=== PATIENT | male | born 1960 | race Caucasian/White ===

== ENCOUNTER 2018-10-22 06:27 | Inpatient (IN) | payer BC, OTHER ==
[~2018-10-22 06:27] MED LIST: Buffered Lidocaine 1% SYRIN* 1 ML/SYRINGE INTRADERM ONE
--- OUTSIDE RECORDS SUMMARY | 2018-10-22 06:30 | XMS REPORT | Continuity of Care Document ---
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 Actinic keratosis Lobo Hdez MD Active Onset: 09/19/2016 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 Onset: 09/19/2016 Chronic laryngitis Lobo Hdez MD Active Family History Date Family Member(s) Observation Comments General Lung Cancer Mother Lung Cancer Social History Type Date Description Comments Sex Unknown Occupation [employer] Tobacco Use Start: Unknown Current Cigarette Smoker 1/2 Pack Daily x 25 yrs Tobacco Use Start: Unknown Never Smoked Cigars Tobacco Use Start: Unknown Never Smoked A Pipe Smokeless Tobacco Never Used Smokeless Tobacco ETOH Use Denies alcohol use Allergies, Adverse Reactions, Alerts Description No Known Drug Allergies Medications Medication Date Status Form Strength Qnty SIG Indications Ordering Provider Ciprofloxacin 10/14/ Active Tablets 500mg 20tab take one J37.0 Ruparelia, HCL 2019 s tablet by Lobo PRIETO mouth twice a day for 10 days Voriconazole 10/14/ Active Tablets 200mg 10tab 1 tablet J37.0 Ruparelia , 2019 s by mouth Lobo PRIETO daily 10 days Nystatin 10/14/ Active Suspension [id number] 180ml 10 mill By Vianey37.0 Ketty2018 t/ML mouth Lobo PRIETO every 4 hours Fluticasone 05/13/ Active Suspension 50mcg/Act 16uni Use 2 Ruparelia, Propionate 2017 ts Sprays In Lobo PRIETO Each Nostril Every Day Lyrica / Active Capsules 300mg 2x day Childres 0000 Mraio PRIETO Verapamil HCL / Active Tablets 120mg as Childres 0000 directed Mario PRIETO Omeprazole / Active Capsules DR 40mg 120ca Take 1 Ruparelia, ps Capsule By Lobo PRIETO Mouth Before Breakfast And Before Dinner Trazodone / Active Brandt 0000 Mario PRIETO Citalopram / Active Tablets 20mg 1 by mouth Brandt Hydrobromide 0000 every day Mario PRIETO Melatonin / Active Capsules [facility] , every at Mario Winters bedtime Breo Ellipta / Active Aerosol 200-25mcg Inl 1 puff Unknown 0000 /Inh PO qd Budesonide / Active Suspension 0.5mg/2ML Inhale 1 Unknown 0000 [address] Neb bid Ipratropium / Active Solution 0.02% Nikki, [place] 0000 Magalie Doxycycline / Hx 100 mg x2 Childres 0000 - day , 10/13/ Mario Winters 2019 Immunizations Description No Information Available Vital Signs Date Vital Result Comment 10/14/2018 11:22am Weight 166.00 lb Weight 75.298 kg Height 72 inches 6'0" Height in cm's 182.9 cm BMI (Body Mass Index) 22.5 kg/m2 09/19/2016 11:08am Weight 185.00 lb Weight 83.916 kg Height 72 inches 6'0" Height in cm's 182.9 cm BMI (Body Mass Index) 25.1 kg/m2 Results Description No Information Available Procedures Date Code Description Status 10/14/2018 21364 Fiberoptic Laryngoscopy Completed 09/19/2016 12583 Fiberoptic Laryngoscopy Completed 09/19/2016 12919 Destruction First Lesion Completed Encounters Type Date Location Provider Dx Diagnosis Office Visit 10/14/2018 Sudarshan Bolton Ashu J37.0 Chronic laryngitis 11:15a 08/10/07 J38.3 Other diseases of vocal cords D38.0 Neoplasm of uncertain behavior of larynx Plan of Treatment Future Appointment(s):10/22/2018 8:30 am - Lobo Hdez MD at [place],After - Lobo Hdez MDJ37.0 Chronic laryngitisNew Medication: Ciprofloxacin HCL 500 mg - take one tablet by mouth twice a day for 10 daysVoriconazole 200 mg - 1 tablet by mouth daily 10 daysNystatin 171807 Unit/ ML - 10 mill By mouth every 4 apemtC34.3 Other diseases of vocal fyxdsT32.0 Neoplasm of uncertain behavior of larynxComments:I am going to treat the patient with oral antibiotics, oral antifungal, nystatin swishes and swallow. Patient is scheduled for examination under anesthesia microlaryngoscopy biopsy and possible CO2 laser and cultures of the larynx. If I am not able to improve his airway he may require a tracheostomy.
--- OUTSIDE RECORDS SUMMARY | 2018-10-22 06:30 | XMS REPORT | Continuity of Care Document ---
:1960 Author Organization [facility] Care Team Providers Name Role Phone TERRANCE SCHROEDER Primary Care Physician Allergies and Intolerances No Known Allergies Medications RxNorm Medication Dose Route Instructions Start End Status Date Date Albuterol HFA Inhaler 2 puff Inhalation inhaled every 6 Active 90 mcg/actuation hours as needed. (as needed for shortness of breath or wheezing) 824280 Azithromycin 250 MG 250 mg oral orally every 24 Active Oral Tablet hours (500 mg x 1 day, then 250 mg x 4 days) Chantix Oral 0.5 mg oral orally every day Active (3 days) (has not started) 252062 Citalopram 20 MG Oral 20 mg oral orally every day Active Tablet methylPREDNISolone 1 pkg oral orally per Active package directions 444338 Omeprazole 20 MG 40 mg oral orally 2 times Active Delayed Release Oral per day Tablet 699165 pregabalin 300 MG Oral 300 oral orally 2 times Active Capsule per day ( administer at approximately the same time(s) each day;) 869201 Trazodone 100 mg oral orally every day Active Hydrochloride 100 MG at bedtime Oral Tablet Verapamil Oral 24 hr 360 mg oral orally every day Active Tab at bedtime ( swallow whole; do not crush, chew, break, dissolve, or cut) Problems Code Code System Problem Name Start Date End Date Status 06432495 SNOMED-CT Headache U Active 508774720 SNOMED-CT Gastroesophageal reflux disease U Active 931305196 SNOMED-CT Inflammatory disease of liver U Active 35399610 SNOMED-CT Hypertensive disorder U Active 38033995 SNOMED-CT Nicotine dependence U Active 74968874 SNOMED-CT Chronic laryngitis U Active 09462312 SNOMED-CT Varicella U Active Procedures Code Code System Procedure Date 08648228 SNOMED CT Hernia repair U Results Reference Laboratory Results Order: QUANTIFERON-TB GOLD [SO] Specimen Source: Body Site: LOINC Code Test Result Flag Range Units Date 1QuantiFERON Incubation 10/12/2018 Incubation performed. 11:48:00 AM 8251-1 1Service comment Comment 10/12/2018 11:48:00 AM Note: The QuantiFERON-TB Gold Plus result is determined by subtracting the Nil value from either TB antigen (Ag) tube. The mitogen tube serves as a control for the test. 78737-8 1Mycobacterium tuberculosis 0.07 IU/mL 10/12/2018 11:48:00 AM sti 76528-6 1Mycobacterium tuberculosis 0.06 IU/mL 10/12/2018 11:48:00 AM sti 79624-2 1Gamma interferon background 0.07 IU/mL 10/12/2018 11:48:00 AM 40472-1 1Mitogen stimulated gamma >10.00 IU/mL 10/12/2018 11:48:00 AM inter 27791-3 1Mycobacterium tuberculosis Negative Negative 10/12/2018 11:48: 00 AM sti Performing Lab Footnotes:[facility] - [address] [place], [place] [id number] GUSTAVO Leonard REYES1 Social History Code Code System Social History Description Dates Observed Observation 405099494423492 SNOMED CT Current Smoking Current some day Status smoker UNK AdministrativeGender Sex Assigned At Unknown Vital Signs No data in the system Goals Section No data in the system Health Concerns No data in the systemEncounter Diagnosis Date Code Code System Diagnosis Status R76.11 ICD10 NONSPEC RXN TUBERCULN TEST W/O TB Active Advance Directives *RHIO - CONSENT IS YES Directive Type Effective Date Relief Mate Notes Supporting Document Name Address Phone No Directive Type 05/14/2015 Not Specified Not Specified Not Specified None No specified 11:32:05 AM PT STATES NO ADVANCE DIRECTIVES Directive Type Effective Date Relief Mate Notes Supporting Document Name Address Phone No Directive Type 09/22/2017 9:30:00 Not Specified Not Specified Not Specified None No specified AM Family History Relationship: Mother () Health Problem Age At Onset Notes [place] - Lung cancer (Malignant tumor of lung) 58 Years Functional Status No data in the system Immunizations Vaccine Code Code System Vaccine Name Date Status UTD Completed Medical Equipment No data in the system Mental Status No data in the system Assessment and Plan Assessments No data in the systemPlan Of Treatment No data in the systemPending Tests No data in the system Hospital Discharge Instructions No data in the system Reason for Visit No data in the system
--- OUTSIDE RECORDS SUMMARY | 2018-10-22 06:31 | XMS REPORT | Continuity of Care Document ---
:1960 External Reference #:[id number] Author Name Mario Carlton M.D. Address [address] [place] [address], [address] [place] [address] Care Team Providers Name Role Phone Mario Carlton M.D. 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 Mario Delvalle Group Name: Groin, Low Back [address] [address] PayID: [place] [id number] Effective: 2013 Pay[facility]: [facility] Mario Delvalle Onset: 2013 [address] [address] [place] [address] Onset: 2014 Policy Number: [id number] [facility] Mario Delvalle Group Number: [id number] [address] [address] Group Name: [place] [address] PayID: [facility] Advance Directives Description No Information Available Problems Date Description Provider Status Onset: 08/04/2013 Abdominal pain Mario Carlton M.D. Active Onset: 08/04/2013 Headache Mario Carlton M.D. Active Onset: 08/04/2013 Hepatitis C carrier Mario Carlton M.D. Active Onset: 08/04/2013 Peptic reflux disease Mario Carlton M.D. Active Onset: 03/06/2014 Benign essential hypertension Mario Carlton M.D. Active Onset: 03/06/2014 Mixed hyperlipidemia Mario Carlton M.D. Active Onset: 07/28/2014 Tobacco user Mario Carlton M.D. Active Onset: 01/12/2015 Generalized abdominal pain Mario Carlton M.D. Active Onset: 11/13/2016 Chronic hepatitis C Mario Carlton M.D. Active Onset: 11/13/2016 Other chronic pancreatitis Mario Carlton M.D. Active Onset: 02/13/2017 Narcotic drug user Sara Peraza NP Active Onset: 02/13/2017 Essential hypertension Sara Peraza NP Active Onset: 06/17/2018 Migraine without aura, not Mario Carlton M.D. Active refractory Onset: 06/17/2018 Chronic laryngitis Mario Carlton M.D. Active Onset: 06/17/2018 Benign prostatic hypertrophy Mario Carlton M.D. Active without outflow obstruction Onset: 06/17/2018 Impotence of organic origin Mario Carlton M.D. Active Onset: 06/17/2018 Major depressive disorder, single Mario Carlton M.D. Active episode, unspecified Onset: 09/06/2018 Panacinar emphysema Mario Carlton M.D. Active Onset: 09/06/2018 Chronic obstructive pulmonary Mario Carlton M.D. 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 Denies recent exposure to TB. Due for PPD Occupation Medically Retired Tobacco Use Start: Unknown Current Cigarette Smoker 1 Pack Daily Tobacco Use Start: Unknown Patient is a current smoker, smokes every day Smoking Status Reviewed: 09/22/18 Patient is a current smoker, smokes every day Allergies, Adverse Reactions, Alerts Description No Known Drug Allergies Medications Medication Date Status Form Strength Qnty SIG Indications Ordering Provider Prednisone 09/22 Active Tablets 20mg qs 3 tabs po J44.1 daily x3 J. days then 2 Childres, tabs po M.D. daily x3 days then 1 tab po daily x3 days then 1/2 tab po qd for 3 days then d/c Doxycycline 09/22 Active Capsules 100mg 14cap 1 by mouth J44.1 Mario Monohydr s twice a day Jeremy Carlton M.D. Azithromycin 09/16 Active Tablets 250mg 6tabs take two tablets by JKevin mouth at [facility], once on the M.D. first day then take one daily thereafter Breo Ellipta 09/06 Active Aerosol 200-25mcg 60uni inhale one J44.1 /Inh ts puff by J. mouth once Childres, daily M.D. Prednisone 09/06 Active Tablets 20mg qs 3 tabs for J44.1 one dose J. then 2 tabs Childres, po daily x3 M.D. days then 1 tab po daily x3 days then 1/2 tab po qd for 3 days then d/c Citalopram 06/17 Active Tablets 40mg 90tab 1 by mouth F32.9 Mario Hydrobromide s every day Jeremy Carlton M.D. Lyrica 06/11 Active Capsules 300mg 60cap take 1 s capsule by J. mouth twice Childres, daily. ref M.D. # [id number] Verapamil HCL ER 12/04 Active Caps ER 360mg 90cap Take 1 R51 24HR s Capsule By J. Mouth Every Childres, Day M.D. Trazodone HCL 04/05 Active Tablets 100mg 180ta Take 2 bs Tablets By J. Mouth Every Childres, Night as M.D. Needed For Insomnia. Maximum Daily Dose Is 2 Tablets. Omeprazole Active Capsules 40mg 1 by mouth Unknown /0000 DR twice a day Botox Active Injection injection Unknown /0000 every 90 days around head for migraines Chantix Starting 09/21 Hx Tablets 0.5mg X 1tabs as Directed Mario 11 & 1 mg For The J. - X 42 Starting [facility], 06/17 Pack M.D. Pantoprazole 02/[address] 40mg 60tab 1 by mouth Sara Bates s bid Stu Garcia , ROYA 06/17 Azithromycin 09/10 Hx Tablets 250mg 6tabs take two J20.8 tablets by J. - mouth at [facility], 11/13 once on the . first day then take one daily thereafter Tramadol HCL 12/04 Hx Tablets 50mg 60tab take one K86.1 s tablet by Cara, - mouth every R.N., 09/09 6 hours as A.N.P. needed max daily dose is 4 tablets Pantoprazole 08/[address] 40mg 90tab 1 by mouth Mario Sodium /2015 s every day Jeremy Carlton, 12/04.D. Citalopram 08/14 Hx Tablets 20mg 90tab 1 By Mouth F32.9 Mario Hydrobromide s Every Day Jeremy Carlton, 06/17.D Omeprazole 07/20 Hx Capsules 40mg 180ca [address] tanner twice a day Jeremy Carlton, 08/14.D Carafate 07/20 Hx Tablets 1gm 180ta 1g by mouth R10.10 bs 4 times J. - daily [facility], 12/04.D Chlordiazepoxide 04/05 Hx Capsules 5-2.5mg 1 by mouth Mario HCL/Clidinium three times J. [place] - a day as [facility], 12/04 needed .D Pantoprazole 04/[address] 40mg 90tab 1 by mouth 789.09 Mario Sodium s every day Jeremy Carlton, 07/20.D Cholestyramine 01/12 Hx Powder 4GM/Dose 378un 1 packet by its mouth 4 J. - times a day [facility], 04/05 dissolved . in fluid..stop when stools thicken Dicyclomine HCL 12/26 Hx Tablets 20mg 180ta one tab PO bs tid Jeremy Carlton, 03/06.D. Senna Lax 08/04 Hx Tablets 8.6mg 180ta 2 tabs 789.09 bs nightly Jeremy Carlton, 12/26.D. Colace 08/04 Hx Capsules 100mg 90cap 1 by mouth 789.09 s twice a day JKevin - Childmax, 12/26 M.D. Lactulose 08/04 Hx Solution 20GM/30ML 30uni 30cc po 789.09 ts qday prn J. - abdominal Childres, 12/26 pain M.D. Fentanyl 08/04 Hx Patches 25mcg/HR 20uni two 72HR ts patches td J. - q3days Childres, 09/06 M.D. Zantac 150 02/04 Hx Tablets 150mg 30tab 1 po hs 530.11 Giuseppe Maximum Strength bridget Garcia M.D. 06/02 Trazodone HCL 10/29 Hx Tablets 50mg 30tab 1 PO QHS Joel Radha Castañeda R.NKevin, 08/04 A.N.P. Citalopram 10/29 Hx Tablets 10mg 180ta Take 2 311 bromide bs Tablets By JKevin - Mouth Every Childres, 08/14 Day M.D. Lyrica 08/26 Hx Capsules 50mg 30cap 1 po qd prn 783.21 bridget Garcia M.D. 10/29 Pantoprazole 08/[address] 40mg 30tab 1 po qd 041.86 Giuseppe Sodium bridget Garcia M.D. 02/04 Dexilant 07/09 Hx Capsules 60mg 21cap 1 po qd 530.[address] bridget Garcia M.D. 08/12 Tetracycline HCL 06/15 Hx Capsules 500mg 56cap 1 PO qid by 041.86 Giuseppe bridget Garcia M.D. 06/15 Metronidazole 06/15 Hx Tablets 250mg 56tab 1 PO qid by Toney.Mojgan Chin bridget Garcia M.D. 07/09 Cimetidine 06/15 Hx Tablets 400mg 28tab 1 PO bid 041.86 Giuseppe bridget Garcia M.D. 08/12 Doxycycline 06/15 Hx Tablets 100mg 28tab 1 po bid Giuseppe Hyclate s for 14 days Janet Garcia M.D. 07/09 Lyrica 01/14 Hx Capsules 100mg 1 po qd Janet Garcia M.D. 08/12 Fentanyl 01/14 Hx Patches 100mcg/HR 10uni 3 patches 72HR ts top q3 days Janet Garcia M.D. 07/09 Omeprazole 01/14 Hx Capsules 20mg 60cap 1 po bid 789.06 Radha Solis R.N.,A.N. 04/07 P. Z-Ishan 08/26 Hx Tablets 250mg 6tabs as directed Radha Marroquin R.N.,A.N. 11/02 P. Lortab 08/22 Hx Tablets 5mg;500 60tab 1-2 po q6h 784.0 mg s prn Radha Marroquin R.N.,A.N. 11/02 P. Cipro 07/23 Hx Tablets 250mg 10tab 1 po bid 382.00 bridget Garcia M.D. 08/22 Darvocet N-100 07/23 Hx Tablets 100mg 30tab 1 po q 4hrs 382.00 bridget as needed Janet Garcia for pain Katheryn 11/02 Zithromax Z-Ishan Hx Tablets 250mg 6tabs uad Unknown / - 08/22 Paxil Hx Tablets 30mg 30tab 1 PO qd Unknown / s - 09/09 Trazodone Hx Tablets 150mg 30tab 1/2 PO qd / s - 10/29 Lyrica Hx Capsules 200mg 1 PO bid Janet Garcia M.D. 01/14 Verapamil Hx Tablets 240mg 30tab 1 PO qd bridget Garcia M.D. 09/09 Avinza Hx Capsules 30mg 1 po tid Janet Garcia M.D. 01/14 Glycolax Hx Tablets 30tab 1 po qd Giuseppe / s Janet Garcia M.D. 01/14 Multivitamins 00/ Hx Caplets 1 PO qd Giuseppe / Janet Garcia M.D. 01/14 Famotidine 00/00 Hx Tablets 20mg 30tab 1 po bid Unknown / s - 08/12 Dicyclomine HCL 00/00 Hx Capsules 10mg 90cap 1 po tid Unknown / s prn - 08/12 Fentanyl 00/00 Hx Patches 100mcg/HR 10uni 1 patch top Unknown / 72HR ts q3 days - 09/06 Fentanyl 00/00 Hx Patches 50mcg/HR 10uni 1 patch Unknown / 72HR ts topically - q72h 06/02 Fentanyl 00/00 Hx Patches 75mcg/HR 1 patch Unknown /0000 72HR topically - q72h 08/04 Omeprazole 00/ Hx Capsules 40mg 30cap 1 po qd 530.11 Unknown / s - 08/04 Namenda 00/ Hx Tablets 10mg 60tab 1 po bid Unknown / s - 12/26 Trazodone HCL 00/ Hx Tablets 100mg 90tab 1 tab by Mario /0000 s mouth every J. - night at [facility], 04/05 bedtime M.DKevin Tramadol HCL 00/00 Hx Tablets 50mg 60tab 1 po q6hr Unknown / s prn - 12/26 Carisoprodol 00/ Hx Tablets 350mg 50tab 1 po q6h Unknown /0000 s prn - 12/26 Fluconazole 00/ Hx Tablets 100mg 1tabs 1 po qd Unknown /0000 - 03/06 Dicyclomine HCL 00/00 Hx Capsules 10mg 120ca 1 po tid Unknown /0000 ps - 12/26 Verapamil HCL ER 00/ Hx Caps ER 240mg 90cap 1 by mouth Unknown /0000 24HR s every day - 12/04 Verapamil HCL 00/00 Hx Tablets 40mg 30tab 1 by mouth Unknown /0000 s twice a day - With The 12/04 240MG /2015 Creon 00/ Hx Caps [id number] 1 cap by Strong /0000 Part mouth [facility] 11/13 after meals Omeprazole Hx Capsules 40mg 1 by mouth Chelle, /0000 twice a day Radha Blanchard M.D. 02/13 Viagra Hx Tablets 100mg take Unknown /0000 one-half - (2) to 1 04/28 tablet one hour before intercourse as directed Cialis Hx Tablets 20mg 1/2 - 1 tab Unknown /0000 by mouth - prn 06/17 Medications Administered in Office Medication Date Status Form Strength Qnty SIG Indications Ordering Provider Admin Of Administered Injection Injection/B Vaccine,One 018 P Schedule Vaccine Admin Of Administered Injection Injection/B Vaccine,One 015 P Schedule Vaccine Immunizations CPT Code Status Date Vaccine Lot # [id number] Given 06/17/2018 Tdap, adacel vaccine [facility] [place] 22761-702-66 .[id number] Given 03/29/2018 Afluria, 0.5mL Flu Vaccine [id number] Given 07/20/2015 Fluvirin 0.5 ML,[facility] [place] [id number] Vital Signs Date Vital Result Comment 09/22/2018 3:32pm Weight 164.12 lb Height 72 inches 6'0" BP Systolic 124 mmHg BP Diastolic 80 mmHg Heart Rate 76 /min Respiratory Rate 18 /min BMI (Body Mass Index) 22.3 kg/m2 09/06/2018 10:46am Weight 171.00 lb Height 72 inches 6'0" BP Systolic 140 mmHg BP Diastolic 90 mmHg Body Temperature 97.5 F Heart Rate 76 /min Respiratory Rate 20 /min BMI (Body Mass Index) 23.2 kg/m2 06/17/2018 9:42am Weight 175.00 lb Height 72 inches 6'0" BP Systolic 120 mmHg BP Diastolic 90 mmHg Heart Rate 72 /min Respiratory Rate 18 /min BMI (Body Mass Index) 23.7 kg/m2 04/23/2018 9:26am Weight 180.00 lb Height 72 inches 6'0" BP Systolic 126 mmHg BP Diastolic 88 mmHg Body Temperature 96.9 F Heart Rate 76 /min Respiratory Rate 18 /min BMI (Body Mass Index) 24.4 kg/m2 09/21/2017 9:45am Weight 180.00 lb Height 72 inches 6'0" BP Systolic 120 mmHg BP Diastolic 70 mmHg Heart Rate 72 /min Respiratory Rate 18 /min BMI (Body Mass Index) 24.4 kg/m2 02/13/2017 2:59pm Weight 179.00 lb Height 72 inches 6'0" BP Systolic 140 mmHg BP Diastolic 80 mmHg Heart Rate 74 /min Respiratory Rate 18 /min BMI (Body Mass Index) 24.3 kg/m2 11/13/2016 4:21pm Weight 179.00 lb Height 72 inches 6'0" BP Systolic 124 mmHg BP Diastolic 80 mmHg Heart Rate 78 /min BMI (Body Mass Index) 24.3 kg/m2 09/10/2016 9:16am Weight 180.00 lb Height 72 inches 6'0" BP Systolic 130 mmHg BP Diastolic 76 mmHg Heart Rate 74 /min Respiratory Rate 18 /min BMI (Body Mass Index) 24.4 kg/m2 12/05/2015 1:53pm Weight 155.00 lb Height 72 inches 6'0" BP Systolic 150 mmHg BP Diastolic 100 mmHg Body Temperature 98.2 F Heart Rate 84 /min Respiratory Rate 20 /min BMI (Body Mass Index) 21.0 kg/m2 Pain Level 10 08/14/2015 4:21pm Weight 150.00 lb Height 72 inches 6'0" BP Systolic 140 mmHg BP Diastolic 90 mmHg Heart Rate 86 /min Respiratory Rate 18 /min BMI (Body Mass Index) 20.3 kg/m2 07/20/2015 3:06pm Weight 150.00 lb Height 72 inches 6'0" BP Systolic 150 mmHg BP Diastolic 90 mmHg Body Temperature 97.9 F Heart Rate 90 /min Respiratory Rate 18 /min BMI (Body Mass Index) 20.3 kg/m2 04/05/2015 1:06pm Weight 149.00 lb Height 72 inches 6'0" BP Systolic 138 mmHg BP Diastolic 90 mmHg Heart Rate 78 /min Respiratory Rate 18 /min BMI (Body Mass Index) 20.2 kg/m2 01/12/2015 11:11am Weight 147.00 lb Height 72 inches 6'0" BP Systolic 120 mmHg BP Diastolic 86 mmHg Body Temperature 98.0 F Heart Rate 87 /min O2 % BldC Oximetry 97 % Respiratory Rate 16 /min BMI (Body Mass Index) 19.9 kg/m2 07/28/2014 9:04am Weight 153.00 lb Height 72 inches 6'0" BP Systolic 118 mmHg BP Diastolic 80 mmHg Heart Rate 70 /min BMI (Body Mass Index) 20.7 kg/m2 03/06/2014 3:15pm Weight 153.00 lb Height 72 inches 6'0" BP Systolic 142 mmHg BP Diastolic 80 mmHg Heart Rate 78 /min BMI (Body Mass Index) 20.7 kg/m2 12/26/2013 1:54pm Weight 144.00 lb Height 72 inches 6'0" BP Systolic 128 mmHg BP Diastolic 82 mmHg Body Temperature 98.9 F Heart Rate 84 /min BMI (Body Mass Index) 19.5 kg/m2 09/06/2013 3:21pm Weight 142.00 lb Height 72 inches 6'0" BP Systolic 126 mmHg BP Diastolic 74 mmHg Heart Rate 80 /min BMI (Body Mass Index) 19.3 kg/m2 08/04/2013 8:47am Weight 149.00 lb Height 72 inches 6'0" BP Systolic 124 mmHg BP Diastolic 90 mmHg Heart Rate 84 /min BMI (Body Mass Index) 20.2 kg/m2 06/02/2013 3:26pm Weight 144.00 lb Height 72 inches 6'0" BP Systolic 146 mmHg BP Diastolic 86 mmHg Heart Rate 80 /min BMI (Body Mass Index) 19.5 kg/m2 02/23/2013 1:39pm Weight 138.00 lb BP Systolic 140 mmHg BP Diastolic 96 mmHg Body Temperature 98.9 F Heart Rate 66 /min 02/04/2013 1:49pm Weight 133.00 lb BP Systolic 120 mmHg BP Diastolic 88 mmHg Body Temperature 98.8 F Heart Rate 74 /min O2 % BldC Oximetry 98 % 10/29/2012 1:38pm Weight 136.00 lb Height 72 inches 6'0" BP Systolic 120 mmHg BP Diastolic 90 mmHg Heart Rate 88 /min BMI (Body Mass Index) 18.4 kg/m2 10/05/2012 3:26pm Weight 138.00 lb Height 72 inches 6'0" BP Systolic 142 mmHg BP Diastolic 90 mmHg Heart Rate 80 /min BMI (Body Mass Index) 18.7 kg/m2 08/26/2012 3:32pm Weight 138.00 lb Height 72 inches 6'0" BP Systolic 112 mmHg BP Diastolic 90 mmHg Heart Rate 80 /min BMI (Body Mass Index) 18.7 kg/m2 08/12/2012 3:23pm Weight 135.00 lb Height 72 inches 6'0" BP Systolic 122 mmHg BP Diastolic 96 mmHg Heart Rate 92 /min BMI (Body Mass Index) 18.3 kg/m2 07/09/2012 2:51pm Weight 147.00 lb Height 72 inches 6'0" BP Systolic 112 mmHg BP Diastolic 76 mmHg Heart Rate 88 /min BMI (Body Mass Index) 19.9 kg/m2 06/15/2012 3:02pm Weight 145.00 lb Height 72 inches 6'0" BP Systolic 150 mmHg BP Diastolic 94 mmHg Body Temperature 98.1 F Heart Rate 80 /min O2 % BldC Oximetry 97 % BMI (Body Mass Index) 19.7 kg/m2 04/07/2012 3:45pm Weight 157.00 lb Height 72 inches 6'0" BP Systolic 130 mmHg BP Diastolic 90 mmHg Heart Rate 76 /min BMI (Body Mass Index) 21.3 kg/m2 02/17/2012 3:26pm Weight 157.00 lb Height 72 inches 6'0" BP Systolic 130 mmHg BP Diastolic 84 mmHg Heart Rate 80 /min BMI (Body Mass Index) 21.3 kg/m2 01/27/2012 4:07pm Weight 161.00 lb Height 72 inches 6'0" BP Systolic 120 mmHg BP Diastolic 82 mmHg Heart Rate 88 /min BMI (Body Mass Index) 21.8 kg/m2 01/20/2012 10:16am Weight 164.00 lb Height 72 inches 6'0" BP Systolic 110 mmHg BP Diastolic 78 mmHg Heart Rate 80 /min BMI (Body Mass Index) 22.2 kg/m2 01/15/2012 3:31pm Weight 167.00 lb BP Systolic 140 mmHg BP Diastolic 100 mmHg Body Temperature 98.0 F Heart Rate 78 /min 08/27/2009 10:30am Weight 189.00 lb BP Systolic 130 mmHg BP Diastolic 80 mmHg Heart Rate 76 /min 09/09/2007 3:12pm Weight 155.00 lb Height 72 inches 6'0" BP Systolic 130 mmHg BP Diastolic 90 mmHg Heart Rate 84 /min BMI (Body Mass Index) 21.0 kg/m2 01/13/2007 1:49pm Weight 167.00 lb BP Systolic 150 mmHg BP Diastolic 84 mmHg Heart Rate 72 /min 11/23/2006 10:50am Weight 175.00 lb BP Systolic 140 mmHg BP Diastolic 100 mmHg BP Systolic Recheck 120 mmHg BP Diastolic Recheck 90 mmHg Heart Rate 84 /min 11/02/2006 11:01am Weight 174.00 lb BP Systolic 130 mmHg BP Diastolic 100 mmHg Heart Rate 84 /min 08/22/2004 11:07am BP Systolic 140 mmHg BP Diastolic 90 mmHg 07/23/2004 3:36pm BP Systolic 136 mmHg BP Diastolic 94 mmHg Body Temperature 98.3 F Heart Rate 74 /min Results Test Date Facility Test Result H/L Range Note Comp. Metabolic 06/17/2018 [facility] Glucose 95.1 mg/dL 65 -[address] [place] [phone] BUN 16.4 mg/dL 7-21 Co2 27.2 mmol/L 22-30 Sodium 140 mmol/L 137-145 Potassium 4.0 mmol/L 3.6-5.2 Chloride 103 mmol/L 98-110 Calcium 9.6 mg/dL 9-10.5 Creatinine 0.87 mg/dL 0.52-1.25 eGFR (Male) >60 1 Total Protein 7.04 g/dL 6.3-8.2 Albumin 4.04 g/dL 3.3-4.50 Sgot (Ast) 89.0 U/L High 5-40 Alk Phosphatase 57.0 U/L 38-126 Total Bilirubin 0.57 mg/dL 0.2-1.3 SGPT (Alt) 109.0 U/L High 7-56 Anion Gap (Calc) 9.8 7-16 BUN/Crea Ratio 18.9 Ratio 7-25 Globulin (Calc) 3.00 g/dL 2.3-3.5 A/G Ratio (Calc) 1.3 Ratio 1.1-2.2 Lipid Studies 06/17/2018 [facility] Triglycerides 70 mg/dL 0-[address] [place] [phone] Cholesterol 170 mg/dL 120-200 HDL Cholesterol 58.0 mg/dL 40-60 VLDL (Calc.) 14 mg/dL <31 Cholesterol/HDL 2.93 Ratio <5.00 LDL (Calc.) 98 mg/dL 0-99 2 CBC 06/17/2018 [facility] WBC 8.9 10^3/uL 4.8-10.[address] [phone] RBC 4.86 10^6/uL 4.2-6.1 HGB 15.2 g/dL 12.0-18.0 HCT 46.1 % 37-52 MCV 94.8 fL 80.0-99.9 MCH 31.3 pg 26.0-32.0 MCHC 33.0 g/dL 31.0-36.0 RDW 12.70 % 11.0-15.0 MPV 7.9 fL 7.4-10.4 Platelets 169 10^3/uL 130-400 Auto Diff 06/17/2018 [facility] Lymphocytes % 27.10 % 20.5- 51.[address] [phone] Monocytes % 8.70 % 1.7-9.3 Granulocyte % 64.2 % 42.2-75.2 Lymphocytes # 2.4 10^3/uL 0.6-4.1 Monocytes # 0.8 10^3/uL 0.0-1.8 Granulocyte # 5.7 10^3/uL 2.0-7.8 Lipid Studies 02/13/2017 [facility] Triglycerides 122 mg/dL 0-[address] [place] [address] [phone] Cholesterol 158 mg/dL 120-200 HDL Cholesterol 44.0 mg/dL 40-60 VLDL (Calc.) 24 mg/dL <31 Cholesterol/HDL 3.59 Ratio <5.00 LDL (Calc.) 90 mg/dL 0-99 3 Laboratory test 02/13/2017 [facility] TSH 1.82 uIU/mL 0.5- 6.[address] [place] [address] [phone] %A1c 5.0 % 4.8-6.0 CBC 02/13/2017 [facility] WBC 9.9 10^3/uL 4.8-10.[address] [place] [phone] RBC 4.55 10^6/uL 4.2-6.1 HGB 14.7 g/dL 12.0-18.0 HCT 43.5 % 37-52 MCV 95.7 fL 80.0-99.9 MCH 32.3 pg High 26.0-32.0 MCHC 33.8 g/dL 31.0-36.0 RDW 12.30 % 11.0-15.0 MPV 7.6 fL 7.4-10.4 Platelets 253 10^3/uL 130-400 Comp. Metabolic 02/13/2017 [facility] Glucose 91.4 mg/dL 65 -[address] [phone] BUN 19.6 mg/dL 7-21 Co2 24.6 mmol/L 22-30 Sodium 142 mmol/L 137-145 Potassium 4.0 mmol/L 3.6-5.2 Chloride 107 mmol/L 98-110 Calcium 9.0 mg/dL 9-10.5 Creatinine 0.93 mg/dL 0.52-1.25 eGFR (Male) >60 4 Total Protein 6.83 g/dL 6.3-8.2 Albumin 3.82 g/dL 3.3-4.50 Sgot (Ast) 16.0 U/L 5-40 Alk Phosphatase 67.0 U/L 38-126 Total Bilirubin 0.23 mg/dL 0.2-1.3 SGPT (Alt) 18.0 U/L 7-56 Anion Gap (Calc) 10.4 7-16 BUN/Crea Ratio 21.1 Ratio 7-25 Globulin (Calc) 3.01 g/dL 2.3-3.5 A/G Ratio (Calc) 1.3 Ratio 1.1-2.2 Auto Diff 02/13/2017 [facility] Lymphocytes % 36.10 % 20.5- 51.[address] [phone] Monocytes % 8.80 % 1.7-9.3 Granulocyte % 55.1 % 42.2-75.2 Lymphocytes # 3.6 10^3/uL 0.6-4.1 Monocytes # 0.9 10^3/uL 0.0-1.8 Granulocyte # 5.5 10^3/uL 2.0-7.8 Lyme AB With 09/10/2016 [facility] Lyme IgG/IgM <0.91 ISR 0.00-0.90 [address] [place] [address] [place] [address] [phone] Laboratory test 12/05/2015 [facility] Amylase 43 U/L 25- [address] [place] [phone] Lipase 122 U/L 73-390 Laboratory test 12/05/2015 [facility] eGFR (Male) 106 >59 6 finding [address] [phone] CBC 12/05/2015 [facility] WBC 11.3 High 4.8-10.[address] [place] [address] 310 10^3/uL [place], [place] [phone] RBC 4.57 10^6/uL 4.2-6.1 HGB 15.8 g/dL 12.0-18.0 HCT 44.4 % 37-52 MCV 97.1 fL 80.0-99.9 MCH 34.6 pg High 26.0-32.0 MCHC 35.6 g/dL 31.0-36.0 RDW 11.20 % 11.0-15.0 MPV 7.3 fL Low 7.4-10.4 Platelets 231 10^3/uL 130-400 Comp. Metabolic 12/05/2015 [facility] Glucose 96.9 mg/dL 65 -[address] [place] [phone] BUN 10.8 mg/dL 7-21 Co2 28.1 mmol/L 22-30 Sodium 142 mmol/L 137-145 Potassium 4.4 mmol/L 3.6-5.2 Chloride 102 mmol/L 98-110 Calcium 9.6 mg/dL 9-10.5 Creatinine 0.81 mg/dL 0.52-1.25 Total Protein 7.03 g/dL 6.3-8.2 Albumin 4.33 g/dL 3.3-4.50 Sgot (Ast) 23.0 U/L 5-40 Alk Phosphatase 50.0 U/L 38-126 Total Bilirubin 0.50 mg/dL 0.2-1.3 SGPT (Alt) 41.0 U/L 7-56 Anion Gap (Calc) 11.9 7-16 BUN/Crea Ratio 13.3 Ratio 7-25 Globulin (Calc) 2.70 g/dL 2.3-3.5 A/G Ratio (Calc) 1.6 Ratio 1.1-2.2 Auto Diff 12/05/2015 [facility] Lymphocytes % 26.30 % 20.5- 51.[address] [place] [phone] Monocytes % 5.50 % 1.7-9.3 Granulocyte % 68.2 % 42.2-75.2 Lymphocytes # 3.0 10^3/uL 0.6-4.1 Monocytes # 0.6 10^3/uL 0.0-1.8 Granulocyte # 7.7 10^3/uL 2.0-7.8 Comp. Metabolic 07/28/2014 [facility] Glucose 90.5 mg/dL 65 -[address] [address] [phone] BUN 13.1 mg/dL 7-21 Co2 26.2 mmol/L 22-30 Sodium 141 mmol/L 137-145 Potassium 4.3 mmol/L 3.6-5.2 Chloride 103 mmol/L 98-110 Calcium 9.5 mg/dL 9-10.5 Creatinine 0.86 mg/dL 0.52-1.25 Total Protein 6.95 g/dL 6.3-8.2 Albumin 4.10 g/dL 3.3-4.50 Sgot (Ast) 13.0 U/L 5-40 Alk Phosphatase 64.0 U/L 38-126 Total Bilirubin 0.33 mg/dL 0.2-1.3 SGPT (Alt) 10.0 U/L 7-56 Anion Gap (Calc) 11.8 7-16 BUN/Crea Ratio 15.2 Ratio 7-25 Globulin (Calc) 2.85 g/dL 2.3-3.5 A/G Ratio (Calc) 1.4 Ratio 1.1-2.2 Lipid Studies 07/28/2014 [facility] Triglycerides 49 mg/dL 0-[address] [address] [phone] Cholesterol 163 mg/dL 120-200 HDL Cholesterol 45.0 mg/dL 40-60 VLDL (Calc.) 10 mg/dL <31 Cholesterol/HDL 3.62 Ratio <5.00 LDL (Calc.) 108 mg/dL High 0-99 7 Laboratory test 07/28/2014 [facility] TSH 1.36 uIU/mL 0.5- 6.0 finding [address] [address] [phone] eGFR (Male) 99 >59 8 Creatinine 02/22/2013 [facility] Creatinine 0.7 mg/dL 0.6- 1.3 Clearance Urine 17 [place] [address] [phone] Urine Volume 2325 mL High 500-1,600 Ur Creatinine 65.2 mg/dL 24HR Urine Creatinin 1516 mg/24hr 600-2,500 Creatinine Clearance 150.4 mL/min High 97.0-137.0 Laboratory test 02/22/2013 [facility] 24HR Creatinine < pending> finding 17 [facility] [place] [address] [phone] Comp. Metabolic 02/04/2013 [facility] Glucose 91.1 mg/dL 65 -[address] [address] [phone] BUN 10.3 mg/dL 7-21 Co2 30.5 mEq/L High 22-30 Sodium 142 mEq/L 137-145 Potassium 4.5 mEq/L 3.6-5.0 Chloride 102 mEq/L 98-107 Calcium 9.4 mg/dL 9-10.5 Creatinine 0.80 mg/dL 0.52-1.25 Total Protein 6.70 g/dL 6.3-8.2 Albumin 4.04 g/dL 3.3-4.50 Sgot (Ast) 16.0 IU/L 5-40 Alk Phosphatase 53.0 IU/L 38-126 Total Bilirubin 0.37 mg/dL 0.2-1.3 SGPT (Alt) 9.0 IU/L 7-56 Anion Gap (Calc) 9.5 7-16 BUN/Crea Ratio 12.9 Ratio 7-25 Globulin (Calc) 2.66 g/dL 2.3-3.5 A/G Ratio (Calc) 1.5 Ratio 1.1-2.2 HCV Rna Quant 02/04/2013 [facility] HCV Rna Quant <1.6 logIU 9 PCR 17 [facility] [place] [address] [phone] HCVPCP <43 IU/mL HCV Rna Quant Inter Not Detected 10 Err HCV Quant RT PCR See Note 11 Laboratory test 02/04/2013 [facility] eGFR (Male) 108 >59 12 finding [address] [address] [phone] Comp. Metabolic 08/12/2012 [facility] Glucose 98.1 mg/dL 65 -[address] [address] [phone] BUN 9.8 mg/dL 7-21 Co2 28.0 mEq/L 22-30 Sodium 140 mEq/L 137-145 Potassium 4.2 mEq/L 3.6-5.0 Chloride 103 mEq/L 98-107 Calcium 9.7 mg/dL 9-10.5 Creatinine 0.87 mg/dL 0.52-1.25 Total Protein 6.61 g/dL 6.3-8.2 Albumin 4.34 g/dL 3.3-4.50 Sgot (Ast) 16.0 IU/L 5-40 Alk Phosphatase 46.0 IU/L 38-126 Total Bilirubin 0.60 mg/dL 0.2-1.3 SGPT (Alt) 7.0 IU/L 7-56 Anion Gap (Calc) 9.0 7-16 BUN/Crea Ratio 11.3 Ratio 7-25 Globulin (Calc) 2.27 g/dL Low 2.3-3.5 A/G Ratio (Calc) 1.9 Ratio 1.1-2.2 CBC 08/12/2012 [facility] WBC 7.8 10^3/uL 4.8-10.[address] [address] [phone] RBC 4.68 10^6/uL 4.2-6.1 HGB 14.5 g/dL 12.0-18.0 HCT 43.2 % 37-52 MCV 92.4 fL 80.0-99.0 MCH 31.0 pg 27.0-31.0 MCHC 33.6 g/dL 33.0-37.0 RDW 12.60 % 11.0-15.0 MPV 8.1 fL 7.4-10.4 Platelets 175 10^3/uL 130-400 Laboratory test 08/12/2012 [facility] TSH 1.34 uIU/mL 0.5- 6.0 finding [address] [address] [phone] eGFR (Male) 99 >59 13 Lipid Studies 02/03/2012 [facility] Triglycerides 94 mg/dL 0-[address] [address] [phone] Cholesterol 199 mg/dL 120-200 HDL Cholesterol 33.0 mg/dL Low 40-60 VLDL (Calc.) 19 mg/dL <31 Cholesterol/HDL 6.03 Ratio High <5.00 LDL (Calc.) 147 mg/dL High 0-99 14 HCV Rna Quant 02/03/2012 [facility] HCV Rna Quant <1.6 logIU 15 PCR 17 [facility] [place] [address] [phone] HCVPCP <43 IU/mL HCV Rna Quant Inter Not Detected 16 Err HCV Quant RT PCR See Note 17 CBC 01/20/2012 [facility] WBC 8.2 10^3/uL 4.8-10.[address] [place] [phone] RBC 4.88 10^6/uL 4.2-6.1 HGB 14.7 g/dL 12.0-18.0 HCT 44.2 % 37-52 MCV 90.4 fL 80.0-99.0 MCH 30.2 pg 27.0-31.0 MCHC 33.4 g/dL 33.0-37.0 RDW 12.70 % 11.0-15.0 MPV 8.1 fL 7.4-10.4 Platelets 205 10^3/uL 130-400 CBC 01/15/2012 [facility] WBC 13.2 10^3/uL High 4.8-10.[address] [place] [phone] RBC 5.08 10^6/uL 4.2-6.1 HGB 15.1 g/dL 12.0-18.0 HCT 45.9 % 37-52 MCV 90.4 fL 80.0-99.0 MCH 29.7 pg 27.0-31.0 MCHC 32.9 g/dL Low 33.0-37.0 RDW 13.10 % 11.0-15.0 MPV 8.4 fL 7.4-10.4 Platelets 216 10^3/uL 130-400 Comp. Metabolic 01/15/2012 [facility] Glucose 119.1 mg/dL High 65-[address] [place] [address] [phone] BUN 11.8 mg/dL 7-21 Co2 28.2 mEq/L 22-30 Sodium 140 mEq/L 137-145 Potassium 4.1 mEq/L 3.6-5.0 Chloride 102 mEq/L 98-107 Calcium 9.2 mg/dL 9-10.5 Creatinine 0.82 mg/dL 0.52-1.25 Total Protein 7.01 g/dL 6.3-8.2 Albumin 4.07 g/dL 3.3-4.50 Sgot (Ast) 14.0 IU/L 5-40 Alk Phosphatase 53.0 IU/L 38-126 Total Bilirubin 0.56 mg/dL 0.2-1.3 SGPT (Alt) 11.0 IU/L 7-56 Anion Gap (Calc) 9.8 7-16 BUN/Crea Ratio 14.4 Ratio 7-25 Globulin (Calc) 2.94 g/dL 2.3-3.5 A/G Ratio (Calc) 1.4 Ratio 1.1-2.2 Laboratory test 01/15/2012 [facility] TSH 1.25 uIU/mL 0.5- 6.0 finding [address] [phone] eGFR (Male) 106 >59 18 Laboratory test 01/15/2012 [facility] Lymphocytes % 29.00 % 20.5-51.1 finding [address] [address] [phone] Monocytes % 3.00 % 1.7-9.3 Granulocyte % 68.0 % 42.2-75.2 Lymphocytes # 3.8 10^9/L High 1.2-3.4 Monocytes # 0.4 10^9/L 0.1-0.5 Granulocyte # 9.0 /mm^3 High 1.4-5.5 Laboratory test finding 01/15/2012 [facility] Amylase 32 U/L 25-[address] [place] [phone] Lipase 95 U/L 73-390 Comprehensive 08/22/2004 [facility] Glucose 99 mg/dL 61.0 - 110.0 Metabolic [phone] BUN 25 mg/dL High 5.0 - 21.0 Creatinine, Serum 1.1 mg/dL 0.6 - 1.5 Sodium 139 mmol/L 136.0 - 146.0 Potassium 4.3 mmol/L 3.5 - 5.3 Chloride 105 mmol/L 98.0 - 107.0 Carbon Dioxide 29 mmol/L 20.0 - 32.0 Albumin 4.4 g/dL 3.5 - 4.7 Protein, Total 7.0 g/dL 6.4 - 8.2 Calcium 9.2 mg/dL 8.4 - 10.6 Alkaline Phosphatase 57 U/L 10.0 - 118.0 Sgot (Ast) 22 U/L 3.0 - 30.0 SGPT (Alt) 20 U/L 7.0 - 40.0 Bilirubin, Total 0.20 mg/dL Low 0.3 - 1.2 CBC 08/22/2004 [facility] WBC 5.2 x10*3 4.3 - 10.9 [phone] RBC 4.09 x10*6 Low 4.2 - 5.6 Hemoglobin 13.4 g/dL 13.0 - 17.0 Hematocrit 39.5 % 39.0 - 50.0 MCV 96.6 fl 82.0 - 98.0 MCH 32.7 pg 27.5 - 33.5 MCHC 33.8 g/dL 32.0 - 36.0 RDW 15.2 % High 11.5 - 14.5 Platelet Count 176 x10*3 130.0 - 400.0 MPV 8.3 fl 6.5 - 10.5 Segmented Neutrophils 52.0 % 44.0 - 74.0 Lymphocytes 37.1 % 15.0 - 45.0 Monocytes 8.4 % 2.0 - 13.0 Eosinophils 1.9 % 0.0 - 6.0 Basophils 0.6 % 0.0 - 2.0 Neutrophil Absolute 2.7 x10*3 1.4 - 7.0 Lymphocytes Absolute 1.9 x10*3 1.0 - 3.4 Monocyte Absolute 0.4 x10*3 0.2 - 1.0 Eosinophil Absolute 0.1 x10*3 0.0 - 0.5 Basophil Absolute 0.0 x10*3 0.0 - 0.2 Anisocytosis 1+ AB Laboratory test finding 08/22/2004 [facility] GFR (Calculated) > 60 19 [phone] 1 For Patients, multiply result by 1.159 Units expressed as mL/min/1.73m^2 Normal Range is > or=to 60. 2 LDL(Calc.) invalid if triglycerides >400. 3 LDL(Calc.) invalid if triglycerides >400. 4 For Patients, multiply result by 1.159 Units expressed as mL/min/1.73m^2 Normal Range is > or=to 60. 5 Negative <0.91 Equivocal 0.91 - 1.09 Positive >1.09 6 Units expressed as mL/min/1.73m^2 7 LDL(Calc.) invalid if triglycerides >400. 8 Units expressed as mL/min/1.73m^2 9 INTERPRETIVE INFORMATION: Hepatitis C Virus RNA Quantitative Real-Time PCR(log IU/mL) The quantitative range of this assay is 1.6 - 7.8 log IU/mL (43- 69,000,000 IU/mL). The limit of detection (LOD) of this assay for all genotypes is 18 IU/mL (1.2 log IU/mL). The limit of detection (LOD) of this assay for genotype I is 7.1 IU/mL (0.85 log IU/mL). These LOD values do not apply to diluted specimens. An interpretation of "Not Detected" does not rule out the presence of PCR inhibitors in the patient specimen or hepatitis C virus RNA concentrations below the level of detection of the test. Care should be taken when interpreting any single viral load determination. This test should not be used for blood donor screening, associated re-entry protocols, or for screening Human Cell, Tissues and Cellular Tissue-Based Products (HCT/P). 10 Reference range: Not Detected 11 To download an enhanced report for this test go to: [email or web address] [email or web address] Performed by [facility], [address] [place] [id number] www.[email or web address] Edis Aleoj MD, Lab. Director Unless otherwise specified, testing performed by [facility] [address] [address] Tobacco Classer: Dr. Isidro Miranda. 12 Units expressed as mL/min/1.73m^2 13 Units expressed as mL/min/1.73m^2 14 LDL(Calc.) invalid if triglycerides >400. 15 INTERPRETIVE INFORMATION: Hepatitis C Virus RNA Quantitative Real-Time PCR(log IU/mL) The quantitative range of this assay is 1.6 - 7.8 log IU/mL (43- 69,000,000 IU/mL). The limit of detection (LOD) of this assay for all genotypes is 18 IU/mL (1.2 log IU/mL). The limit of detection (LOD) of this assay for genotype I is 7.1 IU/mL (0.85 log IU/mL). These LOD values do not apply to diluted specimens. An interpretation of "Not Detected" does not rule out the presence of PCR inhibitors in the patient specimen or hepatitis C virus RNA concentrations below the level of detection of the test. Care should be taken when interpreting any single viral load determination. This test should not be used for blood donor screening, associated re-entry protocols, or for screening Human Cell, Tissues and Cellular Tissue-Based Products (HCT/P). 16 Reference range: Not Detected 17 To download an enhanced report for this test go to: [email or web address] [email or web address] [email or web address] Performed by [facility], [address] [place] [address] www.[email or web address] Iraida Renee MD, Lab. Director 18 Units expressed as mL/min/1.73m^2 19 . Normal Function or Mild Renal Disease, if clinically at risk: >or=60 Moderately decreased: 30 - 59 Severely decreased: 15 - 29 Renal Failure: <15 . Please note that the MDRD equation requires an additional adjustment for -Americans (multiply the GFR result by 1.210). . Glomerular Filtration Rate (GFR) is estimated based on the MDRD equation, which assumes a steady state for creatinine (Diane Int Med 139/2 137-149, 2003), as recommended by the National Kidney Disease Education Program in conjunction with the National Institutes of Health and the National Kidney Foundation. . Clinical conditions in which it may be necessary to measure GFR by using clearance methods include extremes of age and body size, severe malnutrition or obesity, diseases of skeletal muscle, paraplegia or quadriplegia, vegetarian diet, rapidly changing kidney function, and calculation of the dose of potentially toxic drugs that are excreted by the kidneys. . Procedures Date Code Description Status 11/13/2016 94146 EKG - In Office Completed 12/25/2015 04087 EKG - In Office Completed 07/28/2014 23039 EKG - In Office Completed 09/13/2013 12498 EKG - In Office Completed 03/09/2012 [id number] Colonoscopy Completed 08/27/2009 33132 EKG - In Office Completed Encounters Type Date Location Provider Dx Diagnosis Office Visit 09/22/2018 Main Office Mario Luna J44.1 Chronic obstructive 3:30p Katheryn Carlton pulmonary disease w (acute) exacerbation Office Visit 09/06/2018 Main Office Mario Luna J44.1 Chronic obstructive 10:30a Katheryn Carlton pulmonary disease w (acute) exacerbation F17.218 Nicotine dependence, cigarettes, w oth disorders J43.1 Panlobular emphysema Office Visit 06/17/2018 9:45a Main Office Mario Luna Z00.00 Encntr ciarra Carlton M.D. general adult medical exam w/o abnormal findings I10 Essential (primary) hypertension F32.9 Major depressive disorder, single episode, unspecified G43.009 Migraine w/o aura, not intractable, w/o status migrainosus B18.2 Chronic viral hepatitis C K86.1 Other chronic pancreatitis J37.0 Chronic laryngitis N40.0 Benign prostatic hyperplasia without lower urinry tract symp N52.9 Male erectile dysfunction, unspecified Office Visit 04/23/2018 9:20a Main Office BUNNY Kasper R05 Cough J30.9 Allergic rhinitis, unspecified Office Visit 09/21/2017 9:45a Main Office Mario Carlton, R07.89 Other chest M.D. pain F17.210 Nicotine dependence, cigarettes, uncomplicated Office Visit 02/13/2017 3:00p Main Office Sara Williamson Z00.00 Encntr for ROYA Peraza general adult medical exam w/o abnormal findings R10.10 Upper abdominal pain, unspecified K86.1 Other chronic pancreatitis J38.7 Other diseases of larynx B18.2 Chronic viral hepatitis C I10 Essential (primary) hypertension E78.2 Mixed hyperlipidemia F17.210 Nicotine dependence, cigarettes, uncomplicated N52.9 Male erectile dysfunction, unspecified E29.1 Testicular hypofunction Office Visit 11/13/2016 4:15p Main Office Mario Luna Z01.810 Encounter for Katheryn Carlton preprocedural cardiovascular examination J38.7 Other diseases of larynx I10 Essential (primary) hypertension K86.1 Other chronic pancreatitis R51 Headache B18.2 Chronic viral hepatitis C Office Visit 09/10/2016 9:15a Main Office Mario Luna S40.861A Insect bite Katheryn Carlton (nonvenomous) of right upper arm, init encntr J20.8 Acute bronchitis due to other specified organisms Office Visit 12/05/2015 2:00p Main Office Joel Marroquin, K86.1 Other chronic R.N., A.N.P. pancreatitis Office Visit 08/14/2015 4:15p Main Office Mario Luna R10.10 Upper abdominal Katheryn Carlton pain, unspecified R51 Headache J30.9 Allergic rhinitis, unspecified Office Visit 07/20/2015 3:15p Main Office Mario Luna R10.10 Upper abdominal Katheryn Carlton pain, unspecified Office Visit 04/05/2015 1:15p Main Office Mario Luna 789.09 Pain Abdominal Katheryn Carlton Other Spec Site Office Visit 01/12/2015 11:15a Main Office Mario Luna V72.84 Examination Katheryn Carlton Preoperative Unspec V72.83 Examination Preoperative Other Spec 789.07 Pain Abdominal Generalized 784.0 Headache 719.46 Pain Joint Lower Leg Office Visit 07/28/2014 9:00a Main Office Mario Luna 401.1 Hypertension Benign Katheryn Carlton 272.2 Hyperlipidemia Mixed 305.1 Tobacco Use Disorder Office Visit 03/06/2014 3:15p Main Office Mario Luna 401.1 Hypertension Benign Katheryn Carlton 272.2 Hyperlipidemia Mixed 784.0 Headache 305.1 Tobacco Use Disorder Office Visit 12/26/2013 1:45p Main Office Mario Luna 789.09 Pain Abdominal Katheryn Carlton Other Spec Site Office Visit 09/06/2013 3:15p Main Office Mario Luna 789.09 Pain Abdominal Katheryn Carlton Other Spec Site 784.0 Headache Office Visit 08/04/2013 8:30a Main Office Mario Luna 789.09 Pain Abdominal Katheryn Carlton Other Spec Site 784.0 Headache V02.62 Hepatitis C Carrier 530.11 Esophagitis Reflux Office Visit 06/02/2013 3:15p Main Office Puja Dean 682.2 Cellulitis & Katheryn Pabon Abscess Trunk Office Visit 02/23/2013 1:30p Main Office Giuseppe 783.21 Loss Of Weight Katheryn Gonzales 784.0 Headache V02.62 Hepatitis C Carrier Office Visit 02/04/2013 1:30p Main Office Giuseppe Gonzales M.D. 784.0 Headache 530.11 Esophagitis Reflux 783.21 Loss Of Weight 311 Depressive Disorder Not Elsewhere Spec V02.62 Hepatitis C Carrier Office Visit 10/29/2012 1:30p Main Office Giuseppe Gonzales M.D. 783.21 Loss Of Weight 784.0 Headache 530.11 Esophagitis Reflux 311 Depressive Disorder Not Elsewhere Spec Office Visit 10/05/2012 3:15p Main Office Giuseppe Gonzales M.D. 783.21 Loss Of Weight 530.11 Esophagitis Reflux 784.0 Headache Office Visit 08/26/2012 3:15p Main Office Giuseppe Gonzales M.D. 783.21 Loss Of Weight 530.11 Esophagitis Reflux 784.0 Headache Office Visit 08/12/2012 3:15p Main Office Giuseppe Gonzales M.D. 783.21 Loss Of Weight 784.0 Headache 530.11 Esophagitis Reflux 041.86 Helicobacter Pylori [H.Pylori] Office Visit 07/09/2012 Main Office Giuseppe Gonzales M.D. 530.11 Esophagitis 2:45p Reflux Office Visit 06/15/2012 Main Office Giuseppe Gonzales M.D. 530.11 Esophagitis 3:00p Reflux 041.86 Helicobacter Pylori [H.Pylori] Office Visit 04/07/2012 3:30p Main Office Giuseppe Gonzales M.D. 783.21 Loss Of Weight 784.0 Headache 786.50 Pain Chest Unspec Office Visit 02/17/2012 3:15p Main Office Giuseppe Gonzales M.D. 783.21 Loss Of Weight 535.00 Gastritis Acute W/O Hemorrhage Office Visit 01/27/2012 4:00p Main Office Giuseppe Gonzales M.D. 783.21 Loss Of Weight 784.0 Headache V02.62 Hepatitis C Carrier 795.51 Nonspec Reaction To Tuberculin Skin Test W/O Active TB V70.0 Examination General Medical Routine AT Health Care Facility Office Visit 01/20/2012 10:00a Main Office Giuseppe Gonzales M.D. 789.06 Pain Abdominal Epigastric Office Visit 01/15/2012 3:30p Main Office Giuseppe Gonzales M.D. 783.21 Loss Of Weight 789.06 Pain Abdominal Epigastric Office Visit 08/27/2009 10:30a Main Office Giuseppe Gonzales M.D. 784.0 Headache V02.62 Hepatitis C Carrier 723.1 Cervicalgia 550.90 Hernia Inguinal W/O Obstruct Or Gangrene Unilateral Unspec V72.84 Examination Preoperative Unspec Office Visit 01/13/2007 1:40p Main Office Joel Marroquin R.N.,A.N.P. 724.2 Lumbago 719.45 Pain Joint Pelvic Region & Thigh Office Visit 11/23/2006 10:40a Main Office Joel Marroquin, 308.9 Stress Reaction R.N.,A.N.P. Unspec Acute Office Visit 11/02/2006 10:45a Main Office Giuseppe Gonzales M.D. 308.9 Stress Reaction Unspec Acute 308.9 Stress Reaction Unspec Acute Office Visit 08/22/2004 11:00a Main Office Joel Marroquin R.N.,A.N.P. 784.0 Headache 789.09 Pain Abdominal Other Spec Site 780.8 Generalized Hyperhidrosis Office Visit 07/23/2004 Main Office Giuseppe Gonzales M.D. 382.00 Otitis Media 3:45p Suppurative Acute Plan of Treatment Future Appointment(s):12/24/2018 9:30 am - Mario Carlton M.D. at [facility]/22/2018 - Mario Carlotn M.D.J44.1 Chronic obstructive pulmonary disease with (acute) exacerbatNew Medication:Prednisone 20 mg - 3 tabs po daily x3 days then 2 tabs po daily x3 days then 1 tab po daily x3 days then 1/2 tab po qd for 3 days then d/cDoxycycline Monohydrate 100 mg - 1 by mouth twice a dayReferral:Magalie Jordan MD, Pulmonary MedicineFollow up:as scheduled
--- OUTSIDE RECORDS SUMMARY | 2018-10-22 06:31 | XMS REPORT | Continuity of Care Document ---
:1960 External Reference #:[id number] Author Name Juan R Hdez MD Address [address] [place] [address] [address] [place] [address] Care Team Providers Name Role Phone Mario Wilhelm M.D. Care Team Information Associate Attorney Unavailable Mario Carlton MD Primary Care Physician Unavailable Payers Date Identification Numbers Payment Provider Subscriber Policy Number: [id number] [facility] Mario Tijerina Adelia PayID: [id number] [address] [place] [address] Onset: 2009 Policy Number: [id number] [facility] Mario Delvalle PayID: [id number] [address] [address] [place] [address] Advance Directives Description No Information Available Problems Date Description Provider Status Onset: 10/01/2018 Viral hepatitis C Magalie Jordan MD [facility] Active Onset: 10/01/2018 Chronic obstructive lung disease Magalie Jordan MD [facility] Active Onset: 04/13/2018 Deviated nasal septum Juan R Hdez MD Active Onset: 01/05/2018 Chronic sinusitis Juan R Hdez MD Active Onset: 06/12/2015 Otorrhea Juan R Hdez MD Active Onset: 06/12/2015 Lymphadenopathy Juan R Hdez MD Active Onset: 10/24/2014 Difficulty speaking Juan R Hdez MD Active Onset: 10/24/2014 Chronic laryngitis Juan R Hdez MD Active Onset: 10/24/2014 Disorder of the larynx Juan R Hdez MD Active Onset: 01/23/2014 Refractory migraine without aura Cathy Pierce M.D. Active Onset: 09/12/2013 Headache Cathy Pierce M.D. 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 Tobacco Use Start: Unknown Current Cigarette Smoker 1 Pack Daily Smokeless Tobacco Never Used Smokeless Tobacco ETOH Use Occasionally consumes alcohol Recreational Drug Use Denies Drug Use Tobacco Use Start: Unknown Patient is a current smoker, smokes every day Allergies, Adverse Reactions, Alerts Description No Known Drug Allergies Medications Medication Date Status Form Strength Qnty SIG Indications Ordering Provider Budesonide 10/01 Active Suspension 0.5mg/2ML 120ml 1 unit J44.9 Magalie dose via MD Nikki nebulizer FCCP two times daily Ipratropium 10/01 Active Solution 0.02% 150ml 1 unit J44.9 Magalie Ashley dose with MD Nikki budesonid FCCP e am and bedtime may use ipratropi um alone at lunch and dinner as needed Budesonide 10/01 Active Suspension 0.5mg/2ML 2ml 1 unit Magalie dose MD [facility] Ipr[facility] 10/01 Active Solution 0.02% 2.5ml 1 unit Magalie Ashley MD iNkki FCCP Prednisone 04/13 Active Tablets 20mg 10tab 20 mg J37.0 Juan R s once a H. day x10 [place], days Flonase Allergy 04/21 Active Suspension 50mcg/Act 1unit 2 puffs J38.7 [facility] s both H. sides [place], once a MD day Verapamil HCL ER 09/13 Active Caps ER 360mg 90cap 1 tab by Cathy /2014 24HR s mouth Desiree every day Katheryn fonteont Omeprazole 07/[address] 40mg 120ca 1 by Juan R ps mouth H. before [place], meals breakfast before dinner Citalopram 00 Active Tablets 20mg 30tab 1 po qd Unknown Hydrobromide / s Trazodone HCL 00/00 Active Tablets 100mg 30tab q hs prn Unknown / s Lyrica Active Capsules 300mg 1 tab bid Unknown Breo Ellipta Active Aerosol 200-25mcg 1 puff by Unknown / /Inh mouth daily Amoxicillin 07/20 Hx Tablets 875mg 30tab One J38.7 s tablet H. - twice a [facility], 10/01 day by mouth Levofloxacin 06/22 Hx Tablets 750mg 14tab One 750 J37.0 s mg tablet H. - daily [facility], 10/01 times 14 days Fluconazole 05/11 Hx Tablets 200mg 14tab 1 by s mouth H. - every day [facility], 10/01 Itraconazole 05/04 Hx Capsules 100mg 35cap 100 mg J37.0 s p.o. H. - b.i.d. x1 [facility], 10/01 week 100 mg p.o. once a day x3 week Ciprofloxacin HCL 04/13 Hx Tablets 500mg 30tab 500 mg J37.0 s twice a H. - day by [facility], 10/01 mouth. Fluconazole 03/09 Hx Tablets 200mg 14tab One J37.0 s tablet H. - daily [facility], 10/01 Hydrocodone-Aceta 09/22 Hx Tablets 5-325mg 20tab 1 or 2 Juan R s tabs by H. - mouth [facility], 10/01 every 4 hours as needed Fluconazole 07/14 Hx Tablets 200mg 14tab 1 by J38.7 s [facility] - [facility] days Fluconazole 02/17 Hx Tablets 150mg 14tab 1 tab by J37.0 s mouth H. - every day [facility], 10/01 [place] 12/02 Hx Tablets 5-325mg 42tab 1-2 by s mouth q.6 H. - h. as [facility], 12/08 needed Diflucan 10/08 Hx Tablets 200mg 15tab 1 tab by Juan R s mouth H. - [facility], 02/18 Zithromax 06/12 Hx Tablets 500mg 5tabs 500 mg by R59.0 Juan R mouth H. - once a [place], 02/18 day x5 days [place] 01/23 Hx Tablets 5-325mg 20tab 1-2 by Juan R s mouth q.6 H. - h. as [facility], 10/28 needed Diflucan 10/26 Hx Tablets 100mg 14tab 1 tab by Juan R s mouth H. - every day [facility], 01/09 [id number] Chlordiazepoxide 07/24 Hx Capsules 5-2.5mg 90cap take one HCL/Clgeorge s capsule Sarah, Ashley - by mouth M.D. 10/01 times a day as needed Diflucan 06/13 Hx Tablets 100mg 14tab 1 tab by Juan R s mouth H. - every day [facility], 08/23 [id number] Phazyme 05/08 Hx Capsules 180mg 90cap 1 capsule s tid francisco Smith, - M.D. 12/08 Cholestyramine 04/19 Hx Packet 4gm 60uni Dissolve 787.91 ts 2 Packets Sarah, - In Glass M.D. 12/08 Of And Take By Mouth Every Day Verapamil HCL ER 03/07 Hx Caps ER 300mg 30cap 1 Tab By Cathy 24HR s Mouth [place] - Every i, M.D. 09/13 Diflucan 12/21 Hx Tablets 100mg 14tab 1 tab po Juan R s qd H. - [id number] Ket[place], 01/31 Dicyclomine HCL 12/14 Hx Capsules 10mg 60cap by mouth 789.07 s twice a Sarah, - day M.D. 12/08 Divalproex Sodium 11/28 Hx Tablets ER 500mg 60tab 1 tablet 784.0 Cathy 24HR s po qHS x [place] - 1 week. i, M.D. 12/26 headaches persist, increase to 2 tablets po qHS. Verapamil HCL SR 11/28 Hx Caps ER 240mg 30cap 1 tab by 784.0 24HR s mouth at [place] - bedtime i, M.D. 03/07 Pantoprazole 11/[address] 40mg 60tab 1 po qd s lilliana Smith, - breakfast M.D. 11/28 ac dinner Verapamil HCL 11/07 Hx Tablets 40mg 60tab 1 tab by 784.0 s mouth [place] - twice a i, M.D. Verapamil HCL 10/17 Hx Tablets 80mg 90tab 1 tab by 784.0 s mouth [place] - three i, M.D. 11/28 times day as per instructi ons Verapamil HCL 10/03 Hx Tablets 40mg 60tab 1 tab by 784.0 s mouth [place] - twice a i, M.D. Dexilant 04/[address] 60mg 60cap 1 po qd 789.07 s lilliana Smith, - breakfast M.D. 09/19 Dexilant /[address] 60mg 60cap 1 po qd 789.07 s lilliana Smith, - breakfast M.D. 04/04 Citalopram 04/28 Hx Tablets 40mg 30tab 1 tablet 311 Kee Hydrobromide s po daily MD Art - 03/11 Nortriptyline HCL 12/26 Hx Capsules 25mg 30cap 1 cap po 346.13 Kee s qhs MD Art - 03/18 Lyrica 12/05 Hx Capsules 200mg 30cap 1 tablet 346.13 s po qhs MD Art - 03/11 Citalopram 12/05 Hx Tablets 40mg 30tab 1 Tablet 311 Kee Hydrobromide s PO qd MD Art - 03/18 Mitali 12/05 Hx Caps ER 30mg 30cap 1 tablet 346.13 24HR s po qhs MD Art - 03/11 Trazodone HCL 12/05 Hx Tablets 150mg 30tab 1 Tablet 311 s PO QHS MD Art - 03/11 Fentanyl 12/05 Hx Patches 100mcg/HR 30uni 3 patches 346.13 72HR ts every 72 MD Art - hrs 09/19 Topiramate 11/19 Hx Tablets 25mg 60tab 1 po bid 346.13 s MD Art - 12/05 Mag-Ox 400 09/18 Hx Tablets 400mg 30tab 1 po qd 346.13 s MD Art - 10/17 Riboflavin 09/18 Hx Capsules 100mg 60cap 2 tab po 346.13 s qd MD Art - 11/19 Ibuprofen 07/19 Hx Tablets 800mg 28tab 1 tab po Elton Hyde s bid x 2 Josiahich - sam [place] 08/12 take with food Trazodone HCL Hx Tablets 150mg at hs Unknown /0000 - 12/05 Fentanyl Hx Patches 100mcg/HR 20uni 3 patches Unknown /0000 72HR ts to chest - wall 12/05 every hours. Mitali Hx Caps ER 80mg daily Unknown /0000 24HR - 12/05 Fentanyl 00/00 Hx Patches 50mcg/HR every 3 Unknown /0000 72HR days - 09/19 Zantac / Hx Tablets 150mg 60tab 1 po bid Unknown /0000 s - 09/19 Fentanyl 00/00 Hx Patches 100mcg/HR Unknown /0000 72HR - 09/19 Omeprazole 00/ Hx Capsules DR 20mg 30cap prn Unknown /0000 s - 10/03 Vitamin D 00/ Hx Capsules 1 po qd Unknown /0000 - 10/01 Omeprazole 00/[address] 40mg 30cap 40 mg Unknown /0000 s p.o. once - a day 12/14 Carafate Hx Tablets 1gm 120ta qid Unknown /0000 bs - 12/[address] 40mg 30tab 1 po qd Yosvany Sodium s lilliana Smith, - breakfast [id number] 12/26 Nortriptyline HCL Hx Capsules 25mg 1 capsule Unknown by mouth - every 12/08 night at bedtime Medications Administered in Office Medication Date Status Form Strength Qnty SIG Indications Ordering Provider Botox 12/13 Administered Injection Cathy Onabotulinumtoxin [place], 200 Unit Vial Katheryn capellan Botox 09/13 Administered Injection Cahty Onabotulinumtoxin [place], 200 Unit Vial Katheryn capellan Botox 06/08 Administered Injection Cathy Onabotulinumtoxin [place] A, 200 Unit Vial Katheryn capellan Botox 01/23 Administered Injection Cathy Onabotulinumtoxin [place] A, 200 Unit Vial Katheryn capellan Immunizations Description No Information Available Vital Signs Date Vital Result Comment 10/01/2018 1:19pm Weight 170.00 lb Weight 77.112 kg BMI (Body Mass Index) 23.1 kg/m2 BP Systolic 146 mmHg BP Diastolic 80 mmHg Heart Rate 74 /min Respiratory Rate 12 /min Height 72 inches 6'0" Height in cm's 182.9 cm O2 % BldC Oximetry 96 % Neck Circumference in inches 13.5 07/20/2018 1:55pm Weight 180.00 lb Weight 81.648 kg BMI (Body Mass Index) 24.4 kg/m2 BP Systolic 140 mmHg BP Diastolic 82 mmHg Height 72 inches 6'0" Height in cm's 182.9 cm 06/22/2018 1:38pm Weight 180.00 lb Weight 81.648 kg BMI (Body Mass Index) 24.4 kg/m2 BP Systolic 140 mmHg BP Diastolic 86 mmHg Height 72 inches 6'0" Height in cm's 182.9 cm 05/04/2018 3:12pm Weight 180.00 lb Weight 81.648 kg BMI (Body Mass Index) 24.4 kg/m2 BP Systolic 142 mmHg BP Diastolic 90 mmHg Height 72 inches 6'0" Height in cm's 182.9 cm 04/13/2018 9:18am Weight 180.00 lb Weight 81.648 kg BMI (Body Mass Index) 24.4 kg/m2 BP Systolic 142 mmHg BP Diastolic 88 mmHg Height 72 inches 6'0" Height in cm's 182.9 cm 03/09/2018 10:48am Weight 180.00 lb Weight 81.648 kg BMI (Body Mass Index) 24.4 kg/m2 BP Systolic 138 mmHg BP Diastolic 72 mmHg Height 72 inches 6'0" Height in cm's 182.9 cm 01/05/2018 10:15am Weight 180.00 lb Weight 81.648 kg BMI (Body Mass Index) 24.4 kg/m2 BP Systolic 140 mmHg BP Diastolic 82 mmHg Height 72 inches 6'0" Height in cm's 182.9 cm 10/20/2017 3:23pm Weight 180.00 lb Weight 81.648 kg BMI (Body Mass Index) 24.4 kg/m2 BP Systolic 138 mmHg BP Diastolic 90 mmHg Height 72 inches 6'0" Height in cm's 182.9 cm 08/18/2017 3:12pm Weight 180.00 lb Weight 81.648 kg BMI (Body Mass Index) 24.4 kg/m2 BP Systolic 128 mmHg BP Diastolic 80 mmHg Height 72 inches 6'0" Height in cm's 182.9 cm 04/21/2017 3:19pm Weight 180.00 lb Weight 81.648 kg BMI (Body Mass Index) 24.4 kg/m2 BP Systolic 132 mmHg BP Diastolic 76 mmHg Height 72 inches 6'0" Height in cm's 182.9 cm 02/17/2017 2:18pm BP Systolic 128 mmHg BP Diastolic 76 mmHg Heart Rate 88 /min O2 % BldC Oximetry 97 % 12/09/2016 1:08pm Weight 180.00 lb Weight 81.648 kg BP Systolic 130 mmHg BP Diastolic 80 mmHg Heart Rate 77 /min Respiratory Rate 20 /min O2 % BldC Oximetry 96 % 08/12/2016 3:23pm Weight 154.00 lb Weight 69.854 kg Heart Rate 74 /min Respiratory Rate 20 /min 03/18/2016 2:30pm BP Systolic 128 mmHg BP Diastolic 70 mmHg 01/22/2016 11:20am BP Systolic 146 mmHg BP Diastolic 76 mmHg 10/09/2015 10:35am BP Systolic 142 mmHg BP Diastolic 80 mmHg 09/04/2015 2:17pm BP Systolic 146 mmHg BP Diastolic 88 mmHg 07/31/2015 2:27pm BP Systolic 128 mmHg BP Diastolic 72 mmHg 06/19/2015 9:03am BP Systolic 134 mmHg BP Diastolic 70 mmHg 06/12/2015 1:12pm BP Systolic 132 mmHg BP Diastolic 70 mmHg 05/08/2015 11:34am BP Systolic 136 mmHg BP Diastolic 76 mmHg 03/27/2015 3:00pm BP Systolic 140 mmHg BP Diastolic 80 mmHg 01/30/2015 9:26am BP Systolic 130 mmHg BP Diastolic 80 mmHg 01/09/2015 3:04pm BP Systolic 138 mmHg BP Diastolic 92 mmHg 10/24/2014 3:04pm BP Systolic 122 mmHg BP Diastolic 70 mmHg 08/23/2014 2:54pm BP Systolic 122 mmHg BP Diastolic 74 mmHg 07/24/2014 3:05pm Weight 154.25 lb Weight 69.968 kg BP Systolic 110 mmHg BP Diastolic 80 mmHg Heart Rate 78 /min Respiratory Rate 16 /min 07/18/2014 11:10am BP Systolic 114 mmHg BP Diastolic 68 mmHg 04/19/2014 11:08am Weight 152.00 lb Weight 68.947 kg BP Systolic 132 mmHg BP Diastolic 90 mmHg Heart Rate 80 /min Respiratory Rate 16 /min 03/30/2014 11:02am BP Systolic 120 mmHg BP Diastolic 78 mmHg Heart Rate 85 /min 02/14/2014 10:00am BP Systolic 124 mmHg BP Diastolic 68 mmHg 01/31/2014 2:19pm BP Systolic 134 mmHg BP Diastolic 72 mmHg 12/26/2013 3:55pm BP Systolic 138 mmHg BP Diastolic 88 mmHg Heart Rate 75 /min 12/21/2013 11:12am Weight 150.00 lb Weight 68.040 kg BP Systolic 132 mmHg BP Diastolic 80 mmHg Heart Rate 78 /min Respiratory Rate 18 /min 12/14/2013 11:32am Weight 150.38 lb Weight 68.210 kg BP Systolic 104 mmHg BP Diastolic 80 mmHg Heart Rate 78 /min Respiratory Rate 16 /min 11/28/2013 11:30am BP Systolic 140 mmHg BP Diastolic 96 mmHg Heart Rate 78 /min 11/07/2013 8:27am BP Systolic 128 mmHg BP Diastolic 86 mmHg Heart Rate 80 /min 10/17/2013 9:42am BP Systolic 120 mmHg BP Diastolic 90 mmHg Heart Rate 73 /min 10/03/2013 10:32am BP Systolic Recheck 112 mmHg BP Diastolic Recheck 80 mmHg Heart Rate 84 /min 09/19/2013 10:07am Weight 147.12 lb Weight 66.736 kg BP Systolic 132 mmHg BP Diastolic 92 mmHg Heart Rate 100 /min Respiratory Rate 16 /min 09/12/2013 9:35am BP Systolic 142 mmHg BP Diastolic 82 mmHg Heart Rate 80 /min 05/18/2013 3:18pm Weight 144.50 lb Weight 65.545 kg BP Systolic 136 mmHg BP Diastolic 86 mmHg Heart Rate 84 /min Respiratory Rate 16 /min 04/04/2013 4:41pm Weight 140.12 lb Weight 63.561 kg BP Systolic 132 mmHg BP Diastolic 84 mmHg Heart Rate 80 /min Respiratory Rate 16 /min 03/14/2013 1:56pm Weight 139.12 lb Weight 63.107 kg BP Systolic 102 mmHg BP Diastolic 70 mmHg Heart Rate 68 /min Respiratory Rate 16 /min 03/11/2013 9:37am Weight 137.00 lb Weight 62.143 kg BMI (Body Mass Index) 18.6 kg/m2 BP Systolic 108 mmHg BP Diastolic 70 mmHg Heart Rate 68 /min Respiratory Rate 16 /min Height 72 inches 6'0" Height in cm's 182.9 cm 04/28/2011 4:22pm BP Systolic 132 mmHg BP Diastolic 82 mmHg Heart Rate 68 /min 03/18/2011 11:04am BP Systolic 130 mmHg BP Diastolic 90 mmHg Heart Rate 68 /min 12/26/2010 11:42am BP Systolic 130 mmHg BP Diastolic 72 mmHg 12/05/2010 10:06am BP Systolic 110 mmHg BP Diastolic 62 mmHg Heart Rate 64 /min 11/19/2010 10:05am Weight 185.00 lb Weight 83.916 kg BMI (Body Mass Index) 25.1 kg/m2 BP Systolic 138 mmHg BP Diastolic 78 mmHg Heart Rate 72 /min Respiratory Rate 20 /min Height 72 inches 6'0" Height in cm's 182.9 cm 09/18/2010 11:28am Weight 185.00 lb Weight 83.916 kg BMI (Body Mass Index) 25.1 kg/m2 BP Systolic 148 mmHg BP Diastolic 88 mmHg Heart Rate 68 /min Height 72 inches 6'0" Height in cm's 182.9 cm 08/13/2009 9:57am BP Systolic 132 mmHg BP Diastolic 90 mmHg Heart Rate 88 /min Respiratory Rate 16 /min 07/19/2009 10:41am Weight 190.00 lb Weight 86.184 kg BMI (Body Mass Index) 25.8 kg/m2 BP Systolic 132 mmHg BP Diastolic 86 mmHg Heart Rate 80 /min Respiratory Rate 16 /min Height 72 inches 6'0" Height in cm's 182.9 cm Results Test Date Facility Test Result H/L Range Note CBC W/No Diff 11/18/2016 Located Within [facility] ([facility]) WBC 8.8 K/uL 4.8-10.[address] [place] [address] [id number] [phone] RBC 5.04 M/uL 4.60-6.20 Hemoglobin 15.5 gm/dL 13.5-18.0 Hematocrit 47.0 % 41.0-53.0 MCV 93.3 fL 80.0-100.0 MCH 30.7 pg 27.0-34.0 MCHC 33.0 % 30.0-36.5 RDW 12.0 % 11.0-15.0 Platelet 183 K/uL 130-450 MPV 8.4 fL 6.0-12.0 Differential Manual 11/18/2016 Located Within [facility] ([facility]) Diff Type MANUAL DIFFERENT < SEE [address] [place] [address] NOTE> [place] [address] [phone] Neutrophil 54 % 37-80 Lymphocyte 38 % 10-50 Monocyte 7 % <=12 Eosinophil 1 % <=8 Basic Metabolic Panel 11/18/2016 Located Within [facility] ([facility]) Sodium 139 mmol/L 136- [address] [place] [phone] Potassium 4.2 mmol/L 3.5-5.2 Chloride 102 mmol/L 100-108 Co2 27 mmol/L 21-32 Glucose 76 mg/dL 70-100 BUN 17 mg/dL 7-21 Creatinine 0.9 mg/dL 0.6-1.3 2 Calcium 9.0 mg/dL 8.5-10.8 GFR >60 CBC W/Auto Differential 01/22/2015 [facility] WBC 9.9 K/uL 4.8- 10.8 [phone] RBC 4.48 M/uL Low 4.60-6.20 Hemoglobin 15.0 gm/dL 13.5-18.0 Hematocrit 43.3 % 41.0-53.0 MCV 96.5 fL 80.0-100.0 MCHC 34.7 % 30.0-36.5 MCH 33.5 pg 27.0-34.0 RDW 12.2 % 11.0-15.0 Platelet 261 K/uL 130-450 MPV 6.8 fL 6.0-12.0 NE% 62 % 37-80 Ly% 28 % 10-50 Mo% 8 % 0-12 Eo% 1 % <=8 Ba% 1 % <=3 NE# 6.1 K/uL 1.8-8.6 Lymph# 2.8 K/uL 0.5-5.0 Harnett# 0.8 K/uL 0.0-1.3 Eos# 0.1 K/uL 0.0-0.9 Baso# 0.1 K/ul 0.0-0.3 Basic Metabolic Panel 01/22/2015 [facility] Sodium 141 mmol/L 136-145 [phone] Potassium 3.8 mmol/L 3.6-5.2 Chloride 103 mmol/L 100-108 Co2 31 mmol/L 21-32 Glucose 96 mg/dL 70-110 3 BUN 12 mg/dL 7-21 Creatinine 0.7 mg/dL 0.6-1.3 4 Calcium 8.6 mg/dL 8.5-10.8 GFR >60 Fibrosure HCV 07/25/2014 [facility] Fibrosis Score 0.16 L 0.00- 0.21 [phone] Fibrosis Stage Comment L 5 Necroinflammat Activity Score 0.02 L 0.00-0.17 Necroinflammat Activity Grade A0-No activity L Alpha 2-Macroglobulins, QN 235 mg/dL 110-276 Haptoglobin 216 mg/dL High 34-200 Apolipoprotein A-1 129 mg/dL 110-180 Bilirubin, Total <0.2 mg/dL 0.0-1.2 GGT 32 IU/L 0-65 Alt (SGPT) P5P 11 IU/L 0-55 Interpretations: Comment L 6 Fibrosis Scoring: Comment L 7 Necroinflamm Activity Scoring: Comment L 8 Limintations: Comment L 9 Comment: Comment L 10 Laboratory test finding 06/28/2014 [facility] Amylase 56 U/L 25 -115 [phone] Lipase 214 U/L 73-390 CBC W/Auto Differential 06/28/2014 [facility] WBC 10.5 K/uL 4.8 -10.8 [phone] RBC 4.94 M/uL 4.60-6.20 Hemoglobin 15.1 gm/dL 13.5-18.0 Hematocrit 46.1 % 41.0-53.0 MCV 93.2 fL 80.0-100.0 MCHC 32.8 % 30.0-36.5 MCH 30.6 pg 27.0-34.0 RDW 11.1 % 11.0-15.0 Platelet 226 K/uL 130-450 MPV 7.4 fL 6.0-12.0 NE% 65 % 37-80 Ly% 27 % 10-50 Mo% 7 % 0-12 Eo% 1 % <=8 Ba% 1 % <=3 NE# 6.8 K/uL 1.8-8.6 Lymph# 2.8 K/uL 0.5-5.0 Harnett# 0.7 K/uL 0.0-1.3 Eos# 0.1 K/uL 0.0-0.9 Baso# 0.1 K/ul 0.0-0.3 Hepatic Funct Panel 06/28/2014 [facility] T Protein 7.3 gm/dL 6.4-8.2 [phone] Albumin 4.5 gm/dL 3.4-4.8 T Bili 0.4 mg/dL 0.0-1.0 Direct Bili 0.1 mg/dL 0.0-0.2 Alk Phos 62 U/L 50-136 Alt (SGPT) 22 U/L 12-78 Ast (Sgot) 11 U/L Low 15-37 Celiac 06/28/2014 [facility] Immunoglobulin A, 225 mg/dL 91- 414 Disease [phone] Qn, Serum Deamidated Gliadin Abs, IgA 9 units 0-19 11 Deamidated Gliadin Abs, IgG 1 units 0-19 12 t-Transglutaminase (tTG) IgA <2 U/mL 0-3 13 t-Transglutaminase (tTG) IgG 4 U/mL 0-5 14 CBC W/Auto Differential 03/10/2014 Located [facility] ([facility]) WBC 9.3 K/uL 4.8-10.8 [address] [place] [address] [phone] RBC 4.65 M/uL 4.60-6.20 Hemoglobin 14.9 gm/dL 13.5-18.0 Hematocrit 43.4 % 41.0-53.0 MCV 93.3 fL 80.0-100.0 MCHC 34.5 % 30.0-36.5 MCH 32.2 pg 27.0-34.0 RDW 11.7 % 11.0-15.0 Platelet 212 K/uL 130-450 MPV 7.1 fL 6.0-12.0 NE% 59 % 37-80 Ly% 29 % 10-50 Mo% 10 % 0-12 Eo% 1 % <=8 Ba% 1 % <=3 NE# 5.5 K/uL 1.8-8.6 Lymph# 2.7 K/uL 0.5-5.0 Harnett# 0.9 K/uL 0.0-1.3 Eos# 0.1 K/uL 0.0-0.9 Baso# 0.1 K/ul 0.0-0.3 Basic Metabolic Panel 03/10/2014 Located [facility] ([facility]) Sodium 143 mmol/L 136- 145 [address] [place] [address] [phone] Potassium 4.1 mmol/L 3.6-5.2 Chloride 105 mmol/L 100-108 Co2 29 mmol/L 21-32 Glucose 91 mg/dL 70-110 Glu Range Header [facility] [place] Mariah <SEE NOTE> 15 BUN 13 mg/dL 7-21 Creatinine 0.5 mg/dL Low 0.6-1.3 Calcium 8.7 mg/dL 8.5-10.8 GFR >60 GFR Ranges Normal Kidney Fu <SEE NOTE> 16 CBC W/Auto Differential 02/06/2014 Located [facility] ([facility]) WBC 8.8 K/uL 4.8-10.8 [address] [place] [address] [phone] RBC 4.65 M/uL 4.60-6.20 Hemoglobin 14.7 gm/dL 13.5-18.0 Hematocrit 43.3 % 41.0-53.0 MCV 93.1 fL 80.0-100.0 MCHC 33.9 % 30.0-36.5 MCH 31.6 pg 27.0-34.0 RDW 11.2 % 11.0-15.0 Platelet 265 K/uL 130-450 MPV 6.9 fL 6.0-12.0 NE% 58 % 37-80 Ly% 35 % 10-50 Mo% 6 % 0-12 Eo% 1 % <=8 Ba% 1 % <=3 NE# 5.1 K/uL 1.8-8.6 Lymph# 3.0 K/uL 0.5-5.0 Harnett# 0.5 K/uL 0.0-1.3 Eos# 0.1 K/uL 0.0-0.9 Baso# 0.0 K/ul 0.0-0.3 Basic Metabolic Panel 02/06/2014 [facility] ([facility]) Sodium 141 mmol/L 136- 145 [address] [place] [address] [phone] Potassium 4.0 mmol/L 3.6-5.2 Chloride 105 mmol/L 100-108 Co2 30 mmol/L 21-32 Glucose 96 mg/dL 70-110 Glu Range Header [employer] [place] [facility] <SEE NOTE> 17 BUN 12 mg/dL 7-21 Creatinine 0.8 mg/dL 0.6-1.3 Calcium 8.8 mg/dL 8.5-10.8 GFR >60 GFR Ranges Normal Kidney Fu <SEE NOTE> 18 Outpatient Lab Test 12/19/2013 Located [facility] ([facility]) Test Cancelled C DIFFICILE ASSA 19 Cancellation 17 [facility] <SEE NOTE> [place] [address] [phone] Cancellation Reason SPECIMEN UNACCEP <SEE NOTE> 20 Notified Of Venkat APPIAH AT DR MACHADO <SEE NOTE> 21 Comprehensive Panel 12/19/2013 [facility] Sodium 140 mmol/L 136 -145 [phone] Potassium 4.4 mmol/L 3.6-5.2 Chloride 105 mmol/L 100-108 Co2 30 mmol/L 21-32 Glucose 94 mg/dL 70-110 Glu Range Header [employer] [place] [facility] <SEE NOTE> 22 BUN 17 mg/dL 7-21 Creatinine 0.7 mg/dL 0.6-1.3 Calcium 8.7 mg/dL 8.5-10.8 GFR >60 GFR Ranges Normal Kidney Fu <SEE NOTE> 23 T Bili 0.3 mg/dL 0.0-1.0 T Protein 7.0 gm/dL 6.4-8.2 Albumin 4.2 gm/dL 3.4-4.8 Alk Phos 46 U/L Low 50-136 Alt (SGPT) 17 U/L 12-78 Ast (Sgot) 10 U/L Low 15-37 CBC W/Auto Differential 12/19/2013 [facility] WBC 10.4 K/uL 4.8 -10.8 [phone] RBC 4.65 M/uL 4.60-6.20 Hemoglobin 14.9 gm/dL 13.5-18.0 Hematocrit 44.1 % 41.0-53.0 MCV 94.9 fL 80.0-100.0 MCHC 33.9 % 30.0-36.5 MCH 32.2 pg 27.0-34.0 RDW 11.1 % 11.0-15.0 Platelet 227 K/uL 130-450 MPV 7.4 fL 6.0-12.0 NE% 63 % 37-80 Ly% 26 % 10-50 Mo% 8 % 0-12 Eo% 1 % <=8 Ba% 1 % <=3 NE# 6.6 K/uL 1.8-8.6 Lymph# 2.8 K/uL 0.5-5.0 Harnett# 0.8 K/uL 0.0-1.3 Eos# 0.1 K/uL 0.0-0.9 Baso# 0.1 K/ul 0.0-0.3 Celiac 12/19/2013 [facility] Out Patient Lab Immunoglobulin A, 219 mg/dL 91- 414 Disease [phone] Qn, Serum Deamidated Gliadin Abs, IgA 10 units 0-19 24 Deamidated Gliadin Abs, IgG 1 units 0-19 25 t-Transglutaminase (tTG) IgA <2 U/mL 0-3 26 t-Transglutaminase (tTG) IgG 4 U/mL 0-5 27 Laboratory test 12/19/2013 [facility] Out Patient Lab Culture Salmonella, 28 finding [phone] Stool Shig <SEE NOTE> Cryptosp/Giardi 12/19/2013 [facility] Out Patient Lab Giardia NEGATIVE Negative a Antigen [phone] Antigen Cryptosporidium Ag NEGATIVE Negative O\\T\\P Ag Methodology Methodology: Rap <SEE NOTE> 29 Comprehensive Panel 09/21/2013 [facility] Out Patient Lab Sodium 139 mmol/L 136 -145 [phone] Potassium 4.1 mmol/L 3.6-5.2 Chloride 103 mmol/L 100-108 Co2 32 mmol/L 21-32 Glucose 111 mg/dL High 70-110 Glu Range Header [facility] [place] [facility] <SEE NOTE> 30 BUN 11 mg/dL 7-21 Creatinine 0.6 mg/dL 0.6-1.3 Calcium 8.6 mg/dL 8.5-10.8 GFR >60 GFR Ranges Normal Kidney Fu <SEE NOTE> 31 T Bili 0.4 mg/dL 0.0-1.0 T Protein 7.5 gm/dL 6.4-8.2 Albumin 4.6 gm/dL 3.4-4.8 Alk Phos 56 U/L 50-136 Alt (SGPT) 27 U/L 12-78 Ast (Sgot) 13 U/L Low 15-37 CBC W/Auto Differential 09/21/2013 [facility] Out Patient Lab WBC 10.5 K/uL 4.8 -10.8 [phone] RBC 4.80 M/uL 4.60-6.20 Hemoglobin 15.1 gm/dL 13.5-18.0 Hematocrit 44.6 % 41.0-53.0 MCV 92.8 fL 80.0-100.0 MCHC 33.8 % 30.0-36.5 MCH 31.3 pg 27.0-34.0 RDW 12.4 % 11.0-15.0 Platelet 282 K/uL 130-450 MPV 6.9 fL 6.0-12.0 NE% 60 % 37-80 Ly% 34 % 10-50 Mo% 5 % 0-12 Eo% 1 % <=8 Ba% 1 % <=3 NE# 6.2 K/uL 1.8-8.6 Lymph# 3.5 K/uL 0.5-5.0 Harnett# 0.5 K/uL 0.0-1.3 Eos# 0.1 K/uL 0.0-0.9 Baso# 0.1 K/ul 0.0-0.3 Laboratory test 09/21/2013 [facility] Out Patient Lab 1 25 102.7 High 10.0-75.0 32 finding [phone] Dihydroxy Vit pg/mL D Folate & B-12 09/21/2013 [facility] Folate 3.9 ng/mL 3.1-12.4 [phone] Vitamin B12 381.0 pg/mL 254.0-1,320.0 25 Hydroxy Vit D @ 09/21/2013 [facility] 25 Hydroxy Vit D 57 NG/ ML 30-95 [phone] [id number] VITAMIN D STATUS <SEE NOTE> 33 HCV Rna Quant 09/21/2013 [facility] Hepatitis C HCV Not 34 PCR [phone] Quantitation Detected IU/mL HCV log10 DNR L Test Information: Comment L 35 A1 Antitrysin 09/21/2013 [facility] Mauyi-2-Jsqtdzuyxcv, 141 90 -200 36 Pheno [phone] Serum mg/dL Phenotype (PI) MM L 37 Laboratory test finding 09/21/2013 [facility] TSH 1.54 uIU/mL 0.34-4.82 [phone] T4 - Free 0.93 ng/dL 0.77-1.60 HIV Ag/AB 09/21/2013 [facility] HIV Ag/Ab NON REACTIVE Non Reactive Combo [phone] Combo HIV Ag/AB Method Methodology: ABB <SEE NOTE> 38 Basic Metabolic Panel 09/13/2013 [facility] Sodium 142 mmol/L 136-145 [phone] Potassium 4.3 mmol/L 3.6-5.2 Chloride 104 mmol/L 100-108 Co2 32 mmol/L 21-32 Glucose 96 mg/dL 70-110 Glu Range Header [employer] <SEE NOTE> 39 BUN 13 mg/dL 7-21 Creatinine 0.6 mg/dL 0.6-1.3 Calcium 8.7 mg/dL 8.5-10.8 GFR >60 GFR Ranges Normal Kidney Fu <SEE NOTE> 40 Laboratory test 04/06/2013 [facility] HCV Genotype Indeterminate 41 finding [phone] By Seq Laboratory test 03/18/2013 [facility] Amylase 42 U/L 25-11 finding [phone] 5 Anti-Dna(DS)AB @ 3 IUs (0-4) 42 Shaina Titer 03/18/2013 [facility] Shaina NEGATIVE Negative [phone] Shaina Methodology Test Substrate: <SEE NOTE> 43 CBC W/Auto Differential 03/18/2013 [facility] Out Patient Lab WBC 8.9 K/uL 4.8- 10.8 [phone] RBC 4.56 M/uL Low 4.60-6.20 Hemoglobin 13.9 gm/dL 13.5-18.0 Hematocrit 42.3 % 41.0-53.0 MCV 92.8 fL 80.0-100.0 MCHC 32.9 % 30.0-36.5 MCH 30.5 pg 27.0-34.0 RDW 11.2 % 11.0-15.0 Platelet 199 K/uL 130-450 MPV 6.9 fL 6.0-12.0 NE% 46 % 37-80 Ly% 45 % 10-50 Mo% 6 % 0-12 Eo% 2 % <=8 Ba% 1 % <=3 NE# 4.1 K/uL 1.8-8.6 Lymph# 4.0 K/uL 0.5-5.0 Harnett# 0.6 K/uL 0.0-1.3 Eos# 0.2 K/uL 0.0-0.9 Baso# 0.1 K.uL 0.0-0.3 Comprehensive Panel 03/18/2013 [facility] Out Patient Lab Sodium 140 mmol/L 136 -145 [phone] Potassium 4.0 mmol/L 3.6-5.2 Chloride 101 mmol/L 100-108 Co2 33 mmol/L High 21-32 Glucose 103 mg/dL 70-110 Glu Range Header [employer] <SEE NOTE> 44 BUN 6 mg/dL Low 7-21 Creatinine 0.7 mg/dL 0.6-1.3 Calcium 8.4 mg/dL Low 8.5-10.8 GFR >60 GFR Ranges Normal Kidney Fu <SEE NOTE> 45 T Bili 0.2 mg/dL 0.0-1.0 T Protein 6.5 gm/dL 6.4-8.2 Albumin 4.0 gm/dL 3.4-4.8 Alk Phos 67 U/L 50-136 Alt (SGPT) 14 U/L 12-78 Ast (Sgot) 11 U/L Low 15-37 Chromogranin A 03/18/2013 [facility] Out Patient Lab Chromogranin A 205 ng/mL High (0-95) 46 [phone] Hepatitis Prof 03/18/2013 [facility] Out Patient Lab Hepatitis B S NEGATIVE ( Neg) Acute [phone] Ag @ Hep. B Core Igm @ NEGATIVE (Neg) Hepatitis A AB Igm @ NEGATIVE (Neg) Hepatitis C AB @ POSITIVE (S/CO R <SEE NOTE> (Neg) 47 Laboratory test finding 03/18/2013 [facility] Lipase 117 U/L 73 -390 [phone] Mitochondrial Igg AB 18.5 units (<20.1) 48 Factin Igg AB 8 units (<20) 49 Porphyrin Urine 03/18/2013 [facility] Out Patient Lab Creatinine, Urine 50 50 [phone] Creatinine,Urine 24H Not Applicable (800-2100) 51 Uroporphyrin 1 umol/m 52 Heptacarboxylate 0 umol/m 53 Porphyrin Interp See Note 54 Urine Volume RANDOM mL Hours Of Collection RANDOM Coproporphyrin I 3 umol/molCRT 55 Coproporphyrin III 20 umol/molCRT High 56 Laboratory test 03/18/2013 [facility] H Pylori Stool DNR 57 finding [phone] Ag Gliadin Igg/Iga 03/18/2013 [facility] Out Patient Lab Glpaa 5 units (<20) 58 [phone] Glpag 2 units (<20) 59 Laboratory test 03/18/2013 [facility] Transglutaminase Iga 9 units (<20) 60 finding [phone] Transglutaminase Igg 4 units (<20) 61 1 MANUAL DIFFERENTIAL 2 Normal Kidney Function or Mild Disease - GFR >OR=60 Chronic Kidney Disease - GFR 15-59 Renal Failure - GFR < 15 GFR not calculated on patients under 18 years of age. 3 The [place] [employer] recommends that the upper limit of the normal reference range for Glucose be 100 mg/dl. 4 Normal Kidney Function or Mild Disease - GFR >OR=60 Chronic Kidney Disease - GFR 15-59 Renal Failure - GFR < 15 GFR not calculated on patients under 18 years of age. 5 F0 - No fibrosis 6 Quantitative results of 6 biochemical tests are analyzed using a computational algorithm to provide a quantitative surrogate marker (0.0-1.0) for liver fibrosis (METAVIR F0-F4) and for necroinflammatory activity (METAVIR A0-A3). 7 <0.21=Stage F0 - No fibrosis 0.21 - 0.27=Stage F0 - F1 0.27 - 0.31=Stage F1 - Portal fibrosis 0.31 - 0.48=Stage F1 - F2 0.48 - 0.58=Stage F2 - Bridging fibrosis with few septa 0.58 - 0.72=Stage F3 - Bridging fibrosis with many septa 0.72 - 0.74=Stage F3 - F4 >0.74=Stage F4 - Cirrhosis 8 <0.17=Grade A0 - No Activity 0.17 - 0.29=Grade A0 - A1 0.29 - 0.36=Grade A1 - Minimal activity 0.36 - 0.52=Grade A1 - A2 0.52 - 0.60=Grade A2 - Moderate activity 0.60 - 0.62=Grade A2 - A3 >0.62=Grade A3 - Severe activity 9 The negative predictive value of a Fibrotest score <0.31 (absence of clinically significant fibrosis) was 85% when compared to liver biopsy in 1,270 HCV infected patients with a 38% prevalence of significant liver fibrosis (F2, 3 or 4). The positive predictive value of a Fibro- test score >0.48 (F2, 3, 4) was 61% in that same patient cohort. HCV FibroSURE is not recommended in patients with Gilbert Disease, acute hemolysis (e.g. HCV ribavirin therapy mediated hemolysis) acute hepa- titis of the liver, extra-hepatic cholestasis, transplant patients, and/or renal insufficiency patients. Any of these clinical situations may lead to inaccurate quantitative predictions of fibrosis and necroinflammatory activity in the liver. 10 This test was developed and its performance characteristics determined by [facility]. It has not been cleared or approved by the Food and Drug Administration. The FDA has determined that such clearance or approval is not necessary. . For questions regarding this report please contact [facility] Customer Service Department at [phone]. 11 Negative 0 - 19 Weak Positive 20 - 30 Moderate to Strong Positive >30 12 Negative 0 - 19 Weak Positive 20 - 30 Moderate to Strong Positive >30 13 Negative 0 - 3 Weak Positive 4 - 10 Positive >10 . Tissue Transglutaminase (tTG) has been identified as the endomysial antigen. Studies have demonstr- ated that endomysial IgA antibodies have over 99% specificity for gluten sensitive enteropathy. 14 Negative 0 - 5 Weak Positive 6 - 9 Positive >9 15 The [place] [employer] recommends that the upper limit of the normal reference range for Glucose be 100 mg/dl. 16 Normal Kidney Function or Mild Disease - GFR >OR=60 Chronic Kidney Disease - GFR 15-59 Renal Failure - GFR < 15 GFR not calculated on patients under 18 years of age. Calculated (estimated) G FR is based on the MDRD Study equation, which assumes a steady state for creatinine. Estimated GFR may not be appropriate for medication dosing. 17 The [place] [employer] recommends that the upper limit of the normal reference range for Glucose be 100 mg/dl. 18 Normal Kidney Function or Mild Disease - GFR >OR=60 Chronic Kidney Disease - GFR 15-59 Renal Failure - GFR < 15 GFR not calculated on patients under 18 years of age. Calculated (estimated) G FR is based on the MDRD Study equation, which assumes a steady state for creatinine. Estimated GFR may not be appropriate for medication dosing. 19 C DIFFICILE ASSAY 20 SPECIMEN UNACCEPTABLE - STOOL FORMED [address] SMITH OFFICE 22 The [place] [employer] recommends that the upper limit of the normal reference range for Glucose be 100 mg/dl. 23 Normal Kidney Function or Mild Disease - GFR >OR=60 Chronic Kidney Disease - GFR 15-59 Renal Failure - GFR < 15 GFR not calculated on patients under 18 years of age. Calculated (estimated) G FR is based on the MDRD Study equation, which assumes a steady state for creatinine. Estimated GFR may not be appropriate for medication dosing. 24 Negative 0 - 19 Weak Positive 20 - 30 Moderate to Strong Positive >30 25 Negative 0 - 19 Weak Positive 20 - 30 Moderate to Strong Positive >30 26 Negative 0 - 3 Weak Positive 4 - 10 Positive >10 . Tissue Transglutaminase (tTG) has been identified as the endomysial antigen. Studies have demonstr- ated that endomysial IgA antibodies have over 99% specificity for gluten sensitive enteropathy. 27 Negative 0 - 5 Weak Positive 6 - 9 Positive >9 28 Salmonella, Shigella or Campylobacter were not isolated. Negative for enterohemorrhagic E.coli Shiga toxin 1 and Shiga toxin 2 by Immunochromatography. Contact Microbiology Department if clinical evidence indicates presence of rare pathogen not routinely screened for. 29 Methodology: Rapid Membrane Enzyme Immunoassay 30 The [place] [employer] recommends that the upper limit of the normal reference range for Glucose be 100 mg/dl. 31 Normal Kidney Function or Mild Disease - GFR >OR=60 Chronic Kidney Disease - GFR 15-59 Renal Failure - GFR < 15 GFR not calculated on patients under 18 years of age. Calculated (estimated) G FR is based on the MDRD Study equation, which assumes a steady state for creatinine. Estimated GFR may not be appropriate for medication dosing. 32 Results verified by repeat testing 33 VITAMIN D STATUS VITAMIN D Level 34 HCV Not Detected 35 The quantitative range of the assay is 15 IU/mL to 100 million IU/mL using [employer](R) TaqMan(R) HCV test, v 2.0. The limit of detection (LOD) and lower limit of quantification (LLOQ) for this assay is 15 IU/mL. Results less than the quantitative range of the assay will be reported as "HCV RNA detected, less than 15 IU/mL". 36 Performed at: RN 37 Phenotype Population A-1-AT Concentration* Incidence % % of MM Ref. Range Mean MM 86.5% 100% (90-200) 145 MS 8.0% 81% (73-162) 118 MZ 3.9% 60% (54-120) 87 FM 0.4% 97% (87-194) 141 SZ 0.3% 39% (35- 78) 57 SS 0.1% 71% (64-142) 103 ZZ 0.05% 7% ( 6- 14) 10 FS 0.05% 66% (59-132) 96 FZ Unknown Unknown FF Unknown Unknown *A-1-AT concentration in the homozygous MM phenotype is taken as the reference normal. Deficiency in phenotypes is reported relative to this reference. Performed at: BN 38 Methodology: DOWD PHOTOGRAPHIC SUPERVISOR [id number] Chemiluminescent Microparticle Assay Specificityof >99% Sensitivity of >94% 39 The [place] [employer] recommends that the upper limit of the normal reference range for Glucose be 100 mg/dl. 40 Normal Kidney Function or Mild Disease - GFR >OR=60 Chronic Kidney Disease - GFR 15-59 Renal Failure - GFR < 15 GFR not calculated on patients under 18 years of age. Calculated (estimated) G FR is based on the MDRD Study equation, which assumes a steady state for creatinine. Estimated GFR may not be appropriate for medication dosing. 41 Hepatitis C GENOTYPING IS INDETERMINATE. This test may be unsuccessful if the plasma HCV RNA viral load is less than log 2.8 or 600 IU per mL of plasma. Repeat testing may be appropriate if and when the viral load becomes greater than log 2.8 or 600 IU/mL. In addition to low viral load, other conditions, such as PCR inhibitors, viral genetic variation, etc., may cause RT-PCR failure resulting in an indeterminate result. INTERPRETIVE INFORMATION: Hepatitis C Genotyping Hepatitis C viral RNA is tested using reverse field support technician polymerase chain reaction (RT-PCR) to amplify a specific portion of the 5' untranslated region (5' UTR) of the viral genome. The amplified nucleic acid is sequenced bi-directionally using dye-terminator chemistry (Javelin). Sequencing data is compared to a database of characterized sequences. Isolates of hepatitis C virus are grouped into six major genotypes (1-6). These genotypes are subtyped according to sequence characteristics. Due to high conservation of the 5' un-translated region of the HCV genome, this test has limitations in differentiating subtype 1a from 1b. Therefore, these subtypes will be reported as 1a or 1b. In rare instances, Type 6 virus may be misclassified as Type 1. Test developed and characteristics determined by [facility]. See Compliance Statement B: [employer] (Proprietary)/ Performed by [facility], [address] [place] [id number] [email or web address], Edis Alejo MD, Lab. Director Unless otherwise specified, testing performed by [facility] [address] [place] [address] Tool Coordinator: Dr. Isidro Miranda. 42 IUs INTERPRETATION LESS THAN 5 NEGATIVE 5 TO 9 EQUIVOCAL GREATER THAN 9 POSITIVE Unless otherwise specified, testing performed by [facility] [address] [place] [address] Tool Coordinator: Dr. Isidro Miranda. 43 Test Substrate: Human Epithelial (HEp-2) Cells Methodology: Indirect Fluorescent Antibody Test 44 The [place] [employer] recommends that the upper limit of the normal reference range for Glucose be 100 mg/dl. 45 Normal Kidney Function or Mild Disease - GFR >OR=60 Chronic Kidney Disease - GFR 15-59 Renal Failure - GFR < 15 GFR not calculated on patients under 18 years of age. Calculated (estimated) G FR is based on the MDRD Study equation, which assumes a steady state for creatinine. Estimated GFR may not be appropriate for medication dosing. 46 INTERPRETIVE INFORMATION: Chromogranin A This assay is performed using the [employer]oa EIA. Results obtained with different assay methods or kits cannot be used interchangeably. Test developed and characteristics determined by [facility]. See Compliance Statement D: [employer]/CS Performed by [facility], [address] [place] [id number] [email or web address], Edis Alejo MD, Lab. Director Unless otherwise specified, testing performed by [facility] [address] [place] [address] Tool Coordinator: Dr. Isidro Miranda. 47 POSITIVE (S/CO RATIO > OR=8.0) SEE NOTE PROBABLY INDICATES PAST OR PRESENT HCV INFECTION. SUPPLEMENTAL SEROLOGIC TESTING NOT PERFORMED. SAMPLES WITH HIGH S/CO RATIOS USUALLY (>94%) CONFIRM POSITIVE, BUT <5 OF EVERY 100 MIGHT REPRESENT FALSE-POSITIVES. IF INDICATED, MORE SPECIFIC TESTING CAN BE REQUESTED. RESULT(S) CALLED TO AND READ BACK BY J LUIS AT [phone] AND FAXED TO [phone] ON 03/21/13 AT 1352 [place] [id number] FAXED TO [facility] 03/[place] [id number] Unless otherwise specified, testing performed by [facility] [address] [place] [address] Tool Coordinator: Dr. Isidro Miranda. 48 INTERPRETATION OF RESULTS: < 20.1 UNITS NEGATIVE 20.1-24.9 UNITS EQUIVOCAL > 24.9 UNITS POSITIVE The following result was obtained with the [employer] QUANTA Lite M2 EP(MIT3) JOCELYNE. Results obtained with other manufacturers' assay methods may not be used interchangeably. The magnitude of the reported IgG levels cannot be correlated to an endpoint titer. Unless otherwise specified, testing performed by [facility] [address] [place] [address] Tool Coordinator: Dr. Isidro Miranda. 49 INTERPRETATION OF RESULTS: < 20 UNITS NEGATIVE 20-30 UNITS EQUIVOCAL > 30 UNITS POSITIVE The following result was obtained with the Ak?LexA paOndee Actin IgG JOCELYNE. Results obtained with other manufacturers' assay methods may not be used interchangeably. The magnitude of the reported IgG levels cannot be correlated to an endpoint titer. Unless otherwise specified, testing performed by [facility] [address] [place] [address] Tool Coordinator: Dr. Isidro Miranda. 50 Unit: mg/dL 51 Unit: mg/d Performed by [facility], [address] [place] [id number] [email or web address], Edis Alejo MD, Lab. Director 52 Reference range: 0 to 4 Unit: umol/mol IMPREGNATOR HELPER 53 Reference range: 0 to 2 Unit: umol/mol IMPREGNATOR HELPER 54 Elevated coproporphyrin concentration is a relatively common finding and may be the result of diet, liver disease, disorders of bilirubin metabolism, or other diverse conditions. An isolated increase in urine coproporphyrin concentration is not diagnostic of a porphyrin disorder. INTERPRETIVE INFORMATION: Porphyrins, Fractionation and Quantitation, Urine Results are normalized to creatinine concentration and reported as a ratio of amounts (micromoles of porphyrin/moles of creatinine). Test developed and characteristics determined by [facility]. See Compliance Statement B: [employer] ([employer]roprietary)/CS 55 Reference range: 0 to 6 56 Reference range: 0 to 14 Unless otherwise specified, testing performed by [facility] [address] [place] [address] Tool Coordinator: Dr. Isidro Miranda. 57 SPECIMEN DESCRIPTION STOOL RESULT NEGATIVE FOR H. PYLORI ANTIGEN BY EIA REPORT STATUS FINAL 03/22/2013 Unless otherwise specified, testing performed by [facility] [address] [place] [address] Tool Coordinator: Dr. Isidro Miranda. 58 INTERPRETATION OF RESULTS: < 20 UNITS NEGATIVE 20-30 UNITS WEAK POSITIVE > 30 UNITS MODERATE TO STRONG POSITIVE The following result was obtained with the [employer] Gliadin IgA II. Results obtained with other manufacturers' assay methods may not be used interchangeably. The magnitude of the reported IgA level cannot be correlated to an endpoint titer. 59 INTERPRETATION OF RESULTS: < 20 UNITS NEGATIVE 20-30 UNITS WEAK POSITIVE > 30 UNITS MODERATE TO STRONG POSITIVE The following result was obtained with the Ak?LexA paOndee Gliadin IgG II. Results obtained with other manufacturers' assay methods may not be used interchangeably. The magnitude of the reported IgG levels cannot be correlated to an endpoint titer. Unless otherwise specified, testing performed by [facility] [address] [place] [id number] Tool Coordinator: Dr. Isidro Miranda. 60 INTERPRETATION OF RESULTS: < 20 UNITS NEGATIVE 20-30 UNITS WEAK POSITIVE > 30 UNITS MODERATE TO STRONG POSITIVE The following result was obtained with the Tech Cocktail QUANTA Lite h-tTG IgA JOCELYNE. Results obtained with other manufacturers' assay methods may not be used interchangeably. The magnitude of the reported IgA level cannot be correlated to an endpoint titer. Performed at [address] [place] [address] Unless otherwise specified, testing performed by [facility] [address] [place] [id number] Tool Coordinator: Dr. Isidro Miranda. 61 INTERPRETATION OF RESULTS: < 20 UNITS NEGATIVE 20-30 UNITS WEAK POSITIVE > 30 UNITS MODERATE TO STRONG POSITIVE The following result was obtained with the Tech Cocktail QUANTA Lite h-tTG IgG JOCELYNE. Results obtained with other manufacturers' assay methods may not be used interchangeably. The magnitude of the reported IgG levels cannot be correlated to an endpoint titer. Performed at [address] [place] [address] Unless otherwise specified, testing performed by [facility] [address] [place] [id number] Tool Coordinator: Dr. Isidro Miranda. Procedures Date Code Description Status 10/12/2018 88378 Laryngoscopy, Flexible Fiberoptic; Diagnostic Completed 10/01/2018 05582 Pulmonary Stress Testing, Inc Measurement Heart Rate, Completed Oximetry 07/20/2018 21375 Laryngoscopy, Flexible Fiberoptic; Diagnostic Completed 06/22/2018 49955 Laryngoscopy, Flexible Fiberoptic; Diagnostic Completed 05/04/2018 28711 Laryngoscopy, Flexible Fiberoptic; Diagnostic Completed 04/13/2018 29005 Laryngoscopy, Flexible Fiberoptic; Diagnostic Completed 03/09/2018 68203 Laryngoscopy, Flexible Fiberoptic; Diagnostic Completed 01/05/2018 17269 Laryngoscopy, Flexible Fiberoptic; Diagnostic Completed 09/22/2017 56998 Laryngoscopy Direct, Operative Completed W/Biopsy,W/Microscope/Telescope 09/22/2017 57657 Nasal Endoscopy, Diagnostic, Unilateral Or Bilateral Completed 08/18/2017 66721 Laryngoscopy, Flexible Fiberoptic; Diagnostic Completed 07/14/2017 88819 Laryngoscopy, Flexible Fiberoptic; Diagnostic Completed 04/21/2017 99681 Laryngoscopy, Flexible Fiberoptic; Diagnostic Completed 02/17/2017 64890 Laryngoscopy, Flexible Fiberoptic; Diagnostic Completed 12/02/2016 06956 Laryngoscopy Direct W/Excis Tumor &/Or Stripping Completed Vocal,Micro/Tele 10/28/2016 67080 Laryngoscopy, Flexible Fiberoptic; Diagnostic Completed 08/12/2016 22940 Laryngoscopy, Flexible Fiberoptic; Diagnostic Completed 04/15/2016 02409 Laryngoscopy Direct W/Excis Tumor &/Or Stripping Completed Vocal,Micro/Tele 03/18/2016 51777 Laryngoscopy, Flexible Fiberoptic; Diagnostic Completed 02/19/2016 87085 Laryngoscopy, Flexible Fiberoptic; Diagnostic Completed 01/22/2016 91372 Laryngoscopy, Flexible Fiberoptic; Diagnostic Completed 10/09/2015 67816 Laryngoscopy, Flexible Fiberoptic; Diagnostic Completed 09/04/2015 14680 Laryngoscopy, Flexible Fiberoptic; Diagnostic Completed 07/31/2015 40324 Laryngoscopy, Flexible Fiberoptic; Diagnostic Completed 05/08/2015 01422 Laryngoscopy, Flexible Fiberoptic; Diagnostic Completed 03/27/2015 95842 Laryngoscopy, Flexible Fiberoptic; Diagnostic Completed 01/30/2015 03996 Laryngoscopy, Flexible Fiberoptic; Diagnostic Completed 01/23/2015 94094 Laryngoscopy Direct W/Excis Tumor &/Or Stripping Completed Vocal,Micro/Tele 12/13/2014 34156 Chemodenervation Of Muscle(S) Innervated By Facial Nerve Completed 11/28/2014 49709 Laryngoscopy, Flexible Fiberoptic; Diagnostic Completed 10/24/2014 97909 Laryngoscopy, Flexible Fiberoptic; Diagnostic Completed 09/13/2014 01250 Chemodenervation Of Muscle(S) Innervated By Facial Nerve Completed 08/23/2014 80325 Laryngoscopy, Flexible Fiberoptic; Diagnostic Completed 07/18/2014 12393 Laryngoscopy, Flexible Fiberoptic; Diagnostic Completed 06/13/2014 01557 Laryngoscopy, Flexible Fiberoptic; Diagnostic Completed 06/08/2014 13853 Chemodenervation Of Muscle(S) Innervated By Facial Nerve Completed 03/14/2014 80279 Laryngoscopy Direct W/Excis Tumor &/Or Stripping Completed Vocal,Micro/Tele 02/07/2014 82583 Laryngoscopy Direct, Operative Completed W/Biopsy,W/Microscope/Telescope 01/31/2014 64247 Laryngoscopy, Flexible Fiberoptic; Diagnostic Completed 01/23/2014 55665 Chemodenervation Of Extremity Muscles Innervated By Facial Completed Nerves 12/21/2013 23366 Laryngoscopy, Flexible Fiberoptic; Diagnostic Completed 11/10/2013 03021 Colonoscopy W/Removal Hot Biopsy Forceps Removal Completed Polyps,Tumor,Oth 11/10/2013 30921 Colonoscopy W/Biopsy Completed 11/10/2013 22669 Upper GI With Biopsy,Single Or Multiple Completed Encounters Type Date Location Provider Dx Diagnosis Office Visit 10/12/2018 Cassidy Castaneda J44.9 Chronic obstructive 11:15a Services MD [place] pulmonary disease, unspecified J38.7 Other diseases of larynx J37.0 Chronic laryngitis R49.0 Dysphonia Office Visit 07/20/2018 1:45p Cassidy Castaneda J37.0 Chronic Services MD [place] laryngitis R49.0 Dysphonia J38.7 Other diseases of larynx Office Visit 06/22/2018 1:30p Cassidy Castaneda J37.0 Chronic Services MD [place] laryngitis R49.0 Dysphonia Office Visit 05/04/2018 3:00p Cassidy Castaneda J37.0 Chronic Services MD [place] laryngitis R49.0 Dysphonia J31.0 Chronic rhinitis Office Visit 04/13/2018 9:15a Cassidy Castaneda J37.0 Chronic Services MD [place] laryngitis J31.0 Chronic rhinitis J32.9 Chronic sinusitis, unspecified R49.0 Dysphonia J34.2 Deviated nasal septum Office Visit 03/09/2018 10:45a Cassidy Castaneda J37.0 Chronic Services MD [place] laryngitis J38.7 Other diseases of larynx R49.0 Dysphonia Office Visit 01/05/2018 10:15a Cassidy Castaneda J37.0 Chronic Services MD [place] laryngitis J38.7 Other diseases of larynx J31.0 Chronic rhinitis J32.9 Chronic sinusitis, unspecified Office Visit 08/18/2017 3:15p Cass[facility] Castaneda 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 J37.0 Chronic Services MD Ketty laryngitis J38.7 Other diseases of larynx R49.0 Dysphonia J31.0 Chronic rhinitis Office Visit 02/17/2017 3:00p [facility] Juan R H. J37.0 Chronic Services MD Ketty laryngitis J38.7 Other diseases of larynx R49.0 Dysphonia Office Visit 12/09/2016 1:00p [facility] Juan R H. J37.0 Chronic Services MD Ketty laryngitis J38.7 Other diseases of larynx R49.0 Dysphonia Office Visit 10/28/2016 3:15p [facility] Juan R H. J37.0 Chronic Services MD Ketty laryngitis R49.0 Dysphonia J38.7 Other diseases of larynx Office Visit 08/12/2016 3:15p [facility] Juan R H. J37.0 Chronic Services MD Ketty laryngitis R49.0 Dysphonia J38.7 Other diseases of larynx Office Visit 06/10/2016 3:15p [facility] Juan R H. J37.0 Chronic Services MD Ketty laryngitis R49.0 Dysphonia Office Visit 04/22/2016 1:30p [facility] Juan R H. J37.0 Chronic Services MD Ketty laryngitis R49.0 Dysphonia J38.7 Other diseases of larynx Office Visit 03/18/2016 2:30p [facility] Juan R H. J37.0 Chronic Services MD Ketty laryngitis R49.0 Dysphonia J38.7 Other diseases of larynx Office Visit 02/19/2016 2:00p [facility] Juan R H. J37.0 Chronic Services MD Ketty laryngitis R49.0 Dysphonia J38.7 Other diseases of larynx Office Visit 01/22/2016 11:15a [facility] Juan R H. J37.0 Chronic Services MD Ketty laryngitis R49.0 Dysphonia Office Visit 10/09/2015 10:30a [facility] Juan R H. J37.0 Chronic Services MD Ketty laryngitis J38.7 Other diseases of larynx R49.8 Other voice and resonance disorders Office Visit 09/04/2015 2:15p [facility] Juan R H. J37.0 Chronic Services MD Ketty laryngitis J38.7 Other diseases of larynx R49.8 Other voice and resonance disorders Office Visit 07/31/2015 2:15p Cass[facility] Villalobosutosh H. R59.0 Localized Services MD Ketty enlarged lymph nodes J38.7 Other diseases of larynx J37.0 Chronic laryngitis Office Visit 06/19/2015 9:00a [facility] Pete H. J37.0 Chronic Services MD Ketty laryngitis J38.7 Other diseases of larynx R59.0 Localized enlarged lymph nodes Office Visit 06/12/2015 1:00p Cassidy Villalobosutosh H. J37.0 Chronic Services MD Ketty laryngitis J38.7 Other diseases of larynx R59.0 Localized enlarged lymph nodes H92.12 Otorrhea, left ear Office Visit 05/08/2015 11:30a [facility] Pete H. 476.0 Laryngitis Services MD Ketty Chronic 478.79 Larynx Disease Other 784.49 Other Voice And Resonance Disorders Office Visit 03/27/2015 3:00p [facility] Pete H. 476.0 Laryngitis Services MD Ketty Chronic 476.0 Laryngitis Chronic Office Visit 01/30/2015 9:30a Cass[facility] Pete HKevin 478.79 Larynx Disease Services MD Ketty Other 476.0 Laryngitis Chronic 784.49 Other Voice And Resonance Disorders Office Visit 01/09/2015 3:00p Cassidy Coronado. 478.79 Larynx Disease Services MD Ketty Other 476.0 Laryngitis Chronic 784.49 Other Voice And Resonance Disorders Office Visit 11/28/2014 2:45p Cassidy Pete HKevin 478.79 Larynx Disease Services MD Ketty Other 476.0 Laryngitis Chronic 784.49 Other Voice And Resonance Disorders Office Visit 10/24/2014 3:00p [facility] Castaneda 478.79 Larynx Disease Services MD Ketty Other 476.0 Laryngitis Chronic 784.49 Other Voice And Resonance Disorders Office Visit 08/23/2014 2:45p [facility] Juan R H. 478.79 Larynx Disease Services MD Ketty Other 476.0 Laryngitis Chronic 784.49 Other Voice And Resonance Disorders Office Visit 07/24/2014 Cassidy Smith 794.8 Liver Study 3:00p Gastroenterology Katheryn Abnormal Office Visit 07/18/2014 [facility] Juan R H. 478.79 Larynx Disease 10:45a MD Ketyt Other 784.49 Other Voice And Resonance Disorders 476.0 Laryngitis Chronic Office Visit 06/19/2014 Cassidy Smith 789.01 Pain Abdominal 9:00a Gastroenterology MLos Right Upper Quadrant Office Visit 06/13/2014 [facility] Juan R H. 478.79 Larynx Disease 1:30p MD Ketty Other 784.49 Other Voice And Resonance Disorders 476.0 Laryngitis Chronic Office Visit 04/19/2014 Cassidy Smith 787.91 Diarrhea 10:30a Gastroenterology Katheryn Office Visit 04/05/2014 Neurology Services Cathy 346.13 Migraine W/Out 11:00a Nathalia Loco M.D. W/Intractable Migraine,So Stated Office Visit 03/21/2014 [facility] Juan R H. 478.79 Larynx Disease 11:30a MD Ketty Other 784.49 Other Voice And Resonance Disorders Office Visit 02/14/2014 10:00a [facility] Pete H. 478.79 Larynx Disease Services MD Ketty Other 784.49 Other Voice And Resonance Disorders Office Visit 01/31/2014 2:15p [facility] Juan R HKevin 476.0 Laryngitis Services MD Ketty Chronic 478.79 Larynx Disease Other 784.49 Other Voice And Resonance Disorders Office Visit 12/26/2013 3:30p Neurology Cathy Pierce 784.0 Headache Services Of Katheryn Cassidy Office Visit 12/21/2013 11:15a Cassidy Pete HKevin 476.0 Laryngitis Services MD Ketty Chronic 478.79 Larynx Disease Other Office Visit 12/14/2013 Cassidy Smith 789.07 Pain Abdominal 11:30a Gastroenterology Katheryn Generalized 787.91 Diarrhea Office 11/28/2013 Neurology Services Of Cathy 784.0 Headache Visit 11:30a Cassidy Pierce M.D. Office 11/07/2013 Neurology Services Of Cathy 784.0 Headache Visit 8:30a Cassidy Pierce M.D. Office 10/17/2013 Neurology Services Of [facility] 784.0 Headache Visit 9:45a Cassidy Pierce M.D. Office 10/03/2013 [facility] Services Of [facility] 784.0 Headache Visit 10:30a Cassidy Pierce M.D. Office 09/19/2013 Casisdy Smith M.D. 569.3 Hemorrhage Visit 9:30a Gastroenterology Rectum & Anus 789.07 Pain Abdominal Generalized 787.91 Diarrhea Office 09/12/2013 Neurology Services Of Cathy 784.0 Headache Visit 9:00a Cassidy Pierce M.D. Office 05/18/2013 Cassidy Smith 789.07 Pain Abdominal Visit 3:15p Gastroenterology Katheryn Generalized Office 04/04/2013 Cassidy Smith 789.07 Pain Abdominal Visit 4:00p Gastroenterology Katheryn Generalized 070.54 Hepatitis C Viral Chronic W/O Hepatic Coma Office Visit 03/14/2013 Cassidy Smith 789.07 Pain Abdominal 2:00p Gastroenterology Katheryn Generalized 070.54 Hepatitis C Viral Chronic W/O Hepatic Coma Office Visit 04/28/2011 3:45p Neurology Kee Cordova 346.13 Migraine W/ Out Aura Services Of MD Garrett/Ingrid Benjamin Migraine,So Stated 311 Depressive Disorder Not Elsewhere Spec Office Visit 03/18/2011 10:45a Neurology Kee Cordova 346.13 Migraine W/ Out Aura Services Of MD Garrett/Ingrid Benjamin Migraine,So Stated 311 Depressive Disorder Not Elsewhere Spec Office Visit 12/26/2010 11:45a Neurology Kee Cordova 346.13 Migraine W/ Out Aura Services Of MD Garrett/Ingrid Benjamin Migraine,So Stated 311 Depressive Disorder Not Elsewhere Spec Office Visit 12/05/2010 9:45a Neurology Kee Rodneyid, 346.13 Migraine W/ Out Aura Services Of W/Intractable [facility] Migraine,So Stated 311 Depressive Disorder Not Elsewhere Spec Office Visit 11/19/2010 10:00a Neurology Kee Cordova, 346.13 Migraine W/ Out Aura Services Of W/Intractable [place] Migraine,So Stated Office Visit 10/17/2010 10:15a Neurology Kee Cordova, 346.13 Migraine W/ Out Aura Services Of W/Intractable [place] Migraine,So Stated Office Visit 09/18/2010 11:00a Neurology Kee Cordova, 346.13 Migraine W/ Out Aura Services Of W/Intractable [place] Migraine,So Stated Office Visit 08/13/2009 9:15a Surgical Elton Hyde 550.91 Hernia Inguinal W/O Services Of Jj Campa Obstruct Or Cassidy Gangrene Unilateral Recurre 550.91 Hernia Inguinal W/O Obstruct Or Gangrene Unilateral Recurre 550.91 Hernia Inguinal W/O Obstruct Or Gangrene Unilateral Recurre 550.91 Hernia Inguinal W/O Obstruct Or Gangrene Unilateral Recurre 550.91 Hernia Inguinal W/O Obstruct Or Gangrene Unilateral Recurre Office Visit 11/14/2004 9:30a [facility] Damian Richardson, 723.1 Cervicalgia Specialists Katheryn Plan of Treatment Future Appointment(s):10/20/2018 11:45 am - Yosvany Smith M.D. at [place] [facility]ub[facility]yl[facility]nnn72/05/2019 - Juan R Hdez MDJ44.9 Chronic obstructive pulmonary disease, mappimazxcmZ31.7 Other diseases of larynxComments:Extensive evidence with previous history of dysplasia no prior evidence of malignancy but I think because of the reduced mobility of his left cord am more suspicious of process that may have become more aggressive. Going to reexamine him in 1 week' s time. In the meantime I think I will schedule him for a biopsy possible CO2 laser resection for airway maintenance.J37.0 Chronic iuczvoiaafJ32.0 Dysphonia
--- OUTSIDE RECORDS SUMMARY | 2018-10-22 06:32 | XMS REPORT | Continuity of Care Document ---
:1960 External Reference #:[id number] Author Name Mario Carlton M.D. Address [address] [place] [address], [address] [place] [address] Care Team Providers Name Role Phone Mario Carlton M.D. Care Team Information Bed And Breakfast Cook Unavailable Payers Date Identification Numbers Payment Provider Subscriber Policy Number: [id number] [place] [facility] Mario Delvalle PayID: [id number] [address] [place] [address] Onset: 2007 Policy Number: [id number] [facility] Mario Delvalle Group Name: Groin, Low Back [address] [address] PayID: [place] [address] Effective: 2013 PayID: 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 Denies recent [...] Form Strength Qnty SIG Indications Ordering Provider Azithromycin 09/16 Active Tablets 250mg 6tabs take two tablets by J. mouth at [facility], once on the M.D. first day [...] Tablets 40mg 90tab 1 by mouth F32.9 bromid s every day Jeremy Carlton M.D. Lyrica 06/11 Active Capsules 300mg 60cap take 1 s capsule by J. mouth twice Childres, daily. ref M.D. # [id number] Verapamil HCL ER 12/04 Active Caps ER [...] Hx Tablets 0.5mg X 1tabs as Directed [facility] 11 & 1 mg For The J. - X 42 Starting [facility], 06/17 Pack .D. Pantoprazole 02/[address] 40mg 60tab 1 by mouth Sara Bates s bid Stu - ROYA 06/17 Azithromycin 09/10 Hx Tablets 250mg 6tabs take two J20.8 tablets by J. - mouth at [facility], 11/13 once on the .D. first day then take one daily thereafter Tramadol HCL 12/04 Hx Tablets 50mg 60tab take one K86.1 s tablet by Cara - mouth every R.N., 09/09 6 hours as A.N.P. needed max daily dose is 4 tablets Pantoprazole 08/[address] 40mg 90tab 1 by mouth Mario Sodium /2015 s every day JKevin Carlton, 12/04 M.D. Citalopram 08/14 Hx Tablets 20mg 90tab 1 By Mouth F32.9 Mario Hydrobromide s Every Day Jeremy Carlton, 06/17 M.D. Omeprazole 07/20 Hx Capsules 40mg 180ca [address] tanner twice a day JKevin - Brandt, 08/14 M.D. Carafate 07/20 Hx Tablets 1gm 180ta 1g by mouth R10.10 bs 4 times J. - daily Brandt, 12/04 M.D. Chlordiazepoxide 04/05 Hx Capsules 5-2.5mg 1 by mouth Mario HCL/Clidinium three times J. [place] - a day as Brandt, 12/04 needed M.D. Pantoprazole 04/[address] 40mg 90tab 1 by mouth 789.09 Mario Sodium s every day JKevin Carlton, 07/20.D. Cholestyramine 01/12 Hx Powder 4GM/Dose 378un 1 packet by its mouth 4 J. - times a day Brandt, 04/05 dissolved . in fluid..stop when stools thicken Dicyclomine HCL 12/26 Hx Tablets 20mg 180ta one tab PO bs tid Jeremy - Brandt, 03/06 M.D. Senna Lax 08/04 Hx Tablets 8.6mg 180ta 2 tabs 789.09 bs nightly Jeremy - Brandt, 12/26 M.D. Colace 08/04 Hx Capsules 100mg 90cap 1 by mouth 789.09 s twice a day Jeremy Carlton, 12/26 M.D. Lactulose 08/04 Hx Solution 20GM/30ML 30uni 30cc po 789.09 ts qday prn J. - abdominal Brandt, 12/26 pain M.D. Fentanyl 08/04 Hx Patches 25mcg/HR 20uni two 72HR ts patches td J. - q3days Childres, 09/06 Katheryn Zantac 150 02/04 Hx Tablets 150mg 30tab 1 po hs 530.11 Giuseppe Maximum Strength bridget Garcia M.D. 06/02 Trazodone HCL 10/29 Hx Tablets 50mg 30tab 1 PO QHS Joel bridget Marroquin - R.N., 08/04 A.N.P. /2012 Citalopram 10/29 Hx Tablets 10mg 180ta Take 2 311 Mario Hydrobromide bs Tablets By JKevin - Mouth Every Childres, 08/14 Day Katheryn Lyrica 08/26 Hx Capsules 50mg 30cap 1 po qd prn 783.21 bridget Garcia M.D. 10/29 Pantoprazole 08/[address] 40mg 30tab 1 po qd 041.Mojgan Chin bridget Garcia M.D. 02/04 Dexilant 07/09 Hx Capsules 60mg 21cap 1 po qd 530.[address] bridget Garcia M.D. 08/12 Tetracycline HCL 06/15 Hx Capsules 500mg 56cap 1 PO qid by 041.Mojgan Chin bridget Garcia M.D. 06/15 Metronidazole 06/15 Hx Tablets 250mg 56tab 1 PO qid by 041.Mojgan Chin bridget Garcia M.D. 07/09 Cimetidine 06/15 Hx Tablets 400mg 28tab 1 PO bid 041.Mojgan Chin bridget Garcia M.D. 08/12 Doxycycline 06/15 Hx Tablets 100mg 28tab 1 po bid Giuseppe Hycl s for 14 days Janet Garcia M.D. 07/09 Lyrica 01/14 Hx Capsules 100mg 1 po qd Giuseppe Janet Garcia M.D. 08/12 Fentanyl 01/14 Hx [...] Tablets 250mg 10tab 1 po bid 382.00 s Janet Garcia M.D. 08/22 Darvocet N-100 07/23 Hx Tablets 100mg 30tab 1 po q 4hrs 382.00 s as needed Janet Garcia for pain ,Katheryn 11/02 Zithromax Z-Ishan Hx Tablets 250mg 6tabs uad - 08/22 Paxil Hx Tablets 30mg 30tab 1 PO qd s - 09/09 Trazodone Hx Tablets 150mg 30tab 1/2 PO qd s - 10/29 Lyrica Hx Capsules 200mg 1 PO bid Janet Garcia M.D. 01/14 Verapamil Hx Tablets 240mg 30tab 1 PO qd s Janet Garcia M.D. 09/09 Avinza Hx Capsules 30mg 1 po tid Janet Garcia M.D. 01/14 Glycolax Hx Tablets 30tab 1 po qd s Janet Garcia M.D. 01/14 Multivitamins Hx Caplets 1 PO qd Janet Garcia M.D. 01/14 Famotidine Hx Tablets 20mg 30tab 1 po bid s - 08/12 Dicyclomine HCL Hx Capsules 10mg 90cap 1 po tid Unknown /0000 s prn - 08/12 Fentanyl 00/00 Hx Patches 100mcg/HR 10uni 1 patch top Unknown /0000 72HR ts q3 days - 09/06 Fentanyl 00/00 Hx Patches 50mcg/HR 10uni 1 patch Unknown /0000 72HR ts topically - q72h 06/02 Fentanyl 00/00 Hx Patches 75mcg/HR 1 patch Unknown /0000 72HR topically - q72h 08/04 Omeprazole 00/00 Hx Capsules 40mg 30cap 1 po qd 530.11 Unknown /0000 s - 08/04 Namenda Hx Tablets 10mg 60tab 1 po bid Unknown / s - 12/26 Trazodone HCL 00 Hx Tablets 100mg 90tab 1 tab by Mario / s mouth every J. - night at [facility], 04/05 bedtime M.DKevin /2014 Tramadol HCL Hx Tablets 50mg 60tab 1 po q6hr Unknown / s prn - 12/26 Carisoprodol Hx Tablets 350mg 50tab 1 po q6h Unknown / s prn - 12/26 Fluconazole / Hx Tablets 100mg 1tabs 1 po qd Unknown /0000 - 03/06 Dicyclomine HCL Hx Capsules 10mg 120ca 1 po tid Unknown /0000 ps - 12/26 Verapamil HCL ER 00 Hx Caps ER 240mg 90cap 1 by mouth Unknown /0000 24HR s every day - 12/04 Verapamil HCL Hx Tablets 40mg 30tab 1 by mouth Unknown / s twice a day - With The 12/04 240MG /2015 Creon Hx Caps [id number] 1 cap by Strong /0000 Part mouth three [facility] - [facility] a day [facility] 11/13 after meals Omeprazole 00/00 Hx Capsules 40mg 1 by mouth Chelle, /0000 twice a day Radha Blancahrd M.D. 02/13 Viagra 00 Hx Tablets 100mg take Unknown /0000 one-half - (2) to 04/28 tablet one hour before intercourse as directed Cialis Hx Tablets 20mg 1/2 - 1 tab Unknown /0000 by mouth - prn 11/08 /2018 Medications Administered in Office Medication Date Status Form Strength Qnty SIG Indications Ordering Provider Admin Of Administered Injection Injection/B Vaccine,One 018 P Schedule Vaccine Admin Of Administered Injection Injection/B Vaccine,One 015 P Schedule Vaccine Immunizations CPT Code Status Date Vaccine Lot # [id number] Given 06/17/2018 Tdap, adacel vaccine [facility] 15323-235-12 .50ML [id number] Given 03/29/2018 Afluria, 0.5mL Flu Vaccine [id number] Given 07/20/2015 Fluvirin 0.5 ML,[facility] [id number] Vital Signs Date Vital Result Comment 09/22/2018 [facility] Glucose 95.1 mg/dL 65 -[address] [address] [phone] BUN 16.4 mg/dL 7-21 Co2 27.2 mmol/L [...] [facility] Triglycerides 70 mg/dL 0-[address] [place] [address] [phone] Cholesterol 170 mg/dL 120-200 HDL Cholesterol 58.0 mg/dL 40-60 VLDL (Calc.) 14 mg/dL <31 Cholesterol/HDL 2.93 Ratio <5.00 LDL (Calc.) 98 mg/dL 0-99 2 CBC 06/17/2018 [facility] WBC 8.9 10^3/uL 4.8-10.[address] [place] [address] [phone] RBC 4.86 10^6/uL 4.2-6.1 HGB 15.2 g/dL 12.0-18.0 HCT 46.1 % 37-52 MCV 94.8 fL 80.0-99.9 MCH 31.3 pg 26.0-32.0 MCHC 33.0 g/dL 31.0-36.0 RDW 12.70 % 11.0-15.0 MPV 7.9 fL 7.4-10.4 Platelets 169 10^3/uL 130-400 Auto Diff 06/17/2018 [facility] Lymphocytes % 27.10 % 20.5- 51.[address] [phone] Monocytes % 8.70 % 1.7-9.3 Granulocyte % 64.2 % 42.2-75.2 Lymphocytes # 2.4 10^3/uL 0.6-4.1 Monocytes # 0.8 10^3/uL 0.0-1.8 Granulocyte # 5.7 10^3/uL 2.0-7.8 Lipid Studies 02/13/2017 [facility] Triglycerides 122 mg/dL 0-[address] [phone] Cholesterol 158 mg/dL 120-200 HDL Cholesterol 44.0 mg/dL 40-60 VLDL (Calc.) 24 mg/dL <31 Cholesterol/HDL 3.59 Ratio <5.00 LDL (Calc.) 90 mg/dL 0-99 3 Laboratory test 02/13/2017 [facility] TSH 1.82 uIU/mL 0.5- 6.0 finding [address] [phone] %A1c 5.0 % 4.8-6.0 CBC 02/13/2017 [facility] WBC 9.9 10^3/uL 4.8-10.[address] [address] [phone] RBC 4.55 10^6/uL 4.2-6.1 HGB 14.7 g/dL 12.0-18.0 HCT 43.5 % 37-52 MCV 95.7 fL 80.0-99.9 MCH 32.3 pg High 26.0-32.0 MCHC 33.8 g/dL 31.0-36.0 RDW 12.30 % 11.0-15.0 MPV 7.6 fL 7.4-10.4 Platelets 253 10^3/uL 130-400 Comp. Metabolic 02/13/2017 [facility] Glucose 91.4 mg/dL 65 -[address] [address] [phone] BUN 19.6 mg/dL 7-21 Co2 24.6 mmol/L [...] Assoc Lymphocytes % 36.10 % 20.5- 51.[address] [place] [address] [phone] Monocytes % 8.80 % 1.7-9.3 Granulocyte % 55.1 % 42.2-75.2 Lymphocytes # 3.6 10^3/uL 0.6-4.1 Monocytes # 0.9 10^3/uL 0.0-1.8 Granulocyte # 5.5 10^3/uL 2.0-7.8 Lyme AB With 09/10/2016 [facility] Lyme IgG/IgM <0.91 ISR 0.00-0.90 [address] [place] [address] [place] [address] [phone] Laboratory test 12/05/2015 [facility] Amylase 43 U/L 25- [address] [place] [address] [phone] Lipase 122 U/L 73-390 Laboratory test 12/05/2015 [facility] eGFR (Male) 106 >59 [address] [place] [address] [phone] CBC 12/05/2015 [facility] WBC 11.3 High 4.8-10.[address] [place] [address] 10^3/[place] [address] [phone] RBC 4.57 10^6/uL 4.2-6.1 HGB 15.8 g/dL 12.0-18.0 HCT 44.4 % 37-52 MCV 97.1 fL 80.0-99.9 MCH 34.6 pg High 26.0-32.0 MCHC 35.6 g/dL 31.0-36.0 RDW 11.20 % 11.0-15.0 MPV 7.3 fL Low 7.4-10.4 Platelets 231 10^3/uL 130-400 Comp. Metabolic 12/05/2015 [facility] Glucose 96.9 mg/dL 65 -[address] [phone] BUN 10.8 mg/dL 7-21 Co2 28.1 mmol/L [...] Assoc Lymphocytes % 26.30 % 20.5- 51.[address] [address] [phone] Monocytes % 5.50 % 1.7-9.3 Granulocyte % 68.2 % 42.2-75.2 Lymphocytes # 3.0 10^3/uL 0.6-4.1 Monocytes # 0.6 10^3/uL 0.0-1.8 Granulocyte # 7.7 10^3/uL 2.0-7.8 Comp. Metabolic 07/28/2014 [facility] Glucose 90.5 mg/dL 65 -[address] [address] [phone] BUN 13.1 mg/dL 7-21 Co2 26.2 mmol/L [...] [facility] Triglycerides 49 mg/dL 0-[address] [address] [phone] Cholesterol 163 mg/dL 120-200 HDL Cholesterol 45.0 mg/dL 40-60 VLDL (Calc.) 10 mg/dL <31 Cholesterol/HDL 3.62 Ratio <5.00 LDL (Calc.) 108 mg/dL High 0-99 7 Laboratory test 07/28/2014 [facility] TSH 1.36 uIU/mL 0.5- 6.0 finding [address] [address] [phone] eGFR (Male) 99 >59 8 Creatinine 02/22/2013 [facility] Creatinine 0.7 mg/dL 0.6- 1.3 Clearance Urine [address] [place] [phone] Urine Volume 2325 mL High 500-1,600 Ur Creatinine 65.2 mg/dL 24HR Urine Creatinin 1516 mg/24hr 600-2,500 Creatinine Clearance 150.4 mL/min High 97.0-137.0 Laboratory test 02/22/2013 [facility] 24HR Creatinine < pending> finding [address] [facility] [place] [address] [phone] Comp. Metabolic 02/04/2013 [facility] Glucose 91.1 mg/dL 65 -[address] [address] [phone] BUN 10.3 mg/dL 7-21 Co2 30.5 mEq/L [...] 1.5 Ratio 1.1-2.2 HCV Rna Quant 02/04/2013 [facility] HCV Rna Quant <1.6 logIU 9 PCR [facility] [place] [address] [phone] HCVPCP <43 IU/mL HCV Rna Quant Inter Not Detected 10 Err HCV Quant RT PCR See Note 11 Laboratory test 02/04/2013 [facility] eGFR (Male) 108 >59 12 finding [address] [address] [phone] Comp. Metabolic 08/12/2012 [facility] Glucose 98.1 mg/dL 65 -[address] [address] [phone] BUN 9.8 mg/dL 7-21 Co2 28.0 mEq/L [...] [facility] WBC 7.8 10^3/uL 4.8-10.[address] [address] [phone] RBC 4.68 10^6/uL 4.2-6.1 HGB 14.5 g/dL 12.0-18.0 HCT 43.2 % 37-52 MCV 92.4 fL 80.0-99.0 MCH 31.0 pg 27.0-31.0 MCHC 33.6 g/dL 33.0-37.0 RDW 12.60 % 11.0-15.0 MPV 8.1 fL 7.4-10.4 Platelets 175 10^3/uL 130-400 Laboratory test 08/12/2012 [facility] TSH 1.34 uIU/mL 0.5- 6.0 finding [address] [address] [phone] eGFR (Male) 99 >59 13 Lipid Studies 02/03/2012 [facility] Triglycerides 94 mg/dL 0-[address] [address] [phone] Cholesterol 199 mg/dL 120-200 HDL Cholesterol 33.0 mg/dL Low 40-60 VLDL (Calc.) 19 mg/dL <31 Cholesterol/HDL 6.03 Ratio High <5.00 LDL (Calc.) 147 mg/dL High 0-99 14 HCV Rna Quant 02/03/2012 [facility] HCV Rna Quant <1.6 logIU [address] [facility] [place] [address] [phone] HCVPCP <43 IU/mL HCV Rna Quant Inter Not Detected 16 Err HCV Quant RT PCR See Note 17 CBC 01/20/2012 [facility] WBC 8.2 10^3/uL 4.8-10.[address] [address] [phone] RBC 4.88 10^6/uL 4.2-6.1 HGB 14.7 g/dL 12.0-18.0 HCT 44.2 % 37-52 MCV 90.4 fL 80.0-99.0 MCH 30.2 pg 27.0-31.0 MCHC 33.4 g/dL 33.0-37.0 RDW 12.70 % 11.0-15.0 MPV 8.1 fL 7.4-10.4 Platelets 205 10^3/uL 130-400 CBC 01/15/2012 [facility] WBC 13.2 10^3/uL High 4.8-10.[address] [address] [phone] RBC 5.08 10^6/uL 4.2-6.1 HGB 15.1 g/dL 12.0-18.0 HCT 45.9 % 37-52 MCV 90.4 fL 80.0-99.0 MCH 29.7 pg 27.0-31.0 MCHC 32.9 g/dL Low 33.0-37.0 RDW 13.10 % 11.0-15.0 MPV 8.4 fL 7.4-10.4 Platelets 216 10^3/uL 130-400 Comp. Metabolic 01/15/2012 [facility] Glucose 119.1 mg/dL High 65-[address] [place] [address] [phone] BUN 11.8 mg/dL 7-21 Co2 28.2 mEq/L [...] TSH 1.25 uIU/mL 0.5- 6.0 finding [address] [phone] eGFR (Male) 106 >59 18 Laboratory test 01/15/2012 [facility] Lymphocytes % 29.00 % 20.5-51.1 finding [address] [address] [phone] Monocytes % 3.00 % 1.7-9.3 Granulocyte % 68.0 % 42.2-75.2 Lymphocytes # 3.8 10^9/L High 1.2-3.4 Monocytes # 0.4 10^9/L 0.1-0.5 Granulocyte # 9.0 /mm^3 High 1.4-5.5 Laboratory test finding 01/15/2012 [facility] Amylase 32 U/L 25-[address] [place] [address] [phone] Lipase 95 U/L 73-390 Comprehensive 08/22/2004 [facility] Glucose 99 mg/dL 61.0 - 110.0 Metabolic [phone] BUN 25 mg/dL High 5.0 - 21.0 [...] Labs WBC 5.2 x10*3 4.3 - 10.9 [phone] RBC 4.09 x10*6 Low 4.2 - 5.6 [...] Anisocytosis 1+ AB Laboratory test finding 08/22/2004 [facility] GFR (Calculated) > 60 19 [phone] 1 For Patients, multiply result by 1.159 [...] enhanced report for this test go to: [email or web address] Performed by [facility], [address] [place] [address] www.[email or web address] [employer], Edis Alejo MD, Lab. Director Unless otherwise specified, testing performed by [facility] [place] [employer] [place] [address] Client Account Specialist: Dr. Isidro Miranda. 12 Units expressed as [...] enhanced report for this test go to: [email or web address] [email or web address] Performed by [facility], [address] [place] [address] www.[employer], Iraida Renee MD, Lab. Director 18 Units [...] . Procedures Date Code Description Status 11/13/2016 85752 EKG - In Office Completed 12/25/2015 94606 EKG - In Office Completed 07/28/2014 89944 EKG - In Office Completed 09/13/2013 27194 EKG - In Office Completed 03/09/2012 80948044 Colonoscopy Completed 08/27/2009 50496 EKG - In Office Completed Encounters Type Date Location Provider Dx Diagnosis Office Visit 09/06/2018 Main Office Mario Winters44.1 Chronic obstructive 10:30a Ayaan Carlton. pulmonary disease w (acute) exacerbation F17.218 Nicotine dependence, cigarettes, w oth disorders J43.1 Panlobular emphysema Office Visit 06/17/2018 9:45a Main Office Mario Luna Z00.00 Encntr for Katheryn Carlton general adult medical exam w/o abnormal findings [...] 3:00p Main Office Sara Williamson Z00.00 Encntr ciarra Peraza NP general adult medical exam w/o abnormal findings [...] Main Office Mario Luna R10.10 Upper abdominal Childres, M.D. pain, unspecified R51 Headache J30.9 Allergic rhinitis, unspecified Office Visit 07/20/2015 3:15p Main Office Mario Luna R10.10 Upper abdominal Childres, M.D. pain, unspecified Office Visit 04/05/2015 1:15p Main Office Mario Luna 789.09 Pain Abdominal Childres, M.D. Other Spec Site Office Visit 01/12/2015 11:15a Main Office Mario Luna V72.84 Examination Childres, M.D. Preoperative Unspec V72.83 Examination Preoperative Other Spec 789.07 Pain Abdominal Generalized 784.0 Headache 719.46 Pain Joint Lower Leg Office Visit 07/28/2014 9:00a Main Office Mario Luna 401.1 Hypertension Benign Childres, M.D. 272.2 Hyperlipidemia Mixed 305.1 Tobacco Use Disorder Office Visit 03/06/2014 3:15p Main Office Mario Luna 401.1 Hypertension Benign Childres, M.D. 272.2 Hyperlipidemia Mixed 784.0 Headache 305.1 Tobacco Use Disorder Office Visit 12/26/2013 1:45p Main Office Mario Luna 789.09 Pain Abdominal Childres, M.D. Other Spec Site Office Visit 09/06/2013 3:15p Main Office Mario Luna 789.09 Pain Abdominal Childres, M.D. Other Spec Site 784.0 Headache Office Visit 08/04/2013 8:30a Main Office Mario Luna 789.09 Pain Abdominal Childres, M.D. Other Spec Site 784.0 Headache V02.62 Hepatitis [...] Main Office Joel Marroquin, 308.9 Stress Reaction R.Nacho.,A.N.P. Unspec Acute Office Visit 11/02/2006 10:45a Main [...] am - Mario Carlton M.D. at Main Abuvdg3209/22/2018 - Mario Carlton M.D.J44.1 Chronic obstructive pulmonary disease with (acute) exacerbat
[2018-10-22] MEDS ORDERED: Buffered Lidocaine 1% SYRIN* 1 ML/SYRINGE INTRADERM ONE (06:46)
[2018-10-22] MEDS: Lactated Ringers 1000 ML Bag* 1,000 ML IV SCH ×3 (06:59→22:04)
[2018-10-22] MEDS ORDERED: EPINEPHRINE 1 MG/ML 1 ML VIAL ONE (08:12)
[2018-10-22] MEDS ORDERED: Lidocaine 2% EPI 1:200000 MPF*10-20 ML VIAL ONE ×2 (08:12→08:56)
[2018-10-22] MEDS ORDERED: fentaNYL* 50 MCG/ML 2 ML VIAL (100 MCG VIAL) ONE ×2 (08:29→09:22)
[2018-10-22] MEDS ORDERED: Midazolam* 1 MG/ML 2 ML VIAL (2 MG) ONE (08:30)
[2018-10-22] MEDS ORDERED: Lidocaine 2% PF * 5 ML VIAL ONE (09:13)
[2018-10-22] MEDS ORDERED: Propofol* 10 MG/ML 20 ML BTL ONE ×2 (09:13→09:24)
[2018-10-22] MEDS ORDERED: EPHEDrine (Pressors)* 50 MG/ML VIAL ONE (09:14)
--- NOTE | 2018-10-22 10:45 | OP ---
DATE OF OPERATION: 10/22/18 - ROOM #ICU-08 DATE OF : 64 SURGEON: Lobo Hdez MD. PRE-OP DIAGNOSES: Laryngeal edema, chronic laryngitis, possible laryngeal cancer with stridor. POST-OP DIAGNOSES: Laryngeal edema, chronic laryngitis, possible laryngeal cancer with stridor. OPERATIVE PROCEDURE: Awake tracheostomy, laryngoscopy, biopsy, and cultures of larynx. BRIEF HISTORY: This 58-year-old gentleman with history of smoking, history of reflux and intermittent alcohol abuse had been having symptoms of chronic dysphonia and a progressive stridor, prior history of multiple biopsy showing significant dysplasia without evidence of cancer. Continued to smoke. DESCRIPTION OF PROCEDURE: The patient was taken to the operating room. Neck was prepped and draped in the usual fashion with MAC anesthesia. Curvilinear incision made 2 cm above the manubrium. Taken down through the platysma. Identified in the midline the strap muscles. Carefully divided out laterally. Thyroid was then identified, divided in the midline. The tracheal cartilage was then identified between the first and second ring. I infiltrated 2% lidocaine into the trachea. A small incision was made, small window was created. A #8 tracheostomy was then placed. The patient was then transferred onto the circuit for the anesthesiologist to give the patient general anesthetic. The larynx was then suspended, examined under microscope. Copious cultures were done for fungal, aerobic, anaerobic, and TB. Subsequently, left vocal cord biopsies were performed with couple of forceps. Hemostasis was then obtained with adrenaline soaked pledgets. The patient was then awakened, transferred to the ICU for trach care. Pending results of the biopsy. COUNT: Instrument and sponge count was correct. BLOOD LOSS: Minimal. [id number]/[facility] #: [id number] [facility]
[2018-10-22] MEDS: Morphine 4 MG/ML VIAL (1 ml) 4 MG/ML VIAL IV PRN ×3 (13:09→21:09)
[2018-10-22] MEDS: Ondansetron INJ* 2 MG/ML VIAL IV SCH ×2 (13:56→17:21)
--- NOTE | 2018-10-22 14:23 | HP ---
AMENDED REPORT NOW INCLUDES DESIGNATED COSIGNER ADMISSION HISTORY AND PHYSICAL: DATE OF ADMISSION: 10/22/18 SURGICAL ATTENDING: Dr. Lobo Hdez. MEDICAL ATTENDING: Dr. Mindy Camacho.* (DICTATED BY MARTHA BENITES NP) CHIEF COMPLAINT: Laryngeal mass. 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 The patient presented to Dr. Hdez for evaluation. It was determined he had a mass or neoplasm that required resection. The patient presented today with Dr. Hdez for resection of that neoplasm, biopsies, and elective tracheostomy. The patient is observed in the ICU. He can communicate with writing on paper. He is unable to verbally communicate secondary to his surgery. However, his is at the bedside and provided most of his medical history. At this time, we are being requested to admit the patient on behalf of the surgical service and help manage medical comorbidities. PAST MEDICAL HISTORY: Significant for chronic stomach pain, migraine headaches , insomnia, COPD, and tobacco abuse. PAST SURGICAL HISTORY: Significant for cholecystectomy, hernia repair. MEDICATIONS: Medications at home include: 1. Fluticasone nasal spray daily. 2. Verapamil 360 mg at bedtime. 3. Lyrica 300 mg p.o. b.i.d. 4. Omeprazole 40 mg p.o. b.i.d. 5. Trazodone 200 mg at bedtime. 6. Breo Ellipta 1 puff daily. 7. Melatonin 9 mg at bedtime. 8. Budesonide 1 b.i.d. 9. Cipro 500 mg p.o. b.i.d. 10. Atrovent inhaled b.i.d. 11. Fluconazole 200 mg in the morning. 12. Botox injections 100 units every 3 months. ALLERGIES: The patient has no known drug allergies. FAMILY HISTORY: Per the record, he has some family history of mother with lung cancer. SOCIAL HISTORY: The patient is . 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 He is a everyday smoker for half a pack a day for 25 years. Denies any alcohol use. Denies any illicit drug use. REVIEW OF SYSTEMS: The patient is stating he is having some discomfort in his neck and his throat. He is denying any acute shortness of breath. He does have a cough productive of bloody sputum. He denies any chest pain. No fevers or chills. He is fatigued and sleepy and otherwise no further constitutional complaints. PHYSICAL EXAMINATION GENERAL: The patient is alert, but can be sleepy. He is post anesthesia but in no acute distress. VITAL SIGNS: Blood pressure 137/83, heart rate 85, respiratory rate 21, O2 saturation 94% on humidified trach mask, and temperature of 98.2. HEENT: The patient is atraumatic, normocephalic. PERRLA but nonicteric sclerae. Oral mucosa is moderately dry. Tongue is midline. NECK: Tender. There is a fresh tracheostomy noted with some serosanguineous drainage around the dressing and also with cough. He is expectorating also some bloody sputum. CHEST: Benign. Lungs with bilateral wheezing and some scattered rhonchi throughout the lung perez. No appreciable rales noted. He does have good air entry. CARDIOVASCULAR: S1, S2 present. No murmurs, gallops, or rubs noted. He has regular sinus rhythm on telemetry. ABDOMEN: Soft, nontender, nondistended. Positive bowel sounds in all 4 quadrants. : Deferred. MUSCULOSKELETAL: There is no clubbing, no cyanosis, and no edema. He has +2 distal pulses palpable. He has brisk cap refill. Moving all extremities well. NEUROLOGIC: Although he is not able to verbally communicate, he is appropriate and he answers questions with his mentation intact through written instruction. Otherwise, no focal deficits noted. PSYCHIATRIC: He is cooperative and appropriate. DIAGNOSTIC STUDIES/LAB DATA: Laboratories: There were no current labs available. Imaging: No current imaging available. IMPRESSION: This is a 58-year-old male who presented to [facility] today for elective tracheostomy, excision of tumor and biopsies. PLAN: 1. The patient is admitted to ICU per the request of Surgery. His initial surgical plan of care for his tracheostomy is as per the surgical service. Plan is for the patient to be observed in ICU through the weekend and then have a trach change on Thursday. He was taken off the ventilator and is now tolerating humidified trach collar with O2. I have ordered morphine for pain q.4 hours, Zofran for any nausea. He does have IV fluids going, lactated Ringer 's at 125 mL/hour. This will be continued. I have requested a swallow evaluation. I suspect that the patient will need modified diet to start. In the meantime, we will keep him n.p.o. He does have medications ordered for this evening; however, we will wait until the swallow evaluation before we give him any p.o. meds. Follow labs in the morning, CBC and CMP tomorrow. Follow his tissue and wound cultures also. We have also placed consultation for Occupational Therapy and Nutrition, who should see the patient at some point before discharge. 2. For his history of hypertension, he is on verapamil. His blood pressure was a little soft coming out of the OR. It is currently stable. For now, we will continue his verapamil, which also gives him headache prophylaxis as long as he is able to swallow tonight. 3. For his history of chronic abdominal pain, the patient will be maintained on his Lyrica and citalopram. 4. History of GERD. He is on Protonix 40 mg 2 times a day. This will also be continued. 5. History of COPD. The patient is very wheezy right now. He does have quite a bit of productive cough. We will place him on DuoNeb q.4 hours with incentive spirometry. Continue his budesonide inhaler and we will hold on his regular ipratropium inhaler in lieu of DuoNeb being given. We will also add guaifenesin 2 times a day and Breo Ellipta once daily. We greatly encourage pulmonary toilet as tolerated. 6. History of insomnia. We will continue the patient on his trazodone and melatonin. 7. DVT prophylaxis. The patient is currently high risk for bleeding. We will refrain from using heparin until he is cleared by Surgery. For now, he can have SCDs while he is in bed. 8. Code status. He is a full code. Healthcare proxy is his , who is currently at the bedside. The rest of the patient's course will be determined by further diagnostics, laboratories, and any other input from other providers as warranted during this admission. We will continue to monitor the patient closely and look to any recommendations from ENT service regarding this patient's care. This plan of care has been discussed with Dr. Mindy Camacho, who is in agreement. TIME SPENT: Seventy five minutes critical care evaluating the patient, plan of care and communicating with ICU staff. MARTHA BENITES, ROYA [id number]/[facility] #: [id number] [facility] CENTERKem
[2018-10-22] MEDS ORDERED: Ipratropium 0.5MG/2.5ML NEB* 0.5 MG/2.5 ML NEB.SOLN INH SCH (19:00)
[2018-10-22] MEDS: Budesonide NEB* 0.5 MG/2 ML NEB.SOLN INH SCH (19:30)
[2018-10-23] MEDS: Morphine 4 MG/ML VIAL (1 ml) 4 MG/ML VIAL IV PRN ×8 (00:59→19:59)
[2018-10-23] MEDS: Ondansetron INJ* 2 MG/ML VIAL IV SCH ×8 (01:09→22:39)
[2018-10-23] MEDS: Melatonin 3 MG TAB PO SCH ×2 (01:09→22:39)
[2018-10-23] MEDS: Citalopram TAB* 40 MG PO SCH ×2 (01:09→22:39)
[2018-10-23] MEDS: guaiFENesin ER TAB 600 MG PO SCH ×3 (01:09→22:39)
[2018-10-23] MEDS: traZODone TAB* 100 MG PO SCH ×2 (01:10→22:38)
[2018-10-23] MEDS: Verapamil TAB* 120 MG PO SCH ×2 (01:10→22:38)
[2018-10-23] MEDS: Pyridoxine TAB* 50 MG PO SCH ×2 (01:10→22:39)
[2018-10-23] MEDS: Pregabalin CAP(*) 300 MG PO SCH ×3 (01:10→21:35)
[2018-10-23] MEDS: Pantoprazole TAB * 40 MG TAB PO SCH ×2 (01:11→09:22)
[2018-10-23 05:34] LABS: ABS Basophils 0.1 10^3/ul (0-0.2); ABS Eosinophils 0 10^3/ul (0-0.6); ABS Lymphocytes 1.7 10^3/ul (1.0-4.8); ABS Monocytes 0.9 10^3/ul (0-0.8); ABS Neutrophils 11.8 10^3/ul (1.5-7.7); ABS Nucleated RBC 0 10^3/ul; Eosinophil % 0.1 %; Hematocrit 40 % (36-46); Hemoglobin 13.4 g/dL (14.0-18.0); Lymphocyte % 11.8 %; Mean Corpuscular HGB Conc 33 g/dL (31-36); Mean Corpuscular Hemoglobin 31 pg (27-31); Mean Corpuscular Volume 92 fL (80-94); Nucleated Red Blood Cells % 0; Platelet Count 197 10^3/uL (150-450); Red Blood Count 4.39 10^6 /uL (4.18-5.48); Red Cell Distribution Width 14 % (10.5-15); White Blood Count 14.5 10^3/uL (3.5-10.8)
[2018-10-23 05:51] LABS: Albumin 3.6 g/dL (3.2-5.2); Albumin/Globulin Ratio 1.4 (1-3); BUN/Creatinine Ratio 14.5 (8-20); Calcium 8.5 mg/dL (8.6-10.3); EGFR African American 162.4 (>60); EGFR Non-African American 134.2 (>60); Globulin 2.6 g/dL (2-4); Potassium 3.7 mmol/L (3.5-5.0); Total Bilirubin 0.7 mg/dL (0.2-1.0); Total Protein 6.2 g/dL (6.4-8.9)
[2018-10-23] MEDS: Lactated Ringers 1000 ML Bag* 1,000 ML IV SCH ×2 (06:05→22:30)
[2018-10-23] MEDS: Budesonide NEB* 0.5 MG/2 ML NEB.SOLN INH SCH ×2 (08:25→19:46)
[2018-10-23] MEDS: Fluticasone/Vilanterol MDI(NF) 200/25 MDI INH SCH (08:39)
[2018-10-23] MEDS ORDERED: Morphine 4 MG/ML VIAL (1 ml) 4 MG/ML VIAL IV PRN (09:24)
--- NOTE | 2018-10-23 09:30 | PN ---
Subjective Date of Service: 10/23/18 Interval History: Discussed patient with Charla Brownlee RN. Patient failed swallow evaluation, therefore , nurse requesting Pantoprozole be changed to IV. In addition patient's pain is not currently controlled with Morphine 2 mg IV q 2hrs as he continues to have pain with coughing. On assessment patient is resting in bed with trach collar in place. Reports pain at trach site and bilateral sides of neck with movement, coughing, deep breathing. Denies sob, cp, palpitations, nausea, vomiting, fever, chills. Objective Active Medications: Albuterol/Ipratropium (Duoneb (Albuterol 2.5 Mg/Ipratropium 0.5 Mg)) 1 neb INH [id number] AWAKE PRN PRN Reason: sob/wheexing Budesonide (Pulmicort Neb*) 0.5 mg INH RT.BID [facility] Last Admin: 10/23/18 08:25 Dose: 0.5 mg Citalopram Hydrobromide (Celexa Tab*) 40 mg PO BEDTIME [facility] Last Admin: 10/23/18 01:09 Dose: Not Given Fluticasone/Vilanterol (Breo Ellipta Mdi 200/25(Nf)) 1 puff INH DAILY [facility] Last Admin: 10/23/18 08:39 Dose: Not Given Guaifenesin (Mucinex*) 600 mg PO BID [facility] Last Admin: 10/23/18 09:22 Dose: Not Given Lactated Ringer's (Lactated Ringers 1000 Ml Bag*) 1,000 mls @ 125 mls/hr IV PER RATE [facility] Last Admin: 10/23/18 06:05 Dose: 125 mls/hr Melatonin (Melatonin) 9 mg PO BEDTIME [facility] Last Admin: 10/23/18 01:09 Dose: Not Given Morphine Sulfate (Morphine Vial*) 4 mg IV Q2H PRN PRN Reason: PAIN Ondansetron HCl (Zofran Inj*) 4 mg IV Q4H [facility] Last Admin: 10/23/18 09:22 Dose: Not Given Pantoprazole Sodium (Protonix Iv*) 40 mg IV DAILY [facility] Pregabalin (Lyrica Cap(*)) 300 mg PO BID [facility] Last Admin: 10/23/18 09:22 Dose: Not Given Pyridoxine HCl (Vitamin B6 Tab*) 50 mg PO BEDTIME [facility] Last Admin: 10/23/18 01:10 Dose: Not Given Trazodone HCl (Desyrel Tab*) 200 mg PO BEDTIME [facility] Last Admin: 10/23/18 01:10 Dose: Not Given Verapamil HCl (Calan Tab*) 360 mg PO BEDTIME [facility] Last Admin: 10/23/18 01:10 Dose: Not Given Vital Signs - 8 hr 10/23/18 10/23/18 10/23/18 01:30 01:45 02:00 Temperature Pulse Rate 80 80 96 Respiratory 25 23 20 Rate Blood Pressure 131/88 126/80 139/94 (mmHg) O2 Sat by Pulse 89 90 90 Oximetry 10/23/18 10/23/18 10/23/18 02:01 02:15 02:30 Temperature Pulse Rate 105 102 95 Respiratory 20 21 19 Rate Blood Pressure 142/95 136/92 (mmHg) O2 Sat by Pulse 92 90 89 Oximetry 10/23/18 10/23/18 10/23/18 02:45 03:00 03:15 Temperature Pulse Rate 81 81 75 Respiratory 20 22 21 Rate Blood Pressure 128/84 126/76 120/76 (mmHg) O2 Sat by Pulse 92 93 93 Oximetry 10/23/18 10/23/18 10/23/18 03:30 03:45 04:00 Temperature 100.1 F Pulse Rate 78 82 98 Respiratory 24 20 21 Rate Blood Pressure 122/75 140/93 138/86 (mmHg) O2 Sat by Pulse 92 93 93 Oximetry 10/23/18 10/23/18 10/23/18 04:05 04:15 04:30 Temperature Pulse Rate 82 81 Respiratory 2 15 22 Rate Blood Pressure 111/64 135/84 (mmHg) O2 Sat by Pulse 92 92 Oximetry 10/23/18 10/23/18 10/23/18 04:45 05:00 05:15 Temperature Pulse Rate 81 79 77 Respiratory 20 16 19 Rate Blood Pressure 128/87 129/88 130/86 (mmHg) O2 Sat by Pulse 95 95 95 Oximetry 10/23/18 10/23/18 10/23/18 05:30 05:45 06:00 Temperature Pulse Rate 77 77 88 Respiratory 18 18 19 Rate Blood Pressure 123/83 120/78 135/89 (mmHg) O2 Sat by Pulse 95 95 95 Oximetry 10/23/18 10/23/18 10/23/18 06:01 06:14 06:15 Temperature Pulse Rate 88 83 Respiratory 17 18 18 Rate Blood Pressure 119/88 (mmHg) O2 Sat by Pulse 94 92 Oximetry 10/23/18 10/23/18 10/23/18 06:30 08:00 08:14 Temperature 100 F Pulse Rate 74 Respiratory 17 15 Rate Blood Pressure 119/77 (mmHg) O2 Sat by Pulse 91 Oximetry 10/23/18 08:34 Temperature Pulse Rate 74 Respiratory 15 Rate Blood Pressure (mmHg) O2 Sat by Pulse 94 Oximetry Oxygen Devices in Use Now: Tracheostomy Collar Appearance: Visible pain in coughing and deep breathing as evidence by grimicing and bracing neck Eyes: No Scleral Icterus Ears/Nose/Mouth/Throat: Clear Oropharnyx, Mucous Membranes Moist Neck: - - Trach with scant pink sputum Respiratory: Symmetrical Chest Expansion and Respiratory Effort, - - Sporadic rhonchi throughout. Cardiovascular: NL Sounds; No Murmurs; No JVD, RRR, No Edema Abdominal: NL Sounds; No Tenderness; No Distention Lymphatic: No Cervical Adenopathy Extremities: No Edema, No Clubbing, Cyanosis Skin: No Rash or Ulcers Neurological: Alert and Oriented x 3 Nutrition: - - Currently NPO as he failed swallow eval Result Diagrams: 10/23/18 05:26 10/23/18 05:26 Additional Lab and Data: Laboratory Results - last 24 hr 10/23/18 10/23/18 05:26 05:26 WBC 14.5 H RBC 4.39 Hgb 13.4 L Hct 40 MCV 92 MCH 31 MCHC 33 RDW 14 Plt Count 197 MPV 8.0 Neut % (Auto) 81.1 Lymph % (Auto) 11.8 [place] % (Auto) 6.5 Eos % (Auto) 0.1 Baso % (Auto) 0.5 Absolute Neuts (auto) 11.8 H Absolute Lymphs (auto) 1.7 Absolute Monos (auto) 0.9 H Absolute Eos (auto) 0 Absolute Basos (auto) 0.1 Absolute Nucleated RBC 0 Nucleated RBC % 0 Sodium 134 L Potassium 3.7 Chloride 100 L Carbon Dioxide 27 Anion Gap 7 BUN 9 Creatinine 0.62 L Est GFR ( Amer) 162.4 Est GFR (Non-Af Amer) 134.2 BUN/Creatinine Ratio 14.5 Glucose 102 H Calcium 8.5 L Total Bilirubin 0.70 AST 81 H ALT 52 Alkaline Phosphatase 143 H Total Protein 6.2 L Albumin 3.6 Globulin 2.6 Albumin/Globulin Ratio 1.4 Microbiology and Other Data: Microbiology 10/22/18 09:21 Wound Gram Stain - Final Tissue - Oral/Throat Skin and Soft Tissue MRSA/MSSA (PCR - Final Mrsa Negative S.aureus Negative Acid Fast Bacilli Smear - Final 10/22/18 10:36 Nasal Screen MRSA (PCR) - Final Nasal Mrsa Not Detected Assess/Plan/Problems-Billing Assessment: 58 yr old male with pmh of vocal cord do, chronic laryingitis, chronic stomach pain, migraines, insomnia, copd, tobacco use, hep c (status post tx) and AAA; who is s/p tracheostomy - Patient Problems (1) Status post tracheostomy Comment: - Currently on trach collar and oxygeniating well. - [place] sputum occasionally. - Failed swallow evaluation - Pain not controlled with 2 mg IV morphine Q2hrs as he was having increase in pain with coughing and deep breathing, therefore, morphine increased to 4 mg IV Q 3 hrs. Discussed with nurse and if this is not beneficial consider changing to Dilaudid 1 mg Q 3 hrs. - Encourage deep breathing and incentive spirometer - Cont Nebs. (2) Hypertension Comment: - SBP low 100s. - Cont to hold Verapamil - Monitor (3) Migraine Comment: - Currently NPO, therefore, not receiving Lyrica and Verapamil (which helps hime with migraine prophylaxis) - restart these medications when able, but supperotive care until that time (4) Insomnia Comment: - Cont trazadone and Melatonin (5) Tobacco abuse Comment: - Smoking cessation (6) DVT prophylaxis (7) Full code status Status and Disposition: Inpatient. Attending: Liliane Matson
[2018-10-23] MEDS: Pantoprazole IV* 40 MG IV SCH (09:37)
[2018-10-23] MEDS: LORazepam INJ* 2 MG/ML 1 ML VIAL IV PUSH PRN (19:59)
[2018-10-23] MEDS: Nicotine PATCH 21 MG/24 HR* PATCH TRANSDERM SCH (22:36)
[2018-10-24] MEDS: Morphine 4 MG/ML VIAL (1 ml) 4 MG/ML VIAL IV PRN ×6 (00:09→16:52)
[2018-10-24] MEDS: Ondansetron INJ* 2 MG/ML VIAL IV SCH ×6 (02:30→21:29)
[2018-10-24 04:15] LABS: ABS Basophils 0 10^3/ul (0-0.2); ABS Eosinophils 0.1 10^3/ul (0-0.6); ABS Lymphocytes 1.5 10^3/ul (1.0-4.8); ABS Monocytes 1.1 10^3/ul (0-0.8); ABS Nucleated RBC 0 10^3/ul; Eosinophil % 0.5 %; Hematocrit 38 % (36-46); Hemoglobin 12.7 g/dL (14.0-18.0); Lymphocyte % 13.9 %; Mean Corpuscular HGB Conc 34 g/dL (31-36); Mean Corpuscular Hemoglobin 31 pg (27-31); Mean Corpuscular Volume 92 fL (80-94); Mean Platelet Volume 8.4 fL (7.4-10.4); Nucleated Red Blood Cells % 0; Platelet Count 172 10^3/uL (150-450); Red Cell Distribution Width 14 % (10.5-15); White Blood Count 10.8 10^3/uL (3.5-10.8)
[2018-10-24 04:29] LABS: Albumin 3.3 g/dL (3.2-5.2); Albumin/Globulin Ratio 1.3 (1-3); BUN/Creatinine Ratio 17.3 (8-20); Calcium 8.3 mg/dL (8.6-10.3); EGFR African American 198.9 (>60); EGFR Non-African American 164.4 (>60); Globulin 2.6 g/dL (2-4); Potassium 3.6 mmol/L (3.5-5.0); Total Bilirubin 1.8 mg/dL (0.2-1.0); Total Protein 5.9 g/dL (6.4-8.9)
[2018-10-24] MEDS: LORazepam INJ* 2 MG/ML 1 ML VIAL IV PUSH PRN ×4 (04:56→21:30)
[2018-10-24] MEDS: Lactated Ringers 1000 ML Bag* 1,000 ML IV SCH ×3 (06:26→22:00)
[2018-10-24] MEDS: Budesonide NEB* 0.5 MG/2 ML NEB.SOLN INH SCH ×2 (07:46→19:52)
[2018-10-24] MEDS: Fluticasone/Vilanterol MDI(NF) 200/25 MDI INH SCH (08:00)
[2018-10-24] MEDS: Nicotine PATCH 21 MG/24 HR* PATCH TRANSDERM SCH (09:37)
[2018-10-24] MEDS: Pantoprazole IV* 40 MG IV SCH (09:37)
[2018-10-24] MEDS: Pregabalin CAP(*) 300 MG PO SCH ×2 (09:42→21:26)
[2018-10-24] MEDS: guaiFENesin ER TAB 600 MG PO SCH ×2 (09:42→21:25)
--- NOTE | 2018-10-24 10:23 | PN ---
Subjective Date of Service: 10/24/18 Interval History: Mr. Delvalle is feeling better today. He reports his pain is improved. He is still having some pain at the trach site with coughing, but this is better managed than yesterday. He is having occasional headaches which the morphine is not helping. Discussed patient with nurse, Helen. She reports that yesterday evening when he was taking meds in applesauce he was noted by nursing to have some applesauce coming out of his trach. He has been NPO since that time. Nursing is requesting a speech therapy eval. Family History: Unchanged from Admission Social History: Unchanged from Admission Past Medical History: Unchanged from Admission Objective Active Medications: Albuterol/Ipratropium (Duoneb (Albuterol 2.5 Mg/Ipratropium 0.5 Mg)) 1 neb INH [id number] AWAKE PRN sob/wheexing Budesonide (Pulmicort Neb*) 0.5 mg INH RT.BID [facility] Citalopram Hydrobromide (Celexa Tab*) 40 mg PO BEDTIME [facility] Fluticasone/Vilanterol (Breo Ellipta Mdi 200/25(Nf)) 1 puff INH DAILY [facility] Guaifenesin (Mucinex*) 600 mg PO BID [facility] Lactated Ringer's (Lactated Ringers 1000 Ml Bag*) 1,000 mls @ 125 mls/hr IV PER RATE [facility] Lorazepam (Ativan Inj*) 0.5 mg IV PUSH Q4H PRN ANXIETY Melatonin (Melatonin) 9 mg PO BEDTIME [facility] Morphine Sulfate (Morphine Vial*) 4 mg IV Q2H PRN PAIN Nicotine (Nicotine Patch 21 Mg/24 Hr*) 1 patch TRANSDERM DAILY [facility] Ondansetron HCl (Zofran Inj*) 4 mg IV Q4H [facility] Pantoprazole Sodium (Protonix Iv*) 40 mg IV DAILY [facility] Pregabalin (Lyrica Cap(*)) 300 mg PO BID [facility] Pyridoxine HCl (Vitamin B6 Tab*) 50 mg PO BEDTIME [facility] Trazodone HCl (Desyrel Tab*) 200 mg PO BEDTIME [facility] Verapamil HCl (Calan Tab*) 360 mg PO BEDTIME [facility] Vital Signs - 8 hr 10/24/18 10/24/18 10/24/18 02:30 02:38 02:45 Temperature Pulse Rate 74 74 Respiratory 27 Rate Blood Pressure 121/81 124/77 (mmHg) O2 Sat by Pulse 92 94 Oximetry 10/24/18 10/24/18 10/24/18 03:00 03:15 03:29 Temperature 98.6 F Pulse Rate 78 76 Respiratory Rate Blood Pressure 128/76 127/72 (mmHg) O2 Sat by Pulse 94 92 Oximetry 10/24/18 10/24/18 10/24/18 03:30 03:45 04:00 Temperature Pulse Rate 72 79 79 Respiratory Rate Blood Pressure 125/70 134/86 140/85 (mmHg) O2 Sat by Pulse 93 91 92 Oximetry 10/24/18 10/24/18 10/24/18 04:15 04:30 04:45 Temperature Pulse Rate 85 82 90 Respiratory Rate Blood Pressure 144/90 127/70 147/89 (mmHg) O2 Sat by Pulse 97 98 99 Oximetry 10/24/18 10/24/18 10/24/18 04:56 05:00 05:01 Temperature Pulse Rate 85 80 Respiratory 26 Rate Blood Pressure 132/84 (mmHg) O2 Sat by Pulse 95 95 Oximetry 10/24/18 10/24/18 10/24/18 05:15 05:30 05:45 Temperature Pulse Rate 75 74 75 Respiratory Rate Blood Pressure 119/69 111/66 109/66 (mmHg) O2 Sat by Pulse 97 96 96 Oximetry 10/24/18 10/24/18 10/24/18 06:00 06:01 06:15 Temperature Pulse Rate 77 75 75 Respiratory Rate Blood Pressure 121/88 98/62 (mmHg) O2 Sat by Pulse 96 97 95 Oximetry 10/24/18 10/24/18 10/24/18 06:30 06:45 07:00 Temperature Pulse Rate 70 72 75 Respiratory Rate Blood Pressure 148/80 128/70 122/71 (mmHg) O2 Sat by Pulse 98 98 98 Oximetry 10/24/18 10/24/18 10/24/18 07:01 07:15 07:30 Temperature Pulse Rate 72 78 75 Respiratory Rate Blood Pressure 118/74 129/73 (mmHg) O2 Sat by Pulse 97 97 98 Oximetry 10/24/18 10/24/18 10/24/18 07:45 07:54 08:00 Temperature Pulse Rate 76 90 77 Respiratory 26 Rate Blood Pressure 132/74 131/73 (mmHg) O2 Sat by Pulse 98 99 Oximetry 10/24/18 10/24/18 10/24/18 08:01 08:15 09:33 Temperature Pulse Rate 76 76 Respiratory 20 Rate Blood Pressure 120/77 (mmHg) O2 Sat by Pulse 99 99 Oximetry Oxygen Devices in Use Now: Tracheostomy Collar Appearance: Middle-aged male laying in bed in NAD Eyes: No Scleral Icterus Ears/Nose/Mouth/Throat: Mucous Membranes Moist Neck: NL Appearance and Movements; NL JVP, Trachea Midline, - - Copious amount of sputum around trach site Respiratory: Symmetrical Chest Expansion and Respiratory Effort, - - Rhonchi throughout Cardiovascular: NL Sounds; No Murmurs; No JVD, RRR Abdominal: NL Sounds; No Tenderness; No Distention Extremities: No Edema Skin: No Rash or Ulcers Neurological: Alert and Oriented x 3 Lines/Tubes/Other Access: Clean, Dry and Intact Peripheral IV Result Diagrams: 10/24/18 04:05 10/24/18 04:05 Assess/Plan/Problems-Billing Assessment: Mr. Delvalle is a 58 yr old male with PMH of vocal cord disorder and mass, chronic stomach pain, migraines, insomnia, COPD, tobacco use, hep C (s/p tx) and AAA; who is s/p tracheostomy. - Patient Problems (1) Status post tracheostomy Code(s): Z93.0 - TRACHEOSTOMY STATUS Comment: - Currently on trach collar and oxygenating well - Failed swallow evaluation; pending re-evaluation tomorrow - Encourage deep breathing and incentive spirometer - Continue morphine, nebs (2) COPD (chronic obstructive pulmonary disease) Code(s): J44.9 - CHRONIC OBSTRUCTIVE PULMONARY DISEASE, UNSPECIFIED Comment: - Continue Breo Ellipta, nebs (3) Hypertension Code(s): I10 - ESSENTIAL (PRIMARY) HYPERTENSION Comment: - Normotensive, SBP 110-130s - Hold verapamil (4) Migraine Code(s): G43.909 - MIGRAINE, UNSP, NOT INTRACTABLE, WITHOUT STATUS MIGRAINOSUS Comment: - Currently NPO, therefore not receiving Lyrica and verapamil for migraine prophylaxis; restart these medications when able - Start Toradol PRN (5) Insomnia Code(s): G47.00 - INSOMNIA, UNSPECIFIED Comment: - Continue trazadone and melatonin (6) Tobacco abuse Code(s): Z72.0 - TOBACCO USE Comment: - Continue nicotine patch (7) DVT prophylaxis Comment: - SCDs (8) Full code status Code(s): Z78.9 - OTHER SPECIFIED HEALTH STATUS Comment: Status and Disposition: Inpatient. Anticipate d/c home when medically stable and cleared by ENT. Attending: Liliane Matson
[2018-10-24] MEDS: Ketorolac INJ* 15 MG/ML 1 ML VIAL IV PUSH PRN ×2 (16:52→21:42)
[2018-10-24] MEDS: Citalopram TAB* 40 MG PO SCH (21:25)
[2018-10-24] MEDS: Melatonin 3 MG TAB PO SCH (21:25)
[2018-10-24] MEDS: traZODone TAB* 100 MG PO SCH (21:26)
[2018-10-24] MEDS: Pyridoxine TAB* 50 MG PO SCH (21:26)
[2018-10-24] MEDS: Verapamil TAB* 120 MG PO SCH (21:26)
[2018-10-24] MEDS: Nicotine Patch Removal NOTE PATCH OFF SCH (21:31)
[2018-10-25] MEDS: Ketorolac INJ* 15 MG/ML 1 ML VIAL IV PUSH PRN (01:46)
[2018-10-25] MEDS: LORazepam INJ* 2 MG/ML 1 ML VIAL IV PUSH PRN ×8 (01:46→23:57)
[2018-10-25] MEDS: Ondansetron INJ* 2 MG/ML VIAL IV SCH ×6 (01:51→20:38)
[2018-10-25] MEDS: Morphine 4 MG/ML VIAL (1 ml) 4 MG/ML VIAL IV PRN ×6 (02:46→22:42)
[2018-10-25 05:18] LABS: ABS Basophils 0 10^3/ul (0-0.2); ABS Eosinophils 0 10^3/ul (0-0.6); ABS Lymphocytes 1.1 10^3/ul (1.0-4.8); ABS Monocytes 1.2 10^3/ul (0-0.8); ABS Neutrophils 6.1 10^3/ul (1.5-7.7); ABS Nucleated RBC 0 10^3/ul; Eosinophil % 0.3 %; Hematocrit 36 % (36-46); Hemoglobin 11.8 g/dL (14.0-18.0); Mean Corpuscular HGB Conc 33 g/dL (31-36); Mean Corpuscular Hemoglobin 30 pg (27-31); Mean Corpuscular Volume 92 fL (80-94); Mean Platelet Volume 8.5 fL (7.4-10.4); Nucleated Red Blood Cells % 0; Platelet Count 188 10^3/uL (150-450); Red Cell Distribution Width 14 % (10.5-15); White Blood Count 8.4 10^3/uL (3.5-10.8)
[2018-10-25 05:31] LABS: Albumin 3.3 g/dL (3.2-5.2); Albumin/Globulin Ratio 1.3 (1-3); BUN/Creatinine Ratio 20.4 (8-20); Calcium 8.3 mg/dL (8.6-10.3); EGFR African American 190.4 (>60); EGFR Non-African American 157.4 (>60); Globulin 2.5 g/dL (2-4); Magnesium 1.7 mg/dL (1.9-2.7); Potassium 3.5 mmol/L (3.5-5.0); Total Bilirubin 0.8 mg/dL (0.2-1.0); Total Protein 5.8 g/dL (6.4-8.9)
[2018-10-25] MEDS: Lactated Ringers 1000 ML Bag* 1,000 ML IV SCH (06:36)
[2018-10-25] MEDS: Fluticasone/Vilanterol MDI(NF) 200/25 MDI INH SCH (07:45)
[2018-10-25] MEDS: Budesonide NEB* 0.5 MG/2 ML NEB.SOLN INH SCH ×2 (07:55→19:58)
[2018-10-25] MEDS ORDERED: LORazepam INJ* 2 MG/ML 1 ML VIAL IV PUSH ONE ×2 (08:17→08:50)
[2018-10-25] MEDS ORDERED: LORazepam INJ* 2 MG/ML 1 ML VIAL ONE (08:19)
--- NOTE | 2018-10-25 08:55 | PN ---
Subjective Date of Service: 10/25/18 Interval History: Called to the floor by nursing this morning d/t concern for agitation. Nursing reports he has been quite agitated this morning, standing in his room, thrashing around, unsteady on his feet. I was asked to come to the floor urgently to assess him d/t concern for delirium. Mr. Delvalle admits to feeling anxious. He is not able to provide much subjective data as he is not able to speak and is not willing to write to communicate with me. He does admit that he occasionally experiences anxiety and has had episodes similar to this, but not quite as severe. Cannot tell me if he typically takes any medication for anxiety. He is rocking back in forth in his chair, but sitting and relatively calm. He denies any SOB or CP. Occasional cough, but generally able to clear his secretions. Family History: Unchanged from Admission Social History: Unchanged from Admission Past Medical History: Unchanged from Admission Objective Active Medications: Albuterol/Ipratropium (Duoneb (Albuterol 2.5 Mg/Ipratropium 0.5 Mg)) 1 neb INH [id number] AWAKE PRN sob/wheexing Budesonide (Pulmicort Neb*) 0.5 mg INH RT.BID NICOLE Citalopram Hydrobromide (Celexa Tab*) 40 mg PO BEDTIME NICOLE Fluticasone/Vilanterol (Breo Ellipta Mdi 200/25(Nf)) 1 puff INH DAILY NICOLE Guaifenesin (Mucinex*) 600 mg PO BID NICOLE Lactated Ringer's (Lactated Ringers 1000 Ml Bag*) 1,000 mls @ 125 mls/hr IV PER RATE NICOLE Ketorolac Tromethamine (Toradol Inj*) 15 mg IV PUSH Q6H PRN PAIN Lorazepam (Ativan Inj*) 0.5 mg IV PUSH Q4H PRN ANXIETY Melatonin (Melatonin) 9 mg PO BEDTIME NICOLE Morphine Sulfate (Morphine Vial*) 4 mg IV Q2H PRN PAIN Nicotine (Nicotine Patch 21 Mg/24 Hr*) 1 patch TRANSDERM DAILY NICOLE Ondansetron HCl (Zofran Inj*) 4 mg IV Q4H NICOLE Pantoprazole Sodium (Protonix Iv*) 40 mg IV DAILY NICOLE Pregabalin (Lyrica Cap(*)) 300 mg PO BID NICOLE Pyridoxine HCl (Vitamin B6 Tab*) 50 mg PO BEDTIME NICOLE Trazodone HCl (Desyrel Tab*) 200 mg PO BEDTIME NICOLE Verapamil HCl (Calan Tab*) 360 mg PO BEDTIME NICOLE Vital Signs - 8 hr 10/25/18 10/25/18 10/25/18 01:00 01:46 02:00 Temperature Pulse Rate 100 75 Respiratory 30 Rate Blood Pressure (mmHg) O2 Sat by Pulse 100 92 Oximetry 10/25/18 10/25/18 10/25/18 02:46 03:00 03:32 Temperature 99.1 F Pulse Rate 81 Respiratory 28 Rate Blood Pressure (mmHg) O2 Sat by Pulse 96 Oximetry 10/25/18 10/25/18 10/25/18 04:00 04:05 04:15 Temperature Pulse Rate 84 77 96 Respiratory 12 Rate Blood Pressure 111/65 126/86 (mmHg) O2 Sat by Pulse 100 100 97 Oximetry 10/25/18 10/25/18 10/25/18 04:31 04:45 05:00 Temperature Pulse Rate 79 76 73 Respiratory Rate Blood Pressure 129/81 125/74 (mmHg) O2 Sat by Pulse 98 97 94 Oximetry 10/25/18 10/25/18 10/25/18 06:06 06:07 07:01 Temperature Pulse Rate 71 63 Respiratory 18 Rate Blood Pressure (mmHg) O2 Sat by Pulse 100 94 Oximetry 10/25/18 10/25/18 10/25/18 08:00 08:03 08:05 Temperature 99 F Pulse Rate 84 71 Respiratory 27 25 Rate Blood Pressure (mmHg) O2 Sat by Pulse 94 100 Oximetry Oxygen Devices in Use Now: Tracheostomy Collar Appearance: Middle-aged male sitting in chair rocking back and forth, notably anxious, but in no respiratory distress Eyes: No Scleral Icterus Ears/Nose/Mouth/Throat: Mucous Membranes Moist Neck: NL Appearance and Movements; NL JVP, Trachea Midline Respiratory: Symmetrical Chest Expansion and Respiratory Effort, - - Rhonchi throughout Cardiovascular: NL Sounds; No Murmurs; No JVD, RRR Abdominal: NL Sounds; No Tenderness; No Distention Extremities: No Edema Neurological: Alert and Oriented x 3 Lines/Tubes/Other Access: Clean, Dry and Intact Peripheral IV Result Diagrams: 10/26/18 05:25 10/26/18 05:25 Assess/Plan/Problems-Billing Assessment: Mr. Delvalle is a 58 yr old male with PMH of vocal cord disorder and mass, chronic stomach pain, migraines, insomnia, COPD, tobacco use, hep C (s/p tx) and AAA; who is s/p tracheostomy. - Patient Problems (1) Status post tracheostomy Code(s): Z93.0 - TRACHEOSTOMY STATUS Comment: - Currently on trach collar and oxygenating well - Failed swallow evaluation; pending re-evaluation today - Encourage deep breathing and incentive spirometer - Continue morphine, nebs (2) Anxiety Code(s): F41.9 - ANXIETY DISORDER, UNSPECIFIED Comment: - Severe anxiety this morning, but he is not able to communicate why; does report some degree of anxiety/panic attacks in the past - Possible that there is some component of delirium, but he is oriented; may also be some respiratory component, but he denies SOB and is not in distress - Check ABG when he is calmer and it is safe to do so - Continue lorazepam PRN; will additional doses of lorazepam as needed (3) Transaminitis Code(s): R74.0 - NONSPEC ELEV OF LEVELS OF TRANSAMNS & LACTIC ACID DEHYDRGNSE Comment: - Resolving - Denies any alcohol use - Check hepatitis panel as he has no previous labs on file - Suspect this may be reactive postoperatively (4) COPD (chronic obstructive pulmonary disease) Code(s): J44.9 - CHRONIC OBSTRUCTIVE PULMONARY DISEASE, UNSPECIFIED Comment: - Continue Breo Ellipta, nebs (5) Hypertension Code(s): I10 - ESSENTIAL (PRIMARY) HYPERTENSION Comment: - Normotensive, SBP 110-120s - Hold verapamil (6) Migraine Code(s): G43.909 - MIGRAINE, UNSP, NOT INTRACTABLE, WITHOUT STATUS MIGRAINOSUS Comment: - Currently NPO, therefore not receiving Lyrica and verapamil for migraine prophylaxis; restart these medications when able - Start Toradol PRN (7) Insomnia Code(s): G47.00 - INSOMNIA, UNSPECIFIED Comment: - Continue trazadone and melatonin (8) Tobacco abuse Code(s): Z72.0 - TOBACCO USE Comment: - Continue nicotine patch (9) DVT prophylaxis Comment: - SCDs (10) Full code status Code(s): Z78.9 - OTHER SPECIFIED HEALTH STATUS Comment: Status and Disposition: Inpatient. Pending swallow eval. Anticipate d/c home when medically stable and cleared by ENT. Attending: Marcy Borrero
[2018-10-25] MEDS: guaiFENesin ER TAB 600 MG PO SCH ×2 (09:31→20:37)
[2018-10-25] MEDS: Pregabalin CAP(*) 300 MG PO SCH ×2 (09:31→20:38)
[2018-10-25] MEDS ORDERED: Magnesium Sulfate IV* 3 GM in NS 0.9% 100 ML* 100 ML IVPB ONE (11:00)
[2018-10-25] MEDS: Nicotine PATCH 21 MG/24 HR* PATCH TRANSDERM SCH (11:29)
[2018-10-25] MEDS: Pantoprazole IV* 40 MG IV SCH (11:30)
[2018-10-25 11:44] LABS: Hepatitis B Surface Antigen Nonreactive (Nonreactive)
[2018-10-25 12:10] LABS: Hepatitis C Antibody Low Reactive (Nonreactive)
[2018-10-25] MEDS ORDERED: Thiamine IV* 100 MG/ML 2 ML VIAL IM ONE (15:00)
[2018-10-25] MEDS: LORazepam INJ* 2 MG/ML 1 ML VIAL IV PUSH SCH ×4 (16:17→22:20)
[2018-10-25] MEDS: Melatonin 3 MG TAB PO SCH (20:37)
[2018-10-25] MEDS: Citalopram TAB* 40 MG PO SCH (20:37)
[2018-10-25] MEDS: Nicotine Patch Removal NOTE PATCH OFF SCH (20:38)
[2018-10-25] MEDS: Pyridoxine TAB* 50 MG PO SCH (20:38)
[2018-10-25] MEDS: Verapamil SR CAP* 180 MG PO SCH (20:38)
[2018-10-25] MEDS: traZODone TAB* 100 MG PO SCH (20:38)
[2018-10-26] MEDS: LORazepam INJ* 2 MG/ML 1 ML VIAL IV PUSH PRN ×7 (01:04→20:27)
[2018-10-26] MEDS: Ondansetron INJ* 2 MG/ML VIAL IV SCH ×6 (02:27→20:59)
[2018-10-26] MEDS: Morphine 4 MG/ML VIAL (1 ml) 4 MG/ML VIAL IV PRN ×2 (03:06→20:00)
[2018-10-26] MEDS: LORazepam INJ* 2 MG/ML 1 ML VIAL IV PUSH SCH ×5 (05:15→14:20)
[2018-10-26 05:40] LABS: ABS Basophils 0.1 10^3/ul (0-0.2); ABS Eosinophils 0.1 10^3/ul (0-0.6); ABS Lymphocytes 1.3 10^3/ul (1.0-4.8); ABS Monocytes 1.5 10^3/ul (0-0.8); ABS Neutrophils 4.5 10^3/ul (1.5-7.7); ABS Nucleated RBC 0 10^3/ul; Eosinophil % 1.2 %; Hematocrit 38 % (36-46); Hemoglobin 12.6 g/dL (14.0-18.0); Lymphocyte % 17.5 %; Mean Corpuscular HGB Conc 33 g/dL (31-36); Mean Corpuscular Hemoglobin 30 pg (27-31); Mean Corpuscular Volume 91 fL (80-94); Mean Platelet Volume 8.3 fL (7.4-10.4); Nucleated Red Blood Cells % 0; Platelet Count 249 10^3/uL (150-450); Red Blood Count 4.17 10^6 /uL (4.18-5.48); Red Cell Distribution Width 14 % (10.5-15); White Blood Count 7.5 10^3/uL (3.5-10.8)
[2018-10-26 05:50] LABS: Albumin 3.5 g/dL (3.2-5.2); Albumin/Globulin Ratio 1.2 (1-3); Calcium 8.4 mg/dL (8.6-10.3); EGFR African American 190.4 (>60); EGFR Non-African American 157.4 (>60); Globulin 2.9 g/dL (2-4); Magnesium 1.9 mg/dL (1.9-2.7); Potassium 3.4 mmol/L (3.5-5.0); Total Bilirubin 0.8 mg/dL (0.2-1.0); Total Protein 6.4 g/dL (6.4-8.9)
[2018-10-26] MEDS: Fluticasone/Vilanterol MDI(NF) 200/25 MDI INH SCH (07:39)
[2018-10-26] MEDS: Budesonide NEB* 0.5 MG/2 ML NEB.SOLN INH SCH ×2 (07:39→19:24)
[2018-10-26] MEDS: Pregabalin CAP(*) 300 MG PO SCH ×2 (08:26→20:56)
[2018-10-26] MEDS: guaiFENesin ER TAB 600 MG PO SCH ×2 (08:26→20:52)
[2018-10-26] MEDS: Nicotine PATCH 21 MG/24 HR* PATCH TRANSDERM SCH (08:34)
[2018-10-26] MEDS: Pantoprazole IV* 40 MG IV SCH (08:34)
[2018-10-26] MEDS ORDERED: KCL 20 MEQ/100 ML IVPREMIX* 20 MEQ/100 ML BAG IV ONE (10:30)
[2018-10-26] MEDS ORDERED: LORazepam INJ* 2 MG/ML 1 ML VIAL ONE ×2 (11:46→13:14)
[2018-10-26] MEDS ORDERED: LORazepam INJ* 2 MG/ML 1 ML VIAL IV PUSH ONE (11:48)
[2018-10-26] MEDS ORDERED: LORazepam VIAL (for drip)* 100 MG in D5W 100 ML BAG* 50 ML IVPB SCH (14:00)
[2018-10-26] MEDS ORDERED: Haloperidol INJ IV/IM* 5 MG/ML AMP ONE (15:07)
[2018-10-26] MEDS ORDERED: Haloperidol INJ IV/IM* 5 MG/ML AMP IV SLOW PU ONE (15:12)
--- NOTE | 2018-10-26 15:17 | PN ---
Progress Note - Progress Note Date of Service: 10/26/18 Note: Requested to evaluate the patient due to increasing agitation in the setting of ETOH withdrawal. Patient is on ativan gtt 1mg/h. Discussed with CUT PRESSMAN Clari De La Fuente on the phone and asked if I could add haldol 5 mg IV x1 and start pt on precedex gtt. She has agreed, orders placed. Also, recommend scheduled valium. At this point, she will discuss with her attending if accounts payable lead input is needed
[2018-10-26] MEDS: Dexmedetomidine* 400 MCG in NS 0.9% 100 ML* 96 ML IVPB SCH ×2 (15:40→19:53)
--- NOTE | 2018-10-26 15:59 | PN ---
Subjective Date of Service: 10/26/18 Interval History: Mr. Delvalle is sedated this morning and unable to provide any subjective information. Per nursing, he had a difficult night and required a large amount of lorazepam per [facility] protocol. He has been sleeping, but when he wakes he is quite agitated and begins thrashing around in bed. His family does report that he drinks a significant amount of alcohol on a daily basis. Family History: Unchanged from Admission Social History: Unchanged from Admission Past Medical History: Unchanged from Admission Objective Active Medications: Albuterol/Ipratropium (Duoneb (Albuterol 2.5 Mg/Ipratropium 0.5 Mg)) 1 neb INH [id number] AWAKE PRN sob/wheexing Budesonide (Pulmicort Neb*) 0.5 mg INH RT.BID NICOLE Citalopram Hydrobromide (Celexa Tab*) 40 mg PO BEDTIME NICOLE Fluticasone/Vilanterol (Breo Ellipta Mdi 200/25(Nf)) 1 puff INH DAILY NICOLE Guaifenesin (Mucinex*) 600 mg PO BID NICOLE Lactated Ringer's (Lactated Ringers 1000 Ml Bag*) 1,000 mls @ 125 mls/hr IV PER RATE NICOLE Lorazepam 100 mg/ Dextrose 100 mls @ 1 mls/hr IVPB Q24H NICOLE Dexmedetomidine HCl 400 mcg/ (Sodium Chloride) 100 mls @ 18.07 mls/hr IVPB Q5H NICOLE; Protocol Ketorolac Tromethamine (Toradol Inj*) 15 mg IV PUSH Q6H PRN PAIN Lorazepam (Ativan Inj*) 0 - 3 mg IV PUSH .PER [facility] PROTOCOL NICOLE; Protocol Lorazepam (Ativan Inj*) 1 mg IV PUSH Q1H PRN ANXIETY Melatonin (Melatonin) 9 mg PO BEDTIME NICOLE Morphine Sulfate (Morphine Vial*) 4 mg IV Q2H PRN PAIN Nicotine (Nicotine Patch 21 Mg/24 Hr*) 1 patch TRANSDERM DAILY NICOLE Ondansetron HCl (Zofran Inj*) 4 mg IV Q4H NICOLE Pantoprazole Sodium (Protonix Iv*) 40 mg IV DAILY NICOLE Pregabalin (Lyrica Cap(*)) 300 mg PO BID NICOLE Pyridoxine HCl (Vitamin B6 Tab*) 50 mg PO BEDTIME NICOLE Trazodone HCl (Desyrel Tab*) 200 mg PO BEDTIME NICOLE Verapamil HCl (Calan Sr Cap*) 360 mg PO BEDTIME NICOLE Vital Signs - 8 hr 10/26/18 10/26/18 10/26/18 08:00 08:01 08:31 Temperature Pulse Rate 90 80 83 Respiratory 30 36 24 Rate Blood Pressure 133/99 (mmHg) O2 Sat by Pulse 93 92 94 Oximetry 10/26/18 10/26/18 10/26/18 08:42 09:00 10:00 Temperature Pulse Rate 85 88 Respiratory 20 36 22 Rate Blood Pressure 126/87 137/87 (mmHg) O2 Sat by Pulse 89 92 Oximetry 10/26/18 10/26/18 10/26/18 11:00 11:02 11:22 Temperature Pulse Rate 108 107 Respiratory 24 26 22 Rate Blood Pressure 182/162 (mmHg) O2 Sat by Pulse 95 97 Oximetry 10/26/18 10/26/18 10/26/18 11:50 12:00 12:01 Temperature Pulse Rate 90 87 Respiratory 22 26 36 Rate Blood Pressure 139/90 (mmHg) O2 Sat by Pulse 93 91 Oximetry 10/26/18 10/26/18 10/26/18 12:20 12:58 13:01 Temperature 98.9 F Pulse Rate 104 Respiratory 20 20 Rate Blood Pressure 155/121 (mmHg) O2 Sat by Pulse 95 Oximetry 10/26/18 10/26/18 10/26/18 13:19 13:59 14:01 Temperature Pulse Rate Respiratory 32 22 25 Rate Blood Pressure 152/82 (mmHg) O2 Sat by Pulse Oximetry Oxygen Devices in Use Now: Tracheostomy Collar Appearance: Middle-aged male laying in bed, sedated, in NAD Eyes: No Scleral Icterus Neck: NL Appearance and Movements; NL JVP Respiratory: Symmetrical Chest Expansion and Respiratory Effort, - - Rhonchi throughout Cardiovascular: NL Sounds; No Murmurs; No JVD, RRR Abdominal: NL Sounds; No Tenderness; No Distention Extremities: No Edema Skin: No Rash or Ulcers Lines/Tubes/Other Access: Clean, Dry and Intact Peripheral IV Result Diagrams: 10/26/18 05:25 10/26/18 05:25 Assess/Plan/Problems-Billing Assessment: Mr. Delvalle is a 58 yr old male with PMH of vocal cord disorder and mass, chronic stomach pain, migraines, insomnia, COPD, tobacco use, hep C (s/p tx) and AAA; who is s/p tracheostomy. - Patient Problems (1) Alcohol withdrawal Code(s): F10.239 - ALCOHOL DEPENDENCE WITH WITHDRAWAL, UNSPECIFIED Comment: - indicated on admission that he did not consume alcohol, but other family reports a significant alcohol intake - Requiring high doses of lorazepam - Continue [facility] protocol and lorazepam; initially changed to lorazepam drip, but arm rest builder felt as though he necessitated a Precedex drip (2) Status post tracheostomy Code(s): Z93.0 - TRACHEOSTOMY STATUS Comment: - Currently on trach collar and oxygenating well - Aspiration previously noted by nursing; pending re-evaluation; started on tube feedings d/t known aspiration and etoh withdrawal requiring sedation - Spoke with ENT who advises that he is stable for d/c from their standpoint, but 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, so he will require a total laryngectomy in the near future - Encourage deep breathing and incentive spirometer - Continue morphine, nebs (3) Transaminitis Code(s): R74.0 - NONSPEC ELEV OF LEVELS OF TRANSAMNS & LACTIC ACID DEHYDRGNSE Comment: - Resolving - Hep C low reactive; will require outpatient f/u (4) COPD (chronic obstructive pulmonary disease) Code(s): J44.9 - CHRONIC OBSTRUCTIVE PULMONARY DISEASE, UNSPECIFIED Comment: - Continue Breo Ellipta, nebs (5) Hypertension Code(s): I10 - ESSENTIAL (PRIMARY) HYPERTENSION Comment: - Hypertensive, SBP 130-180s secondary to etoh withdrawal - Hold verapamil (6) Migraine Code(s): G43.909 - MIGRAINE, UNSP, NOT INTRACTABLE, WITHOUT STATUS MIGRAINOSUS Comment: - Currently NPO, therefore not receiving Lyrica and verapamil for migraine prophylaxis; restart these medications when able - Start Toradol PRN (7) Insomnia Code(s): G47.00 - INSOMNIA, UNSPECIFIED Comment: - Continue trazadone and melatonin (8) Tobacco abuse Code(s): Z72.0 - TOBACCO USE Comment: - Continue nicotine patch (9) DVT prophylaxis Comment: - SCDs (10) Full code status Code(s): Z78.9 - OTHER SPECIFIED HEALTH STATUS Comment: Status and Disposition: Inpatient. Pending swallow eval. Anticipate d/c home when medically stable. Has been cleared by ENT for d/c, but will need f/u as he will require a total laryngectomy. Intensivists will take on their service d/t Precedex dralbino. Attending: Marcy Borrero
--- NOTE | 2018-10-26 16:20 | HP ---
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 Hdez being transferred to ICU level of care under progress man due to progressive agitation in the setting of acute alcohol intoxication Patient was running on ativan gtt 1mg/h. Due to increasing agitation he was given 5 mg haldol and started on precedex gtt. No history could be obtained from the patient due to currently sedated status - Past Medical History Pulmonary: Bronchitis, COPD Gastrointestinal: GERD Musculoskeletal: Other - chronic pain ENT: Allergic rhinitis - Past Surgical History Past Surgical History: Cholecystectomy, Hernia Repair - Past Family History Family History: Cancer - mother- lung cancer - Past Social History Smoke: <1 pack per day - >25 years Drugs: None Lives: With Family Review of Systems - Review of Systems Other: unable to access optimally due to patient status - Medications/Allergies Allergies/Adverse Reactions: Allergies Allergy/AdvReac Type Severity Reaction Status Date / Time No Known Allergies Allergy Verified 10/18/18 11:29 Medications: Current Medications Albuterol/Ipratropium (Duoneb (Albuterol 2.5 Mg/Ipratropium 0.5 Mg)) 1 neb INH RT.[id number] AWAKE PRN PRN Reason: sob/wheexing Budesonide (Pulmicort Neb*) 0.5 mg INH RT.BID [facility] Last Admin: 10/26/18 07:39 Dose: 0.5 mg Citalopram Hydrobromide (Celexa Tab*) 40 mg PO BEDTIME [facility] Last Admin: 10/25/18 20:37 Dose: Not Given Fluticasone/Vilanterol (Breo Ellipta Mdi 200/25(Nf)) 1 puff INH DAILY [facility] Last Admin: 10/26/18 07:39 Dose: Not Given Guaifenesin (Mucinex*) 600 mg PO BID [facility] Last Admin: 10/26/18 08:26 Dose: Not Given Lactated Ringer's (Lactated Ringers 1000 Ml Bag*) 1,000 mls @ 125 mls/hr IV PER RATE [facility] Last Admin: 10/25/18 06:36 Dose: 125 mls/hr Lorazepam 100 mg/ Dextrose 100 mls @ 1 mls/hr IVPB Q24H [facility] Last Admin: 10/26/18 13:59 Dose: 1 mls/hr Dexmedetomidine HCl 400 mcg/ (Sodium Chloride) 100 mls @ 18.07 mls/hr IVPB Q5H [facility]; Protocol Last Admin: 10/26/18 15:40 Dose: 18.07 mls/hr Ketorolac Tromethamine (Toradol Inj*) 15 mg IV PUSH Q6H PRN PRN Reason: PAIN Last Admin: 10/25/18 01:46 Dose: 15 mg Lorazepam (Ativan Inj*) 0 - [address] [facility] PROTOCOL [facility]; Protocol Last Admin: 10/26/18 14:20 Dose: 2 mg Lorazepam (Ativan Inj*) 1 mg IV PUSH Q1H PRN PRN Reason: ANXIETY Last Admin: 10/26/18 12:58 Dose: 1 mg Melatonin (Melatonin) 9 mg PO BEDTIME [facility] Last Admin: 10/25/18 20:37 Dose: Not Given Morphine Sulfate (Morphine Vial*) 4 mg IV Q2H PRN PRN Reason: PAIN Last Admin: 10/26/18 03:06 Dose: 4 mg Nicotine (Nicotine Patch 21 Mg/24 Hr*) 1 patch TRANSDERM DAILY [facility] Last Admin: 10/26/18 08:34 Dose: 1 patch Ondansetron HCl (Zofran Inj*) 4 mg IV Q4H [facility] Last Admin: 10/26/18 13:59 Dose: 4 mg Pantoprazole Sodium (Protonix Iv*) 40 mg IV DAILY [facility] Last Admin: 10/26/18 08:34 Dose: 40 mg Pharmacy Profile Note (Nicotine Patch Removal Note*) 1 note PATCH OFF 2100 [facility] Last Admin: 10/25/18 20:38 Dose: 1 note Pregabalin (Lyrica Cap(*)) 300 mg PO BID [facility] Last Admin: 10/26/18 08:26 Dose: Not Given Pyridoxine HCl (Vitamin B6 Tab*) 50 mg PO BEDTIME [facility] Last Admin: 10/25/18 20:38 Dose: Not Given Trazodone HCl (Desyrel Tab*) 200 mg PO BEDTIME [facility] Last Admin: 10/25/18 20:38 Dose: Not Given Verapamil HCl (Calan Sr Cap*) 360 mg PO BEDTIME [facility] Last Admin: 10/25/18 20:38 Dose: Not Given Exam - Exam Vital Signs: Vital Signs (72 hours) 10/23/18 10/23/18 10/23/18 16:15 16:30 16:45 Temperature Pulse Rate 75 79 73 Respiratory Rate Blood Pressure 111/66 119/81 128/70 (mmHg) O2 Sat by Pulse 91 92 90 Oximetry 10/23/18 10/23/18 10/23/18 17:00 17:01 17:16 Temperature Pulse Rate 82 86 80 Respiratory 20 Rate Blood Pressure 121/75 123/76 (mmHg) O2 Sat by Pulse 96 94 92 Oximetry 10/23/18 10/23/18 10/23/18 17:45 18:00 18:01 Temperature Pulse Rate 73 84 83 Respiratory 16 Rate Blood Pressure 126/77 123/86 (mmHg) O2 Sat by Pulse 96 92 93 Oximetry 10/23/18 10/23/18 10/23/18 18:15 18:30 18:45 Temperature Pulse Rate 81 80 80 Respiratory Rate Blood Pressure 119/84 127/74 121/75 (mmHg) O2 Sat by Pulse 88 94 94 Oximetry 10/23/18 10/23/18 10/23/18 19:00 19:15 19:30 Temperature Pulse Rate 95 74 86 Respiratory Rate Blood Pressure 145/104 120/89 134/88 (mmHg) O2 Sat by Pulse 95 95 97 Oximetry 10/23/18 10/23/18 10/23/18 19:38 19:45 19:48 Temperature 100.7 F Pulse Rate 78 74 Respiratory 24 18 Rate Blood Pressure 132/79 (mmHg) O2 Sat by Pulse 92 96 Oximetry 10/23/18 10/23/18 10/23/18 19:59 20:00 20:15 Temperature Pulse Rate 87 76 Respiratory 24 Rate Blood Pressure 146/91 145/91 (mmHg) O2 Sat by Pulse 97 98 Oximetry 10/23/18 10/23/18 10/23/18 20:30 20:45 21:00 Temperature Pulse Rate 85 89 88 Respiratory Rate Blood Pressure 128/85 122/87 138/92 (mmHg) O2 Sat by Pulse 96 98 97 Oximetry 10/23/18 10/23/18 10/23/18 21:02 21:15 21:30 Temperature Pulse Rate 87 87 87 Respiratory Rate Blood Pressure 121/85 141/92 (mmHg) O2 Sat by Pulse 96 96 97 Oximetry 10/23/18 10/23/18 10/23/18 21:45 22:00 22:01 Temperature Pulse Rate 87 86 83 Respiratory Rate Blood Pressure 136/89 137/99 (mmHg) O2 Sat by Pulse 94 94 92 Oximetry 10/23/18 10/23/18 10/23/18 22:15 22:30 22:45 Temperature Pulse Rate 87 80 78 Respiratory Rate Blood Pressure 136/83 119/79 129/80 (mmHg) O2 Sat by Pulse 93 94 94 Oximetry 10/23/18 10/23/18 10/23/18 23:00 23:01 23:03 Temperature Pulse Rate 76 70 78 Respiratory Rate Blood Pressure 124/85 (mmHg) O2 Sat by Pulse 90 92 90 Oximetry 10/23/18 10/23/18 10/23/18 23:15 23:21 23:30 Temperature 100.7 F Pulse Rate 74 72 Respiratory Rate Blood Pressure 135/76 125/71 (mmHg) O2 Sat by Pulse 93 93 Oximetry 10/23/18 10/24/18 10/24/18 23:45 00:00 00:01 Temperature Pulse Rate 74 69 76 Respiratory Rate Blood Pressure 144/76 118/73 (mmHg) O2 Sat by Pulse 96 93 93 Oximetry 10/24/18 10/24/18 10/24/18 00:09 00:15 00:30 Temperature Pulse Rate 78 76 Respiratory 26 Rate Blood Pressure 118/70 122/66 (mmHg) O2 Sat by Pulse 94 95 Oximetry 10/24/18 10/24/18 10/24/18 00:45 01:00 01:01 Temperature Pulse Rate 68 73 71 Respiratory Rate Blood Pressure 136/84 119/78 (mmHg) O2 Sat by Pulse 93 95 93 Oximetry 10/24/18 10/24/18 10/24/18 01:15 01:30 01:45 Temperature Pulse Rate 68 73 79 Respiratory Rate Blood Pressure 123/69 128/67 127/82 (mmHg) O2 Sat by Pulse 93 94 93 Oximetry 10/24/18 10/24/18 10/24/18 02:00 02:01 02:15 Temperature Pulse Rate 86 82 73 Respiratory Rate Blood Pressure 140/77 142/79 (mmHg) O2 Sat by Pulse 94 92 91 Oximetry 10/24/18 10/24/18 10/24/18 02:30 02:38 02:45 Temperature Pulse Rate 74 74 Respiratory 27 Rate Blood Pressure 121/81 124/77 (mmHg) O2 Sat by Pulse 92 94 Oximetry 10/24/18 10/24/18 10/24/18 03:00 03:15 03:29 Temperature 98.6 F Pulse Rate 78 76 Respiratory Rate Blood Pressure 128/76 127/72 (mmHg) O2 Sat by Pulse 94 92 Oximetry 10/24/18 10/24/18 10/24/18 03:30 03:45 04:00 Temperature Pulse Rate 72 79 79 Respiratory Rate Blood Pressure 125/70 134/86 140/85 (mmHg) O2 Sat by Pulse 93 91 92 Oximetry 10/24/18 10/24/18 10/24/18 04:15 04:30 04:45 Temperature Pulse Rate 85 82 90 Respiratory Rate Blood Pressure 144/90 127/70 147/89 (mmHg) O2 Sat by Pulse 97 98 99 Oximetry 10/24/18 10/24/18 10/24/18 04:56 05:00 05:01 Temperature Pulse Rate 85 80 Respiratory 26 Rate Blood Pressure 132/84 (mmHg) O2 Sat by Pulse 95 95 Oximetry 10/24/18 10/24/18 10/24/18 05:15 05:30 05:45 Temperature Pulse Rate 75 74 75 Respiratory Rate Blood Pressure 119/69 111/66 109/66 (mmHg) O2 Sat by Pulse 97 96 96 Oximetry 10/24/18 10/24/18 10/24/18 06:00 06:01 06:15 Temperature Pulse Rate 77 75 75 Respiratory Rate Blood Pressure 121/88 98/62 (mmHg) O2 Sat by Pulse 96 97 95 Oximetry 10/24/18 10/24/18 10/24/18 06:30 06:45 07:00 Temperature Pulse Rate 70 72 75 Respiratory Rate Blood Pressure 148/80 128/70 122/71 (mmHg) O2 Sat by Pulse 98 98 98 Oximetry 10/24/18 10/24/18 10/24/18 07:01 07:15 07:30 Temperature Pulse Rate 72 78 75 Respiratory Rate Blood Pressure 118/74 129/73 (mmHg) O2 Sat by Pulse 97 97 98 Oximetry 10/24/18 10/24/18 10/24/18 07:45 07:54 08:00 Temperature 99.1 F Pulse Rate 76 90 77 Respiratory 26 Rate Blood Pressure 132/74 131/73 (mmHg) O2 Sat by Pulse 98 99 Oximetry 10/24/18 10/24/18 10/24/18 08:01 08:15 08:30 Temperature Pulse Rate 76 76 78 Respiratory Rate Blood Pressure 120/77 121/72 (mmHg) O2 Sat by Pulse 99 99 100 Oximetry 10/24/18 10/24/18 10/24/18 08:45 09:00 09:01 Temperature Pulse Rate 76 76 89 Respiratory Rate Blood Pressure 115/69 102/62 (mmHg) O2 Sat by Pulse 100 100 99 Oximetry 10/24/18 10/24/18 10/24/18 09:15 09:30 09:33 Temperature Pulse Rate 103 Respiratory 20 Rate Blood Pressure 146/98 131/98 (mmHg) O2 Sat by Pulse 96 Oximetry 10/24/18 10/24/18 10/24/18 09:34 09:45 10:00 Temperature Pulse Rate 85 88 Respiratory 24 Rate Blood Pressure 131/87 123/79 (mmHg) O2 Sat by Pulse 92 95 Oximetry 10/24/18 10/24/18 10/24/18 10:15 10:30 10:45 Temperature Pulse Rate 90 89 89 Respiratory Rate Blood Pressure 122/79 128/82 121/80 (mmHg) O2 Sat by Pulse 97 100 100 Oximetry 10/24/18 10/24/18 10/24/18 11:00 11:15 11:20 Temperature Pulse Rate 92 90 Respiratory 22 Rate Blood Pressure 132/83 123/72 (mmHg) O2 Sat by Pulse 92 87 Oximetry 10/24/18 10/24/18 10/24/18 11:45 12:00 12:15 Temperature 98 F Pulse Rate 84 84 84 Respiratory Rate Blood Pressure 119/76 107/74 125/79 (mmHg) O2 Sat by Pulse 98 98 96 Oximetry 10/24/18 10/24/18 10/24/18 12:30 12:45 13:00 Temperature Pulse Rate 83 88 79 Respiratory Rate Blood Pressure 108/74 110/74 106/67 (mmHg) O2 Sat by Pulse 95 98 97 Oximetry 10/24/18 10/24/18 10/24/18 13:01 13:15 13:30 Temperature Pulse Rate 74 73 87 Respiratory Rate Blood Pressure 96/64 121/73 (mmHg) O2 Sat by Pulse 97 97 98 Oximetry 10/24/18 10/24/1810/24/19 13:45 13:49 14:00 Temperature Pulse Rate 93 81 Respiratory 22 Rate Blood Pressure 115/83 116/66 (mmHg) O2 Sat by Pulse 98 97 Oximetry 10/24/18 10/24/18 10/24/18 14:01 14:15 14:30 Temperature Pulse Rate 82 85 84 Respiratory Rate Blood Pressure 114/72 114/74 (mmHg) O2 Sat by Pulse 99 96 100 Oximetry 10/24/18 10/24/18 10/24/18 14:45 15:00 15:01 Temperature Pulse Rate 86 83 83 Respiratory Rate Blood Pressure 120/83 110/75 (mmHg) O2 Sat by Pulse 100 96 96 Oximetry 10/24/18 10/24/18 10/24/18 15:15 15:30 15:45 Temperature Pulse Rate 82 81 84 Respiratory Rate Blood Pressure 111/75 107/80 121/75 (mmHg) O2 Sat by Pulse 98 100 100 Oximetry 10/24/18 10/24/18 10/24/18 16:00 16:01 16:15 Temperature 99.1 F Pulse Rate 84 81 84 Respiratory Rate Blood Pressure 105/63 121/84 (mmHg) O2 Sat by Pulse 100 100 100 Oximetry 10/24/18 10/24/18 10/24/18 16:30 16:45 16:52 Temperature Pulse Rate 91 98 Respiratory 20 Rate Blood Pressure 135/85 131/92 (mmHg) O2 Sat by Pulse 99 93 Oximetry 10/24/18 10/24/18 10/24/18 17:00 17:01 17:15 Temperature Pulse Rate 89 88 87 Respiratory Rate Blood Pressure 132/82 114/78 (mmHg) O2 Sat by Pulse 98 97 100 Oximetry 10/24/18 10/24/18 10/24/18 17:30 17:45 18:02 Temperature Pulse Rate 91 76 78 Respiratory Rate Blood Pressure 113/79 114/67 (mmHg) O2 Sat by Pulse 97 100 69 Oximetry 10/24/18 10/24/18 10/24/18 19:00 19:16 20:04 Temperature 99.5 F Pulse Rate 82 187 Respiratory Rate Blood Pressure (mmHg) O2 Sat by Pulse Oximetry 10/24/18 10/24/18 10/24/18 20:06 21:00 21:30 Temperature Pulse Rate 78 71 Respiratory 16 20 Rate Blood Pressure (mmHg) O2 Sat by Pulse 92 97 Oximetry 10/24/18 10/24/18 10/24/18 22:01 23:01 23:18 Temperature Pulse Rate 97 75 82 Respiratory Rate Blood Pressure (mmHg) O2 Sat by Pulse 98 80 96 Oximetry 10/25/18 10/25/18 10/25/18 00:00 01:00 01:46 Temperature 99.4 F Pulse Rate 69 100 Respiratory 30 Rate Blood Pressure (mmHg) O2 Sat by Pulse 91 100 Oximetry 10/25/18 10/25/18 10/25/18 02:00 02:46 03:00 Temperature Pulse Rate 75 81 Respiratory 28 Rate Blood Pressure (mmHg) O2 Sat by Pulse 92 96 Oximetry 10/25/18 10/25/18 10/25/18 03:32 04:00 04:05 Temperature 99.1 F Pulse Rate 84 77 Respiratory 12 Rate Blood Pressure 111/65 (mmHg) O2 Sat by Pulse 100 100 Oximetry 10/25/18 10/25/18 10/25/18 04:15 04:31 04:45 Temperature Pulse Rate 96 79 76 Respiratory Rate Blood Pressure 126/86 129/81 125/74 (mmHg) O2 Sat by Pulse 97 98 97 Oximetry 10/25/18 10/25/18 10/25/18 05:00 06:06 06:07 Temperature Pulse Rate 73 71 Respiratory 18 Rate Blood Pressure (mmHg) O2 Sat by Pulse 94 100 Oximetry 10/25/18 10/25/18 10/25/18 07:01 08:00 08:03 Temperature 99 F Pulse Rate 63 84 Respiratory 22 27 Rate Blood Pressure (mmHg) O2 Sat by Pulse 94 94 Oximetry 10/25/18 10/25/18 10/25/18 08:05 08:26 09:09 Temperature Pulse Rate 71 Respiratory 25 29 27 Rate Blood Pressure (mmHg) O2 Sat by Pulse 100 Oximetry 10/25/18 10/25/18 10/25/18 11:29 11:51 14:08 Temperature 97.6 F Pulse Rate 108 Respiratory 22 Rate Blood Pressure (mmHg) O2 Sat by Pulse 79 Oximetry 10/25/18 10/25/18 10/25/18 14:17 15:01 16:00 Temperature 99.1 F Pulse Rate 75 96 Respiratory 25 Rate Blood Pressure (mmHg) O2 Sat by Pulse 92 94 Oximetry 10/25/18 10/25/18 10/25/18 16:17 17:00 18:00 Temperature Pulse Rate 86 74 Respiratory 29 19 22 Rate Blood Pressure (mmHg) O2 Sat by Pulse 94 100 Oximetry 10/25/18 10/25/18 10/25/18 18:07 18:17 18:23 Temperature Pulse Rate 78 Respiratory 19 15 26 Rate Blood Pressure 148/92 158/99 (mmHg) O2 Sat by Pulse 99 Oximetry 10/25/18 10/25/18 10/25/18 19:00 19:59 20:00 Temperature 98.6 F Pulse Rate 79 90 91 Respiratory 21 20 18 Rate Blood Pressure 143/93 (mmHg) O2 Sat by Pulse 96 98 97 Oximetry 10/25/18 10/25/18 10/25/18 20:01 20:31 20:47 Temperature Pulse Rate 89 Respiratory 16 27 20 Rate Blood Pressure (mmHg) O2 Sat by Pulse 97 Oximetry 10/25/18 10/25/18 10/25/18 20:54 21:01 21:04 Temperature Pulse Rate 91 84 Respiratory 26 17 20 Rate Blood Pressure 141/95 (mmHg) O2 Sat by Pulse 96 95 Oximetry 10/25/18 10/25/18 10/25/18 21:26 22:01 22:03 Temperature Pulse Rate 80 92 Respiratory 28 26 28 Rate Blood Pressure 170/113 (mmHg) O2 Sat by Pulse 97 95 Oximetry 10/25/18 10/25/18 10/25/18 22:04 22:17 22:20 Temperature Pulse Rate 89 Respiratory 25 25 25 Rate Blood Pressure 151/93 (mmHg) O2 Sat by Pulse 96 Oximetry 10/25/18 10/25/18 10/25/18 22:42 23:00 23:01 Temperature Pulse Rate 87 88 Respiratory 25 27 24 Rate Blood Pressure 147/90 (mmHg) O2 Sat by Pulse 95 95 Oximetry 10/25/18 10/26/18 10/26/18 23:57 00:00 00:01 Temperature Pulse Rate 87 85 Respiratory 17 21 22 Rate Blood Pressure 133/88 (mmHg) O2 Sat by Pulse 95 96 Oximetry 10/26/18 10/26/18 10/26/18 00:03 00:40 01:00 Temperature Pulse Rate 85 81 80 Respiratory 23 23 28 Rate Blood Pressure 133/81 123/74 (mmHg) O2 Sat by Pulse 96 100 98 Oximetry 10/26/18 10/26/18 10/26/18 01:04 01:06 01:56 Temperature 96.8 F Pulse Rate Respiratory 24 29 Rate Blood Pressure (mmHg) O2 Sat by Pulse Oximetry 10/26/18 10/26/18 10/26/18 02:00 03:00 03:01 Temperature Pulse Rate 93 91 92 Respiratory 27 22 23 Rate Blood Pressure 140/80 148/91 (mmHg) O2 Sat by Pulse 97 96 94 Oximetry 10/26/18 10/26/18 10/26/18 03:06 04:00 04:01 Temperature 98.4 F Pulse Rate 80 81 Respiratory 30 24 23 Rate Blood Pressure 117/74 (mmHg) O2 Sat by Pulse 94 95 Oximetry 10/26/18 10/26/18 10/26/18 05:01 05:05 05:11 Temperature Pulse Rate 92 91 Respiratory 24 22 28 Rate Blood Pressure 137/96 155/103 (mmHg) O2 Sat by Pulse 95 94 Oximetry 10/26/18 10/26/18 10/26/18 05:15 06:00 06:01 Temperature Pulse Rate 87 87 Respiratory 28 3 16 Rate Blood Pressure 139/81 (mmHg) O2 Sat by Pulse 92 92 Oximetry 10/26/18 10/26/18 10/26/18 07:00 07:01 07:36 Temperature 98.9 F Pulse Rate 82 83 Respiratory 28 29 26 Rate Blood Pressure 126/84 (mmHg) O2 Sat by Pulse 95 94 Oximetry 10/26/18 10/26/18 10/26/18 08:00 08:01 08:31 Temperature Pulse Rate 90 80 83 Respiratory 30 36 24 Rate Blood Pressure 133/99 (mmHg) O2 Sat by Pulse 93 92 94 Oximetry 10/26/18 10/26/18 10/26/18 08:42 09:00 10:00 Temperature Pulse Rate 85 88 Respiratory 20 36 22 Rate Blood Pressure 126/87 137/87 (mmHg) O2 Sat by Pulse 89 92 Oximetry 10/26/18 10/26/18 10/26/18 11:00 11:02 11:22 Temperature Pulse Rate 108 107 Respiratory 24 26 22 Rate Blood Pressure 182/162 (mmHg) O2 Sat by Pulse 95 97 Oximetry 10/26/18 10/26/18 10/26/18 11:50 12:00 12:01 Temperature Pulse Rate 90 87 Respiratory 22 26 36 Rate Blood Pressure 139/90 (mmHg) O2 Sat by Pulse 93 91 Oximetry 10/26/18 10/26/18 10/26/18 12:20 12:58 13:01 Temperature 98.9 F Pulse Rate 104 Respiratory 20 20 Rate Blood Pressure 155/121 (mmHg) O2 Sat by Pulse 95 Oximetry 10/26/18 10/26/18 10/26/18 13:19 13:59 14:01 Temperature Pulse Rate Respiratory 32 22 25 Rate Blood Pressure 152/82 (mmHg) O2 Sat by Pulse Oximetry 10/26/18 14:20 Temperature Pulse Rate Respiratory 19 Rate Blood Pressure (mmHg) O2 Sat by Pulse Oximetry General: No acute distress HEENT: Atraumatic, EOMI, Mucous membr. moist/pink Lungs: Normal air movement Cardiovascular: Normal S1, Normal S2, Other - tachycardia Abdomen: Normal bowel sounds, Soft, No tenderness Extremities: No clubbing, No cyanosis, No edema Skin: No rashes, No breakdown Neurological: Other - unable to access due to patient mental status, nonfocal Assessment/Plan - Assessment/Plan Assessment: 58 M s/p tracheostomy due to symptomatic laryngeal neoplasma s/p bx + SqCC with progessive agitation suggestive of acute alcohol withdrawal Acute alcohol withdrawal Nutritional deficits in the setting of chronic alcohol use Hypokalemia chronic/current tobacco use 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 laryngeal neoplasm cx + Streptococcus Constellatus Elevated Alk phosphatase with improving transaminitis Plan: Acute alcohol withdrawal -s/p 5 mg haldol IV x 1 - Started precedex gtt - d/c lorazepam gtt - prn lorazepam - schedule valium 5 mg q8 h with taper and hold for sedation - Aspiration precautions Nutritional deficits in the setting of chronic alcohol use - banana bag Hypokalemia -replace KCL 20 mEq IV x 1 chronic/current tobacco use -nicotine patch 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 -mgmt as per ENT - Currently on TM laryngeal neoplasm cx + Streptococcus Constellatus - likely contaminant/oral jarett- not on tx Elevated Alk phosphatase with improving transaminitis Hep C- low reactive - repeat in AM - no clinical suggestion of acute biliary pathology Chronic pain c/w current meds DVT ppx:SQH Diet: TF Critical care issues: acute agitation, precedex gtt Dispo: monitor in the ICU
[2018-10-26] MEDS ORDERED: Folic Acid IV* 1 MG, Multiple Vitamin IV ADULT* 10 ML in D5NS 0.9% 1000 ML BAG* 1,000 ML IV ONE ×4 (17:30)
[2018-10-26] MEDS: KCL 10 MEQ/50 ML IVPREMIX* 10 MEQ/50 ML BAG IV SCH ×2 (18:22→20:52)
[2018-10-26] MEDS: Diazepam TAB(*) 5 MG PO SCH (19:26)
[2018-10-26] MEDS: Melatonin 3 MG TAB PO SCH (20:52)
[2018-10-26] MEDS: Citalopram TAB* 40 MG PO SCH (20:52)
[2018-10-26] MEDS: Heparin VIAL(*) 5000 UNITS/ML VIAL (FIVE THOUSAND) SUBCUT SCH (20:53)
[2018-10-26] MEDS: Nicotine Patch Removal NOTE PATCH OFF SCH (20:53)
[2018-10-26] MEDS: traZODone TAB* 100 MG PO SCH (20:56)
[2018-10-26] MEDS: Pyridoxine TAB* 50 MG PO SCH (20:57)
[2018-10-26] MEDS: Verapamil SR CAP* 180 MG PO SCH (20:57)
[2018-10-26] MEDS: Lactated Ringers 1000 ML Bag* 1,000 ML IV SCH (21:27)
[2018-10-27] MEDS: Dexmedetomidine* 400 MCG in NS 0.9% 100 ML* 96 ML IVPB SCH ×6 (00:09→23:50)
[2018-10-27] MEDS: Ondansetron INJ* 2 MG/ML VIAL IV SCH ×6 (01:53→21:12)
[2018-10-27] MEDS: Diazepam TAB(*) 5 MG PO SCH ×3 (01:53→17:14)
[2018-10-27] MEDS: Morphine 4 MG/ML VIAL (1 ml) 4 MG/ML VIAL IV PRN ×2 (02:19→05:23)
[2018-10-27] MEDS: Heparin VIAL(*) 5000 UNITS/ML VIAL (FIVE THOUSAND) SUBCUT SCH ×3 (05:22→21:13)
[2018-10-27] MEDS: Lactated Ringers 1000 ML Bag* 1,000 ML IV SCH (05:31)
[2018-10-27] MEDS: Budesonide NEB* 0.5 MG/2 ML NEB.SOLN INH SCH ×2 (08:40→19:46)
[2018-10-27] MEDS: Fluticasone/Vilanterol MDI(NF) 200/25 MDI INH SCH (08:47)
[2018-10-27] MEDS: Pantoprazole IV* 40 MG IV SCH (09:43)
[2018-10-27] MEDS: Nicotine PATCH 21 MG/24 HR* PATCH TRANSDERM SCH (09:43)
[2018-10-27] MEDS: Pregabalin CAP(*) 300 MG PO SCH ×2 (09:43→21:18)
[2018-10-27] MEDS: guaiFENesin ER TAB 600 MG PO SCH (10:30)
[2018-10-27] MEDS: Acetylcysteine INHALATION SOL* 200 MG/ML NEB.SOLN 10 ML INH SCH ×3 (11:21→19:46)
[2018-10-27] MEDS: Albuterol/Ipratropium NEB.SOL* Albuterol 2.5 MG/Ipratropium 0.5 MG 3 ML INH PRN ×3 (11:21→19:46)
--- NOTE | 2018-10-27 11:49 | PN ---
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 Hdez being managed in the ICU for acute alcohol withdrawal Patient is maintained on precedex gtt TF + Afebrile 1 episode of hypotension responsive to IVF bolus Vital Signs: Temp Pulse Resp BP SpO2 FiO2 98.1 F 71 18 112/74 95 40 10/27/18 08:00 10/27/18 11:24 10/27/18 11:24 10/27/18 11:00 10/27/18 11:24 10/27 11:24 Physical Exam: General: No acute distress HEENT: Atraumatic, EOMI, Mucous membr. dry Lungs: Normal air movement Cardiovascular: Normal S1, Normal S2, Other - tachycardia Abdomen: Normal bowel sounds, Soft, No tenderness Extremities: No clubbing, No cyanosis, No edema Skin: No rashes, No breakdown Neurological: Other - unable to access due to patient mental status, nonfocal Fluid Balance (Past 24 Hours): I= O= Net Intake & Output 10/25/18 10/26/18 10/27/18 10/28/18 06:59 06:59 06:59 06:59 Intake Total 3151 264 2424 Output Total 625 350 375 Balance 2526 -86 2049 Weight 164 lb 14.4 oz 159 lb 6.307 oz 161 lb 6.054 oz Intake: IV Fluids 3151 167 1936 LR 3151 167 1936 IVPB 97 160 KCl 160 Mg 97 Medicated IV 328 CC - Dexmedetomidine/ 328 Precedex Oral 0 Output: Urine 625 125 375 Lazaro 225 Other: Estimated Void Large # Voids 1 ADLs: Meal Record Start: 10/22/18 12: 20 Freq: Status: Active Protocol: Created 10/22/18 12:20 [id number] (Rec: 10/22/18 12:20 [id number] ICU-C12) Intake and Output Start: 10/22/18 12: 20 Freq: 06,14,2200 Status: Active Protocol: Created 10/22/18 12:20 (Rec: 10/22/18 12:20 ICU-C12) Document 10/22/18 13:00 [id number] (Rec: 10/22/18 14:13 [id number] ICU-C12) Document 10/22/18 16:00 [id number] (Rec: 10/22/18 17:38 [id number] ICU-C12) Document 10/22/18 20:00 [id number] (Rec: 10/22/18 20:41 [id number] ICU-C14) Document 10/22/18 22:00 [id number] (Rec: 10/23/18 01:12 [id number] ICU-C15) Document 10/23/18 01:00 [id number] (Rec: 10/23/18 01:28 [id number] ICU-C14) Document 10/23/18 04:00 [id number] (Rec: 10/23/18 04:26 [id number] ICU-C15) Document 10/23/18 06:00 [id number] (Rec: 10/23/18 06:42 [id number] ICU-C15) Document 10/23/18 07:00 [id number] (Rec: 10/23/18 13:16 [id number] ICU-C15) Document 10/23/18 08:00 [id number] (Rec: 10/23/18 13:27 [id number] ICU-C15) Document 10/23/18 09:00 [id number] (Rec: 10/23/18 13:28 [id number] ICU-C15) Document 10/23/18 10:00 [id number] (Rec: 10/23/18 13:30 [id number] ICU-C15) Document 10/23/18 11:00 [id number] (Rec: 10/23/18 13:31 [id number] ICU-C15) Document 10/23/18 12:00 [id number] (Rec: 10/23/18 14:56 [id number] ICU-C15) Document 10/23/18 13:00 [id number] (Rec: 10/23/18 15:46 [id number] ICU-C15) Document 10/23/18 15:00 [id number] (Rec: 10/23/18 15:46 [id number] ICU-C15) Document 10/23/18 17:33 [id number] (Rec: 10/23/18 17:33 [id number] ICU-C15) Document 10/23/18 20:00 [id number] (Rec: 10/23/18 22:49 [id number] ICU-C06) Document 10/24/18 02:00 [id number] (Rec: 10/24/18 05:56 [id number] ICU-C06) Document 10/24/18 05:56 [id number] (Rec: 10/24/18 05:56 [id number] ICU-C06) Document 10/24/18 08:00 [id number] (Rec: 10/24/18 08:16 [id number] ICU-C06) Document 10/24/18 10:33 [id number] (Rec: 10/24/18 10:33 [id number] ICU-C06) Document 10/24/18 22:00 [id number] (Rec: 10/24/18 22:31 [id number] ICU-M32) Document 10/25/18 05:09 [id number] (Rec: 10/25/18 05:09 [id number] ICU-C06) Document 10/25/18 08:41 [id number] (Rec: 10/25/18 08:42 [id number] ICU-M31) Document 10/26/18 05:29 [id number] (Rec: 10/26/18 05:29 [id number] ICU-M31) Document 10/26/18 14:00 [id number] (Rec: 10/26/18 14:34 [id number] ICU-C06) Document 10/26/18 22:00 [id number] (Rec: 10/26/18 23:01 [id number] ICU-M31) Document 10/27/18 06:00 [id number] (Rec: 10/27/18 06:14 [id number] ICU-C06) Nutrition: TF- Jevity goal 70cc/h Impression: 58 M s/p tracheostomy due to symptomatic laryngeal neoplasma s/p bx + SqCC with progessive agitation suggestive of acute alcohol withdrawal Acute alcohol withdrawal Nutritional deficits in the setting of chronic alcohol use Dehydration/hypovolemia Chest congestion Hypokalemia chronic/current tobacco use 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 laryngeal neoplasm cx + Streptococcus Constellatus Elevated Alk phosphatase with improving transaminitis Plan: Acute alcohol withdrawal - On precedex gtt - d/c prn lorazepam and morphine - schedule valium 5 mg q12 h with taper and hold for sedation - Aspiration precautions Nutritional deficits in the setting of chronic alcohol use - banana bag Hypovolemia -s/p 1L bolus -continue with 100cc/h X 2L -FWF 50cc/q6h Chest congestion - mucomyst nebs with bronchodilators - chest physiotherapy with vest q6hwa after BD - CXR in AM Hypokalemia -replace KCL 20 mEq IV x 1 10/26 - repeat labs in AM chronic/current tobacco use -nicotine patch 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 -mgmt as per ENT - Currently on TM laryngeal neoplasm cx + Streptococcus Constellatus - likely contaminant/oral jarett- not on tx Elevated Alk phosphatase with improving transaminitis Hep C- low reactive - repeat in AM - no clinical suggestion of acute biliary pathology Chronic pain c/w current meds DVT ppx:SQH Diet: TF Prognosis guarded Critical care issues: acute agitation, precedex gtt Dispo: monitor in the ICU Critical Care Time: 50 minutes
[2018-10-27] MEDS: Thiamine TAB* 100 MG TAB NG TUBE SCH (13:23)
[2018-10-27] MEDS: KCL 20 MEQ/100 ML IVPREMIX* 20 MEQ/100 ML BAG IV SCH (14:30)
[2018-10-27] MEDS ORDERED: NS 0.9% 1000 ML** 1,000 ML IV ONE (15:04)
[2018-10-27] MEDS: NS 0.9% 1000 ML** 2,000 ML IV SCH ×2 (16:00→23:51)
[2018-10-27] MEDS: Citalopram TAB* 40 MG PO SCH (21:13)
[2018-10-27] MEDS: traZODone TAB* 100 MG PO SCH (21:13)
[2018-10-27] MEDS: Melatonin 3 MG TAB PO SCH (21:13)
[2018-10-27] MEDS: Nicotine Patch Removal NOTE PATCH OFF SCH (21:17)
[2018-10-27] MEDS: Verapamil SR CAP* 180 MG PO SCH (21:18)
[2018-10-27] MEDS: Pyridoxine TAB* 50 MG PO SCH (21:22)
[2018-10-28] MEDS: Diazepam TAB(*) 5 MG PO SCH ×3 (01:16→18:09)
[2018-10-28] MEDS: Acetylcysteine INHALATION SOL* 200 MG/ML NEB.SOLN 10 ML INH SCH ×4 (01:22→19:22)
[2018-10-28] MEDS: Ondansetron INJ* 2 MG/ML VIAL IV SCH ×5 (01:34→17:54)
[2018-10-28 04:34] LABS: Albumin 2.9 g/dL (3.2-5.2); Albumin/Globulin Ratio 1.3 (1-3); Calcium 7.8 mg/dL (8.6-10.3); EGFR African American 208.1 (>60); Globulin 2.2 g/dL (2-4); Magnesium 1.7 mg/dL (1.9-2.7); Phosphorus 2.6 mg/dL (2.5-5.0); Potassium 3.1 mmol/L (3.5-5.0); Total Bilirubin 0.3 mg/dL (0.2-1.0); Total Protein 5.1 g/dL (6.4-8.9)
[2018-10-28] MEDS: Dexmedetomidine* 400 MCG in NS 0.9% 100 ML* 96 ML IVPB SCH ×4 (05:38→17:20)
[2018-10-28] MEDS: Heparin VIAL(*) 5000 UNITS/ML VIAL (FIVE THOUSAND) SUBCUT SCH ×3 (05:46→21:27)
[2018-10-28] MEDS: Budesonide NEB* 0.5 MG/2 ML NEB.SOLN INH SCH ×2 (07:57→19:21)
[2018-10-28] MEDS: Albuterol/Ipratropium NEB.SOL* Albuterol 2.5 MG/Ipratropium 0.5 MG 3 ML INH PRN ×2 (07:58→12:52)
[2018-10-28] MEDS: Fluticasone/Vilanterol MDI(NF) 200/25 MDI INH SCH (08:02)
[2018-10-28] MEDS: Ketorolac INJ* 15 MG/ML 1 ML VIAL IV PUSH PRN (09:16)
[2018-10-28] MEDS: Pregabalin CAP(*) 300 MG PO SCH ×2 (09:18→21:28)
[2018-10-28] MEDS: Thiamine TAB* 100 MG TAB NG TUBE SCH (09:19)
[2018-10-28] MEDS: Pantoprazole IV* 40 MG IV SCH (09:19)
[2018-10-28] MEDS: Nicotine PATCH 21 MG/24 HR* PATCH TRANSDERM SCH (09:19)
[2018-10-28] MEDS ORDERED: Magnesium Sulfate 1 GM IV* 1 GM/100 ML BAG IV ONE (09:57)
--- NOTE | 2018-10-28 10:25 | PN ---
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 Hdez being managed in the ICU for acute alcohol withdrawal Patient is maintained on precedex gtt TF + Afebrile 1 episode of hypotension responsive to IVF bolus More awake and responsive today Vital Signs: Temp Pulse Resp BP SpO2 FiO2 97.6 F 64 31 123/81 91 40 10/28/18 08:00 10/28/18 09:30 10/28/18 09:30 10/28/18 09:30 10/28/18 09:30 10/28 08:03 Physical Exam: General: No acute distress HEENT: Atraumatic, EOMI, Mucous membr. dry Lungs: Normal air movement Cardiovascular: Normal S1, Normal S2, Other - tachycardia Abdomen: Normal bowel sounds, Soft, No tenderness Extremities: No clubbing, No cyanosis, No edema Skin: No rashes, No breakdown Neurological: Awake and oriented. Non focal Fluid Balance (Past 24 Hours): I= O= Net Intake & Output 10/26/18 10/27/18 10/28/18 10/29/18 06:59 06:59 06:59 06:59 Intake Total 264 2424 3191 Output Total 350 375 900 Balance -86 2049 2291 Weight 159 lb 6.307 oz 161 lb 6.054 oz 165 lb 5.547 oz Intake: IV Fluids 167 1936 2814 KCl 0 LR 167 1936 441 Mg 0 NS (0.9%) 2373 IVPB 97 160 KCl 160 Mg 97 Medicated IV 328 377 CC - Dexmedetomidine/ 328 377 Precedex Output: Urine 125 375 900 Lazaro 225 Other: Estimated Void Large Medium Date of Last Bowel 10/27/18 Movement # Bowel Movements 1 Estimated Stool Amount Medium # Voids 1 1 ADLs: Meal Record Start: 10/22/18 12: 20 Freq: Status: Active Protocol: Created 10/22/18 12:20 [id number] (Rec: 10/22/18 12:20 EVP2016 ICU-C12) Intake and Output Start: 10/22/18 12: 20 Freq: 06,,0 Status: Active Protocol: Created 10/22/18 12:20 [id number] (Rec: 10/22/18 12:20 SOL4094 ICU-C12) Document 10/22/18 13:00 IIR4067 (Rec: 10/22/18 14:13 YYF2364 ICU-C12) Document 10/22/18 16:00 GQV9671 (Rec: 10/22/18 17:38 SDU9384 ICU-C12) Document 10/22/18 20:00 HQN7641 (Rec: 10/22/18 20:41 AOY8192 ICU-C14) Document 10/22/18 22:00 KMA4722 (Rec: 10/23/18 01:12 RPY4498 ICU-C15) Document 10/23/18 01:00 OSQ3785 (Rec: 10/23/18 01:28 GTP0943 ICU-C14) Document 10/23/18 04:00 JJC4431 (Rec: 10/23/18 04:26 TPT0529 ICU-C15) Document 10/23/18 06:00 GCZ7453 (Rec: 10/23/18 06:42 CUG9777 ICU-C15) Document 10/23/18 07:00 NWY3048 (Rec: 10/23/18 13:16 ZIT4886 ICU-C15) Document 10/23/18 08:00 VXN1090 (Rec: 10/23/18 13:27 TNF6829 ICU-C15) Document 10/23/18 09:00 QHE8743 (Rec: 10/23/18 13:28 PWK1603 ICU-C15) Document 10/23/18 10:00 WVA1407 (Rec: 10/23/18 13:30 SRD7866 ICU-C15) Document 10/23/18 11:00 MJV6911 (Rec: 10/23/18 13:31 NQF4728 ICU-C15) Document 10/23/18 12:00 TST4625 (Rec: 10/23/18 14:56 YCN4130 ICU-C15) Document 10/23/18 13:00 KMJ6004 (Rec: 10/23/18 15:46 TON1834 ICU-C15) Document 10/23/18 15:00 LRH5029 (Rec: 10/23/18 15:46 RDI7973 ICU-C15) Document 10/23/18 17:33 RDH8734 (Rec: 10/23/18 17:33 PXZ8388 ICU-C15) Document 10/23/18 20:00 BFN4140 (Rec: 10/23/18 22:49 TYM3518 ICU-C06) Document 10/24/18 02:00 ZPD9821 (Rec: 10/24/18 05:56 RDA8974 ICU-C06) Document 10/24/18 05:56 NVO4830 (Rec: 10/24/18 05:56 YIV2222 ICU-C06) Document 10/24/18 08:00 IYK5112 (Rec: 10/24/18 08:16 YMM1926 ICU-C06) Document 10/24/18 10:33 HUK2035 (Rec: 10/24/18 10:33 UYX8209 ICU-C06) Document 10/24/18 22:00 TTR3838 (Rec: 10/24/18 22:31 DRO2020 ICU-M32) Document 10/25/18 05:09 HWG9218 (Rec: 10/25/18 05:09 VSP8945 ICU-C06) Document 10/25/18 08:41 YYA0582 (Rec: 10/25/18 08:42 CSP5925 ICU-M31) Document 10/26/18 05:29 MHD8212 (Rec: 10/26/18 05:29 XVJ7768 ICU-M31) Document 10/26/18 14:00 GAZ4945 (Rec: 10/26/18 14:34 ZVU6433 ICU-C06) Document 10/26/18 22:00 DAV0891 (Rec: 10/26/18 23:01 FZN0065 ICU-M31) Document 10/27/18 06:00 GLN6245 (Rec: 10/27/18 06:14 XZW4788 ICU-C06) Document 10/27/18 14:00 AZA6749 (Rec: 10/27/18 14:43 FYE5920 ICU-C06) Document 10/27/18 19:06 OQV3149 (Rec: 10/27/18 19:06 JIT5007 ICU-M31) Document 10/27/18 23:28 EVZ5147 (Rec: 10/27/18 23:28 YTG7967 ICU-M31) Document 10/28/18 06:00 PPM3715 (Rec: 10/28/18 06:35 MSW6504 ICU-C07) Labs: Laboratory Results - last 24 hr 10/28/18 04:05 Sodium 137 Potassium 3.1 L Chloride 105 Carbon Dioxide 30 Anion Gap 2 BUN 4 L Creatinine 0.50 L Est GFR ( Amer) 208.1 Est GFR (Non-Af Amer) 172.0 BUN/Creatinine Ratio 8.0 Glucose 166 H Calcium 7.8 L Phosphorus 2.6 Magnesium 1.7 L Total Bilirubin 0.30 AST 17 ALT 32 Alkaline Phosphatase 105 H Total Protein 5.1 L Albumin 2.9 L Globulin 2.2 Albumin/Globulin Ratio 1.3 Studies: Patient Name: MARIO BROWN Medical Record#: [id number] Ordering Physician: Toby Olsen MD Acct.#: [id number] : 1960 Age: 58 Sex: M Location: [facility]ARE [facility] Exam Date: 10/28/18840 ADM Status: ADM IN Order Information: CHEST AP OR PORT Accession Number: [id number] CPT: 31900 HISTORY: reassess NG tube placement COMPARISONS: October 28, 2018 VIEWS: 1: frontal AP view of the chest at 8:50 AM FINDINGS: LINES AND TUBES: A tracheostomy tube is noted. A feeding tube is noted. The tip is in the left upper quadrant in a prepyloric position. CARDIOMEDIASTINAL SILHOUETTE: The cardiomediastinal silhouette is normal for portable technique. PLEURA: The costophrenic angles are sharp. No pleural abnormalities are noted. LUNG PARENCHYMA: There is patchy alveolar opacification of the lung bases bilaterally. ABDOMEN: The upper abdomen is clear. There is no subphrenic gas. BONES AND SOFT TISSUES: No bone or soft tissue abnormalities are noted. IMPRESSION: 1. LINES AND TUBES ABOVE. 2. PATCHY BIBASILAR ATELECTASIS VERSUS EARLY CONSOLIDATION. <Electronically signed by Juan Silverio MD in OV> 10/28/18 0902 Dictated By: Juan Silverio MD Dictated Date/Time: 10/28/18901 Transcribed Date/Time: 10/28/18900 Copy to: CC:Juan R Hdez MD; Toby Olsen MD; Mario Carlton MD Imaging - [facility] Imaging - [facility] Imaging - [facility] [address] [address] [place] [address] [place] [address] ph ([phone]) ph ([phone]) ph ([phone]) This report is only to be considered final once signed by the Provider(s) as displayed in the "<Electronically Signed by >" field (s). Absence of a signature indicates the report is in a draft status and still needs to be finalized. In the event this document was created by someone other than the signing Provider, the individual initiating the document will be listed in the "Entered by:" or "Dictated by:" perez. 1 of Nutrition: TF- Jevity goal 70cc/h Impression: 58 M s/p tracheostomy due to symptomatic laryngeal neoplasma s/p bx + SqCC with progessive agitation suggestive of acute alcohol withdrawal Acute alcohol withdrawal Nutritional deficits in the setting of chronic alcohol use Dehydration/hypovolemia Chest congestion Hypokalemia, hypomagnesemia Dysphagia with aspiration chronic/current tobacco use 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 laryngeal neoplasm cx + Streptococcus Constellatus Elevated Alk phosphatase with improving transaminitis Plan: Acute alcohol withdrawal - On precedex gtt - continue with valium 5 mg q8h with taper and hold for sedation - Aspiration precautions Nutritional deficits in the setting of chronic alcohol use - banana bag Hypovolemia -improved with NS bolus -FWF 50cc/q6h Chest congestion - mucomyst nebs with bronchodilators - chest physiotherapy with vest q6hwa after BD Hypokalemia and hypomagnesemia -replace KCL 60 mEq and Mg 1 gm Dyphagia/aspiration likely due to anatomical pathology -ENT input in terms of need for peg tube vs continued DHT while repair of anatomic pathology is repaired chronic/current tobacco use -nicotine patch 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 -mgmt as per ENT - Currently on TM laryngeal neoplasm cx + Streptococcus Constellatus - likely contaminant/oral jarett- not on tx Elevated Alk phosphatase with improving transaminitis Hep C- low reactive - repeat in AM - no clinical suggestion of acute biliary pathology Chronic pain c/w current meds DVT ppx:SQH Diet: TF Prognosis guarded Critical care issues: acute agitation, precedex gtt Dispo: monitor in the ICU Critical Care Time: 45 minutes
[2018-10-28] MEDS ORDERED: Acetaminophen ADULT LIQ* 650 MG/20.3 ML UDC PO PRN (10:59)
[2018-10-28] MEDS: Potassium Chloride LIQUID* 20 MEQ PACKET PO SCH (12:27)
[2018-10-28] MEDS: KCL 10 MEQ/50 ML IVPREMIX* 10 MEQ/50 ML BAG IV SCH ×2 (12:28→15:32)
[2018-10-28] MEDS: KCL 10 MEQ/50 ML IVPREMIX* 10 MEQ/50 ML BAG ONE ×2 (15:30→15:31)
[2018-10-28] MEDS ORDERED: Ondansetron INJ* 2 MG/ML VIAL IV PRN (17:10)
[2018-10-28] MEDS: Acetaminophen TAB* 325 MG PO PRN (19:55)
[2018-10-28] MEDS ORDERED: Nicotine Inhaler* 10 MG AMP INH PRN (20:38)
[2018-10-28] MEDS ORDERED: Mouth Piece, Nicotine* 1 EACH CARTRIDGE INH ONE (21:00)
[2018-10-28] MEDS: Nicotine Patch Removal NOTE PATCH OFF SCH (21:27)
[2018-10-28] MEDS: Melatonin 3 MG TAB PO SCH (21:27)
[2018-10-28] MEDS: traZODone TAB* 100 MG PO SCH (21:28)
[2018-10-28] MEDS: Citalopram TAB* 40 MG PO SCH (21:28)
[2018-10-28] MEDS: Pyridoxine TAB* 50 MG PO SCH (21:29)
[2018-10-29] MEDS: Dexmedetomidine* 400 MCG in NS 0.9% 100 ML* 96 ML IVPB SCH ×5 (00:01→19:32)
[2018-10-29] MEDS: Acetylcysteine INHALATION SOL* 200 MG/ML NEB.SOLN 10 ML INH SCH ×2 (01:03→08:09)
[2018-10-29] MEDS: Diazepam TAB(*) 5 MG PO SCH ×4 (02:06→15:43)
[2018-10-29] MEDS: Heparin VIAL(*) 5000 UNITS/ML VIAL (FIVE THOUSAND) SUBCUT SCH ×3 (05:00→21:56)
[2018-10-29 05:02] LABS: ABS Basophils 0.1 10^3/ul (0-0.2); ABS Eosinophils 0.1 10^3/ul (0-0.6); ABS Lymphocytes 2.3 10^3/ul (1.0-4.8); ABS Monocytes 0.7 10^3/ul (0-0.8); ABS Nucleated RBC 0 10^3/ul; Eosinophil % 0.6 %; Hematocrit 35 % (36-46); Hemoglobin 11.1 g/dL (14.0-18.0); Lymphocyte % 18.9 %; Mean Corpuscular HGB Conc 32 g/dL (31-36); Mean Corpuscular Hemoglobin 30 pg (27-31); Mean Corpuscular Volume 95 fL (80-94); Nucleated Red Blood Cells % 0.1; Platelet Count 232 10^3/uL (150-450); Red Blood Count 3.73 10^6 /uL (4.18-5.48); Red Cell Distribution Width 14 % (10.5-15); White Blood Count 12.1 10^3/uL (3.5-10.8)
[2018-10-29 05:28] LABS: Albumin 3.1 g/dL (3.2-5.2); Albumin/Globulin Ratio 1.2 (1-3); BUN/Creatinine Ratio 12.7 (8-20); Calcium 7.8 mg/dL (8.6-10.3); EGFR African American 186.4 (>60); EGFR Non-African American 154.1 (>60); Globulin 2.5 g/dL (2-4); Magnesium 1.8 mg/dL (1.9-2.7); Phosphorus 3.4 mg/dL (2.5-5.0); Potassium 3.5 mmol/L (3.5-5.0); Total Bilirubin 0.4 mg/dL (0.2-1.0); Total Protein 5.6 g/dL (6.4-8.9)
[2018-10-29] MEDS: Fluticasone/Vilanterol MDI(NF) 200/25 MDI INH SCH (07:06)
[2018-10-29] MEDS ORDERED: Mouth Piece, Nicotine* 1 EACH CARTRIDGE ONE (07:55)
[2018-10-29] MEDS: Albuterol/Ipratropium NEB.SOL* Albuterol 2.5 MG/Ipratropium 0.5 MG 3 ML INH PRN ×2 (08:09→13:18)
[2018-10-29] MEDS: Budesonide NEB* 0.5 MG/2 ML NEB.SOLN INH SCH ×2 (08:09→19:20)
[2018-10-29] MEDS: Potassium Chloride LIQUID* 20 MEQ PACKET PO SCH (08:54)
[2018-10-29] MEDS: Pregabalin CAP(*) 300 MG PO SCH ×2 (08:54→20:21)
[2018-10-29] MEDS: Nicotine PATCH 21 MG/24 HR* PATCH TRANSDERM SCH (08:54)
[2018-10-29] MEDS: Pantoprazole IV* 40 MG IV SCH (08:54)
[2018-10-29] MEDS: Thiamine TAB* 100 MG TAB NG TUBE SCH (08:55)
[2018-10-29] MEDS ORDERED: Piperacillin/Tazobac ADVAN(*) 3.375 GM in NS 0.9% 100 ML* 100 ML IVPB ONE (10:21)
[2018-10-29] MEDS ORDERED: Amoxicill/Clavulan ES* ORALSYR 120 MG/ML PO SCH (11:00)
[2018-10-29] MEDS ORDERED: Zosyn per Pharmacy* NOTE FOLLOW UP SCH (11:00)
[2018-10-29] MEDS: GUAR GUM PO SCH ×2 (13:31→21:56)
[2018-10-29] MEDS: guaiFENesin LIQ* 100 MG/5 ML UDC PO SCH ×3 (13:31→23:51)
[2018-10-29] MEDS: KCL 20 MEQ/100 ML IVPREMIX* 20 MEQ/100 ML BAG IV SCH ×2 (13:31→17:49)
[2018-10-29] MEDS: Acetaminophen TAB* 325 MG PO PRN ×2 (14:24→20:36)
--- NOTE | 2018-10-29 15:49 | PN ---
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 Hdez being managed in the ICU for acute alcohol withdrawal 10/29: Patient has multiple episodes of TMax > 100.3, since yesterday. He was on precedex till this am. He reports anxiety due to not being able to eat/ drink. Ok for oral intake with caution as per swallow and ENT. DHT discontinued. No other overnight events or current complains. He is more responsive, cooperative, and alert compared to previous days Vital Signs: Temp Pulse Resp BP SpO2 FiO2 104.4 F 96 18 116/76 91 100 10/29/18 14:18 10/29/18 15:01 10/29/18 15:43 10/29/18 15:01 10/29/18 15:01 10/29 13:16 Physical Exam: General: No acute distress HEENT: Atraumatic, EOMI, Mucous membr. moist Lungs: Normal air movement Cardiovascular: Normal S1, Normal S2, RRR Abdomen: Normal bowel sounds, Soft, No tenderness Extremities: No clubbing, No cyanosis, No edema Skin: No rashes, No breakdown Neurological: Awake and oriented. Non focal Fluid Balance (Past 24 Hours): I= O= Net Intake & Output 10/27/18 10/28/18 10/29/18 10/30/18 06:59 06:59 06:59 06:59 Intake Total 2424 3191 1119.3 Output Total 375 900 600 650 Balance 2049 2291 519.3 -650 Weight 161 lb 6.054 oz 165 lb 5.547 oz Intake: IV Fluids 1935 2814 885 KCl 0 200 LR 193 441 Mg 0 100 NS (0.9%) 2373 585 IVPB 160 KCl 160 Medicated IV 328 377 164.3 CC - Dexmedetomidine/ 328 377 164.3 Precedex Tube Feeding Flush Amount 70 Output: Urine 375 900 200 650 Lazaro 400 Other: Estimated Void Large Medium Date of Last Bowel 10/27/18 Movement # Bowel Movements 1 Estimated Stool Amount Medium # Voids 1 1 ADLs: Meal Record Start: 10/22/18 12: 20 Freq: Status: Active Protocol: Created 10/22/18 12:20 [id number] (Rec: 10/22/18 12:20 HOJ6069 ICU-C12) Intake and Output Start: 10/22/18 12: 20 Freq: 06,14,2200 Status: Active Protocol: Created 10/22/18 12:20 VFG7245 (Rec: 10/22/18 12:20 QZT5500 ICU-C12) Document 10/22/18 13:00 YTI5356 (Rec: 10/22/18 14:13 EEO9959 ICU-C12) Document 10/22/18 16:00 JFG2488 (Rec: 10/22/18 17:38 VNB9161 ICU-C12) Document 10/22/18 20:00 RMA5337 (Rec: 10/22/18 20:41 FVI2728 ICU-C14) Document 10/22/18 22:00 UTF6616 (Rec: 10/23/18 01:12 QLF9347 ICU-C15) Document 10/23/18 01:00 INR8957 (Rec: 10/23/18 01:28 WWE6688 ICU-C14) Document 10/23/18 04:00 IGV9600 (Rec: 10/23/18 04:26 AAL7512 ICU-C15) Document 10/23/18 06:00 TNI1510 (Rec: 10/23/18 06:42 UJP5820 ICU-C15) Document 10/23/18 07:00 RZK3366 (Rec: 10/23/18 13:16 MSW1756 ICU-C15) Document 10/23/18 08:00 JGM2704 (Rec: 10/23/18 13:27 NJP3569 ICU-C15) Document 10/23/18 09:00 KLZ1970 (Rec: 10/23/18 13:28 INJ2124 ICU-C15) Document 10/23/18 10:00 IBH4837 (Rec: 10/23/18 13:30 EGS6234 ICU-C15) Document 10/23/18 11:00 LIF9327 (Rec: 10/23/18 13:31 UNM5188 ICU-C15) Document 10/23/18 12:00 LVR7741 (Rec: 10/23/18 14:56 ISE3368 ICU-C15) Document 10/23/18 13:00 ZNK6166 (Rec: 10/23/18 15:46 BBE7244 ICU-C15) Document 10/23/18 15:00 IVE3807 (Rec: 10/23/18 15:46 WRI8129 ICU-C15) Document 10/23/18 17:33 RUT7925 (Rec: 10/23/18 17:33 PAI4176 ICU-C15) Document 10/23/18 20:00 NYV0975 (Rec: 10/23/18 22:49 LMV1224 ICU-C06) Document 10/24/18 02:00 WSV3389 (Rec: 10/24/18 05:56 CDC2576 ICU-C06) Document 10/24/18 05:56 VPK4334 (Rec: 10/24/18 05:56 VJI9540 ICU-C06) Document 10/24/18 08:00 KMP8127 (Rec: 10/24/18 08:16 YMC8607 ICU-C06) Document 10/24/18 10:33 TPX8031 (Rec: 10/24/18 10:33 TQK6465 ICU-C06) Document 10/24/18 22:00 TPC2398 (Rec: 10/24/18 22:31 CLP6539 ICU-M32) Document 10/25/18 05:09 ZGY8735 (Rec: 10/25/18 05:09 XKM4807 ICU-C06) Document 10/25/18 08:41 TTT2095 (Rec: 10/25/18 08:42 KVJ8198 ICU-M31) Document 10/26/18 05:29 PFS0608 (Rec: 10/26/18 05:29 SVM3306 ICU-M31) Document 10/26/18 14:00 IJP9695 (Rec: 10/26/18 14:34 LEQ7779 ICU-C06) Document 10/26/18 22:00 SOH7836 (Rec: 10/26/18 23:01 FOI7116 ICU-M31) Document 10/27/18 06:00 OLY0299 (Rec: 10/27/18 06:14 VPE9143 ICU-C06) Document 10/27/18 14:00 TII1493 (Rec: 10/27/18 14:43 REQ6046 ICU-C06) Document 10/27/18 19:06 MKS4021 (Rec: 10/27/18 19:06 RYB3104 ICU-M31) Document 10/27/18 23:28 IEB4869 (Rec: 10/27/18 23:28 WSE2493 ICU-M31) Document 10/28/18 06:00 HVP3487 (Rec: 10/28/18 06:35 LTL7365 ICU-C07) Document 10/28/18 16:00 VEN3281 (Rec: 10/28/18 16:30 DIO0252 ICU-C06) Document 10/28/18 22:00 DMO5460 (Rec: 10/29/18 00:00 KZP5369 ICU-M31) Document 10/29/18 06:00 NMR7679 (Rec: 10/29/18 06:08 QAF4267 ICU-C06) Document 10/29/18 07:00 LLD3706 (Rec: 10/29/18 08:16 AUI8143 ICU-C06) Document 10/29/18 07:00 OHU7019 (Rec: 10/29/18 13:14 BBI7272 ICU-C06) Document 10/29/18 11:00 XEY6578 (Rec: 10/29/18 13:14 QPW3716 ICU-C06) Document 10/29/18 14:00 EHH5280 (Rec: 10/29/18 14:01 GVC7693 ICU-C06) Labs: Laboratory Results - last 24 hr 10/29/18 10/29/18 04:50 04:50 WBC 12.1 H RBC 3.73 L Hgb 11.1 L Hct 35 L MCV 95 H MCH 30 MCHC 32 RDW 14 Plt Count 232 MPV 8.0 Neut % (Auto) 74.1 Lymph % (Auto) 18.9 [place] % (Auto) 6.0 Eos % (Auto) 0.6 Baso % (Auto) 0.4 Absolute Neuts (auto) 9.0 H Absolute Lymphs (auto) 2.3 Absolute Monos (auto) 0.7 Absolute Eos (auto) 0.1 Absolute Basos (auto) 0.1 Absolute Nucleated RBC 0 Nucleated RBC % 0.1 Sodium 139 Potassium 3.5 Chloride 107 Carbon Dioxide 25 Anion Gap 7 BUN 7 Creatinine 0.55 L Est GFR ( Amer) 186.4 Est GFR (Non-Af Amer) 154.1 BUN/Creatinine Ratio 12.7 Glucose 174 H Calcium 7.8 L Phosphorus 3.4 Magnesium 1.8 L Total Bilirubin 0.40 AST 18 ALT 23 Alkaline Phosphatase 102 Total Protein 5.6 L Albumin 3.1 L Globulin 2.5 Albumin/Globulin Ratio 1.2 Studies: Patient Name: MARIO BROWN Medical Record#: [id number] Ordering Physician: Lux Thomas MD Acct.#: [id number] : 1960 Age: 58 Sex: M Location: [facility] CARE UNIT Exam Date: 10/29/18 1100 ADM Status: ADM IN Order Information: SWALLOWING FUNCTION Accession Number: [id number] CPT: 58279 CPT II Codes: G9500 Indication: Dysphagia. Fluoroscopic examination of the oral and pharyngeal phases of deglutition was performed. 2 minutes of fluoroscopy time was used. The study was performed utilizing a variety of consistencies of contrast material. There was aspiration with honey thick liquids. Please see speech pathology recommendations for further recommendations. IMPRESSION: Fluoroscopic examination of deglutition was performed. <Electronically signed by Taniya Mckenna MD in [place]> 10/29/18 1334 Dictated By: Taniya Mckenna MD Dictated Date/Time: 10/29/18 1334 Transcribed Date/Time: 10/29/18 1332 Copy to: CC:Juan R Hdez MD; Lux Thomas MD; Mario Carlton MD Imaging - [facility] Imaging - [facility] [address] [address] ph ([phone]) ph ([phone]) ph ([phone]) This report is only to be considered final once signed by the Provider(s) as displayed in the "<Electronically Signed by >" field (s). Absence of a signature indicates the report is in a draft status and still needs to be finalized. In the event this document was created by someone other than the signing Provider, the individual initiating the document will be listed in the "Entered by:" or "Dictated by:" perez. 1 of 1 Patient Name: MARIO BROWN Medical Record#: [id number] Ordering Physician: Toby Olsen MD Acct.#: [id number] : 1960 Age: 58 Sex: M Location: INTENS[facility] CARE UNIT Exam Date: 10/28/18840 ADM Status: ADM IN Order Information: CHEST AP OR PORT Accession Number: [id number] CPT: 17872 HISTORY: reassess NG tube placement COMPARISONS: October 28, 2018 VIEWS: 1: frontal AP view of the chest at 8:50 AM FINDINGS: LINES AND TUBES: A tracheostomy tube is noted. A feeding tube is noted. The tip is in the left upper quadrant in a prepyloric position. CARDIOMEDIASTINAL SILHOUETTE: The cardiomediastinal silhouette is normal for portable technique. PLEURA: The costophrenic angles are sharp. No pleural abnormalities are noted. LUNG PARENCHYMA: There is patchy alveolar opacification of the lung bases bilaterally. ABDOMEN: The upper abdomen is clear. There is no subphrenic gas. BONES AND SOFT TISSUES: No bone or soft tissue abnormalities are noted. IMPRESSION: 1. LINES AND TUBES ABOVE. 2. PATCHY BIBASILAR ATELECTASIS VERSUS EARLY CONSOLIDATION. <Electronically signed by Juan Silverio MD in OV> 10/28/18901 Dictated By: Juan Silverio MD Dictated Date/Time: 10/28/18901 Transcribed Date/Time: 10/28/18900 Copy to: CC:Juan R Hdez MD; Toby Olsen MD; Mario Carlton MD Imaging - [facility] Imaging - [facility] [address] 10 [facility] [address] [place] [address] ph [phone]) ph ([phone]) ph ([phone]) This report is only to be considered final once signed by the Provider(s) as displayed in the "<Electronically Signed by >" field (s). Absence of a signature indicates the report is in a draft status and still needs to be finalized. In the event this document was created by someone other than the signing Provider, the individual initiating the document will be listed in the "Entered by:" or "Dictated by:" perez. 1 of 1 Nutrition: Oral intake allowed with restriction- regular diet, honey thickened liquid, fluids only with clean mouth Impression: 58 M s/p tracheostomy due to symptomatic laryngeal neoplasma s/p bx + SqCC with progessive agitation suggestive of acute alcohol withdrawal Acute alcohol withdrawal - improving Nutritional deficits in the setting of chronic alcohol use Dehydration/hypovolemia - improving Fever with leukocytosis suspected due to aspiration Pneumonitis/PNA Chest congestion Hypokalemia, hypomagnesemia Dysphagia with aspiration chronic/current tobacco use 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 laryngeal neoplasm cx + Streptococcus Constellatus Elevated Alk phosphatase with improving transaminitis- resolved Plan: Fever with leukocytosis suspected due to aspiration Pneumonitis/PNA - Pending BCx and sputum Cx - Started on augmentin 10/29 Acute alcohol withdrawal - improving sx - off precedex since this am - valium increased to 10 mg q8h with taper and hold for sedation - Aspiration precautions Nutritional deficits in the setting of chronic alcohol use - banana bag Hypovolemia -improved with NS bolus and FWF 50cc/q6h Chest congestion - mucomyst nebs with bronchodilators - chest physiotherapy with metanebs q6hwa after BD Hypokalemia and hypomagnesemia -replaced KCL 40 mEq Dyphagia/aspiration likely due to anatomical pathology -cleared for oral intake per swallow and ENT chronic/current tobacco use -nicotine patch 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 -mgmt as per ENT - Currently on TM laryngeal neoplasm cx + Streptococcus Constellatus - likely contaminant/oral jarett- not on tx Elevated Alk phosphatase with improving transaminitis Hep C- low reactive - repeat in AM - no clinical suggestion of acute biliary pathology Chronic pain c/w current meds DVT ppx:SQH Diet: TF Prognosis guarded Critical care issues: acute agitation, precedex gtt Dispo: Ok to downgrade to 4S Critical Care Time: 45 minutes
[2018-10-29] MEDS ORDERED: KCL 20 MEQ/100 ML IVPREMIX* 20 MEQ/100 ML BAG ONE (17:43)
[2018-10-29] MEDS: LORazepam INJ* 2 MG/ML 1 ML VIAL IV PUSH PRN (19:29)
[2018-10-29] MEDS: Amoxicillin/Clavulanate TAB* 875 MG PO SCH (20:20)
[2018-10-29] MEDS: Melatonin 3 MG TAB PO SCH (20:21)
[2018-10-29] MEDS: traZODone TAB* 100 MG PO SCH (20:21)
[2018-10-29] MEDS: Pyridoxine TAB* 50 MG PO SCH (20:21)
[2018-10-29] MEDS: Citalopram TAB* 40 MG PO SCH (20:21)
[2018-10-29] MEDS: Nicotine Patch Removal NOTE PATCH OFF SCH (20:22)
[2018-10-30] MEDS: Dexmedetomidine* 400 MCG in NS 0.9% 100 ML* 96 ML IVPB SCH ×4 (01:08→14:00)
[2018-10-30] MEDS: Diazepam TAB(*) 5 MG PO SCH ×4 (01:08→23:51)
[2018-10-30] MEDS: LORazepam INJ* 2 MG/ML 1 ML VIAL IV PUSH PRN ×3 (04:27→21:30)
[2018-10-30] MEDS: guaiFENesin LIQ* 100 MG/5 ML UDC PO SCH ×4 (06:02→23:51)
[2018-10-30] MEDS: Heparin VIAL(*) 5000 UNITS/ML VIAL (FIVE THOUSAND) SUBCUT SCH ×3 (06:04→23:52)
[2018-10-30 06:16] LABS: Magnesium 1.8 mg/dL (1.9-2.7); Phosphorus 3.5 mg/dL (2.5-5.0)
[2018-10-30 06:47] LABS: ABS Basophils 0.1 10^3/ul (0-0.2); ABS Eosinophils 0 10^3/ul (0-0.6); ABS Lymphocytes 1.5 10^3/ul (1.0-4.8); ABS Monocytes 0.9 10^3/ul (0-0.8); ABS Neutrophils 7.6 10^3/ul (1.5-7.7); ABS Nucleated RBC 0 10^3/ul; Eosinophil % 0.4 %; Hematocrit 60 % (36-46); Hemoglobin 19.7 g/dL (14.0-18.0); Lymphocyte % 14.6 %; Mean Corpuscular HGB Conc 33 g/dL (31-36); Mean Corpuscular Hemoglobin 30 pg (27-31); Mean Corpuscular Volume 93 fL (80-94); Mean Platelet Volume 8.7 fL (7.4-10.4); Nucleated Red Blood Cells % 0; Platelet Count 159 10^3/uL (150-450); Red Blood Count 6.47 10^6 /uL (4.18-5.48); Red Cell Distribution Width 14 % (10.5-15); White Blood Count 10.1 10^3/uL (3.5-10.8)
[2018-10-30] MEDS: Fluticasone/Vilanterol MDI(NF) 200/25 MDI INH SCH (07:03)
[2018-10-30] MEDS ORDERED: Magnesium Sulfate 2 GM IV* 2 GM/50 ML BAG IVPB ONE (07:40)
[2018-10-30] MEDS: Budesonide NEB* 0.5 MG/2 ML NEB.SOLN INH SCH ×2 (08:30→20:20)
[2018-10-30] MEDS: Albuterol/Ipratropium NEB.SOL* Albuterol 2.5 MG/Ipratropium 0.5 MG 3 ML INH PRN (08:30)
[2018-10-30] MEDS: Pregabalin CAP(*) 300 MG PO SCH ×2 (09:04→21:26)
[2018-10-30] MEDS: Acetaminophen TAB* 325 MG PO PRN ×3 (09:04→23:52)
[2018-10-30] MEDS: Amoxicillin/Clavulanate TAB* 875 MG PO SCH (09:04)
[2018-10-30] MEDS: Nicotine PATCH 21 MG/24 HR* PATCH TRANSDERM SCH (09:05)
[2018-10-30] MEDS: Pantoprazole IV* 40 MG IV SCH (09:06)
[2018-10-30] MEDS: Thiamine TAB* 100 MG TAB NG TUBE SCH (09:06)
[2018-10-30] MEDS: Potassium Chloride LIQUID* 20 MEQ PACKET PO SCH (09:06)
[2018-10-30] MEDS: GUAR GUM PO SCH ×2 (09:07→21:25)
[2018-10-30 10:08] LABS: Hematocrit 39 % (36-46); Hemoglobin 12.9 g/dL (14.0-18.0); Mean Corpuscular HGB Conc 34 g/dL (31-36); Mean Corpuscular Hemoglobin 30 pg (27-31); Mean Corpuscular Volume 91 fL (80-94); Mean Platelet Volume 8.3 fL (7.4-10.4); Platelet Count 323 10^3/uL (150-450); Red Blood Count 4.25 10^6 /uL (4.18-5.48); Red Cell Distribution Width 14 % (10.5-15); White Blood Count 14.8 10^3/uL (3.5-10.8)
[2018-10-30 10:23] LABS: ABS Basophils 0.1 10^3/ul (0-0.2); ABS Eosinophils 0 10^3/ul (0-0.6); ABS Lymphocytes 1.8 10^3/ul (1.0-4.8); ABS Monocytes 1.6 10^3/ul (0-0.8); ABS Neutrophils 11.2 10^3/ul (1.5-7.7); ABS Nucleated RBC 0 10^3/ul; Eosinophil % 0.1 %; Lymphocyte % 12.3 %; Nucleated Red Blood Cells % 0
--- NOTE | 2018-10-30 10:48 | PN ---
Date of Service: 10/30/18 - [facility] note Critical Care Services: Pt seen and examined at bedside. Pt reports feeling better, slightly anxious. Having cough with copius secretions. 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 Hdez being managed in the ICU for acute alcohol withdrawal 10/29: Patient with multiple episodes of TMax > 100.3. He was on precedex. He reports anxiety due to not being able to eat/drink. O 10/30: No overnight events. He is more alert. Secretions are still copius however metanebs helping and able to expectorate. Continues to spike fevers. Vital Signs: Temp Pulse Resp BP SpO2 FiO2 101.6 F 93 22 109/72 95 70 10/30/18 08:00 10/30/18 10:01 10/30/18 10:01 10/30/18 10:00 10/30/18 10:01 10/30 09:26 Physical Exam: Gen: Pt in NAD, sitting up in chair HEENT: PERRLA, trach in place, no oozing Lungs: Diminished air entry, no wheeze Cardiac: S1, S2+ Abdomen:Soft, BS+ Extremities: No edema Neuro: No focal deficits Skin: No rash Fluid Balance (Past 24 Hours): I= 440 O=200 Net 240 Intake & Output 10/28/18 10/29/18 10/30/18 10/31/18 06:59 06:59 06:59 06:59 Intake Total 3191 1119.3 1187 440 Output Total 061 501 2982 200 Balance 2291 519.3 -1588 240 Weight 165 lb 5.547 oz 160 lb 14.999 oz Intake: IV Fluids 2814 885 369 KCl 0 200 LR 441 Mg 0 100 NS (0.9%) 2373 585 369 IVPB 163 KCl 163 Medicated IV 377 164.3 55 CC - Dexmedetomidine/ 377 164.3 55 Precedex Oral 600 440 Tube Feeding Flush Amount 70 Output: Urine 847 287 8329 200 Lazaro 400 Other: Estimated Void Medium Date of Last Bowel 10/27/18 10/30/18 10/30/18 Movement # Bowel Movements 1 1 1 Estimated Stool Amount Medium Large Medium # Voids 1 Labs: Laboratory Results - last 24 hr 10/29/18 10/30/18 10/30/18 17:00 05:50 05:50 WBC 10.1 RBC 6.47 H Hgb 19.7 H Hct 60 H MCV 93 MCH 30 MCHC 33 RDW 14 Plt Count 159 MPV 8.7 Neut % (Auto) 75.1 Lymph % (Auto) 14.6 Taney % (Auto) 9.2 Eos % (Auto) 0.4 Baso % (Auto) 0.7 Absolute Neuts (auto) 7.6 Absolute Lymphs (auto) 1.5 Absolute Monos (auto) 0.9 H Absolute Eos (auto) 0 Absolute Basos (auto) 0.1 Absolute Nucleated RBC 0 Nucleated RBC % 0 Patient Temperature Not Reportable ABG pH 7.53 H ABG pH (Temp Correct) Not Reportable ABG pCO2 33 L ABG pCO2 (Temp Corrct Not Reportable ABG pO2 79 L ABG pO2 (Temp Correct Not Reportable ABG HCO3 28.9 ABG O2 Saturation 97.8 ABG Base Excess 5.1 H Respiration Rate Not Reportable O2 Delivery Device trach collar Ventilator Type Not Reportable Vent Mode Not Reportable FiO2 100 Inspiratory Time Not Reportable PEEP Not Reportable Pressure Support Not Reportable Pressure Control Not Reportable EPAP Not Reportable IPAP Not Reportable BiPAP Not Reportable Phosphorus 3.5 Magnesium 1.8 L 10/30/18 09:55 WBC 14.8 H RBC 4.25 Hgb 12.9 L Hct 39 MCV 91 MCH 30 MCHC 34 RDW 14 Plt Count 323 MPV 8.3 Neut % (Auto) 75.8 Lymph % (Auto) 12.3 Taney % (Auto) 11.0 Eos % (Auto) 0.1 Baso % (Auto) 0.8 Absolute Neuts (auto) 11.2 H Absolute Lymphs (auto) 1.8 Absolute Monos (auto) 1.6 H Absolute Eos (auto) 0 Absolute Basos (auto) 0.1 Absolute Nucleated RBC 0 Nucleated RBC % 0 Patient Temperature ABG pH ABG pH (Temp Correct) ABG pCO2 ABG pCO2 (Temp Corrct ABG pO2 ABG pO2 (Temp Correct ABG HCO3 ABG O2 Saturation ABG Base Excess Respiration Rate O2 Delivery Device Ventilator Type Vent Mode FiO2 Inspiratory Time PEEP Pressure Support Pressure Control EPAP IPAP BiPAP Phosphorus Magnesium Studies: CXR 10/29 reviewed- Patchy denisty in left base, improved aeration Nutrition: Soft diet and advance as tolerated Impression: 58-year-old male with significant hx/o tobacco and alcohol use, COPD, recent diagnosis of 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 Hdez being managed in the ICU for acute alcohol withdrawal 1. ETOH withdrawl- resolved 2. Hypoxic resp failure likely sec to PNA with concern for possible asp PNA 3. Fever- ?Sec to PNA 4. S/p tracheostomy 5. Laryngeal cancer newly dx- will need surgery and possible XRT 6. H/o chronic tobacco usage on Nicotine supplementation 7. Anemia 8. Hypomagenesemia- repleted 9.Leucocytosis Plan: 1. Neuro: Mental status is normal. Has anxiety better on Ativan prn. No signs of delirium. Being monitored for ETOH withdrawal 2. Resp: Still has significant secretions. CXR improving. Being treated for asp PNA. Will titrate FiO2 as tolerated. Will c/w metanebs. No signs of COPD exacerbation. Will c/w nebs prn. c/w metanebs for secretions. Titrate FiO2 as tolerated . c/w trach care 3. CVS: Hemodynamically stable. Not requiring pressors. Tachycardic. Will monitor 4. ID: Fever+, Leucocytosis increased. On Augmentin for Asp PNA, will change to Zosyn for broader coverage. septic w/u negative to date 5. Renal: UO good, creatinine normal. Hypomagnesemia repleted 6. GI: Advance diet as tolerated. GI ppx. 7. Haem: Leucocytosis sec to sepsis. Anemia+. Stable 8. Endo: Bl sugars slightly elevated, will monitor 9. Musculoskeletal: OOB to chair, PT when stable Psychosocial: No family available at this time. Pt updated on plan of care Critical Care Time: 40 min
[2018-10-30] MEDS ORDERED: Piperacillin/Tazobac ADVAN(*) 3.375 GM in NS 0.9% 100 ML* 100 ML IVPB ONE (12:00)
[2018-10-30] MEDS ORDERED: Zosyn per Pharmacy* NOTE FOLLOW UP PRN (14:37)
[2018-10-30] MEDS: ZOSYN 3.375 GM Q8H per EXTENDED INFUSION IVPB SCH ×4 (16:58→23:57)
[2018-10-30] MEDS: Citalopram TAB* 40 MG PO SCH (21:25)
[2018-10-30] MEDS: traZODone TAB* 100 MG PO SCH (21:25)
[2018-10-30] MEDS: Melatonin 3 MG TAB PO SCH (21:25)
[2018-10-30] MEDS: Nicotine Patch Removal NOTE PATCH OFF SCH (21:26)
[2018-10-30] MEDS: Pyridoxine TAB* 50 MG PO SCH (21:30)
[2018-10-31] MEDS: guaiFENesin LIQ* 100 MG/5 ML UDC PO SCH ×4 (06:07→21:25)
[2018-10-31] MEDS: Diazepam TAB(*) 5 MG PO SCH ×3 (06:07→23:05)
[2018-10-31] MEDS: Heparin VIAL(*) 5000 UNITS/ML VIAL (FIVE THOUSAND) SUBCUT SCH ×3 (06:08→21:28)
[2018-10-31] MEDS: Budesonide NEB* 0.5 MG/2 ML NEB.SOLN INH SCH ×2 (07:43→19:51)
[2018-10-31] MEDS: Pregabalin CAP(*) 300 MG PO SCH ×2 (08:46→21:25)
[2018-10-31] MEDS: Potassium Chloride LIQUID* 20 MEQ PACKET PO SCH (08:46)
[2018-10-31] MEDS: Acetaminophen TAB* 325 MG PO PRN ×2 (08:47→16:11)
[2018-10-31] MEDS: Pantoprazole IV* 40 MG IV SCH (08:47)
[2018-10-31] MEDS: Thiamine TAB* 100 MG TAB NG TUBE SCH (08:47)
[2018-10-31] MEDS: ZOSYN 3.375 GM Q8H per EXTENDED INFUSION IVPB SCH ×4 (08:47→16:11)
[2018-10-31] MEDS: Nicotine PATCH 21 MG/24 HR* PATCH TRANSDERM SCH (08:49)
[2018-10-31] MEDS: GUAR GUM PO SCH ×2 (08:56→21:27)
--- NOTE | 2018-10-31 09:54 | PN ---
Subjective Date of Service: 10/31/18 Interval History: HOSPITALIST PROGRESS NOTE Patient seen and examined at bedside. Care reviewed and d/w Sowmya Guerra RN. He feels much better today. Still has cough with secretions, but states is less than before. Family History: Unchanged from Admission Social History: Unchanged from Admission Past Medical History: Unchanged from Admission Objective Active Medications: Acetaminophen (Tylenol Tab*) 650 mg PO Q6H PRN PRN Reason: PAIN,TEMPERATURE, HEADACHE Last Admin: 10/31/18 08:47 Dose: 650 mg Albuterol/Ipratropium (Duoneb (Albuterol 2.5 Mg/Ipratropium 0.5 Mg)) 1 neb INH [id number] AWAKE PRN PRN Reason: sob/wheexing Last Admin: 10/30/18 08:30 Dose: 1 neb Budesonide (Pulmicort Neb*) 0.5 mg INH RT.BID [facility] Last Admin: 10/31/18 07:43 Dose: 0.5 mg Citalopram Hydrobromide (Celexa Tab*) 40 mg PO BEDTIME [facility] Last Admin: 10/30/18 21:25 Dose: 40 mg Diazepam (Valium Tab(*)) 10 mg PO Q8H [facility] Last Admin: 10/31/18 06:07 Dose: 10 mg Guaifenesin (Robitussin*) 10 ml PO Q6H [facility] Last Admin: 10/31/18 06:07 Dose: 10 ml Guar Gum (Nutrisource Fiber (Nf)) 1 each PO BID [facility] Last Admin: 10/31/18 08:56 Dose: 1 each Heparin Sodium (Porcine) (Heparin Vial(*)) 5,000 units SUBCUT Q8HR [facility] Last Admin: 10/31/18 06:08 Dose: 5,000 units Piperacillin Sod/Tazobactam (Sod 3.375 gm/ Sodium Chloride) 100 mls @ 25 mls/ hr IVPB Q8H [facility] Last Admin: 10/31/18 08:47 Dose: 25 mls/hr Lorazepam (Ativan Inj*) 1 mg IV PUSH Q2H PRN PRN Reason: ANXIETY Last Admin: 10/30/18 21:30 Dose: 1 mg Melatonin (Melatonin) 9 mg PO BEDTIME [facility] Last Admin: 10/30/18 21:25 Dose: 9 mg Nicotine (Nicotine Patch 21 Mg/24 Hr*) 1 patch TRANSDERM DAILY [facility] Last Admin: 10/31/18 08:49 Dose: 1 patch Nicotine (Nicotine Inhaler*) 10 mg INH Q2H PRN PRN Reason: CRAVING Last Admin: 10/29/18 08:54 Dose: 10 mg Ondansetron HCl (Zofran Inj*) 4 mg IV Q4H PRN PRN Reason: NAUSEA Pantoprazole Sodium (Protonix Iv*) 40 mg IV DAILY [facility] Last Admin: 10/31/18 08:47 Dose: 40 mg Pharmacy Consult (Zosyn Per Pharmacy*) 1 note FOLLOW UP . PRN PRN Reason: PER PROTOCOL Pharmacy Profile Note (Nicotine Patch Removal Note*) 1 note PATCH OFF 2100 [facility] Last Admin: 10/30/18 21:26 Dose: 1 note Potassium Chloride (Klor-Con Liquid*) 40 meq PO DAILY [facility] Last Admin: 10/31/18 08:46 Dose: 40 meq Pregabalin (Lyrica Cap(*)) 300 mg PO BID [facility] Last Admin: 10/31/18 08:46 Dose: 300 mg Pyridoxine HCl (Vitamin B6 Tab*) 50 mg PO BEDTIME [facility] Last Admin: 10/30/18 21:30 Dose: 50 mg Thiamine HCl (Vitamin B-1 Tab*) 100 mg NG TUBE DAILY [facility] Last Admin: 10/31/18 08:47 Dose: 100 mg Trazodone HCl (Desyrel Tab*) 50 mg PO BEDTIME [facility] Last Admin: 10/30/18 21:25 Dose: 50 mg Vital Signs - 8 hr 10/31/18 10/31/18 10/31/18 02:00 03:24 06:07 Temperature 97.5 F Pulse Rate 86 Respiratory 18 18 20 Rate Blood Pressure 114/84 (mmHg) O2 Sat by Pulse 91 Oximetry 10/31/18 10/31/18 10/31/18 07:36 07:49 08:00 Temperature 98.9 F Pulse Rate 90 83 Respiratory 24 16 Rate Blood Pressure 106/57 (mmHg) O2 Sat by Pulse 84 92 93 Oximetry 10/31/18 10/31/18 08:32 08:46 Temperature Pulse Rate Respiratory 24 24 Rate Blood Pressure (mmHg) O2 Sat by Pulse Oximetry Oxygen Devices in Use Now: Tracheostomy Collar Appearance: Middle aged gentleman lying in bed in NAD. Eyes: No Scleral Icterus Ears/Nose/Mouth/Throat: Mucous Membranes Moist Neck: - - Trach in place, clean, no drainage Respiratory: Symmetrical Chest Expansion and Respiratory Effort, - - BS+ bilaterally with crackles left base Cardiovascular: RRR - Normal S1 and S2 Neurological: Alert and Oriented x 3, NL Muscle Strength and Tone Result Diagrams: 10/30/18 09:55 10/29/18 04:50 Assess/Plan/Problems-Billing Assessment: Mr. Delvalle is a 58 yo M with PMH of vocal cord disorder and mass, migraines, insomnia, COPD, tobacco and alcohol abuse, hepatitis C (s/p treatment) and AAA; who is s/p tracheostomy, s/p biopsy revealing invasive poorly differentiated squamous cell carcinoma. - Patient Problems (1) Alcohol withdrawal Comment: - As per prior notes, indicated on admission that he did not consume alcohol, but other family reports a significant alcohol intake - Was in ICU requiring Precedex drip - transfered to medical floor 10/30/18. - Continue Diazepam taper. - Continue Thiamine. (2) Aspiration pneumonia Comment: - Intermittent fever since admission can be secondary to malignancy. - Blood and sputum culture showed no significant growth to date. - Continue Zosyn. (3) Dysphagia Comment: - Speech pathology evaluation appreciated - regular solid, pudding thick liquids, medications as tolerated with puree/pudding. - Can have thin water in between meals. (4) Tobacco abuse Comment: - Continue nicotine supplementation. (5) Squamous cell carcinoma Comment: - Management as per ENT. (6) DVT prophylaxis Comment: - SQ heparin. (7) Full code status Comment: Status and Disposition: Inpatient.
--- NOTE | 2018-10-31 12:54 | PN ---
Progress Note - Progress Note Date of Service: 10/31/18 - Pulm f/u note Note: Pt seen and examined at bedside. Pt reports feeling better. Had fever last night. Continues to have fever spikes in evening. Has copius secretions still, pt able to suction out. Having episodes of anxiety intermittently, Ativan helping. Active Medications Generic Name Dose Route Start Last Admin Trade Name Freq PRN Reason Stop Dose Admin Acetaminophen 650 mg 10/28/18 10:25 10/31/18 08:47 Tylenol Tab* PO 650 mg Q6H PRN Administration PAIN,TEMPERATURE, HEADACHE Albuterol/Ipratropium 1 neb 10/22/18 12:47 10/30/18 08:30 Duoneb (Albuterol 2.5 Mg/Ipratropium 0.5 Mg) INH 1 neb [id number] AWAKE PRN Administration sob/wheexing Budesonide 0.5 mg 10/22/18 19:00 10/31/18 07:43 Pulmicort Neb* INH 0.5 mg RT.BID [facility]ICOLE Administration Citalopram Hydrobromide 40 mg 10/22/18 21:00 10/30/18 21:25 Celexa Tab* PO 40 mg BEDTIME [facility] Administration Diazepam 10 mg 10/29/18 15:00 10/31/18 06:07 Valium Tab(*) PO 10 mg Q8H NICOLE Administration Guaifenesin 10 ml 10/29/18 11:00 10/31/18 11:43 Robitussin* PO 10 ml Q6H [facility]ICOLE Administration Guar Gum 1 each 10/29/18 11:00 10/31/18 08:56 Nutrisource Fiber (Nf) PO 1 each BID [facility] Administration Heparin Sodium (Porcine) 5,000 units 10/26/18 22:00 10/31/18 06:08 Heparin Vial(*) SUBCUT 5,000 units Q8HR [facility] Administration Piperacillin Sod/Tazobactam 100 mls @ 25 mls/hr 10/30/18 16:30 10/31/18 08:47 Sod 3.375 gm/ Sodium Chloride IVPB 25 mls/hr Q8H [facility] Administration Lorazepam 1 mg 10/28/18 17:19 10/30/18 21:30 Ativan Inj* IV PUSH 1 mg Q2H PRN Administration ANXIETY Melatonin 9 mg 10/22/18 21:00 10/30/18 21:25 Melatonin PO 9 mg BEDTIME [facility] Administration Nicotine 1 patch 10/23/18 23:00 10/31/18 08:49 Nicotine Patch 21 Mg/24 Hr* TRANSDERM 1 patch DAILY [facility] Administration Nicotine 10 mg 10/28/18 20:38 10/29/18 08:54 Nicotine Inhaler* INH 10 mg Q2H PRN Administration CRAVING Ondansetron HCl 4 mg 10/28/18 17:10 Zofran Inj* IV Q4H PRN NAUSEA Pantoprazole Sodium 40 mg 10/23/18 10:00 10/31/18 08:47 Protonix Iv* IV 40 mg DAILY [facility] Administration Pharmacy Consult 1 note 10/30/18 14:37 Zosyn Per Pharmacy* FOLLOW UP . PRN PER PROTOCOL Pharmacy Profile Note 1 note 10/24/18 21:00 10/30/18 21:26 Nicotine Patch Removal Note* PATCH OFF 1 note 2100 [facility] Administration Potassium Chloride 40 meq 10/28/18 10:00 10/31/18 08:46 Klor-Con Liquid* PO 40 meq DAILY [facility] Administration Pregabalin 300 mg 10/22/18 21:00 10/31/18 08:46 Lyrica Cap(*) PO 300 mg BID [facility] Administration Pyridoxine HCl 50 mg 10/22/18 21:00 10/30/18 21:30 Vitamin B6 Tab* PO 50 mg BEDTIME [facility] Administration Thiamine HCl 100 mg 10/27/18 13:00 10/31/18 08:47 Vitamin B-1 Tab* NG TUBE 100 mg DAILY [facility] Administration Trazodone HCl 50 mg 10/28/18 21:00 10/30/18 21:25 Desyrel Tab* PO 50 mg BEDTIME [facility] Administration Vital Signs Temp Pulse Resp BP Pulse Ox 99.3 F 91 28 101/73 96 10/31/18 12:01 10/31/18 12:01 10/31/18 12:01 10/31/18 12:01 10/31/18 12:01 O/E: Pt in NAD HEENT: PERRLA, Trach+, site looks good, no oozing Lungs: Diminished air entry b/l, scattered rhonchi+ CVS: S1, S2+ Abd: Soft, BS+ Ext: No edema, normal ROM Neuro: Alert, awake, no focal deficits Skin:No rash Labs: No new labs I/R: 58-year-old male with significant hx/o tobacco and alcohol use, COPD, recent diagnosis of 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 Hdez, was managed in the ICU for acute alcohol withdrawal Pt was transferred to medical floor, doing well Having fever spikes, was changed on Zosyn 10/30. Leucocytosis +, tachycardic. BP stable Throat cx positive for Strep constellatus, susceptible to PCN Blood cx negative. Rpt septic w/u if spikes again ETOH withdrawl on [facility] protocol Anxiety better controlled H/o significant smoking, on Nicotine supplementation c/w nebs On 40% FiO2, can titrate to keep O2 sat around 92% DVT px
[2018-10-31] MEDS: traZODone TAB* 100 MG PO SCH (21:26)
[2018-10-31] MEDS: Pyridoxine TAB* 50 MG PO SCH (21:27)
[2018-10-31] MEDS: Melatonin 3 MG TAB PO SCH (21:27)
[2018-10-31] MEDS: LORazepam INJ* 2 MG/ML 1 ML VIAL IV PUSH PRN (21:27)
[2018-10-31] MEDS: Citalopram TAB* 40 MG PO SCH (21:27)
[2018-10-31] MEDS: Nicotine Patch Removal NOTE PATCH OFF SCH (21:27)
[2018-11-01] MEDS: ZOSYN 3.375 GM Q8H per EXTENDED INFUSION IVPB SCH ×6 (01:33→17:08)
[2018-11-01] MEDS: guaiFENesin LIQ* 100 MG/5 ML UDC PO SCH ×4 (05:11→23:31)
[2018-11-01] MEDS: Heparin VIAL(*) 5000 UNITS/ML VIAL (FIVE THOUSAND) SUBCUT SCH ×3 (05:11→21:06)
[2018-11-01 06:35] LABS: ABS Basophils 0.1 10^3/ul (0-0.2); ABS Eosinophils 0.1 10^3/ul (0-0.6); ABS Lymphocytes 2.6 10^3/ul (1.0-4.8); ABS Monocytes 1.2 10^3/ul (0-0.8); ABS Neutrophils 5.8 10^3/ul (1.5-7.7); ABS Nucleated RBC 0 10^3/ul; Eosinophil % 0.9 %; Hematocrit 35 % (36-46); Hemoglobin 11.6 g/dL (14.0-18.0); Lymphocyte % 26.4 %; Mean Corpuscular HGB Conc 34 g/dL (31-36); Mean Corpuscular Hemoglobin 30 pg (27-31); Mean Corpuscular Volume 90 fL (80-94); Mean Platelet Volume 8.2 fL (7.4-10.4); Nucleated Red Blood Cells % 0; Platelet Count 295 10^3/uL (150-450); Red Blood Count 3.83 10^6 /uL (4.18-5.48); Red Cell Distribution Width 14 % (10.5-15); White Blood Count 9.7 10^3/uL (3.5-10.8)
[2018-11-01 06:50] LABS: BUN/Creatinine Ratio 18.7 (8-20); Calcium 8.7 mg/dL (8.6-10.3); EGFR African American 130.4 (>60); EGFR Non-African American 107.7 (>60); Potassium 3.5 mmol/L (3.5-5.0)
[2018-11-01] MEDS: Budesonide NEB* 0.5 MG/2 ML NEB.SOLN INH SCH ×2 (07:24→19:21)
[2018-11-01] MEDS: Acetaminophen TAB* 325 MG PO PRN ×2 (08:21→18:06)
--- NOTE | 2018-11-01 09:45 | PN ---
Subjective Date of Service: 11/01/18 Interval History: HOSPITALIST PROGRESS NOTE Patient seen and examined at bedside. Case reviewed and d/w Loc Padron RN. He's sleeping, easily arousable, offers no complaints at this time, but appears to be very tired. Family History: Unchanged from Admission Social History: Unchanged from Admission Past Medical History: Unchanged from Admission Objective Active Medications: Acetaminophen (Tylenol Tab*) 650 mg PO Q6H PRN PRN Reason: PAIN,TEMPERATURE, HEADACHE Last Admin: 11/01/18 08:21 Dose: 650 mg Albuterol/Ipratropium (Duoneb (Albuterol 2.5 Mg/Ipratropium 0.5 Mg)) 1 neb INH [id number] AWAKE PRN PRN Reason: sob/wheexing Last Admin: 10/30/18 08:30 Dose: 1 neb Budesonide (Pulmicort Neb*) 0.5 mg INH RT.BID [facility] Last Admin: 11/01/18 07:24 Dose: 0.5 mg Citalopram Hydrobromide (Celexa Tab*) 40 mg PO BEDTIME [facility] Last Admin: 10/31/18 21:27 Dose: 40 mg Diazepam (Valium Tab(*)) 10 mg PO Q12H [facility] Last Admin: 10/31/18 23:05 Dose: 10 mg Guaifenesin (Robitussin*) 10 ml PO Q6H [facility] Last Admin: 11/01/18 05:11 Dose: 10 ml Guar Gum (Nutrisource Fiber (Nf)) 1 each PO BID [facility] Last Admin: 10/31/18 21:27 Dose: Not Given Heparin Sodium (Porcine) (Heparin Vial(*)) 5,000 units SUBCUT Q8HR [facility] Last Admin: 11/01/18 05:11 Dose: 5,000 units Piperacillin Sod/Tazobactam (Sod 3.375 gm/ Sodium Chloride) 100 mls @ 25 mls/ hr IVPB Q8H [facility] Last Admin: 11/01/18 01:33 Dose: 25 mls/hr Lorazepam (Ativan Inj*) 1 mg IV PUSH Q2H PRN PRN Reason: ANXIETY Last Admin: 10/31/18 21:27 Dose: 1 mg Melatonin (Melatonin) 9 mg PO BEDTIME [facility] Last Admin: 10/31/18 21:27 Dose: 9 mg Nicotine (Nicotine Patch 21 Mg/24 Hr*) 1 patch TRANSDERM DAILY [facility] Last Admin: 10/31/18 08:49 Dose: 1 patch Nicotine (Nicotine Inhaler*) 10 mg INH Q2H PRN PRN Reason: CRAVING Last Admin: 10/29/18 08:54 Dose: 10 mg Ondansetron HCl (Zofran Inj*) 4 mg IV Q4H PRN PRN Reason: NAUSEA Pantoprazole Sodium (Protonix Iv*) 40 mg IV DAILY [facility] Last Admin: 10/31/18 08:47 Dose: 40 mg Pharmacy Consult (Zosyn Per Pharmacy*) 1 note FOLLOW UP . PRN PRN Reason: PER PROTOCOL Pharmacy Profile Note (Nicotine Patch Removal Note*) 1 note PATCH OFF 2100 [facility] Last Admin: 10/31/18 21:27 Dose: 1 note Potassium Chloride (Klor-Con Liquid*) 40 meq PO DAILY [facility] Last Admin: 10/31/18 08:46 Dose: 40 meq Pregabalin (Lyrica Cap(*)) 300 mg PO BID [facility] Last Admin: 10/31/18 21:25 Dose: 300 mg Pyridoxine HCl (Vitamin B6 Tab*) 50 mg PO BEDTIME [facility] Last Admin: 10/31/18 21:27 Dose: 50 mg Thiamine HCl (Vitamin B-1 Tab*) 100 mg NG TUBE DAILY [facility] Last Admin: 10/31/18 08:47 Dose: 100 mg Trazodone HCl (Desyrel Tab*) 50 mg PO BEDTIME [facility] Last Admin: 10/31/18 21:26 Dose: 50 mg Vital Signs - 8 hr 11/01/18 11/01/18 11/01/18 03:34 07:35 08:00 Temperature 98.0 F Pulse Rate 88 86 Respiratory 24 24 24 Rate Blood Pressure 117/60 (mmHg) O2 Sat by Pulse 96 96 Oximetry Oxygen Devices in Use Now: Tracheostomy Collar Appearance: Middle aged gentleman lying in bed in NAD. Eyes: No Scleral Icterus Neck: - - Trach collar clean Respiratory: Symmetrical Chest Expansion and Respiratory Effort, - - BS+ bilaterally coarse Cardiovascular: RRR - Normal S1 and S2 Neurological: Alert and Oriented x 3, NL Muscle Strength and Tone Result Diagrams: 11/01/18 06:16 11/01/18 06:16 Assess/Plan/Problems-Billing Assessment: Mr. Delvalle is a 58 yo M with PMH of vocal cord disorder and mass, migraines, insomnia, COPD, tobacco and alcohol abuse, hepatitis C (s/p treatment) and AAA; who is s/p tracheostomy, s/p biopsy revealing invasive poorly differentiated squamous cell carcinoma. - Patient Problems (1) Alcohol withdrawal Comment: - As per prior notes, indicated on admission that he did not consume alcohol, but other family reports a significant alcohol intake - Was in ICU requiring Precedex drip - transfered to medical floor 10/30/18. - Continue Diazepam taper. - Continue Thiamine. (2) Aspiration pneumonia Comment: - Intermittent fever since admission can be secondary to malignancy. - Blood and sputum culture showed no significant growth to date. - Continue Zosyn. (3) Dysphagia Comment: - Speech pathology evaluation appreciated - regular solid, pudding thick liquids, medications as tolerated with puree/pudding. - Can have thin water in between meals. (4) Tobacco abuse Comment: - Continue nicotine supplementation. (5) Squamous cell carcinoma Comment: - Management as per ENT. (6) DVT prophylaxis Comment: - SQ heparin. (7) Full code status Comment: Status and Disposition: Inpatient. CM to assist with discharge plan.
[2018-11-01] MEDS: Pregabalin CAP(*) 300 MG PO SCH ×2 (10:26→21:03)
[2018-11-01] MEDS: Pantoprazole IV* 40 MG IV SCH (10:26)
[2018-11-01] MEDS: Thiamine TAB* 100 MG TAB NG TUBE SCH (10:26)
[2018-11-01] MEDS: Diazepam TAB(*) 5 MG PO SCH ×2 (10:27→21:05)
[2018-11-01] MEDS: Nicotine PATCH 21 MG/24 HR* PATCH TRANSDERM SCH (10:28)
[2018-11-01] MEDS: GUAR GUM PO SCH ×2 (10:28→21:08)
[2018-11-01] MEDS: Potassium Chloride LIQUID* 20 MEQ PACKET PO SCH (10:28)
[2018-11-01] MEDS: Citalopram TAB* 40 MG PO SCH (21:02)
[2018-11-01] MEDS: traZODone TAB* 100 MG PO SCH (21:03)
[2018-11-01] MEDS: Melatonin 3 MG TAB PO SCH (21:05)
[2018-11-01] MEDS: Nicotine Patch Removal NOTE PATCH OFF SCH (21:06)
[2018-11-01] MEDS: Pyridoxine TAB* 50 MG PO SCH (21:06)
[2018-11-02] MEDS: ZOSYN 3.375 GM Q8H per EXTENDED INFUSION IVPB SCH ×6 (01:00→16:22)
[2018-11-02] MEDS: guaiFENesin LIQ* 100 MG/5 ML UDC PO SCH ×4 (05:26→23:51)
[2018-11-02] MEDS: Heparin VIAL(*) 5000 UNITS/ML VIAL (FIVE THOUSAND) SUBCUT SCH ×3 (05:27→21:59)
[2018-11-02] MEDS: Budesonide NEB* 0.5 MG/2 ML NEB.SOLN INH SCH ×2 (08:02→19:53)
[2018-11-02] MEDS: Acetaminophen TAB* 325 MG PO PRN (08:26)
[2018-11-02] MEDS: Diazepam TAB(*) 5 MG PO SCH ×2 (08:27→21:55)
[2018-11-02] MEDS: Thiamine TAB* 100 MG TAB NG TUBE SCH (08:27)
[2018-11-02] MEDS: Pregabalin CAP(*) 300 MG PO SCH ×2 (08:27→21:56)
[2018-11-02] MEDS: Pantoprazole IV* 40 MG IV SCH (08:29)
[2018-11-02] MEDS: GUAR GUM PO SCH ×2 (08:29→21:46)
[2018-11-02] MEDS: Nicotine PATCH 21 MG/24 HR* PATCH TRANSDERM SCH (08:30)
[2018-11-02] MEDS: Potassium Chloride LIQUID* 20 MEQ PACKET PO SCH (09:12)
--- NOTE | 2018-11-02 13:14 | PN ---
Subjective Date of Service: 11/02/18 Interval History: HOSPITALIST PROGRESS NOTE Patient seen and examined at bedside. Care reviewed and d/w Loc Padron RN. He offers no new complaints. Plans to go to his sister's home in [place] on discharge. Family History: Unchanged from Admission Social History: Unchanged from Admission Past Medical History: Unchanged from Admission Objective Active Medications: Acetaminophen (Tylenol Tab*) 650 mg PO Q6H PRN PRN Reason: PAIN,TEMPERATURE, HEADACHE Last Admin: 11/02/18 08:26 Dose: 650 mg Albuterol/Ipratropium (Duoneb (Albuterol 2.5 Mg/Ipratropium 0.5 Mg)) 1 neb INH [id number] AWAKE PRN PRN Reason: sob/wheexing Last Admin: 10/30/18 08:30 Dose: 1 neb Budesonide (Pulmicort Neb*) 0.5 mg INH RT.BID PENDING SALE TO [facility] Last Admin: 11/02/18 08:02 Dose: 0.5 mg Citalopram Hydrobromide (Celexa Tab*) 40 mg PO BEDTIME PENDING SALE TO [facility] Last Admin: 11/01/18 21:02 Dose: 40 mg Diazepam (Valium Tab(*)) 10 mg PO Q12H NICOLE Last Admin: 11/02/18 08:27 Dose: 10 mg Guaifenesin (Robitussin*) 10 ml PO Q6H PENDING SALE TO [facility] Last Admin: 11/02/18 12:33 Dose: Not Given Guar Gum (Nutrisource Fiber (Nf)) 1 each PO BID PENDING SALE TO [facility] Last Admin: 11/02/18 08:29 Dose: Not Given Heparin Sodium (Porcine) (Heparin Vial(*)) 5,000 units SUBCUT Q8HR PENDING SALE TO [facility] Last Admin: 11/02/18 05:27 Dose: Not Given Piperacillin Sod/Tazobactam (Sod 3.375 gm/ Sodium Chloride) 100 mls @ 25 mls/ hr IVPB Q8H PENDING SALE TO [facility] Last Admin: 11/02/18 08:29 Dose: 25 mls/hr Lorazepam (Ativan Inj*) 1 mg IV PUSH Q2H PRN PRN Reason: ANXIETY Last Admin: 10/31/18 21:27 Dose: 1 mg Melatonin (Melatonin) 9 mg PO BEDTIME NICOLE Last Admin: 11/01/18 21:05 Dose: 9 mg Nicotine (Nicotine Patch 21 Mg/24 Hr*) 1 patch TRANSDERM DAILY PENDING SALE TO [facility] Last Admin: 11/02/18 08:30 Dose: 1 patch Nicotine (Nicotine Inhaler*) 10 mg INH Q2H PRN PRN Reason: CRAVING Last Admin: 10/29/18 08:54 Dose: 10 mg Ondansetron HCl (Zofran Inj*) 4 mg IV Q4H PRN PRN Reason: NAUSEA Pantoprazole Sodium (Protonix Iv*) 40 mg IV DAILY PENDING SALE TO [facility] Last Admin: 11/02/18 08:29 Dose: 40 mg Pharmacy Consult (Zosyn Per Pharmacy*) 1 note FOLLOW UP . PRN PRN Reason: PER PROTOCOL Pharmacy Profile Note (Nicotine Patch Removal Note*) 1 note PATCH OFF 2100 PENDING SALE TO [facility] Last Admin: 11/01/18 21:06 Dose: 1 note Potassium Chloride (Klor-Con Liquid*) 40 meq PO DAILY PENDING SALE TO [facility] Last Admin: 11/02/18 09:12 Dose: Not Given Pregabalin (Lyrica Cap(*)) 300 mg PO BID PENDING SALE TO [facility] Last Admin: 11/02/18 08:27 Dose: 300 mg Pyridoxine HCl (Vitamin B6 Tab*) 50 mg PO BEDTIME PENDING SALE TO [facility] Last Admin: 11/01/18 21:06 Dose: 50 mg Thiamine HCl (Vitamin B-1 Tab*) 100 mg NG TUBE DAILY PENDING SALE TO [facility] Last Admin: 11/02/18 08:27 Dose: 100 mg Trazodone HCl (Desyrel Tab*) 50 mg PO BEDTIME PENDING SALE TO [facility] Last Admin: 11/01/18 21:03 Dose: 50 mg Vital Signs - 8 hr 11/02/18 11/02/18 11/02/18 07:19 08:00 08:11 Temperature Pulse Rate 76 74 Respiratory 17 20 15 Rate Blood Pressure 115/79 (mmHg) O2 Sat by Pulse 90 Oximetry 11/02/18 11/02/18 11/02/18 08:27 10:30 11:05 Temperature 97.2 F Pulse Rate 72 Respiratory 20 18 16 Rate Blood Pressure 106/67 (mmHg) O2 Sat by Pulse 93 Oximetry Oxygen Devices in Use Now: Tracheostomy Collar Appearance: Pleasant gentleman lying in bed in NAD, watching TV Eyes: No Scleral Icterus Ears/Nose/Mouth/Throat: Mucous Membranes Moist Neck: - - Trach in place Respiratory: Symmetrical Chest Expansion and Respiratory Effort, Clear to Auscultation Cardiovascular: RRR - Normal S1 and S2 Neurological: Alert and Oriented x 3, NL Muscle Strength and Tone Result Diagrams: 11/01/18 06:16 11/01/18 06:16 Assess/Plan/Problems-Billing Assessment: Mr. Delvalle is a 58 yo M with PMH of vocal cord disorder and mass, migraines, insomnia, COPD, tobacco and alcohol abuse, hepatitis C (s/p treatment) and AAA; who is s/p tracheostomy, s/p biopsy revealing invasive poorly differentiated squamous cell carcinoma. - Patient Problems (1) Alcohol withdrawal Comment: - As per prior notes, indicated on admission that he did not consume alcohol, but other family reports a significant alcohol intake - Was in ICU requiring Precedex drip - transfered to medical floor 10/30/18. - Continue Diazepam taper. - Continue Thiamine. (2) Aspiration pneumonia Comment: - Intermittent fever since admission can be secondary to malignancy. - Blood and sputum culture showed no significant growth to date. - Continue Zosyn #4 - will switch to Augmentin on discharge. (3) Dysphagia Comment: - Speech pathology evaluation appreciated - regular solid, pudding thick liquids, medications as tolerated with puree/pudding. - Can have thin water in between meals. (4) Tobacco abuse Comment: - Continue nicotine supplementation. (5) Squamous cell carcinoma Comment: - Management as per ENT. - Plan for surgery on 11/17/[address] Hdez. (6) DVT prophylaxis Comment: - SQ heparin. (7) Full code status Comment: Status and Disposition: Inpatient. Stable for discharge, awaiting trach supplies and home care set up.
--- NOTE | 2018-11-02 16:11 | PN ---
Progress Note - Progress Note Date of Service: 11/02/18 - Pulm f/u note Note: Pt seen and examined at bedside. Pt reports feeling better, less phleghm through trach. Is frustated that discharge is being delayed. Active Medications Generic Name Dose Route Start Last Admin Trade Name Freq PRN Reason Stop Dose Admin Acetaminophen 650 mg 10/28/18 10:25 11/02/18 08:26 Tylenol Tab* PO 650 mg Q6H PRN Administration PAIN,TEMPERATURE, HEADACHE Albuterol/Ipratropium 1 neb 10/22/18 12:47 10/30/18 08:30 Duoneb (Albuterol 2.5 Mg/Ipratropium 0.5 Mg) INH 1 neb [id number] AWAKE PRN Administration sob/wheexing Budesonide 0.5 mg 10/22/18 19:00 11/02/18 08:02 Pulmicort Neb* INH 0.5 mg RT.BID NICOLE Administration Citalopram Hydrobromide 40 mg 10/22/18 21:00 11/01/18 21:02 Celexa Tab* PO 40 mg BEDTIME NICOLE Administration Diazepam 10 mg 10/31/18 21:00 11/02/18 08:27 Valium Tab(*) PO 10 mg Q12H NICOLE Administration Guaifenesin 10 ml 10/29/18 11:00 11/02/18 12:33 Robitussin* PO Not Given Q6H NICOLE Guar Gum 1 each 10/29/18 11:00 11/02/18 08:29 Nutrisource Fiber (Nf) PO Not Given BID NICOLE Heparin Sodium (Porcine) 5,000 units 10/26/18 22:00 11/02/18 05:27 Heparin Vial(*) SUBCUT Not Given Q8HR NICOLE Piperacillin Sod/Tazobactam 100 mls @ 25 mls/hr 10/30/18 16:30 11/02/18 08:29 Sod 3.375 gm/ Sodium Chloride IVPB 25 mls/hr Q8H NICOLE Administration Lorazepam 1 mg 10/28/18 17:19 10/31/18 21:27 Ativan Inj* IV PUSH 1 mg Q2H PRN Administration ANXIETY Melatonin 9 mg 10/22/18 21:00 11/01/18 21:05 Melatonin PO 9 mg BEDTIME NICOLE Administration Nicotine 1 patch 10/23/18 23:00 11/02/18 08:30 Nicotine Patch 21 Mg/24 Hr* TRANSDERM 1 patch DAILY NICOLE Administration Nicotine 10 mg 10/28/18 20:38 10/29/18 08:54 Nicotine Inhaler* INH 10 mg Q2H PRN Administration CRAVING Ondansetron HCl 4 mg 10/28/18 17:10 Zofran Inj* IV Q4H PRN NAUSEA Pantoprazole Sodium 40 mg 10/23/18 10:00 11/02/18 08:29 Protonix Iv* IV 40 mg DAILY NICOLE Administration Pharmacy Consult 1 note 10/30/18 14:37 Zosyn Per Pharmacy* FOLLOW UP . PRN PER PROTOCOL Pharmacy Profile Note 1 note 10/24/18 21:00 11/01/18 21:06 Nicotine Patch Removal Note* PATCH OFF 1 note 2100 NICOLE Administration Potassium Chloride 40 meq 10/28/18 10:00 11/02/18 09:12 Klor-Con Liquid* PO Not Given DAILY NICOLE Pregabalin 300 mg 10/22/18 21:00 11/02/18 08:27 Lyrica Cap(*) PO 300 mg BID NICOLE Administration Pyridoxine HCl 50 mg 10/22/18 21:00 11/01/18 21:06 Vitamin B6 Tab* PO 50 mg BEDTIME NICOLE Administration Thiamine HCl 100 mg 10/27/18 13:00 11/02/18 08:27 Vitamin B-1 Tab* NG TUBE 100 mg DAILY NICOLE Administration Trazodone HCl 50 mg 10/28/18 21:00 11/01/18 21:03 Desyrel Tab* PO 50 mg BEDTIME NICOLE Administration Vital Signs Temp Pulse Resp BP Pulse Ox 97.2 F 72 16 106/67 93 11/02/18 11:05 11/02/18 11:05 11/02/18 11:05 11/02/18 11:05 11/02/18 11:05 O/E: Pt in NAD, sitting up in bed HEENT: PERRLA, Trach+, site looks good, no oozing, some secretions Lungs: Diminished air entry b/l, scattered rhonchi+ CVS: S1, S2+ Abd: Soft, BS+ Ext: No edema, normal ROM Neuro: Alert, awake, no focal deficits Skin:No rash Labs: NO new labs I/R: 58-year-old male with significant hx/o tobacco and alcohol use, COPD, recent diagnosis of 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 Hdez, was managed in the ICU for acute alcohol withdrawal Pt was transferred to medical floor, doing well Remains afebrile, was changed on Zosyn 10/30. Can d/c if afebrile for 48 hrs ETOH withdrawl resolved Anxiety better controlled H/o significant smoking, on Nicotine supplementation c/w nebs Can titrate FiO2 to keep O2 sat around 92% DVT px Awaiting arrangements for trach supplies at home. pt scheduled for sx with ENT in 2 weeks
[2018-11-02] MEDS: Pyridoxine TAB* 50 MG PO SCH (21:55)
[2018-11-02] MEDS: Melatonin 3 MG TAB PO SCH (21:57)
[2018-11-02] MEDS: traZODone TAB* 100 MG PO SCH (21:57)
[2018-11-02] MEDS: Citalopram TAB* 40 MG PO SCH (21:58)
[2018-11-02] MEDS: Nicotine Patch Removal NOTE PATCH OFF SCH (21:59)
[2018-11-03] MEDS: ZOSYN 3.375 GM Q8H per EXTENDED INFUSION IVPB SCH ×4 (00:43→09:21)
[2018-11-03] MEDS: Heparin VIAL(*) 5000 UNITS/ML VIAL (FIVE THOUSAND) SUBCUT SCH (06:14)
[2018-11-03] MEDS: guaiFENesin LIQ* 100 MG/5 ML UDC PO SCH ×2 (06:14→11:31)
[2018-11-03] MEDS: Budesonide NEB* 0.5 MG/2 ML NEB.SOLN INH SCH (08:10)
[2018-11-03 09:06] LABS: ABS Basophils 0.1 10^3/ul (0-0.2); ABS Eosinophils 0.1 10^3/ul (0-0.6); ABS Lymphocytes 2.1 10^3/ul (1.0-4.8); ABS Monocytes 1.3 10^3/ul (0-0.8); ABS Neutrophils 5.5 10^3/ul (1.5-7.7); ABS Nucleated RBC 0 10^3/ul; Eosinophil % 1.5 %; Hematocrit 37 % (36-46); Hemoglobin 12.2 g/dL (14.0-18.0); Lymphocyte % 23.1 %; Mean Corpuscular HGB Conc 33 g/dL (31-36); Mean Corpuscular Hemoglobin 30 pg (27-31); Mean Corpuscular Volume 91 fL (80-94); Mean Platelet Volume 8.1 fL (7.4-10.4); Nucleated Red Blood Cells % 0; Platelet Count 354 10^3/uL (150-450); Red Blood Count 4.05 10^6 /uL (4.18-5.48); Red Cell Distribution Width 13 % (10.5-15)
[2018-11-03] MEDS: Nicotine PATCH 21 MG/24 HR* PATCH TRANSDERM SCH (09:19)
[2018-11-03] MEDS: Diazepam TAB(*) 5 MG PO SCH (09:20)
[2018-11-03] MEDS: Potassium Chloride LIQUID* 20 MEQ PACKET PO SCH (09:20)
[2018-11-03] MEDS: Pregabalin CAP(*) 300 MG PO SCH (09:20)
[2018-11-03] MEDS: Thiamine TAB* 100 MG TAB NG TUBE SCH (09:21)
[2018-11-03] MEDS: Pantoprazole IV* 40 MG IV SCH (09:23)
[2018-11-03] MEDS: GUAR GUM PO SCH (09:25)
[2018-11-03 09:27] LABS: BUN/Creatinine Ratio 12.3 (8-20); EGFR African American 119.3 (>60); EGFR Non-African American 98.6 (>60); Potassium 3.7 mmol/L (3.5-5.0)
[2018-11-03 10:19] VITALS: BP 109/77
--- NOTE | 2018-11-03 14:00 | DS ---
CC: Dr. Mario Carlton; Dr. Lobo Hdez* DISCHARGE SUMMARY: DATE OF ADMISSION: 10/22/18 DATE OF DISCHARGE: 11/03/18 PRIMARY CARE PROVIDER: Dr. Mario Carlton. SURGICAL ATTENDING: Dr. Lobo Hdez. ATTENDING PHYSICIAN: Dr. Tabor* (dictated by Chino Hairston NP). PRIMARY DIAGNOSES: 1. Squamous cell carcinoma of the larynx, status post resection with an elective tracheostomy on 10/22/18. 2. Acute alcohol withdrawal. 3. Tobacco use. 4. Chronic obstructive pulmonary disease. 5. Fever. 6. Dysphagia. SECONDARY DIAGNOSES: 1. Chronic stomach pain. 2. Migraine headaches. 3. Insomnia. CONSULTATIONS WHILE IN THE HOSPITAL: Dr. Watkins, Pulmonology PROCEDURES WHILE IN THE HOSPITAL: Status post larynx resection with elective tracheostomy on 10/22/18. STUDIES WHILE IN THE HOSPITAL: 1. Chest x-ray 10/25/18: Impression: Lines and tubes as above. Left basilar consolidation. 2. Chest x-ray 10/28/18: Impression: There appears to be a gastric tube terminating in midline mediastinum. This AP view was indeterminant whether this is esophagus or the airway. Patchy densities overlying the bilateral lower lobes with evidence of small pleural effusions, slightly improved from previous day's x-ray. 3. Video thoracoscopy swallow: Impression: See dietary modifications. 4. Chest x-ray 10/29/18: Impression: Relative to the most recent chest x-ray acquired on 10/28/18, there is persistent patchy densities of the lungs but aeration appears improved. There is no discernible pneumothorax. DISCHARGE HOME MEDICATIONS: Continued home medications: 1. Atrovent 0.5 mg neb solution, 1 neb inhalation b.i.d. 2. Pulmicort neb, 1 neb p.o. b.i.d. 3. Melatonin 9 mg p.o. at bedtime. 4. Breo Ellipta 200/25 one puff inhalation q.a.m. 5. Omeprazole 40 mg p.o. b.i.d. 6. Celexa 40 mg p.o. at bedtime. 7. Lyrica 300 mg p.o. b.i.d. 8. Fluconazole nasal spray, 1 spray both nares q.a.m. 9. Trazodone 50 mg p.o. at bedtime. 10. Robitussin 10 mL p.o. q.6 hours p.r.n. 11. Thiamine 100 mg p.o. daily. 12. Vitamin B6 at 50 mg p.o. at bedtime. 13. Nicotine patch. 14. Nutrisource Fiber 1h p.o. b.i.d. 15. Potassium 40 mEq p.o. daily. New home medications: 1. Diazepam 5 mg p.o. b.i.d. x3 days, 5 mg daily x 3 days, and then stop. 2. Augmentin suspension 11 mL p.o. q.12 hours for 4 more days. 3. Tylenol 650 mg p.o. q.6 hours p.r.n. Changed home medications: 1. Trazodone 50 mg p.o. at bedtime decreased from trazodone 200 mg p.o. at bedtime. Discontinued home medications: 1. Cipro 500 mg p.o. b.i.d. 2. Fluconazole 200 mg in the morning. 3. Verapamil 600 mg at bedtime. HISTORY OF PRESENT ILLNESS/HOSPITAL COURSE: Mr. Delvalle is a 58-year-old male who had an ongoing history of some disorder of the vocal cord and chronic laryngitis. He was seen by Dr. Hdez as outpatient. It was determined he had a mass or neoplasm that required resection. The patient underwent an elective tracheostomy, status post larynx resection on 10/22/[address] Hdez. Given patient's multiple comorbidities, hospitalist team was asked to admit the patient on behalf of surgical services and to help manage his medical comorbidities. The patient was initially admitted to the ICU due to being status post tracheostomy. While in the ICU, the patient required pain management due to pain at the surgical site. Around postoperative day 2, the patient became significantly agitated and required large amounts of lorazepam. There were some discrepancies in patient's and family's report of alcohol use. Per sisters, the patient has significant alcohol use. Per , she denies patient's alcohol use. Per patient, he denied alcohol use at the time. He did later admit to alcohol use. Either way, the patient required WAM protocol with large amounts of lorazepam. Due to the continued significant agitation and risk for safety, the patient was changed to lorazepam drip. Later, the patient was under the storage battery tester care and required a Precedex drip. The patient was successfully weaned from the Precedex drip and was transitioned to p.o. Valium. The patient has been transferred to the medical unit and Valium has been slowly titrated. The patient will continue titration at home to avoid withdrawal. The patient's hospital admission was rather complicated due to fever and leukocytosis. Given patient's tracheostomy and risk of aspiration, as he was not tolerating p.o. food and liquids, there was concern for risk of aspiration pneumonia; therefore, the patient was started on Zosyn. It should be noted that patient's blood cultures have been negative and chest x-ray as mentioned above. There is also suspicion that patient's intermittent fevers and leukocytosis could be secondary to malignancy. But given patient's risk of aspiration and documented difficulty swallowing and new trach, the patient was continued on Zosyn. Today he will be discharge on Augmentin to continue antibiotic course. In regards to patient's risk for aspiration, it should be noted that the patient haf significant dysphagia and was seen by Speech Pathology. Due to inability to successfully manage p.o. with speech therapy, the patient did undergo a swallow eval with thoracoscopy. It has been determined that the patient can continue regular solids, pudding-thick liquids, medications are tolerated with puree/pudding. He can also have thin water in between meals. Mr. Martin is stable for discharge to home. Vital signs as follows: Temp 98.0, HR 59, RR 24, O2 saturation 97% with trach collar, BP 100/61. ROS: 14 point review of symptoms completed and all negative. Physical Exam: General: 58 yr old male sitting in bed. In no acute distress. Appears stated age. HEENT: EOMs intact. PERRLA. Oral mucosa moist without lesion. Neck: Supple. No lymphadenopathy. Trach site benign. Resp: Sporadic rhonchi, otherwise clear. Good aeration. Cardiac: S1/S2 present. Reg Rate and Rhythm. No murmurs, rubs or gallops. Abd: Soft, nontender. BS x4. Extremities: No edema. No clubbing or cyanosis. No pain or deformity. Neuro: No focal weakness or deficits. Neuro exam is grossly intact. DISCHARGE PLAN/FOLLOWUP: 1. Status post larynx resection with elective tracheostomy 10/22/[address] Hdez. Patient will follow up with Dr. Hdez as outpatient. The patient has planned surgery on 11/17/18 for further resection of squamous cell carcinoma. Patient will place a call to Dr. Hdez's service regarding preop instructions. The patient has scheduled followup. [facility] will deliver patient' s trach supply today to patient's sister at home, where he will be residing. [facility] will perform teaching with patient's sisters. He will have 2 sisters and a son staying with him at his sister's home. On Thursday, the patient will have nursing services. It should also be noted that the patient has received intensive education with respiratory therapy and nursing staff. Both believe the patient is ready for discharge as he is able to manage his trach on his own. The patient has a pulse oximeter at home for monitoring. The patient understands when to call [address] Hdez. 2. Alcohol withdrawal: As mentioned, the patient's hospital stay was complicated due to alcohol withdrawal. The patient will continue the diazepam taper as outlined in patient's discharge. The patient was educated on risk of continued alcohol use. The patient agrees to abstain from alcohol. The patient will also continue thiamine. 3. Dysphagia: As mentioned above, the patient had some difficulty with swallowing given the new trach. The patient was seen by Speech Pathology and underwent a swallow evaluation fluoroscopy. The patient can continue regular solids, pudding-thick liquids, and medications as tolerated with puree/pudding. He can also have thin water between meals. 4. Tobacco abuse: The patient should continue nicotine supplementation. 5. Fever: There is some concern for aspiration pneumonia versus fever due to malignancy. Either way, the patient was covered with Zosyn while in the hospital and will continue Augmentin as an outpatient for another 5 days. The patient was educated to monitor his temperature and primary care if it increases. Also return to the emergency room with any new or worsening symptoms. 6. Anxiety: The patient should continue his home medication the same. The patient should continue the Valium taper. 7. Chronic stomach pain: The patient is to continue his home medications as seen. 8. Migraine headaches: The patient was initially on veramipril when he was admitted to the hospital. This has been held given repeat hypotension with systolic in the low 100s. I suspect the patient was started on verapamil given headaches and also possible history of hypertension. We have currently held this and I would encourage the patient to continue to hold this. He should follow up with his primary care provider regarding alternative treatments for migraine headaches. 9. Insomnia: As mentioned above, the patient is to continue to his melatonin 9 mg at bedtime. The patient's trazodone 200 mg at bedtime has been decreased to 50 mg. 10. COPD: The patient can continue in his inhalers and nebulizers. He will have the equipment at home to do his nebulizers via trach. 11. Tobacco abuse: The patient has been educated on tobacco sensation. The patient will continue nicotine replacement. 12. Education: As mentioned above, the patient has been educated by Nursing and Respiratory Therapy on trach, who report he is confident of trach care. The patient is educated of new or worsening symptoms and when to return to the emergency department. The patient stated understanding. This is a summarized report of a complex medical history and hospital stay. For further details, please see the entire medical record. TIME SPENT: Approximately 60 minutes was spent on this discharge, greater than half that time was spent [id number] with the patient discussing discharge plan and instructions. Plan: This plan was also discussed with my attending, Dr. Shandra Tabor, who agrees with my plan. CHINO HAIRSTON, ROYA [id number]/ADDY #: [id number] NICOLAS
== END 2018-11-03 12:00 | disposition home health service (06) | DRG 98 ==
LOC: AA 06:27 → EDSTATUS 08:30 → ICU 10:06 → MED 10-30 17:08
PROVIDERS: ADMIT Otolaryngology; ATTEND Internal Medicine
PROC: 5A1935Z Respiratory Ventilation, Less than 24 Consecutive Hours (ICD-10-PCS; 2018-10-22)
PROC: 0B110F4 Bypass Trachea to Cutaneous with Tracheostomy Device, Open Approach (ICD-10-PCS; principal; 2018-10-22 08:30)
PROC: 0CBV8ZX Excision of Left Vocal Cord, Via Natural or Artificial Opening Endoscopic, Diagnostic (ICD-10-PCS; 2018-10-22 08:30)
PROC: 0DH67UZ Insertion of Feeding Device into Stomach, Via Natural or Artificial Opening (ICD-10-PCS; 2018-10-26)
DX: D02.0 Carcinoma in situ of larynx (principal); J69.0 Pneumonitis due to inhalation of food and vomit; A41.9 Sepsis, unspecified organism; F10.239 Alcohol dependence with withdrawal, unspecified; J37.0 Chronic laryngitis; L57.0 Actinic keratosis; J44.9 Chronic obstructive pulmonary disease, unspecified; F17.210 Nicotine dependence, cigarettes, uncomplicated; F32.9 Major depressive disorder, single episode, unspecified; J38.4 Edema of larynx; G89.29 Other chronic pain; G43.909 Migraine, unspecified, not intractable, without status migrainosus; R13.10 Dysphagia, unspecified; G47.00 Insomnia, unspecified; R10.9 Unspecified abdominal pain; I10 Essential (primary) hypertension; B95.4 Other streptococcus as the cause of diseases classified elsewhere; F41.9 Anxiety disorder, unspecified; D64.9 Anemia, unspecified; E87.6 Hypokalemia; R74.0 Nonspecific elevation of levels of transaminase and lactic acid dehydrogenase [LDH]; I95.9 Hypotension, unspecified; E86.0 Dehydration; E86.1 Hypovolemia; R09.89 Other specified symptoms and signs involving the circulatory and respiratory systems; E83.42 Hypomagnesemia; E63.9 Nutritional deficiency, unspecified; Z90.49 Acquired absence of other specified parts of digestive tract; Z80.1 Family history of malignant neoplasm of trachea, bronchus and lung
CPT/HCPCS: 36415; 36600; 71045; 74230; 80048; 80053; 80074; 82803; 83735; 84100; 85025; 87040; 87070; 87073; 87076; 87077; 87102; 87116; 87186; 87205; 87206; 87522; 87640; 87641; 88305; 88342; 94640; 94667; 94668; A9270-GY; G8978-GP-CH; G8979-GP-CH; G8980-GP-CH; J1630; J1644; J1885; J2060; J2250; J2270; J2405; J2543; J2704; J3010; J3411; J3475; J3480

== ENCOUNTER 2018-11-17 11:13 | Inpatient (IN) | payer BC ==
[~2018-11-17 11:13] MED LIST changes: +Dexamethasone IV* 4 MG/ML 1 ML (4 MG) IV SLOW PU ONE; +Famotidine IV* 10 MG/ML 2 ML (20 mg) IV ONE
[2018-11-17] MEDS ORDERED: Dexamethasone IV* 4 MG/ML 1 ML (4 MG) ONE (12:06)
[2018-11-17] MEDS ORDERED: Famotidine IV* 10 MG/ML 2 ML (20 mg) ONE (12:06)
[2018-11-17] MEDS ORDERED: Midazolam* 1 MG/ML 5 ML VIAL (5 MG) ONE (12:16)
[2018-11-17] MEDS ORDERED: Propofol* 10 MG/ML 20 ML BTL ONE (12:16)
[2018-11-17] MEDS ORDERED: fentaNYL* 50 MCG/ML 5 ML VIAL (250 MCG VIAL) ONE (12:16)
[2018-11-17] MEDS ORDERED: Lidocaine 2% PF * 5 ML VIAL ONE (12:16)
[2018-11-17] MEDS: Lactated Ringers 1000 ML Bag* 1,000 ML IV SCH (12:28)
[2018-11-17] MEDS ORDERED: Ondansetron INJ* 2 MG/ML VIAL ONE ×2 (13:26→18:00)
[2018-11-17] MEDS ORDERED: Glycopyrrolate IV* 0.2 MG/ML 1 ML VIAL ONE (13:27)
[2018-11-17] MEDS ORDERED: Lidocain 1% EPI 1:100,000 * 30 ML MDV ONE (14:17)
[2018-11-17] MEDS ORDERED: Methylene Blue 0.5 %* 50 MG/10 ML AMP IV ONE (14:17)
[2018-11-17] MEDS ORDERED: Acetaminophen IV 1GM/100ML * 1,000 MG/100 ML VIAL IVPB ONE (14:30)
[2018-11-17] MEDS ORDERED: Morphine 4 MG/ML VIAL (1 ml) 4 MG/ML VIAL IV PRN ×3 (14:30→21:50)
[2018-11-17] MEDS ORDERED: DiMENhydriNATE IV* 50 MG/ML VIAL IV PUSH PRN (14:30)
[2018-11-17] MEDS ORDERED: fentaNYL* 50 MCG/ML 2 ML VIAL (100 MCG VIAL) IV PRN (14:30)
[2018-11-17] MEDS ORDERED: Naloxone* 0.4 MG/ML 1 ML VIAL IV PRN (14:30)
[2018-11-17] MEDS ORDERED: EPHEDrine (Pressors)* 50 MG/ML VIAL ONE (15:05)
[2018-11-17] MEDS ORDERED: Clindamycin 900 MG IVPREMIX(* 900 MG/50 ML SDV IV ONE (15:15)
[2018-11-17] MEDS ORDERED: fentaNYL* 50 MCG/ML 2 ML VIAL (100 MCG VIAL) ONE ×3 (17:17→18:27)
[2018-11-17] MEDS ORDERED: Metoprolol Tartrate IV* 1 MG/ML 5 ML VIAL ONE (18:21)
[2018-11-17] MEDS ORDERED: Bacitracin OINTMENT* 0.5% 0.5 oz TUBE ONE (18:59)
[2018-11-17] MEDS ORDERED: Acetaminophen IV 1GM/100ML * 100 ML ONE (19:17)
[2018-11-17] MEDS ORDERED: NS 0.9% 1000 ML** 1,000 ML IV SCH (21:30)
[2018-11-17] MEDS ORDERED: Morphine 4 MG/ML VIAL (1 ml) 4 MG/ML VIAL ONE (21:55)
[2018-11-17] MEDS ORDERED: Thiamine IV* 100 MG/ML 2 ML VIAL IM ONE (22:00)
[2018-11-17] MEDS ORDERED: LORazepam INJ* 2 MG/ML 1 ML VIAL IV PUSH SCH (22:00)
[2018-11-17] MEDS: LORazepam INJ* 2 MG/ML 1 ML VIAL IV PUSH PRN (22:56)
[2018-11-17] MEDS: Heparin VIAL(*) 5000 UNITS/ML VIAL (FIVE THOUSAND) SUBCUT SCH (23:16)
[2018-11-17] MEDS: Clindamycin 900 MG/D5W BAG(*) 900 MG/50 ML BAG IVPB SCH (23:25)
--- NOTE | 2018-11-18 00:07 | HP ---
CC: Dr. Mario Carlton; Dr. Lobo Hdez * HISTORY AND PHYSICAL: DATE OF ADMISSION: 11/17/18 PRIMARY CARE PROVIDER: Mario Carlton MD. ADMITTING PROVIDER: Lobo Hdez MD. ATTENDING PHYSICIAN: Robina Ramirez MD * (dictated by DIMITRY Duncan). CHIEF COMPLAINT: Status post laryngectomy with Provox prosthesis, bilateral radical neck dissection. HISTORY OF PRESENT ILLNESS: Mr. Delvalle is a 58-year-old male with a history of squamous cell carcinoma of the larynx. He had an urgent tracheostomy with Dr. Hdez approximately 1 month ago. He returns today for a laryngectomy with insertion of Provox prosthesis and radical bilateral neck dissection. He is seen postoperatively. He has no complaints of chest pain, shortness of breath, or difficulty breathing or swallowing. He does state that he is a bit anxious at this time. He has pain and some soreness about the throat. He denies abdominal pain, nausea, vomiting, diarrhea, or constipation. He denies pain or swelling in the upper or lower extremities. PAST MEDICAL HISTORY: 1. Squamous cell carcinoma of the larynx, status post urgent tracheostomy and laryngectomy, bilateral radical neck dissection. 2. Migraines. 3. Insomnia. 4. Alcohol abuse. PAST SURGICAL HISTORY: 1. Hernia. 2. Cholecystectomy. HOME MEDICATIONS: 1. Trazodone 50 mg p.o. at bedtime. 2. Guaifenesin 10 mL p.o. q.6 hours p.r.n. 3. Thiamine 100 mg p.o. q.a.m. 4. Pyridoxine tab 50 mg p.o. at bedtime. 5. Pregabalin 300 mg p.o. b.i.d. 6. Potassium chloride liquid 40 mEq p.o. q.a.m. 7. Omeprazole 40 mg p.o. b.i.d. 8. Nicotine patch 21 mg per 24 hours 1 patch transdermal at bedtime. 9. Melatonin 9 mg p.o. at bedtime. 10. Ipratropium 0.5/2.5 mL neb 1 neb inhalation b.i.d. 11. Nutrisource fiber 1 p.o. b.i.d. 12. Fluticasone/vilanterol MDI 1 puff inhalation q.a.m. 13. Fluticasone nasal spray 50 mcg 1 spray to both nares q.a.m. 14. Diazepam 10 mg p.o. q.12 hours p.r.n. maximum daily dose 10. 15. Citalopram 40 mg p.o. at bedtime. 16. Budesonide 1 neb p.o. b.i.d. 17. Acetaminophen 650 mg p.o. q.6 hours p.r.n. 18. Botox 100 units subcu. DRUG ALLERGIES: No known drug allergies. FAMILY HISTORY: Positive for heart disease, cancer. Negative for diabetes and cardiovascular disease. SOCIAL HISTORY: The patient states that he quit smoking tobacco today. Prior to that, he has a [id number]-bnea smoking history. The patient has a history of alcohol abuse. He states that he drinks less than once per week now. The last time he drank was 3 to 4 weeks ago. The patient is unable to quantify at this time how much he drinks and is vague with responses. It is noted that he was admitted approximately 2 weeks ago and went through alcohol withdrawal as an inpatient. The patient is . REVIEW OF SYSTEMS: A 10-point review of systems was performed, all the pertinent positives and negatives are in the HPI, all other systems are negative. PHYSICAL EXAMINATION GENERAL: Mr. Delvalle is a well-developed, well-nourished, thin, middle-aged white man who is sitting up in bed. He is asleep upon entering but wakes easily. He is unable to speak due to surgery, but does mouth his words and is able to communicate his needs and answers to questions. VITAL SIGNS: Temperature 98.1 temporal, heart rate 87, respiratory rate 17, oxygen saturation 95% on 10 L, blood pressure 125/90. NECK: The patient has bilateral incisions on either side of the neck that are closed with bakari. The area is slightly erythematous and the patient is postop day #0. He does have a drain to the left side that is intact. The anterior neck has a tracheostomy and prosthesis in place. There appears to be no drainage coming out of any of the sites on the neck. There appears to be no swelling. RESPIRATORY: Symmetrical chest expansion with no use of accessory muscles. Lungs are clear to auscultation. No rhonchi, wheezes, or rubs. CARDIOVASCULAR: Regular rate and rhythm with S1, S2 present. No murmurs, rubs , or gallops. No JVD. ABDOMEN: Flat. Bowel sounds normoactive. The abdomen is soft and nontender to palpation. No hepatosplenomegaly. EXTREMITIES: Skin is warm and smooth bilaterally. There is no clubbing, cyanosis, or edema. Radial and pedal pulses are palpable. NEURO: The patient is awake. He is alert and oriented. He is able to move all of his extremities. ASSESSMENT AND PLAN: Mr. Delvalle is a 58-year-old man with a past medical history of squamous cell carcinoma of the larynx, who underwent tracheostomy followed by laryngectomy. He will be admitted to the ICU inpatient for: 1. Status post laryngectomy with prosthesis, bilateral radical neck dissection. Management per Dr. Hdez. The patient will continue clindamycin. The patient is n.p.o. currently. Medication reconciliation was performed. The patient will be able to receive nebulizers through trach if necessary. It is noted that he will have an NG tube in the morning, which may be used for medication. Pain management with morphine. 2. Alcohol abuse. The patient is placed on WAM protocol. He states he has not drank in the last 3 to 4 weeks. He will be placed on WAM protocol as a precaution. 3. Gastroesophageal reflux disease. The patient is placed on pantoprazole 40 daily. 4. FEN: The patient will be n.p.o. for the time being. Lactated Ringer will run at 125 cc per hour. 5. Code status: Full code. 6. DVT prophylaxis: According to the DVT risk assessment, the patient scores 3 and is a high risk. He will be placed on heparin q.[address] Hdez was consulted about this and is in agreement with chemoprophylaxis. He will also be placed on sequential compression devices. TIME SPENT: Approximately 60 minutes were spent on this admission, greater than half that time was spent with the patient obtaining history, performing the physical, and reviewing the plan of care. The case was reviewed with my attending Dr. Ramirez, who is in agreement with the plan of care. DIMITRY BENAVIDEZ [id number]/[facility] #: [id number] [facility] HOSPITALKem
[2018-11-18] MEDS: Morphine 10 MG/ML VIAL (1 ml) IV PRN ×5 (01:33→22:00)
--- NOTE | 2018-11-18 03:02 | OP ---
DATE OF OPERATION: 11/17/18 - ROOM #ICU-09 DATE OF : 64 SURGEON: Lobo Hdez MD. RN EMPLOYEE HEALTH: Jeff Deluna MD. ANESTHESIOLOGIST: Dr. Back. PRE-OP DIAGNOSIS: Carcinoma of larynx with possible metastatic neck disease. POST-OP DIAGNOSIS: Carcinoma of larynx with possible metastatic neck disease. OPERATIVE PROCEDURE: Bilateral neck dissection and laryngectomy with TEP. BRIEF HISTORY: This is a 58-year-old gentleman presenting with T3 carcinoma of larynx with fixed vocal cord left side and underwent an emergency tracheostomy. Subsequent PET scan showed enhancement of multiple lymph nodes highly suspicious for metastatic disease with fairly bulky tumor. Tumor board had recommended laryngectomy and bilateral neck dissection, primary TEP. DESCRIPTION OF PROCEDURE: The patient was taken to the operating room. General anesthetic was given. The patient intubated through the previous tracheostomy. A #8 armored tube was used and secured. We then turned our attention to the bilateral necks, an apron-type incision was created preserving cuff around the tracheostoma. Subplatysmal flaps were elevated. We turned our attention to the left side. Level 1, 2, 3, 4, 5 nodes were removed. We started in the submandibular triangle, removing the submandibular gland and lymph nodes, identifying the fascia, elevating the fascia, and then preserving the marginal mandibular nerve, carefully tunneling along the digastric and retracting the mylohyoid until the lingual nerve was identified, resecting out of the submandibular triangle and reflecting it towards the upper jugular digastric region. Tunneling along the digastric and identifying the jugular vein superiorly and then carefully skeletonizing this along its entire length. Subsequently identifying the accessory nerve and then carefully reflecting all the tissue from the infra-accessory and supra-accessory chain of lymph nodes down to the lower portion of the neck along the omohyoid and then coursing superiorly resecting it off the other strap muscles towards the jugular vein. In this fashion, all the lymph nodes in the neck were removed, preserving accessory nerve, jugular vein, and sternocleidomastoid muscle. Then we turned our attention to the right side. Here again modification of this was that we would remove level 2, 3, and 4 portions of the upper portion of the accessory chain. This was done in a similar fashion, skeletonizing the sternocleidomastoid muscle , identifying the accessory nerve, carefully tunneling above it until we were able to identify the jugular vein and then coursing laterally towards the digastric preserving the submandibular gland in this side and then resecting out along the omohyoid inferiorly and removing all the lymph nodes between the skeletonized jugular vein. Once this was done, we turned our attention to laryngectomy. The strap muscles were divided superiorly and the hyoid was skeletonized along with the removal of the constrictor muscles along the laryngeal cartilage. A small incision was made into the epiglottic tongue base. Subsequently, sharp dissection was carried out preserving the healthy mucosa as possible and eventually finding the republican wall between the tracheal wall and the posterior pharyngeal wall, dividing out the entire specimen to the level of the trachea. The pharyngectomy was then closed in two layers. The strap muscles were then used as an additional layer on top of it, and the stoma was then examined. A TEP was placed, Abdelrahman, 10 mm, satisfactorily and secured in place. We then closed the skin flap, the apron flap and the stoma. Two Arnulfo-Daly drains were placed. The patient's bakari were then used. The patient was then awakened, transferred while breathing actively to the recovery room, to be transferred to the ICU. Estimated blood loss was approximately 200 cc. No other complications were identified. [id number]/[facility] #: [id number] MTDD
[2018-11-18 04:58] LABS: ABS Basophils 0 10^3/ul (0-0.2); ABS Eosinophils 0 10^3/ul (0-0.6); ABS Lymphocytes 1.2 10^3/ul (1.0-4.8); ABS Monocytes 1.4 10^3/ul (0-0.8); ABS Neutrophils 11.3 10^3/ul (1.5-7.7); ABS Nucleated RBC 0 10^3/ul; Eosinophil % 0 %; Hematocrit 34 % (36-46); Hemoglobin 11.1 g/dL (14.0-18.0); Lymphocyte % 8.7 %; Mean Corpuscular HGB Conc 33 g/dL (31-36); Mean Corpuscular Hemoglobin 30 pg (27-31); Mean Corpuscular Volume 91 fL (80-94); Mean Platelet Volume 7.9 fL (7.4-10.4); Nucleated Red Blood Cells % 0; Platelet Count 221 10^3/uL (150-450); Red Blood Count 3.74 10^6 /uL (4.18-5.48); Red Cell Distribution Width 14 % (10.5-15)
[2018-11-18 05:08] LABS: BUN/Creatinine Ratio 12.3 (8-20); Calcium 8.6 mg/dL (8.6-10.3); EGFR African American 153.8 (>60); EGFR Non-African American 127.1 (>60); Potassium 4.6 mmol/L (3.5-5.0)
[2018-11-18] MEDS: Heparin VIAL(*) 5000 UNITS/ML VIAL (FIVE THOUSAND) SUBCUT SCH ×3 (05:33→22:00)
[2018-11-18] MEDS: Clindamycin 900 MG/D5W BAG(*) 900 MG/50 ML BAG IVPB SCH ×2 (07:27→16:09)
[2018-11-18] MEDS: Lactated Ringers 1000 ML Bag* 1,000 ML IV SCH ×3 (08:43→20:58)
[2018-11-18] MEDS: Ipratropium 0.5MG/2.5ML NEB* 0.5 MG/2.5 ML NEB.SOLN INH SCH ×2 (08:50→19:48)
[2018-11-18] MEDS: Budesonide NEB* 0.5 MG/2 ML NEB.SOLN INH SCH ×2 (08:50→19:48)
[2018-11-18] MEDS ORDERED: Multivitamins/Minerals TAB PO SCH (09:00)
[2018-11-18] MEDS ORDERED: Pregabalin CAP(*) 300 MG PO SCH (09:00)
[2018-11-18] MEDS: Pregabalin CAP(*) 300 MG PO SCH ×2 (10:46→20:41)
[2018-11-18] MEDS: Folic Acid TAB* 1 MG NG TUBE SCH (10:46)
[2018-11-18] MEDS: Pantoprazole IV* 40 MG IV SCH (10:46)
[2018-11-18] MEDS: Thiamine TAB* 100 MG TAB NG TUBE SCH (10:46)
[2018-11-18] MEDS: Docusate LIQ* 100 MG/10 ML UDC PO SCH ×2 (10:52→20:44)
[2018-11-18] MEDS ORDERED: HYDROmorphone INJ* 0.5 MG/0.5 ML SYRINGE IV SLOW PU PRN (15:50)
[2018-11-18] MEDS: HYDROmorphone INJ1* 1 MG/ML SYRINGE IV SLOW PU PRN ×2 (16:08→20:34)
[2018-11-18] MEDS: Citalopram TAB* 40 MG PO SCH (20:41)
[2018-11-18] MEDS: Nicotine PATCH 21 MG/24 HR* PATCH TRANSDERM SCH (20:44)
[2018-11-18] MEDS: Nicotine Patch Removal NOTE PATCH OFF SCH (20:44)
[2018-11-19] MEDS: LORazepam INJ* 2 MG/ML 1 ML VIAL IV PUSH PRN ×3 (04:26→18:35)
[2018-11-19] MEDS: Morphine 10 MG/ML VIAL (1 ml) IV PRN (04:28)
[2018-11-19] MEDS: Heparin VIAL(*) 5000 UNITS/ML VIAL (FIVE THOUSAND) SUBCUT SCH ×3 (05:22→22:35)
[2018-11-19] MEDS: HYDROmorphone INJ1* 1 MG/ML SYRINGE IV SLOW PU PRN ×4 (05:24→21:39)
[2018-11-19] MEDS: Lactated Ringers 1000 ML Bag* 1,000 ML IV SCH ×2 (07:14→17:58)
--- NOTE | 2018-11-19 08:21 | PN ---
Subjective Date of Service: 11/18/18 Interval History: LATE ENTRY from 11/18/18 Pt states his pain is not well controlled. He states the pain is much worse this time than when he had the tracheostomy placed. He denies any SOB. He has been having minimal bloody secretions. Objective Active Medications: Budesonide (Pulmicort Neb*) 0.5 mg INH BID COUNT INCLUDES THE [facility] Last Admin: 11/18/18 19:48 Dose: 0.5 mg Citalopram Hydrobromide (Celexa Tab*) 40 mg PO BEDTIME COUNT INCLUDES THE [facility] Last Admin: 11/18/18 20:41 Dose: 40 mg Docusate Sodium (Colace Liq*) 100 mg PO BID COUNT INCLUDES THE [facility] Last Admin: 11/18/18 20:44 Dose: Not Given Folic Acid (Folvite Tab*) 1 mg NG TUBE DAILY COUNT INCLUDES THE [facility] Last Admin: 11/18/18 10:46 Dose: 1 mg Heparin Sodium (Porcine) (Heparin Vial(*)) 5,000 units SUBCUT Q8HR COUNT INCLUDES THE [facility] Last Admin: 11/19/18 05:22 Dose: 5,000 units Hydromorphone HCl (Dilaudid Inj1s*) 2 mg IV SLOW PU Q4H PRN PRN Reason: PAIN Last Admin: 11/19/18 05:24 Dose: 2 mg Lactated Ringer's (Lactated Ringers 1000 Ml Bag*) 1,000 mls @ 100 mls/hr IV PER RATE COUNT INCLUDES THE [facility] Last Admin: 11/19/18 07:14 Dose: 100 mls/hr Ipratropium [place] (Atrovent 0.5 Mg Neb.Bell*) 0.5 mg INH BID COUNT INCLUDES THE [facility] Last Admin: 11/18/18 19:48 Dose: 0.5 mg Lorazepam (Ativan Inj*) 0 - 3 mg IV PUSH .PER [place] PROTOCOL COUNT INCLUDES THE [facility]; Protocol Lorazepam (Ativan Inj*) 1 mg IV PUSH Q8H PRN PRN Reason: ANXIETY Last Admin: 11/19/18 04:26 Dose: 1 mg Morphine Sulfate (Morphine 10 Mg/Ml Vial (1 Ml)) 10 mg IV Q3H PRN PRN Reason: PAIN - MODERATE TO SEVERE Last Admin: 11/19/18 04:28 Dose: 10 mg Nicotine (Nicotine Patch 21 Mg/24 Hr*) 1 patch TRANSDERM BEDTIME COUNT INCLUDES THE [facility] Last Admin: 11/18/18 20:44 Dose: Not Given Pantoprazole Sodium (Protonix Iv*) 40 mg IV DAILY COUNT INCLUDES THE [facility] Last Admin: 11/18/18 10:46 Dose: 40 mg Pharmacy Profile Note (Nicotine Patch Removal Note*) 1 note PATCH OFF 2100 COUNT INCLUDES THE [facility] Last Admin: 11/18/18 20:44 Dose: Not Given Pregabalin (Lyrica Cap(*)) 300 mg PO BID COUNT INCLUDES THE [facility] Last Admin: 11/18/18 20:41 Dose: 300 mg Thiamine HCl (Vitamin B-1 Tab*) 100 mg NG TUBE DAILY COUNT INCLUDES THE [facility] Last Admin: 11/18/18 10:46 Dose: 100 mg Selected Entries 11/18/18 07:00 Heart Rate 77 Respiratory 14 Rate Blood Pressure 112/90 (mmHg) Blood Pressure 96 Mean O2 Sat by Pulse 99 Oximetry Oxygen Devices in Use Now: Tracheostomy Tube, Tracheostomy Collar Appearance: Middle aged male sitting up in bed, NAD Eyes: No Scleral Icterus Ears/Nose/Mouth/Throat: Mucous Membranes Moist Neck: - - tracheostomy with scant bloody mucousy secretions Respiratory: Symmetrical Chest Expansion and Respiratory Effort, Clear to Auscultation - few RLL crackles Cardiovascular: NL Sounds; No Murmurs; No JVD, RRR, No Edema Abdominal: NL Sounds; No Tenderness; No Distention Extremities: No Clubbing, Cyanosis Skin: No Nodules or Sclerosis Neurological: Alert and Oriented x 3 Result Diagrams: 11/18/18 04:41 11/18/18 04:41 Microbiology and Other Data: Microbiology 11/17/18 20:22 Nasal Screen MRSA (PCR) - Final Nasal Mrsa Not Detected Assess/Plan/Problems-Billing Mr Delvalle is a 58 yo M who was recently identified to have squamous cell carcinoma of the larynx who underwent emergent tracheostomy placement about 1 month ago and now is admitted post total laryngectomy with bilateral neck dissection. - Patient Problems (1) Squamous cell carcinoma Current Visit: Yes Status: Acute Code(s): C44.92 - SQUAMOUS CELL CARCINOMA OF SKIN, UNSPECIFIED SNOMED Code(s): 369862281 Comment: s/p total laryngectomy with provox prosthesis and bilateral neck dissection. Pain is not well controlled. Will increase morphine to 10mg IV 3hr and monitor for improvement in pain. Managment per Dr. Hdez. Start tube feeds today. (2) COPD (chronic obstructive pulmonary disease) Current Visit: Yes Status: Acute Code(s): J44.9 - CHRONIC OBSTRUCTIVE PULMONARY DISEASE, UNSPECIFIED SNOMED Code(s): 47465110 Comment: No signs of exacerbation. Breathing is comfortable. Continue nebs. (3) Hypertension Current Visit: Yes Status: Acute Code(s): I10 - ESSENTIAL (PRIMARY) HYPERTENSION SNOMED Code(s): 24870542 Comment: BP in good range, continue to monitor-off antihypertensives currently. (4) Alcohol abuse Current Visit: Yes Status: Acute Code(s): F10.10 - ALCOHOL ABUSE, UNCOMPLICATED SNOMED Code(s): 66115142 Comment: Pt reports not drinking since prior to last admission. Monitor WAM. (5) Tobacco abuse Current Visit: Yes Status: Acute Code(s): Z72.0 - TOBACCO USE SNOMED Code( s): 233127049 Comment: Continue nicotine patch. (6) DVT prophylaxis Current Visit: Yes Status: Acute Code(s): LTV3328 - SNOMED Code(s): 903083086 Comment: SQ heparin (7) Full code status Current Visit: Yes Status: Acute Code(s): Z78.9 - OTHER SPECIFIED HEALTH STATUS SNOMED Code(s): 013457496 Comment:
--- NOTE | 2018-11-19 08:37 | PN ---
Subjective Date of Service: 11/19/18 Interval History: Pt became ? agitated overnight. He got up out of bed on his own to urinate and pulled out his corpak and dislodged an IV. This AM he is much more drowsy than yesterday. He is able to tell me his pain is improved from yesterday. He denies any SOB. He had a humphreys placed overnight as he was unable to urinate on his own. Objective Active Medications: Budesonide (Pulmicort Neb*) 0.5 mg INH BID [facility] Last Admin: 11/18/18 19:48 Dose: 0.5 mg Citalopram Hydrobromide (Celexa Tab*) 40 mg PO BEDTIME [facility] Last Admin: 11/18/18 20:41 Dose: 40 mg Docusate Sodium (Colace Liq*) 100 mg PO BID [facility] Last Admin: 11/18/18 20:44 Dose: Not Given Folic Acid (Folvite Tab*) 1 mg NG TUBE DAILY [facility] Last Admin: 11/18/18 10:46 Dose: 1 mg Heparin Sodium (Porcine) (Heparin Vial(*)) 5,000 units SUBCUT Q8HR [facility] Last Admin: 11/19/18 05:22 Dose: 5,000 units Hydromorphone HCl (Dilaudid Inj1s*) 1.5 mg IV SLOW PU Q4H PRN PRN Reason: PAIN Lactated Ringer's (Lactated Ringers 1000 Ml Bag*) 1,000 mls @ 100 mls/hr IV PER RATE [facility] Last Admin: 11/19/18 07:14 Dose: 100 mls/hr Ipratropium [place] (Atrovent 0.5 Mg Neb.Bell*) 0.5 mg INH BID [facility] Last Admin: 11/18/18 19:48 Dose: 0.5 mg Lorazepam (Ativan Inj*) 0 - 3 mg IV PUSH .PER [facility] PROTOCOL [facility]; Protocol Lorazepam (Ativan Inj*) 1 mg IV PUSH Q8H PRN PRN Reason: ANXIETY Last Admin: 11/19/18 04:26 Dose: 1 mg Morphine Sulfate (Morphine 10 Mg/Ml Vial (1 Ml)) 10 mg IV Q3H PRN PRN Reason: PAIN - MODERATE TO SEVERE Last Admin: 11/19/18 04:28 Dose: 10 mg Nicotine (Nicotine Patch 21 Mg/24 Hr*) 1 patch TRANSDERM BEDTIME [facility] Last Admin: 11/18/18 20:44 Dose: Not Given Pantoprazole Sodium (Protonix Iv*) 40 mg IV DAILY [facility] Last Admin: 11/18/18 10:46 Dose: 40 mg Pharmacy Profile Note (Nicotine Patch Removal Note*) 1 note PATCH OFF 2100 [facility] Last Admin: 11/18/18 20:44 Dose: Not Given Pregabalin (Lyrica Cap(*)) 300 mg PO BID [facility] Last Admin: 11/18/18 20:41 Dose: 300 mg Thiamine HCl (Vitamin B-1 Tab*) 100 mg NG TUBE DAILY [facility] Last Admin: 11/18/18 10:46 Dose: 100 mg Vital Signs - 8 hr 11/19/18 11/19/18 11/19/18 01:00 01:01 01:19 Temperature Pulse Rate 76 77 Respiratory 10 8 10 Rate Blood Pressure 118/78 (mmHg) O2 Sat by Pulse 95 95 Oximetry 11/19/18 11/19/18 11/19/18 02:00 03:00 04:00 Temperature 99.8 F Pulse Rate 79 81 105 Respiratory 12 11 31 Rate Blood Pressure 127/82 (mmHg) O2 Sat by Pulse 94 97 95 Oximetry 11/19/18 11/19/18 11/19/18 04:05 04:26 04:28 Temperature Pulse Rate Respiratory 22 22 21 Rate Blood Pressure (mmHg) O2 Sat by Pulse Oximetry 11/19/18 11/19/18 11/19/18 05:00 05:01 05:24 Temperature Pulse Rate 98 98 Respiratory 16 22 21 Rate Blood Pressure 126/94 (mmHg) O2 Sat by Pulse 96 96 Oximetry 11/19/18 11/19/18 11/19/18 06:00 06:01 06:11 Temperature Pulse Rate 90 90 Respiratory 16 12 7 Rate Blood Pressure 133/82 (mmHg) O2 Sat by Pulse 94 93 Oximetry 11/19/18 11/19/18 11/19/18 07:00 07:01 07:12 Temperature Pulse Rate 87 84 Respiratory 6 12 12 Rate Blood Pressure 125/77 (mmHg) O2 Sat by Pulse 92 92 Oximetry 11/19/18 08:00 Temperature 98.8 F Pulse Rate Respiratory Rate Blood Pressure (mmHg) O2 Sat by Pulse Oximetry Oxygen Devices in Use Now: Tracheostomy Tube, Tracheostomy Collar Appearance: Middle aged male drowsy but able to try to communicate with me. Eyes: No Scleral Icterus Ears/Nose/Mouth/Throat: Mucous Membranes Moist Respiratory: Symmetrical Chest Expansion and Respiratory Effort, Clear to Auscultation - few RLL crackles Cardiovascular: NL Sounds; No Murmurs; No JVD, RRR, No Edema Abdominal: - - BS+ soft, ND, mildly tender to palpation in lower abdomen Extremities: No Clubbing, Cyanosis Skin: No Nodules or Sclerosis Neurological: - - drowsy but oriented to situation Result Diagrams: 11/18/18 04:41 11/18/18 04:41 Microbiology and Other Data: Microbiology 11/17/18 20:22 Nasal Screen MRSA (PCR) - Final Nasal Mrsa Not Detected Assess/Plan/Problems-Billing Mr Delvalle is a 58 yo M who was recently identified to have squamous cell carcinoma of the larynx who underwent emergent tracheostomy placement about 1 month ago and now is admitted post total laryngectomy with bilateral neck dissection. - Patient Problems (1) Squamous cell carcinoma Current Visit: Yes Status: Acute Code(s): C44.92 - SQUAMOUS CELL CARCINOMA OF SKIN, UNSPECIFIED SNOMED Code(s): 523434057 Comment: s/p total laryngectomy with provox prosthesis and bilateral neck dissection. Increased morphine dose did not improve his pain. Changed to dilaudid. I question if the dilaudid made him mildly confused/agitated to where he got up on his own. Will continue dilaudid but decrease dose to 1.5mg IV q4hr and see how he does. Corpak will need to be replaced to continue feeds. (2) Urinary retention Current Visit: Yes Status: Acute Code(s): R33.9 - RETENTION OF URINE, UNSPECIFIED SNOMED Code(s): 640194700 Comment: Pt was unable to urinate on his own last evening. ? retention secondary to narcotic use. Keep humphreys in place for a couple days then can do voiding trial. (3) COPD (chronic obstructive pulmonary disease) Current Visit: Yes Status: Acute Code(s): J44.9 - CHRONIC OBSTRUCTIVE PULMONARY DISEASE, UNSPECIFIED SNOMED Code(s): 13540851 Comment: No signs of exacerbation. Breathing is comfortable. Continue nebs. (4) Hypertension Current Visit: Yes Status: Acute Code(s): I10 - ESSENTIAL (PRIMARY) HYPERTENSION SNOMED Code(s): 04156887 Comment: BP in good range, continue to monitor-off antihypertensives currently. (5) Alcohol abuse Current Visit: Yes Status: Acute Code(s): F10.10 - ALCOHOL ABUSE, UNCOMPLICATED SNOMED Code(s): 00561198 Comment: Pt reports not drinking since prior to last admission. Monitor WAM- I doubt what happened last night was secondary to EtOH withdrawal. Continue to monitor. (6) Tobacco abuse Current Visit: Yes Status: Acute Code(s): Z72.0 - TOBACCO USE SNOMED Code( s): 292426516 Comment: Continue nicotine patch. (7) DVT prophylaxis Current Visit: Yes Status: Acute Code(s): DKH8350 - SNOMED Code(s): 657226062 Comment: SQ heparin (8) Full code status Current Visit: Yes Status: Acute Code(s): Z78.9 - OTHER SPECIFIED HEALTH STATUS SNOMED Code(s): 829364807 Comment:
[2018-11-19] MEDS: Pantoprazole IV* 40 MG IV SCH (09:37)
[2018-11-19] MEDS: Budesonide NEB* 0.5 MG/2 ML NEB.SOLN INH SCH ×3 (09:50→20:04)
[2018-11-19] MEDS: Ipratropium 0.5MG/2.5ML NEB* 0.5 MG/2.5 ML NEB.SOLN INH SCH ×3 (09:50→20:04)
[2018-11-19] MEDS ORDERED: LORazepam INJ* 2 MG/ML 1 ML VIAL ONE (11:00)
[2018-11-19] MEDS ORDERED: Dexmedetomidine* 200 MCG/2 ML 2 ML VIAL ONE (11:09)
--- NOTE | 2018-11-19 11:39 | PN ---
Progress Note - Progress Note Date of Service: 11/19/18 Note: I was called urgently to the patient's bedside for severe agitation. The patient was sitting on the edge of the bed trying to get up, attempting to scream through his tracheostomy. He did not comprehend that there was no sound coming out when trying to talk-he tried to use the Mass[place] feature on his phone. He began pulling at his humphreys catheter and at times grabbed at the BELLA drain tubes. The patient was not improving with verbal cueing and therefore 2mg IV ativan provided, this made the patient even more agitated. Precedex at 0.5mcg/kg /hr. Pt now sitting up in bed resting, soft restraints attached to bed but pt able to calm down before these needed to be utilized. Per nursing the patient is now behaving very similarly to his last hospitalization where he went through florid alcohol withdrawal. Will continue WAM and give prn ativan. Monitor pt's behavior. If he continues to threaten/ attempt to dislodge his BELLA drains/humphreys/IV will place pt in soft restraints.
[2018-11-19] MEDS ORDERED: Dexmedetomidine* 400 MCG in NS 0.9% 100 ML* 96 ML IVPB SCH (12:00)
[2018-11-19] MEDS: Docusate LIQ* 100 MG/10 ML UDC PO SCH ×2 (12:28→22:23)
[2018-11-19] MEDS: Thiamine TAB* 100 MG TAB NG TUBE SCH (12:29)
[2018-11-19] MEDS: Folic Acid TAB* 1 MG NG TUBE SCH (12:29)
[2018-11-19] MEDS: Pregabalin CAP(*) 300 MG PO SCH ×2 (12:29→21:39)
[2018-11-19] MEDS: Haloperidol INJ IV/IM* 5 MG/ML AMP IV SLOW PU PRN (17:55)
[2018-11-19] MEDS ORDERED: LORazepam INJ* 2 MG/ML 1 ML VIAL IV PUSH ONE (19:47)
[2018-11-19] MEDS: Dexmedetomidine* 400 MCG in NS 0.9% 100 ML* 96 ML IVPB SCH (21:38)
[2018-11-19] MEDS: Nicotine Patch Removal NOTE PATCH OFF SCH (21:39)
[2018-11-19] MEDS: Citalopram TAB* 40 MG PO SCH (22:24)
[2018-11-19] MEDS: Nicotine PATCH 21 MG/24 HR* PATCH TRANSDERM SCH (22:35)
[2018-11-20] MEDS: LORazepam INJ* 2 MG/ML 1 ML VIAL IV PUSH PRN (00:13)
[2018-11-20] MEDS ORDERED: Haloperidol INJ IV/IM* 5 MG/ML AMP IV SLOW PU ONE (01:44)
[2018-11-20] MEDS ORDERED: LORazepam INJ* 2 MG/ML 1 ML VIAL IV PUSH SCH (02:00)
[2018-11-20] MEDS ORDERED: LORazepam TAB(*) 1 MG PO SCH (02:00)
[2018-11-20] MEDS ORDERED: LORazepam INJ* 2 MG/ML 1 ML VIAL ONE (02:39)
[2018-11-20] MEDS: Dexmedetomidine* 400 MCG in NS 0.9% 100 ML* 96 ML IVPB SCH ×5 (02:40→22:23)
[2018-11-20] MEDS: LORazepam INJ* 2 MG/ML 1 ML VIAL IV PUSH SCH ×3 (02:42→22:18)
[2018-11-20] MEDS: Lactated Ringers 1000 ML Bag* 1,000 ML IV SCH (03:45)
[2018-11-20] MEDS: HYDROmorphone INJ* 0.5 MG/0.5 ML SYRINGE IV SLOW PU PRN ×3 (04:03→12:14)
[2018-11-20 05:24] LABS: ABS Basophils 0.1 10^3/ul (0-0.2); ABS Eosinophils 0.1 10^3/ul (0-0.6); ABS Lymphocytes 1.6 10^3/ul (1.0-4.8); ABS Monocytes 1.2 10^3/ul (0-0.8); ABS Neutrophils 10.8 10^3/ul (1.5-7.7); ABS Nucleated RBC 0 10^3/ul; Eosinophil % 0.6 %; Hematocrit 32 % (36-46); Hemoglobin 10.6 g/dL (14.0-18.0); Lymphocyte % 11.4 %; Mean Corpuscular HGB Conc 33 g/dL (31-36); Mean Corpuscular Hemoglobin 30 pg (27-31); Mean Corpuscular Volume 91 fL (80-94); Mean Platelet Volume 8.1 fL (7.4-10.4); Nucleated Red Blood Cells % 0; Platelet Count 179 10^3/uL (150-450); Red Blood Count 3.56 10^6 /uL (4.18-5.48); Red Cell Distribution Width 14 % (10.5-15); White Blood Count 13.7 10^3/uL (3.5-10.8)
[2018-11-20 05:35] LABS: BUN/Creatinine Ratio 16.3 (8-20); Calcium 8.1 mg/dL (8.6-10.3); EGFR Non-African American 176.1 (>60); Potassium 3.7 mmol/L (3.5-5.0)
[2018-11-20] MEDS: Budesonide NEB* 0.5 MG/2 ML NEB.SOLN INH SCH ×2 (07:39→19:35)
[2018-11-20] MEDS: Ipratropium 0.5MG/2.5ML NEB* 0.5 MG/2.5 ML NEB.SOLN INH SCH ×2 (07:39→19:35)
[2018-11-20] MEDS: Heparin VIAL(*) 5000 UNITS/ML VIAL (FIVE THOUSAND) SUBCUT SCH ×3 (07:43→22:20)
[2018-11-20] MEDS: Pantoprazole IV* 40 MG IV SCH (07:43)
[2018-11-20] MEDS: Folic Acid TAB* 1 MG NG TUBE SCH (09:20)
[2018-11-20] MEDS: Docusate LIQ* 100 MG/10 ML UDC PO SCH ×2 (09:20→22:22)
[2018-11-20] MEDS: Thiamine TAB* 100 MG TAB NG TUBE SCH (09:20)
[2018-11-20] MEDS: Pregabalin CAP(*) 300 MG PO SCH ×2 (09:20→22:21)
--- NOTE | 2018-11-20 09:36 | PN ---
Progress Note - Progress Note Date of Service: 11/20/18 Note: Surgery Progress Note Patient is a 58 yo M post op total laryngectomy and bilateral radical neck dissection for squamous cell carcinoma of the neck. His NG tube had recently become dislodged. I spoke to patient this morning and explained that Dr. Hdez has requested placement of a gastrostomy tube for enteral feeding. I explained that if he is eventually able to eat and drink this would be able to be removed in the future. He indicated understanding. He has had acute delirium but per his nurse appears somewhat improved today. Plan for a laparoscopic gastrostomy tube with Dr. Gardner on Thursday afternoon.
[2018-11-20] MEDS: Dexamethasone IV* 4 MG/ML 1 ML (4 MG) IV SLOW PU SCH ×2 (12:15→18:24)
--- NOTE | 2018-11-20 15:39 | PN ---
Subjective Date of Service: 11/20/18 Interval History: Confused overnight.Doing better on Precedex Significant swelling bilateral neck and jaw.Evaluated by Dr Hdez.Started on Decadron Objective Active Medications: Budesonide (Pulmicort Neb*) 0.5 mg INH BID [facility] Last Admin: 11/20/18 07:39 Dose: 0.5 mg Citalopram Hydrobromide (Celexa Tab*) 40 mg PO BEDTIME [facility] Last Admin: 11/19/18 22:24 Dose: Not Given Dexamethasone Sodium Phosphate (Decadron Iv*) 8 mg IV SLOW PU Q8H [facility] Stop: 11/23/18 03:01 Last Admin: 11/20/18 12:15 Dose: 8 mg Docusate Sodium (Colace Liq*) 100 mg PO BID [facility] Last Admin: 11/20/18 09:20 Dose: Not Given Folic Acid (Folvite Tab*) 1 mg NG TUBE DAILY [facility] Last Admin: 11/20/18 09:20 Dose: Not Given Haloperidol Lactate (Haldol Inj Iv/Im*) 5 mg IV SLOW PU Q6H PRN PRN Reason: AGITATION Last Admin: 11/19/18 17:55 Dose: 5 mg Heparin Sodium (Porcine) (Heparin Vial(*)) 5,000 units SUBCUT Q8HR [facility] Last Admin: 11/20/18 14:24 Dose: 5,000 units Hydromorphone HCl (Dilaudid Inj*) 1.5 mg IV SLOW PU Q4H PRN PRN Reason: PAIN Last Admin: 11/20/18 12:14 Dose: 1.5 mg Lactated Ringer's (Lactated Ringers 1000 Ml Bag*) 1,000 mls @ 100 mls/hr IV PER RATE [facility] Last Admin: 11/20/18 03:45 Dose: 100 mls/hr Dextrose 1,000 ml/ Amino Acids 850 ml/ Sterile Water 150 ml/Fat Emulsion Intravenous 500 ml/ Sodium Chloride 100 meq/Potassium Chloride 50 meq/Potassium Phosphate 15 mmole/Calcium Gluconate 15 meq/Magnesium Sulfate 10 meq/ Multivitamins 10 ml/ Trace Metals 1 ml/ Nutrition ( Parenteral) 2,600.721 mls @ 108.422 mls/hr IV 1700 [facility] Dexmedetomidine HCl 400 mcg/ (Sodium Chloride) 100 mls @ 18.92 mls/hr IVPB Q5H [facility]; Protocol Last Admin: 11/20/18 14:17 Dose: 19.3 mls/hr Ipratropium [place] (Atrovent 0.5 Mg Neb.Bell*) 0.5 mg INH BID [facility] Last Admin: 11/20/18 07:39 Dose: 0.5 mg Lorazepam (Ativan Inj*) 0 - 3 mg IV PUSH .PER [facility] PROTOCOL [facility]; Protocol Last Admin: 11/20/18 08:20 Dose: 2 mg Nicotine (Nicotine Patch 21 Mg/24 Hr*) 1 patch TRANSDERM BEDTIME [facility] Last Admin: 11/19/18 22:35 Dose: 1 patch Pantoprazole Sodium (Protonix Iv*) 40 mg IV DAILY [facility] Last Admin: 11/20/18 07:43 Dose: 40 mg Pharmacy Profile Note (Nicotine Patch Removal Note*) 1 note PATCH OFF 2100 [facility] Last Admin: 11/19/18 21:39 Dose: 1 note Pregabalin (Lyrica Cap(*)) 300 mg PO BID [facility] Last Admin: 11/20/18 09:20 Dose: Not Given Thiamine HCl (Vitamin B-1 Tab*) 100 mg NG TUBE DAILY [facility] Last Admin: 11/20/18 09:20 Dose: Not Given Vital Signs - 8 hr 11/20/18 11/20/18 11/20/18 07:47 07:52 07:54 Temperature 97.9 F Pulse Rate 70 76 Respiratory 20 30 Rate Blood Pressure 146/90 (mmHg) O2 Sat by Pulse 94 95 Oximetry 11/20/18 11/20/18 11/20/18 08:00 08:01 08:20 Temperature Pulse Rate 77 Respiratory 20 20 20 Rate Blood Pressure 127/90 (mmHg) O2 Sat by Pulse 97 Oximetry 11/20/18 11/20/18 11/20/18 08:21 09:00 09:01 Temperature Pulse Rate 78 76 Respiratory 20 19 16 Rate Blood Pressure 123/81 (mmHg) O2 Sat by Pulse 98 99 Oximetry 11/20/18 11/20/18 11/20/18 09:20 10:00 11:00 Temperature Pulse Rate 71 76 Respiratory 25 17 9 Rate Blood Pressure 126/79 (mmHg) O2 Sat by Pulse 100 100 Oximetry 11/20/18 11/20/18 11/20/18 11:01 11:48 12:00 Temperature Pulse Rate 81 72 83 Respiratory 20 12 15 Rate Blood Pressure 120/76 136/88 (mmHg) O2 Sat by Pulse 97 99 98 Oximetry 11/20/18 11/20/18 11/20/18 12:01 12:07 12:12 Temperature 97.0 F Pulse Rate 84 Respiratory 18 16 Rate Blood Pressure 130/105 (mmHg) O2 Sat by Pulse 99 Oximetry 11/20/18 11/20/18 11/20/18 12:14 12:22 13:00 Temperature Pulse Rate 81 85 Respiratory 18 17 16 Rate Blood Pressure 128/89 117/85 (mmHg) O2 Sat by Pulse 93 98 Oximetry 11/20/18 11/20/18 11/20/18 13:01 14:00 14:01 Temperature Pulse Rate 84 78 85 Respiratory 16 19 19 Rate Blood Pressure 122/79 (mmHg) O2 Sat by Pulse 98 95 96 Oximetry 11/20/18 11/20/18 11/20/18 14:17 15:00 15:01 Temperature Pulse Rate 72 78 Respiratory 17 18 19 Rate Blood Pressure 121/86 (mmHg) O2 Sat by Pulse 97 95 Oximetry Oxygen Devices in Use Now: Tracheostomy Collar Eyes: No Scleral Icterus Neck: - - Sig swelling bilateral neck and jaw.Non tender on palpation.Not tense Respiratory: Symmetrical Chest Expansion and Respiratory Effort, Clear to Auscultation, - - No stridor Cardiovascular: NL Sounds; No Murmurs; No JVD, RRR Abdominal: NL Sounds; No Tenderness; No Distention Extremities: No Edema Neurological: Alert and Oriented x 3 Result Diagrams: 11/20/18 05:11 11/20/18 05:11 Microbiology and Other Data: Microbiology 11/17/18 20:22 Nasal Screen MRSA (PCR) - Final Nasal Mrsa Not Detected Assess/Plan/Problems-Billing Mr Delvalle is a 58 yo M who was recently identified to have squamous cell carcinoma of the larynx who underwent emergent tracheostomy placement about 1 month ago and now is admitted post total laryngectomy with bilateral neck dissection. - Patient Problems (1) Squamous cell carcinoma Current Visit: Yes Status: Acute Code(s): C44.92 - SQUAMOUS CELL CARCINOMA OF SKIN, UNSPECIFIED SNOMED Code(s): 786603019 Comment: s/p total laryngectomy with provox prosthesis and bilateral neck dissection. Swelling neck and jaw. Started on Decadron Evaluated by ENT Continue PPN Plan for PEG tube on Thursday (2) Alcohol abuse Current Visit: Yes Status: Acute Code(s): F10.10 - ALCOHOL ABUSE, UNCOMPLICATED SNOMED Code(s): 67935616 Comment: Pt reports not drinking since prior to last admission. Monitor WAM- Better on Precedex (3) COPD (chronic obstructive pulmonary disease) Current Visit: Yes Status: Acute Code(s): J44.9 - CHRONIC OBSTRUCTIVE PULMONARY DISEASE, UNSPECIFIED SNOMED Code(s): 71325666 Comment: No signs of exacerbation. Breathing is comfortable. Continue nebs. (4) Full code status Current Visit: Yes Status: Acute Code(s): Z78.9 - OTHER SPECIFIED HEALTH STATUS SNOMED Code(s): 181154118 Comment: (5) Hypertension Current Visit: Yes Status: Acute Code(s): I10 - ESSENTIAL (PRIMARY) HYPERTENSION SNOMED Code(s): 10314404 Comment: BP in good range, continue to monitor-off antihypertensives currently. (6) Tobacco abuse Current Visit: Yes Status: Acute Code(s): Z72.0 - TOBACCO USE SNOMED Code( s): 823605816 Comment: Continue nicotine patch. (7) Urinary retention Current Visit: Yes Status: Acute Code(s): R33.9 - RETENTION OF URINE, UNSPECIFIED SNOMED Code(s): 249806701 Comment: Pt was unable to urinate on his own last evening. ? retention secondary to narcotic use. Keep humphreys in place for a couple days then can do voiding trial. (8) DVT prophylaxis Current Visit: Yes Status: Acute Code(s): LFG2671 - SNOMED Code(s): 781057953 Comment: SQ heparin
[2018-11-20] MEDS ORDERED: HYDROmorphone INJ1* 1 MG/ML SYRINGE IV SLOW PU PRN (15:48)
[2018-11-20] MEDS: TPN* 24 HR with D10W 1000 ML BAG* 1,000 ML, Amino Acid Infusion 10%* 850 ML, Sterile Wa... IV SCH ×12 (18:24)
[2018-11-20] MEDS: HYDROmorphone INJ1* 1 MG/ML SYRINGE IV SLOW PU PRN ×3 (18:24→22:17)
[2018-11-20] MEDS: Haloperidol INJ IV/IM* 5 MG/ML AMP IV SLOW PU PRN (20:07)
[2018-11-20] MEDS ORDERED: Ondansetron INJ* 2 MG/ML VIAL IV ONE (21:53)
[2018-11-20] MEDS: Nicotine PATCH 21 MG/24 HR* PATCH TRANSDERM SCH (22:19)
[2018-11-20] MEDS: Nicotine Patch Removal NOTE PATCH OFF SCH (22:20)
[2018-11-20] MEDS: Citalopram TAB* 40 MG PO SCH (22:22)
[2018-11-21] MEDS: LORazepam INJ* 2 MG/ML 1 ML VIAL IV PUSH SCH (01:06)
[2018-11-21] MEDS: HYDROmorphone INJ1* 1 MG/ML SYRINGE IV SLOW PU PRN ×7 (01:07→22:20)
[2018-11-21] MEDS: Dexmedetomidine* 400 MCG in NS 0.9% 100 ML* 96 ML IVPB SCH ×5 (01:50→23:33)
[2018-11-21] MEDS: Dexamethasone IV* 4 MG/ML 1 ML (4 MG) IV SLOW PU SCH ×3 (04:23→18:08)
[2018-11-21] MEDS: Heparin VIAL(*) 5000 UNITS/ML VIAL (FIVE THOUSAND) SUBCUT SCH ×3 (06:38→22:36)
[2018-11-21 07:02] LABS: ABS Basophils 0 10^3/ul (0-0.2); ABS Eosinophils 0 10^3/ul (0-0.6); ABS Lymphocytes 0.9 10^3/ul (1.0-4.8); ABS Monocytes 0.9 10^3/ul (0-0.8); ABS Neutrophils 16.3 10^3/ul (1.5-7.7); ABS Nucleated RBC 0 10^3/ul; Eosinophil % 0 %; Hematocrit 31 % (36-46); Hemoglobin 10.2 g/dL (14.0-18.0); Mean Corpuscular HGB Conc 33 g/dL (31-36); Mean Corpuscular Hemoglobin 30 pg (27-31); Mean Corpuscular Volume 89 fL (80-94); Mean Platelet Volume 8.4 fL (7.4-10.4); Nucleated Red Blood Cells % 0; Platelet Count 208 10^3/uL (150-450); Red Blood Count 3.42 10^6 /uL (4.18-5.48); Red Cell Distribution Width 14 % (10.5-15); White Blood Count 18.1 10^3/uL (3.5-10.8)
[2018-11-21 07:06] LABS: BUN/Creatinine Ratio 22.5 (8-20); Calcium 8.6 mg/dL (8.6-10.3); EGFR African American 269.3 (>60); EGFR Non-African American 222.5 (>60); Potassium 4.1 mmol/L (3.5-5.0)
[2018-11-21] MEDS: Budesonide NEB* 0.5 MG/2 ML NEB.SOLN INH SCH ×2 (07:52→19:53)
[2018-11-21] MEDS: Ipratropium 0.5MG/2.5ML NEB* 0.5 MG/2.5 ML NEB.SOLN INH SCH ×2 (07:52→19:53)
[2018-11-21] MEDS: Docusate LIQ* 100 MG/10 ML UDC PO SCH ×2 (08:40→21:25)
[2018-11-21] MEDS: Folic Acid TAB* 1 MG NG TUBE SCH (08:40)
[2018-11-21] MEDS: Thiamine TAB* 100 MG TAB NG TUBE SCH (08:41)
[2018-11-21] MEDS: Pregabalin CAP(*) 300 MG PO SCH ×2 (08:41→21:26)
[2018-11-21] MEDS: Pantoprazole IV* 40 MG IV SCH (09:02)
--- NOTE | 2018-11-21 10:23 | PN ---
Subjective Date of Service: 11/21/18 Interval History: Swelling in jaw neck improved More cooperative Doing better on precedex.Less agitated Objective Active Medications: Budesonide (Pulmicort Neb*) 0.5 mg INH BID [facility] Last Admin: 11/21/18 07:52 Dose: 0.5 mg Citalopram Hydrobromide (Celexa Tab*) 40 mg PO BEDTIME [facility] Last Admin: 11/20/18 22:22 Dose: Not Given Dexamethasone Sodium Phosphate (Decadron Iv*) 8 mg IV SLOW PU Q8H [facility] Stop: 11/23/18 03:01 Last Admin: 11/21/18 04:23 Dose: 8 mg Docusate Sodium (Colace Liq*) 100 mg PO BID [facility] Last Admin: 11/21/18 08:40 Dose: Not Given Folic Acid (Folvite Tab*) 1 mg NG TUBE DAILY [facility] Last Admin: 11/21/18 08:40 Dose: Not Given Haloperidol Lactate (Haldol Inj Iv/Im*) 5 mg IV SLOW PU Q6H PRN PRN Reason: AGITATION Last Admin: 11/20/18 20:07 Dose: 5 mg Heparin Sodium (Porcine) (Heparin Vial(*)) 5,000 units SUBCUT Q8HR [facility] Last Admin: 11/21/18 06:38 Dose: 5,000 units Hydromorphone HCl (Dilaudid Inj1s*) 1 mg IV SLOW PU Q2H PRN PRN Reason: PAIN Last Admin: 11/21/18 01:07 Dose: 1 mg Lactated Ringer's (Lactated Ringers 1000 Ml Bag*) 1,000 mls @ 100 mls/hr IV PER RATE [facility] Last Admin: 11/20/18 03:45 Dose: 100 mls/hr Dextrose 1,000 ml/ Amino Acids 850 ml/ Sterile Water 150 ml/Fat Emulsion Intravenous 500 ml/ Sodium Chloride 100 meq/Potassium Chloride 50 meq/Potassium Phosphate 15 mmole/Calcium Gluconate 15 meq/Magnesium Sulfate 10 meq/ Multivitamins 10 ml/ Trace Metals 1 ml/ Nutrition ( Parenteral) 2,600.721 mls @ 108.422 mls/hr IV 1700 [facility] Last Admin: 11/20/18 18:24 Dose: 108.422 mls/hr Dexmedetomidine HCl 400 mcg/ (Sodium Chloride) 100 mls @ 18.92 mls/hr IVPB Q5H [facility]; Protocol Last Admin: 11/21/18 07:30 Dose: 19.2 mls/hr Ipratropium [place] (Atrovent 0.5 Mg Neb.Bell*) 0.5 mg INH BID [facility] Last Admin: 11/21/18 07:52 Dose: 0.5 mg Lorazepam (Ativan Inj*) 0 - 3 mg IV PUSH .PER [facility] PROTOCOL [facility]; Protocol Last Admin: 11/21/18 01:06 Dose: 2 mg Nicotine (Nicotine Patch 21 Mg/24 Hr*) 1 patch TRANSDERM BEDTIME [facility] Last Admin: 11/20/18 22:19 Dose: 1 patch Pantoprazole Sodium (Protonix Iv*) 40 mg IV DAILY [facility] Last Admin: 11/21/18 09:02 Dose: 40 mg Pharmacy Profile Note (Nicotine Patch Removal Note*) 1 note PATCH OFF 2100 [facility] Last Admin: 11/20/18 22:20 Dose: 1 note Pregabalin (Lyrica Cap(*)) 300 mg PO BID [facility] Last Admin: 11/21/18 08:41 Dose: Not Given Thiamine HCl (Vitamin B-1 Tab*) 100 mg NG TUBE DAILY [facility] Last Admin: 11/21/18 08:41 Dose: Not Given Vital Signs - 8 hr 11/21/18 11/21/18 11/21/18 02:30 02:45 03:00 Temperature Pulse Rate 55 51 58 Respiratory 16 17 Rate Blood Pressure 125/74 140/73 141/83 (mmHg) O2 Sat by Pulse 95 97 95 Oximetry 11/21/18 11/21/18 11/21/18 03:15 03:30 03:45 Temperature Pulse Rate 61 59 59 Respiratory Rate Blood Pressure 135/83 136/81 137/82 (mmHg) O2 Sat by Pulse 95 95 95 Oximetry 11/21/18 11/21/18 11/21/18 04:00 04:15 04:30 Temperature 97.9 F Pulse Rate 59 60 59 Respiratory 16 Rate Blood Pressure 138/81 139/80 138/85 (mmHg) O2 Sat by Pulse 95 95 96 Oximetry 11/21/18 11/21/18 11/21/18 04:45 05:00 05:15 Temperature Pulse Rate 61 58 55 Respiratory 16 Rate Blood Pressure 145/82 142/80 144/84 (mmHg) O2 Sat by Pulse 96 96 96 Oximetry 11/21/18 11/21/18 11/21/18 05:30 05:45 06:00 Temperature Pulse Rate 55 57 55 Respiratory 19 Rate Blood Pressure 151/87 152/85 154/88 (mmHg) O2 Sat by Pulse 97 97 97 Oximetry 11/21/18 11/21/18 11/21/18 06:15 06:30 06:45 Temperature Pulse Rate 55 56 57 Respiratory Rate Blood Pressure 156/88 153/86 136/76 (mmHg) O2 Sat by Pulse 97 96 96 Oximetry 11/21/18 11/21/18 11/21/18 07:00 07:15 07:30 Temperature Pulse Rate 55 56 60 Respiratory 16 21 Rate Blood Pressure 141/78 141/77 138/82 (mmHg) O2 Sat by Pulse 95 94 95 Oximetry 11/21/18 11/21/18 11/21/18 07:33 07:45 07:57 Temperature 97.1 F Pulse Rate 72 54 Respiratory 14 20 Rate Blood Pressure 145/86 (mmHg) O2 Sat by Pulse 94 90 Oximetry 11/21/18 11/21/18 11/21/18 08:00 08:15 08:29 Temperature Pulse Rate 52 72 49 Respiratory 23 20 22 Rate Blood Pressure 151/82 160/95 162/90 (mmHg) O2 Sat by Pulse 90 94 94 Oximetry 11/21/18 11/21/18 11/21/18 08:30 09:00 09:30 Temperature Pulse Rate 50 62 50 Respiratory 20 17 Rate Blood Pressure 163/89 159/95 166/93 (mmHg) O2 Sat by Pulse 94 94 96 Oximetry Oxygen Devices in Use Now: Tracheostomy Collar Eyes: No Scleral Icterus Neck: NL Appearance and Movements; NL JVP, - - Swelling in jaw and neck improved Respiratory: Symmetrical Chest Expansion and Respiratory Effort, Clear to Auscultation Cardiovascular: NL Sounds; No Murmurs; No JVD Abdominal: NL Sounds; No Tenderness; No Distention Extremities: No Edema Neurological: Alert and Oriented x 3 Result Diagrams: 11/21/18 06:30 11/21/18 06:30 Microbiology and Other Data: Microbiology 11/17/18 20:22 Nasal Screen MRSA (PCR) - Final Nasal Mrsa Not Detected Assess/Plan/Problems-Billing Mr Delvalle is a 58 yo M who was recently identified to have squamous cell carcinoma of the larynx who underwent emergent tracheostomy placement about 1 month ago and now is admitted post total laryngectomy with bilateral neck dissection. - Patient Problems (1) Squamous cell carcinoma Current Visit: Yes Status: Acute Code(s): C44.92 - SQUAMOUS CELL CARCINOMA OF SKIN, UNSPECIFIED SNOMED Code(s): 010128878 Comment: s/p total laryngectomy with provox prosthesis and bilateral neck dissection. Swelling neck and jaw improving. Started on Decadron Evaluated by ENT Continue PPN Plan for PEG tube on Thursday (2) Alcohol abuse Current Visit: Yes Status: Acute Code(s): F10.10 - ALCOHOL ABUSE, UNCOMPLICATED SNOMED Code(s): 08422873 Comment: Pt reports not drinking since prior to last admission. Monitor WAM- Better on Precedex Agitation improved Can likely start weaning Precedex tomorrow (3) COPD (chronic obstructive pulmonary disease) Current Visit: Yes Status: Acute Code(s): J44.9 - CHRONIC OBSTRUCTIVE PULMONARY DISEASE, UNSPECIFIED SNOMED Code(s): 78198017 Comment: No signs of exacerbation. Breathing is comfortable. Continue nebs. (4) Full code status Current Visit: Yes Status: Acute Code(s): Z78.9 - OTHER SPECIFIED HEALTH STATUS SNOMED Code(s): 789954329 Comment: (5) Hypertension Current Visit: Yes Status: Acute Code(s): I10 - ESSENTIAL (PRIMARY) HYPERTENSION SNOMED Code(s): 43488075 Comment: BP in good range, continue to monitor-off antihypertensives currently. (6) Tobacco abuse Current Visit: Yes Status: Acute Code(s): Z72.0 - TOBACCO USE SNOMED Code( s): 315966371 Comment: Continue nicotine patch. (7) Urinary retention Current Visit: Yes Status: Acute Code(s): R33.9 - RETENTION OF URINE, UNSPECIFIED SNOMED Code(s): 904585185 Comment: ? retention secondary to narcotic use. Keep humphreys in place for a couple days then can do voiding trial. (8) DVT prophylaxis Current Visit: Yes Status: Acute Code(s): NSK6000 - SNOMED Code(s): 546480865 Comment: SQ heparin
[2018-11-21] MEDS: Ketorolac INJ* 15 MG/ML 1 ML VIAL IV PUSH PRN ×2 (13:54→20:02)
[2018-11-21] MEDS: Lactated Ringers 1000 ML Bag* 1,000 ML IV SCH (14:14)
[2018-11-21] MEDS ORDERED: Magnesium Sulfate 2 GM IV* 2 GM/50 ML BAG IVPB ONE (15:30)
[2018-11-21] MEDS: TPN* 24 HR with D10W 1000 ML BAG* 1,000 ML, Amino Acid Infusion 10%* 850 ML, Sterile Wa... IV SCH ×12 (17:15)
[2018-11-21] MEDS: Citalopram TAB* 40 MG PO SCH (21:25)
[2018-11-21] MEDS: Nicotine Patch Removal NOTE PATCH OFF SCH (21:29)
[2018-11-21] MEDS: Nicotine PATCH 21 MG/24 HR* PATCH TRANSDERM SCH (21:29)
[2018-11-22] MEDS ORDERED: Morphine 4 MG/ML VIAL (1 ml) 4 MG/ML VIAL IV PRN ×2 (00:01→09:29)
[2018-11-22] MEDS: Lactated Ringers 1000 ML Bag* 1,000 ML IV SCH ×2 (01:42→22:08)
[2018-11-22] MEDS: Dexmedetomidine* 400 MCG in NS 0.9% 100 ML* 96 ML IVPB SCH ×6 (01:43→19:58)
[2018-11-22] MEDS: Dexamethasone IV* 4 MG/ML 1 ML (4 MG) IV SLOW PU SCH ×3 (03:31→21:00)
[2018-11-22] MEDS ORDERED: Dextrose 50% Syringe 50 ML* 25 GM/50 ML SYRINGE IV PUSH PRN (04:17)
[2018-11-22] MEDS: Ketorolac INJ* 15 MG/ML 1 ML VIAL IV PUSH PRN ×3 (06:09→19:50)
[2018-11-22] MEDS: Heparin VIAL(*) 5000 UNITS/ML VIAL (FIVE THOUSAND) SUBCUT SCH ×3 (06:09→21:07)
[2018-11-22] MEDS: Insulin LISPRO* 1 UNITS UNIT SUBCUT SCH ×5 (06:09→21:16)
[2018-11-22 06:11] LABS: ABS Basophils 0 10^3/ul (0-0.2); ABS Eosinophils 0 10^3/ul (0-0.6); ABS Lymphocytes 0.5 10^3/ul (1.0-4.8); ABS Monocytes 0.8 10^3/ul (0-0.8); ABS Neutrophils 13.6 10^3/ul (1.5-7.7); ABS Nucleated RBC 0 10^3/ul; Eosinophil % 0 %; Hematocrit 47 % (36-46); Hemoglobin 15.6 g/dL (14.0-18.0); Lymphocyte % 3.4 %; Mean Corpuscular HGB Conc 33 g/dL (31-36); Mean Corpuscular Hemoglobin 30 pg (27-31); Mean Corpuscular Volume 91 fL (80-94); Mean Platelet Volume 8.4 fL (7.4-10.4); Nucleated Red Blood Cells % 0; Platelet Count 140 10^3/uL (150-450); Red Blood Count 5.18 10^6 /uL (4.18-5.48); Red Cell Distribution Width 15 % (10.5-15); White Blood Count 14.9 10^3/uL (3.5-10.8)
[2018-11-22 06:27] LABS: Albumin 3.3 g/dL (3.2-5.2); Albumin/Globulin Ratio 1.1 (1-3); BUN/Creatinine Ratio 29.3 (8-20); Calcium 8.7 mg/dL (8.6-10.3); EGFR African American 261.7 (>60); EGFR Non-African American 216.3 (>60); Globulin 3.1 g/dL (2-4); Potassium 3.6 mmol/L (3.5-5.0); Total Bilirubin 0.3 mg/dL (0.2-1.0); Total Protein 6.4 g/dL (6.4-8.9)
[2018-11-22] MEDS: Ipratropium 0.5MG/2.5ML NEB* 0.5 MG/2.5 ML NEB.SOLN INH SCH ×2 (08:54→20:10)
[2018-11-22] MEDS: Budesonide NEB* 0.5 MG/2 ML NEB.SOLN INH SCH ×2 (08:54→20:10)
[2018-11-22] MEDS ORDERED: Rocuronium* 10 MG/ML VIAL ONE (09:07)
[2018-11-22] MEDS ORDERED: Propofol* 10 MG/ML 20 ML BTL ONE (09:07)
[2018-11-22] MEDS ORDERED: fentaNYL* 50 MCG/ML 5 ML VIAL (250 MCG VIAL) ONE (09:07)
[2018-11-22] MEDS ORDERED: Midazolam* 1 MG/ML 5 ML VIAL (5 MG) ONE (09:07)
[2018-11-22] MEDS ORDERED: Lidocaine 2% PF * 5 ML VIAL ONE (09:07)
[2018-11-22] MEDS ORDERED: Naloxone* 0.4 MG/ML 1 ML VIAL IV PRN (09:29)
[2018-11-22] MEDS ORDERED: Ketorolac INJ* 30 MG/ML 1 ML VIAL IV PRN (09:29)
[2018-11-22] MEDS ORDERED: Acetaminophen IV 1GM/100ML * 1,000 MG/100 ML VIAL IVPB ONE (09:29)
[2018-11-22] MEDS ORDERED: ceFOXitin 2 GM IVPREMIX* 2 GM/50 ML BAG IVPB ONE (10:00)
[2018-11-22] MEDS: Docusate LIQ* 100 MG/10 ML UDC PO SCH ×2 (10:17→20:00)
[2018-11-22] MEDS: Folic Acid TAB* 1 MG NG TUBE SCH (10:17)
[2018-11-22] MEDS ORDERED: Glycopyrrolate IV* 0.2 MG/ML 1 ML VIAL ONE (10:24)
[2018-11-22] MEDS: Thiamine TAB* 100 MG TAB NG TUBE SCH (10:26)
[2018-11-22] MEDS ORDERED: EPHEDrine (Pressors)* 50 MG/ML VIAL ONE (10:26)
[2018-11-22] MEDS: Pregabalin CAP(*) 300 MG PO SCH ×2 (10:26→20:00)
[2018-11-22 10:46] LABS: Phosphorus 2.8 mg/dL (2.5-5.0)
[2018-11-22] MEDS ORDERED: fentaNYL* 50 MCG/ML 2 ML VIAL (100 MCG VIAL) ONE ×3 (10:51→17:33)
[2018-11-22] MEDS ORDERED: Bacitracin OINTMENT* 0.5% 0.5 oz TUBE ONE (11:05)
[2018-11-22] MEDS ORDERED: Acetaminophen IV 1GM/100ML * 100 ML ONE (12:13)
[2018-11-22] MEDS: fentaNYL* 50 MCG/ML 2 ML VIAL (100 MCG VIAL) IV PRN ×2 (12:18→12:31)
[2018-11-22] MEDS: Pantoprazole IV* 40 MG IV SCH (13:13)
--- NOTE | 2018-11-22 13:44 | OP ---
DATE OF OPERATION: 11/22/18 - ROOM #ICU-06 DATE OF : 64 SURGEON: Elton Gardner MD PRE-OP DIAGNOSIS: Requiring enteral feeding status post laryngectomy, plans for radiation treatment. POST-OP DIAGNOSIS: Requiring enteral feeding status post laryngectomy, plans for radiation treatment. OPERATIVE PROCEDURE: Placement of open gastrostomy tube, using a PEG type tube. INDICATIONS FOR PROCEDURE: Risks included but not limited to bleeding, infection, tube leak, injury to intraabdominal contents including the stomach, bowel/colon/small intestine explained to the patient who seemed to understand and agreed to the procedure. Consent was signed and all questions were answered. DESCRIPTION OF PROCEDURE: The patient was taken to the operating room and placed supine. Preoperative antibiotics were given. After the successful induction of general endotracheal anesthesia, the abdomen was prepped and draped in sterile fashion. A time-out was performed, correct patient, correct procedure with initials noted to be marked on the abdomen. An incision was then made above the umbilicus in the upper midline, carried down through the subcutaneous tissue. The peritoneal cavity was entered after the fascia and peritoneum were opened. This was done with Bovie cautery. Portion of stomach was chosen for the G-tube placement. A 2-0 silk was used to make a purse- string and the enteric gastric wall was opened. The left upper quadrant site was chosen for the G-tube. It was brought through the anterior abdominal wall and placed through this gastric opening and the pursestring was tied around the tube. A second pursestring was tied around this. Stomach was then sutured to the anterior abdominal wall using 2-0 silks with the pursestrings. The balloon was inflated. The PEG tube was up snug against the anterior abdominal wall. EBL minimal. Hemostasis was intact. Sponge, needle, instrument count were reported correct. The fascia was closed with the running #1 PDS suture. The wound was irrigated. The skin was closed with bakari. He tolerated the procedure well. [id number]/[facility] #: [id number] [facility]
--- NOTE | 2018-11-22 14:59 | PN ---
Date of Service: 11/22/18 Vital Signs: Temp Pulse Resp BP SpO2 FiO2 98.1 F 55 13 153/89 97 50 11/22/18 13:30 11/22/18 14:00 11/22/18 14:00 11/22/18 12:49 11/22/18 14:00 11/22 13:30 Physical Exam: Gen: Awake, and alert X3, NAD, communicating by writing on white board, appears to be in good spirits, sisters at bedside HEENT: general edema from chin and jaw to clavicles, staple lines approximated with no exudate or erythema noted. Trach site CDI, trach collar with humidified O2 Lungs: Scattered rhonchi bilaterally with R>L, no wheeze or rales noted, good air entry Cardiac: S1 S2 noted, no murmur, toi or rubs, rate and rhythm regular Abdomen: soft, tender, dressing around PEG insertion site is CDI Extremities: No clubbing, cyanosis or edema Neuro: Alert, no agitation noted, no focal deficits Fluid Balance (Past 24 Hours): I= O= Net Intake & Output 11/20/18 11/21/18 11/22/18 11/23/18 06:59 06:59 06:59 06:59 Intake Total 3429 4015 4730.4 900 Output Total 2045 2490 4080 2560 Balance 1384 1525 650.4 -1660 Weight 167 lb 15.876 oz 167 lb 8.821 oz 169 lb 5.04 oz Intake: IV Fluids 3091 1424 1271 900 LR 3091 1424 1271 lr 900 IVPB 743 777 LR 743 777 Medicated IV 114 026 0004.4 CC - Dexmedetomidine/ 238 460 262.4 Precedex Mag 50 PPN 963 TPN/PPN 1388 1407 Oral 0 Humphreys Irrigate Amount 100 Output: BELLA #1 30 BELLA #2 30 Humphreys 1985 2490 4080 2560 Labs: Laboratory Results - last 24 hr 11/22/18 11/22/18 11/22/18 04:14 06:00 06:00 WBC 14.9 H RBC 5.18 Hgb 15.6 Hct 47 H MCV 91 MCH 30 MCHC 33 RDW 15 Plt Count 140 L MPV 8.4 Neut % (Auto) 91.4 Lymph % (Auto) 3.4 [place] % (Auto) 5.1 Eos % (Auto) 0 Baso % (Auto) 0.1 Absolute Neuts (auto) 13.6 H Absolute Lymphs (auto) 0.5 L Absolute Monos (auto) 0.8 Absolute Eos (auto) 0 Absolute Basos (auto) 0 Absolute Nucleated RBC 0 Nucleated RBC % 0 Sodium 136 Potassium 3.6 Chloride 101 Carbon Dioxide 27 Anion Gap 8 BUN 12 Creatinine 0.41 L Est GFR ( Amer) 261.7 Est GFR (Non-Af Amer) 216.3 BUN/Creatinine Ratio 29.3 H Glucose 186 H POC Glucose (mg/dL) 192 H Calcium 8.7 Phosphorus 2.8 Total Bilirubin 0.30 AST 13 ALT 18 Alkaline Phosphatase 94 Total Protein 6.4 Albumin 3.3 Globulin 3.1 Albumin/Globulin Ratio 1.1 11/22/18 11/22/18 11/22/18 06:00 09:25 13:32 WBC RBC Hgb Hct MCV MCH MCHC RDW Plt Count MPV Neut % (Auto) Lymph % (Auto) [place] % (Auto) Eos % (Auto) Baso % (Auto) Absolute Neuts (auto) Absolute Lymphs (auto) Absolute Monos (auto) Absolute Eos (auto) Absolute Basos (auto) Absolute Nucleated RBC Nucleated RBC % Sodium Potassium Chloride Carbon Dioxide Anion Gap BUN Creatinine Est GFR ( Amer) Est GFR (Non-Af Amer) BUN/Creatinine Ratio Glucose POC Glucose (mg/dL) 183 H 179 H 179 H Calcium Phosphorus Total Bilirubin AST ALT Alkaline Phosphatase Total Protein Albumin Globulin Albumin/Globulin Ratio Nutrition: TPN per surgery, plan for transition to supplemental tube feeds tomorrow. Impression: Mr Delvalle is a 58 yo M who was recently identified to have squamous cell carcinoma of the larynx who underwent emergent tracheostomy placement about 1 month ago and now is admitted post total laryngectomy with bilateral neck dissection and insertion of PEG tube today. 1. Squamous Cell Carcinoma - s/p total laryngectomy, bilateral neck dissection and insertion of provox prosthesis - PEG tube inserted today, remain NPO - Continue TPN for now and start using PEG tomorrow if clear by surgery - Continue decadron for jaw and neck edema - Monitor lytes, magnesium low today, replete - Leukocytosis noted, likely 2/2 decadron, remains afebrile - Plan for radiation treatment 2. Alcohol Abuse - Remains on precedex, continue titrating down, no overt s/s withdrawal - Patient does not respon well to ativan historically, may trial haldol if agitation noted off precedex 3. COPD with Hx of Tobacco Abuse - Still smoking at admission - Not in exacerbation - Continue nebs and home regimen - Patient should stop smoking indefinitely - Continue nicotine replacement 4. HTN - BP stable 5. Acute urinary retention - Bladder training with humphreys 6. Hyperglycemia - In setting of decadron and TPN, continue insulin SS with accuchecks DVT Prophy - Heparin when clear by surgery Code Status: Full Code Plan: Disposition: Downgrade to floor tomorrow when patient off precedex and TPN Critical Care Time: 75 minutes.
[2018-11-22] MEDS: TPN* 24 HR with D10W 1000 ML BAG* 1,000 ML, Amino Acid Infusion 10%* 850 ML, Sterile Wa... IV SCH ×12 (17:36)
[2018-11-22] MEDS: Citalopram TAB* 40 MG PO SCH (19:59)
[2018-11-22] MEDS: fentaNYL* 50 MCG/ML 2 ML VIAL (100 MCG VIAL) IV SLOW PU PRN (20:55)
[2018-11-22] MEDS: Nicotine PATCH 21 MG/24 HR* PATCH TRANSDERM SCH (21:07)
[2018-11-22] MEDS: Nicotine Patch Removal NOTE PATCH OFF SCH (21:07)
[2018-11-22] MEDS ORDERED: diPHENhydraMINE IV* 50 MG/ML 1 ml VIAL (BENADRYL) IV PRN (21:19)
[2018-11-22] MEDS ORDERED: hydrALAZINE IV* 20 MG/ML VIAL ONE (22:49)
[2018-11-22] MEDS: hydrALAZINE IV* 20 MG/ML VIAL IV SLOW PU PRN (22:51)
[2018-11-23] MEDS: fentaNYL* 50 MCG/ML 2 ML VIAL (100 MCG VIAL) IV SLOW PU PRN ×3 (00:33→09:35)
[2018-11-23] MEDS: Dexmedetomidine* 400 MCG in NS 0.9% 100 ML* 96 ML IVPB SCH ×3 (00:36→11:03)
[2018-11-23] MEDS ORDERED: fentaNYL* 50 MCG/ML 2 ML VIAL (100 MCG VIAL) IV SLOW PU ONE ×2 (01:52)
[2018-11-23] MEDS: Insulin LISPRO* 1 UNITS UNIT SUBCUT SCH ×6 (02:03→21:45)
[2018-11-23] MEDS ORDERED: niCARdipine 0.1MG/ML IVPREMIX* 20 MG/200 ML BAG IV SCH (03:00)
[2018-11-23] MEDS ORDERED: niCARdipine 0.1MG/ML IVPREMIX* 20 MG/200 ML BAG IV ONE (03:03)
[2018-11-23] MEDS: Dexamethasone IV* 4 MG/ML 1 ML (4 MG) IV SLOW PU SCH (03:20)
[2018-11-23] MEDS: Ketorolac INJ* 15 MG/ML 1 ML VIAL IV PUSH PRN ×3 (03:23→18:05)
[2018-11-23] MEDS ORDERED: Metoprolol Tartrate IV* 1 MG/ML 5 ML VIAL IV PRN (04:20)
[2018-11-23] MEDS: Haloperidol INJ IV/IM* 5 MG/ML AMP IV SLOW PU PRN (04:37)
[2018-11-23] MEDS ORDERED: cloNIDine 0.2 MG PATCH* 0.2 MG/24 HR 7 DAY PATCH TRANSDERM SCH (05:00)
[2018-11-23] MEDS: Heparin VIAL(*) 5000 UNITS/ML VIAL (FIVE THOUSAND) SUBCUT SCH ×3 (06:22→22:02)
[2018-11-23] MEDS ORDERED: Morphine 4 MG/ML VIAL (1 ml) 4 MG/ML VIAL IV ONE (07:35)
[2018-11-23] MEDS: Lactated Ringers 1000 ML Bag* 1,000 ML IV SCH ×2 (07:48→17:17)
[2018-11-23] MEDS: Ipratropium 0.5MG/2.5ML NEB* 0.5 MG/2.5 ML NEB.SOLN INH SCH ×2 (09:00→20:14)
[2018-11-23] MEDS: Budesonide NEB* 0.5 MG/2 ML NEB.SOLN INH SCH ×2 (09:00→20:14)
[2018-11-23] MEDS: Folic Acid TAB* 1 MG NG TUBE SCH (09:35)
[2018-11-23] MEDS: Pantoprazole IV* 40 MG IV SCH (09:35)
[2018-11-23] MEDS: Thiamine TAB* 100 MG TAB NG TUBE SCH (09:35)
[2018-11-23] MEDS: Docusate LIQ* 100 MG/10 ML UDC PO SCH ×2 (09:35→21:45)
[2018-11-23] MEDS: Pregabalin CAP(*) 300 MG PO SCH ×2 (09:35→22:04)
[2018-11-23] MEDS: OLANzapine TAB* 2.5 MG PRN ×2 (12:16→21:45)
[2018-11-23] MEDS: oxyCODONE/Acetamin 5/325 MG* TAB PO PRN ×4 (12:16→21:45)
--- NOTE | 2018-11-23 13:04 | SURGPN ---
Subjective - Introduction -: [f ADM pt sex out], current age [f ADM pt cur age] years Admitted on: [f ADM pt adm dt] Patient's surgical date: Procedure completed: - Medications -: Active Medications Generic Name Dose Route Start Last Admin Trade Name Freq PRN Reason Stop Dose Admin Budesonide 0.5 mg 11/18/18 09:00 11/23/18 09:00 Pulmicort Neb* INH 0.5 mg BID NICOLE Administration Citalopram Hydrobromide 40 mg 11/18/18 21:00 11/22/18 19:59 Celexa Tab* PO Not Given BEDTIME NICOLE Clonidine HCl 0.2 mg 11/23/18 05:00 11/23/18 11:32 Oazrtyiw-Lyx-8 0.2 Mg Patch* TRANSDERM 0.2 mg Q7D NICOLE Administration Dextrose 12.5 gm 11/22/18 04:17 D50w Syringe 50 Ml* IV PUSH .FOR FS < 60 - SS PRN FS < 60 Diphenhydramine HCl 25 mg 11/22/18 21:19 11/22/18 21:27 Benadryl Iv* IV 25 mg Q6H PRN Administration SLEEP Docusate Sodium 100 mg 11/18/18 10:03 11/23/18 09:35 Colace Liq* PO 100 mg BID NICOLE Administration Folic Acid 1 mg 11/18/18 09:00 11/23/18 09:35 Folvite Tab* NG TUBE 1 mg DAILY NICOLE Administration Haloperidol Lactate 5 mg 11/19/18 16:41 11/23/18 04:37 Haldol Inj Iv/Im* IV SLOW PU 5 mg Q6H PRN Administration AGITATION Heparin Sodium (Porcine) 5,000 units 11/17/18 22:00 11/23/18 06:22 Heparin Vial(*) SUBCUT Not Given Q8HR NICOLE Hydralazine HCl 10 mg 11/22/18 22:43 11/22/18 22:51 Apresoline Iv* IV SLOW PU 10 mg Q6H PRN Administration SYSTOLIC BP GREATER >160 Lactated Ringer's 1,000 mls @ 100 mls/hr 11/18/18 10:13 11/23/18 07:48 Lactated Ringers 1000 Ml Bag* IV 100 mls/hr PER RATE NICOLE Administration Dextrose 1,000 ml/ Amino Acids 2,600.721 mls @ 108.422 mls/hr 11/20/18 17:00 11/22/18 17:36 850 ml/ Sterile Water 150 ml/ IV 11/23/18 16:59 108.422 mls/hr Fat Emulsion Intravenous 500 1700 NICOLE Administration ml/ Sodium Chloride 100 meq/ Potassium Chloride 50 meq/ Potassium Phosphate 15 mmole/ Calcium Gluconate 15 meq/ Magnesium Sulfate 10 meq/ Multivitamins 10 ml/ Trace Metals 1 ml/ Nutrition ( Parenteral) Dexmedetomidine HCl 400 mcg/ 100 mls @ 18.92 mls/hr 11/19/18 21:30 11/23/18 11:03 Sodium Chloride IVPB Not Given Q5H NICOLE Protocol 1 MCG/KG/HR Insulin Human Lispro 0 units 11/22/18 06:00 11/23/18 10:33 Humalog* SUBCUT 1 units Q4HR NICOLE Administration Protocol Ipratropium [place] 0.5 mg 11/18/18 09:00 11/23/18 09:00 Atrovent 0.5 Mg Neb.Bell* INH 0.5 mg BID NICOLE Administration Ketorolac Tromethamine 15 mg 11/21/18 11:00 11/23/18 11:29 Toradol Inj* IV PUSH 15 mg Q6H PRN Administration PAIN Metoprolol Tartrate 5 mg 11/23/18 04:20 Lopressor Iv* IV Q6H PRN BLOOD PRESSURE Nicotine 1 patch 11/18/18 21:00 11/22/18 21:07 Nicotine Patch 21 Mg/24 Hr* TRANSDERM Not Given BEDTIME [facility] Olanzapine 2.5 mg 11/23/18 11:28 11/23/18 12:16 Zyprexa Tab* .SEE ORDER 2.5 mg TID PRN Administration AGITATION Oxycodone/Acetaminophen 1 tab 11/23/18 11:49 11/23/18 12:16 Percocet 5/325 Tab* PO 1 tab Q3H PRN Administration PAIN - MODERATE Pantoprazole Sodium 40 mg 11/18/18 09:00 11/23/18 09:35 Protonix Iv* IV 40 mg DAILY NICOLE Administration Pharmacy Profile Note 1 note 11/18/18 21:00 11/22/18 21:07 Nicotine Patch Removal Note* PATCH OFF 1 note 2100 NICOLE Administration Pregabalin 300 mg 11/18/18 11:00 11/23/18 09:35 Lyrica Cap(*) PO 300 mg BID NICOLE Administration Thiamine HCl 100 mg 11/18/18 09:00 11/23/18 09:35 Vitamin B-1 Tab* NG TUBE 100 mg DAILY NICOLE Administration - Comments Comments: c/o abdominal pain at incision, passing flatus Objective - Intake and Output -: Intake & Output 11/21/18 11/22/18 11/23/18 11/24/18 06:59 06:59 06:59 06:59 Intake Total 4015 4730.4 5829.2 Output Total 2490 4080 4500 500 Balance 1525 650.4 1329.2 -500 Weight 167 lb 8.821 oz 169 lb 5.04 oz 162 lb 0.636 oz Intake: IV Fluids 1424 1271 3181 LR 1424 1271 2281 lr 900 IVPB 743 777 LR 743 777 Medicated IV 460 1275.4 2648.2 CC - Dexmedetomidine/ 460 262.4 110.2 Precedex Mag 50 PPN 963 2538 TPN/PPN 1388 1407 Oral 0 Output: Lazaro 2490 4080 4500 500 Surgical Physical Exam - Comments -: incision cdi, non tender, abdomen soft nd, non tender Assessment and Plan - Assessment -: stable - Plan Surgical Plan of Care: Start Tube Feeding - 20 cc/hr until 4/17am
--- NOTE | 2018-11-23 15:21 | PN ---
Date of Service: 11/23/18 Vital Signs: Temp Pulse Resp BP SpO2 FiO2 96.9 F 85 13 161/103 91 50 11/23/18 12:00 11/23/18 12:30 11/23/18 14:30 11/23/18 14:30 11/23/18 12:30 11/23 09:02 Physical Exam: Gen: Awake, and alert X3, NAD, communicating by writing on white board, NAD HEENT: general edema from chin and jaw to clavicles, staple lines approximated with no exudate or erythema noted. Trach site CDI, trach collar with humidified O2 Lungs: Scattered rhonchi bilaterally with R>L, no wheeze or rales noted, good air entry Cardiac: S1 S2 noted, no murmur, toi or rubs, rate and rhythm regular Abdomen: soft, tender, dressing around PEG insertion site with some dried blood , otherwise intact Extremities: No clubbing, cyanosis or edema Neuro: Alert, no agitation noted, no focal deficits Fluid Balance (Past 24 Hours): I= O= Net Intake & Output 11/21/18 11/22/18 11/23/18 11/24/18 06:59 06:59 06:59 06:59 Intake Total 4015 4730.4 5829.2 1761.6 Output Total 2490 4080 4500 850 Balance 1525 650.4 1329.2 911.6 Weight 167 lb 8.821 oz 169 lb 5.04 oz 162 lb 0.636 oz Intake: IV Fluids 1424 1271 3181 826 LR 1424 1271 2281 826 lr 900 IVPB 743 777 LR 743 777 Medicated IV 460 1275.4 2648.2 40.6 CC - Dexmedetomidine/ 460 262.4 110.2 40.6 Precedex Mag 50 PPN 963 2538 TPN/PPN 1388 1407 895 Oral 0 Output: Humphreys 2490 4080 4500 850 Labs: Laboratory Results - last 24 hr 11/22/18 11/22/18 11/22/18 14:30 17:50 21:11 POC Glucose (mg/dL) 141 H 129 H Magnesium 1.9 11/23/18 11/23/18 11/23/18 01:38 06:16 08:12 POC Glucose (mg/dL) 138 H 140 H 134 H Magnesium 11/23/18 11/23/18 10:24 14:27 POC Glucose (mg/dL) 141 H 130 H Magnesium Impression: Mr Delvalle is a 58 yo M who was recently identified to have squamous cell carcinoma of the larynx who underwent emergent tracheostomy placement about 1 month ago and now is admitted post total laryngectomy with bilateral neck dissection and insertion of PEG tube today. 1. Squamous Cell Carcinoma - s/p total laryngectomy, bilateral neck dissection and insertion of provox prosthesis - PEG tube inserted 11/22 - Complete TPN today, do not restart new bag this evening - Jevity 1.2 started at 20ml/hr, advance q4h and check residuals. Goal feeds 70ml continuous and transition to bolus feeds for home - Continue decadron for jaw and neck edema, transition to oral prednisone taper for DC - Leukocytosis noted, likely 2/2 decadron, remains afebrile - Plan for radiation treatment as an outpatient 2. Alcohol Abuse - Off precedex, PRN haldol, will also add zyprexa PRN - Patient does not respond well to ativan, would avoid benzos 3. COPD with Hx of Tobacco Abuse - Still smoking at admission - Not in exacerbation - Continue nebs and home regimen - Patient should stop smoking indefinitely - Continue nicotine replacement 4. HTN - BP elevated after precedex turned off, clonidine patch applied, PRN hydralazine, BP stable - Restart amlodipine via PEG tomorrow 5. Acute urinary retention - Bladder training last 24 hours - DC humhpreys and check PVRs 6. Hyperglycemia - In setting of decadron and TPN, continue insulin SS with accuchecks DVT Prophy - Heparin when clear by surgery Code Status: Full Code Plan: Disposition: Transfer to short stay surgical today. Plan: Critical Care Time: 60 minutes
[2018-11-23] MEDS: Metoprolol Tartrate IV* 1 MG/ML 5 ML VIAL IV SCH (18:06)
[2018-11-23] MEDS: Nicotine Patch Removal NOTE PATCH OFF SCH (21:00)
[2018-11-23] MEDS: Nicotine PATCH 21 MG/24 HR* PATCH TRANSDERM SCH (21:00)
[2018-11-23] MEDS: hydrALAZINE IV* 20 MG/ML VIAL IV SLOW PU PRN (21:01)
[2018-11-23] MEDS: Citalopram TAB* 40 MG PO SCH (21:45)
[2018-11-24] MEDS: Metoprolol Tartrate IV* 1 MG/ML 5 ML VIAL IV SCH ×4 (00:19→17:59)
[2018-11-24] MEDS: Insulin LISPRO* 1 UNITS UNIT SUBCUT SCH ×5 (01:57→17:54)
[2018-11-24] MEDS: Lactated Ringers 1000 ML Bag* 1,000 ML IV SCH ×2 (03:11→23:29)
[2018-11-24] MEDS: Heparin VIAL(*) 5000 UNITS/ML VIAL (FIVE THOUSAND) SUBCUT SCH ×3 (05:58→22:06)
[2018-11-24] MEDS: Budesonide NEB* 0.5 MG/2 ML NEB.SOLN INH SCH ×2 (07:32→20:09)
[2018-11-24] MEDS: Ipratropium 0.5MG/2.5ML NEB* 0.5 MG/2.5 ML NEB.SOLN INH SCH ×2 (07:32→20:09)
[2018-11-24] MEDS: Pregabalin CAP(*) 300 MG PO SCH ×2 (08:40→21:08)
[2018-11-24] MEDS: Folic Acid TAB* 1 MG NG TUBE SCH (08:40)
[2018-11-24] MEDS: Pantoprazole IV* 40 MG IV SCH (08:40)
[2018-11-24] MEDS: oxyCODONE/Acetamin 5/325 MG* TAB PO PRN ×4 (08:40→21:07)
[2018-11-24] MEDS: Thiamine TAB* 100 MG TAB NG TUBE SCH (08:41)
[2018-11-24] MEDS: Docusate LIQ* 100 MG/10 ML UDC PO SCH ×2 (08:41→21:08)
[2018-11-24] MEDS ORDERED: PROCHLORPERAZINE INJ 5 MG/ML 2 ML VIAL IV PRN (09:04)
[2018-11-24] MEDS ORDERED: Ondansetron INJ* 2 MG/ML VIAL IV PRN (09:16)
--- NOTE | 2018-11-24 16:33 | SURGPN ---
Subjective - Introduction -: [f ADM pt sex out], current age [f ADM pt cur age] years Admitted on: [f ADM pt adm dt] Patient's surgical date: Procedure completed: - Medications -: Active Medications Generic Name Dose Route Start Last Admin Trade Name Freq PRN Reason Stop Dose Admin Budesonide 0.5 mg 11/18/18 09:00 11/24/18 07:32 Pulmicort Neb* INH 0.5 mg BID NICOLE Administration Citalopram Hydrobromide 40 mg 11/18/18 21:00 11/23/18 21:45 Celexa Tab* PO 40 mg BEDTIME NICOLE Administration Clonidine HCl 0.2 mg 11/23/18 05:00 11/23/18 11:32 Lxgnpnpq-Asl-8 0.2 Mg Patch* TRANSDERM 0.2 mg Q7D NICOLE Administration Dextrose 12.5 gm 11/22/18 04:17 D50w Syringe 50 Ml* IV PUSH .FOR FS < 60 - SS PRN FS < 60 Diphenhydramine HCl 25 mg 11/22/18 21:19 11/22/18 21:27 Benadryl Iv* IV 25 mg Q6H PRN Administration SLEEP Docusate Sodium 100 mg 11/18/18 10:03 11/24/18 08:41 Colace Liq* PO Not Given BID NICOLE Folic Acid 1 mg 11/18/18 09:00 11/24/18 08:40 Folvite Tab* NG TUBE 1 mg DAILY NICOLE Administration Haloperidol Lactate 5 mg 11/19/18 16:41 11/23/18 04:37 Haldol Inj Iv/Im* IV SLOW PU 5 mg Q6H PRN Administration AGITATION Heparin Sodium (Porcine) 5,000 units 11/17/18 22:00 11/24/18 13:16 Heparin Vial(*) SUBCUT 5,000 units Q8HR NICOLE Administration Hydralazine HCl 10 mg 11/22/18 22:43 11/23/18 21:01 Apresoline Iv* IV SLOW PU 10 mg Q6H PRN Administration SYSTOLIC BP GREATER >160 Lactated Ringer's 1,000 mls @ 100 mls/hr 11/18/18 10:13 11/24/18 03:11 Lactated Ringers 1000 Ml Bag* IV 100 mls/hr PER RATE NICOLE Administration Insulin Human Lispro 0 units 11/22/18 06:00 11/24/18 14:54 Humalog* SUBCUT Not Given Q4HR [facility] Protocol Ipratropium [place] 0.5 mg 11/18/18 09:00 11/24/18 07:32 Atrovent 0.5 Mg Neb.Bell* INH 0.5 mg BID NICOLE Administration Ketorolac Tromethamine 15 mg 11/21/18 11:00 11/23/18 18:05 Toradol Inj* IV PUSH 15 mg Q6H PRN Administration PAIN Metoprolol Tartrate 5 mg 11/23/18 18:00 11/24/18 13:16 Lopressor Iv* IV 5 mg Q6H NICOLE Administration Nicotine 1 patch 11/18/18 21:00 11/23/18 21:00 Nicotine Patch 21 Mg/24 Hr* TRANSDERM Not Given BEDTIME [facility] Olanzapine 2.5 mg 11/23/18 11:28 11/23/18 21:45 Zyprexa Tab* .SEE ORDER 2.5 mg TID PRN Administration AGITATION Ondansetron HCl 4 mg 11/24/18 09:16 Zofran Inj* IV Q6H PRN NAUSEA Oxycodone/Acetaminophen 1 tab 11/23/18 11:49 11/24/18 13:16 Percocet 5/325 Tab* PO 1 tab Q3H PRN Administration PAIN - MODERATE Pantoprazole Sodium 40 mg 11/18/18 09:00 11/24/18 08:40 Protonix Iv* IV 40 mg DAILY NICOLE Administration Pharmacy Profile Note 1 note 11/18/18 21:00 11/23/18 21:00 Nicotine Patch Removal Note* PATCH OFF Not Given 2100 [facility] Pregabalin 300 mg 11/18/18 11:00 11/24/18 08:40 Lyrica Cap(*) PO 300 mg BID NICOLE Administration Prochlorperazine Edisylate 5 mg 11/24/18 09:04 11/24/18 09:50 Compazine Inj* IV 5 mg Q6H PRN Administration NAUSEA/VOMITING Thiamine HCl 100 mg 11/18/18 09:00 11/24/18 08:41 Vitamin B-1 Tab* NG TUBE 100 mg DAILY NICOLE Administration - Comments Comments: no complaints Objective - Intake and Output -: Intake & Output 11/22/18 11/23/18 11/24/18 11/25/18 06:59 06:59 06:59 06:59 Intake Total 4730.4 5829.2 3176.6 2240 Output Total 4080 4500 1980 0 Balance 650.4 1329.2 1196.6 2240 Weight 169 lb 5.04 oz 162 lb 0.636 oz Intake: IV Fluids 1271 3181 1806 999 LR 1271 2281 1806 999 lr 900 IVPB 777 209 LR 777 209 Medicated IV 1275.4 2648.2 40.6 CC - Dexmedetomidine/ 262.4 110.2 40.6 Precedex Mag 50 PPN 963 2538 TPN/PPN 1407 1121 Oral 0 0 Tube Feeding 1046 Tube Feeding Flush Amount 195 Output: Urine 1130 Lazaro 4080 4500 850 Tube Feeding Residual 0 Amount Wasted Other: Estimated Void Medium # Bowel Movements 1 # Voids 2 Surgical Physical Exam - Comments -: incision cdi, gtube in place, abd soft Assessment and Plan - Plan Additional Comments: stable, continue TF's
--- NOTE | 2018-11-24 16:44 | PN ---
Subjective Date of Service: 11/24/18 Interval History: Patient seen and examined. Feeling nauseous this morning, tube feeds held for 1 hour. Denies SOB, no chest pain, no vomiting or fever. Patient otherwise feeling well. No acute overnight events. Objective Active Medications: Budesonide (Pulmicort Neb*) 0.5 mg INH BID [facility] Last Admin: 11/24/18 07:32 Dose: 0.5 mg Citalopram Hydrobromide (Celexa Tab*) 40 mg PO BEDTIME [facility] Last Admin: 11/23/18 21:45 Dose: 40 mg Clonidine HCl (Pvcdnhyg-Roe-8 0.2 Mg Patch*) 0.2 mg TRANSDERM Q7D [facility] Last Admin: 11/23/18 11:32 Dose: 0.2 mg Dextrose (D50w Syringe 50 Ml*) 12.5 gm IV PUSH .FOR FS < 60 - SS PRN PRN Reason: FS < 60 Diphenhydramine HCl (Benadryl Iv*) 25 mg IV Q6H PRN PRN Reason: SLEEP Last Admin: 11/22/18 21:27 Dose: 25 mg Docusate Sodium (Colace Liq*) 100 mg PO BID [facility] Last Admin: 11/24/18 08:41 Dose: Not Given Folic Acid (Folvite Tab*) 1 mg NG TUBE DAILY [facility] Last Admin: 11/24/18 08:40 Dose: 1 mg Haloperidol Lactate (Haldol Inj Iv/Im*) 5 mg IV SLOW PU Q6H PRN PRN Reason: AGITATION Last Admin: 11/23/18 04:37 Dose: 5 mg Heparin Sodium (Porcine) (Heparin Vial(*)) 5,000 units SUBCUT Q8HR [facility] Last Admin: 11/24/18 13:16 Dose: 5,000 units Hydralazine HCl (Apresoline Iv*) 10 mg IV SLOW PU Q6H PRN PRN Reason: SYSTOLIC BP GREATER >160 Last Admin: 11/23/18 21:01 Dose: 10 mg Lactated Ringer's (Lactated Ringers 1000 Ml Bag*) 1,000 mls @ 100 mls/hr IV PER RATE [facility] Last Admin: 11/24/18 03:11 Dose: 100 mls/hr Insulin Human Lispro (Humalog*) 0 units SUBCUT Q4HR [facility]; Protocol Last Admin: 11/24/18 14:54 Dose: Not Given Ipratropium [place] (Atrovent 0.5 Mg Neb.Bell*) 0.5 mg INH BID [facility] Last Admin: 11/24/18 07:32 Dose: 0.5 mg Ketorolac Tromethamine (Toradol Inj*) 15 mg IV PUSH Q6H PRN PRN Reason: PAIN Last Admin: 11/23/18 18:05 Dose: 15 mg Metoprolol Tartrate (Lopressor Iv*) 5 mg IV Q6H [facility] Last Admin: 11/24/18 13:16 Dose: 5 mg Nicotine (Nicotine Patch 21 Mg/24 Hr*) 1 patch TRANSDERM BEDTIME [facility] Last Admin: 11/23/18 21:00 Dose: Not Given Olanzapine (Zyprexa Tab*) 2.5 mg .SEE ORDER TID PRN PRN Reason: AGITATION Last Admin: 11/23/18 21:45 Dose: 2.5 mg Ondansetron HCl (Zofran Inj*) 4 mg IV Q6H PRN PRN Reason: NAUSEA Oxycodone/Acetaminophen (Percocet 5/325 Tab*) 1 tab PO Q3H PRN PRN Reason: PAIN - MODERATE Last Admin: 11/24/18 13:16 Dose: 1 tab Pantoprazole Sodium (Protonix Iv*) 40 mg IV DAILY [facility] Last Admin: 11/24/18 08:40 Dose: 40 mg Pharmacy Profile Note (Nicotine Patch Removal Note*) 1 note PATCH OFF 2100 [facility] Last Admin: 11/23/18 21:00 Dose: Not Given Pregabalin (Lyrica Cap(*)) 300 mg PO BID [facility] Last Admin: 11/24/18 08:40 Dose: 300 mg Prochlorperazine Edisylate (Compazine Inj*) 5 mg IV Q6H PRN PRN Reason: NAUSEA/VOMITING Last Admin: 11/24/18 09:50 Dose: 5 mg Thiamine HCl (Vitamin B-1 Tab*) 100 mg NG TUBE DAILY [facility] Last Admin: 11/24/18 08:41 Dose: 100 mg Vital Signs - 8 hr 11/24/18 11/24/18 11/24/18 08:40 10:39 10:40 Temperature Pulse Rate Respiratory 18 16 16 Rate Blood Pressure (mmHg) O2 Sat by Pulse Oximetry 11/24/18 11/24/18 11/24/18 11:37 13:16 15:42 Temperature 99.0 F Pulse Rate 61 Respiratory 18 18 16 Rate Blood Pressure 140/83 (mmHg) O2 Sat by Pulse 95 Oximetry Oxygen Devices in Use Now: Tracheostomy Collar Appearance: alert, NAD Eyes: No Scleral Icterus, PERRLA Ears/Nose/Mouth/Throat: NL Teeth, Lips, Gums, Mucous Membranes Moist Neck: - - trach with trach collar, bilateral neck staple lines CDI, significant edema Respiratory: Symmetrical Chest Expansion and Respiratory Effort, Clear to Auscultation Cardiovascular: NL Sounds; No Murmurs; No JVD, RRR, No Edema Abdominal: - - incinsion dressings CDI Extremities: No Edema, No Clubbing, Cyanosis Skin: No Rash or Ulcers Neurological: Alert and Oriented x 3, NL Gait Lines/Tubes/Other Access: Clean, Dry and Intact Tracheostomy, Clean, Dry and Intact Percuteneous Feeding Tube Nutrition: - - tube feeds Result Diagrams: 11/22/18 06:00 11/22/18 06:00 Microbiology and Other Data: Microbiology 11/17/18 20:22 Nasal Screen MRSA (PCR) - Final Nasal Mrsa Not Detected Assess/Plan/Problems-Billing This is a 58 year old male recently diagnosed with squamous cell carcinoma of the larynx who underwent urgent elective tracheostomy placement about 1 month ago and now is admitted post total laryngectomy with bilateral neck dissection and PEG tube placement. - Patient Problems (1) Status post insertion of percutaneous endoscopic gastrostomy (PEG) tube Code(s): Z93.1 - GASTROSTOMY STATUS SNOMED Code(s): 489618422 Comment: - Goal feeds 70ml/hr but was not tolerating - Stopped for one hour and backed off to 50ml/hr - Continue to check residuals - Compazine for nausea - Pain control with percocet - Nutrition following, ideally, patient will go home on bolus feeds (2) Alcohol abuse Code(s): F10.10 - ALCOHOL ABUSE, UNCOMPLICATED SNOMED Code(s): 81595175 Comment: - No withdrawal noted - Continue zyprexa for agitation (3) Hypertension Code(s): I10 - ESSENTIAL (PRIMARY) HYPERTENSION SNOMED Code(s): 04296491 Comment: - Started on clonidine patch, hydralzine PRN and lopressor - Monitor BP closely (4) Squamous cell carcinoma Code(s): C44.92 - SQUAMOUS CELL CARCINOMA OF SKIN, UNSPECIFIED SNOMED Code(s) : 643613876 Comment: - POC as per ENT - s/p total laryngectomy with provox prosthesis and bilateral neck dissection - Steroid taper per ENT for neck edema (5) Tobacco abuse Code(s): Z72.0 - TOBACCO USE SNOMED Code(s): 227516167 Comment: - Continue nicotine patch (6) Status post tracheostomy Code(s): Z93.0 - TRACHEOSTOMY STATUS SNOMED Code(s): 058500082 Comment: - Alternating trach collar and room air and tolerating - Provox device placed during this admission (7) COPD (chronic obstructive pulmonary disease) Code(s): J44.9 - CHRONIC OBSTRUCTIVE PULMONARY DISEASE, UNSPECIFIED SNOMED Code(s): 19873502 Comment: - Continue budesonide and ipratropium nebs (8) DVT prophylaxis Code(s): SPQ6667 - SNOMED Code(s): 267467492 Comment: - SQ heparin (9) Full code status Code(s): Z78.9 - OTHER SPECIFIED HEALTH STATUS SNOMED Code(s): 101672731 Comment: Status and Disposition: Inpatient, dispo TBD, will need home equipment for trach and PEG.
[2018-11-24] MEDS: Citalopram TAB* 40 MG PO SCH (21:07)
[2018-11-24] MEDS: Nicotine PATCH 21 MG/24 HR* PATCH TRANSDERM SCH (21:09)
[2018-11-24] MEDS: Nicotine Patch Removal NOTE PATCH OFF SCH (21:44)
[2018-11-25] MEDS: Metoprolol Tartrate IV* 1 MG/ML 5 ML VIAL IV SCH ×3 (00:43→13:02)
[2018-11-25] MEDS: oxyCODONE/Acetamin 5/325 MG* TAB PO PRN ×5 (03:30→20:43)
[2018-11-25] MEDS: Heparin VIAL(*) 5000 UNITS/ML VIAL (FIVE THOUSAND) SUBCUT SCH ×3 (05:25→23:15)
[2018-11-25] MEDS: Docusate LIQ* 100 MG/10 ML UDC PO SCH ×2 (08:36→23:15)
[2018-11-25] MEDS: Thiamine TAB* 100 MG TAB NG TUBE SCH (08:47)
[2018-11-25] MEDS: Folic Acid TAB* 1 MG NG TUBE SCH (08:48)
[2018-11-25] MEDS: Pregabalin CAP(*) 300 MG PO SCH ×2 (08:48→20:35)
[2018-11-25] MEDS: Pantoprazole IV* 40 MG IV SCH (08:48)
[2018-11-25] MEDS: Budesonide NEB* 0.5 MG/2 ML NEB.SOLN INH SCH ×2 (08:49→20:53)
[2018-11-25] MEDS: Ipratropium 0.5MG/2.5ML NEB* 0.5 MG/2.5 ML NEB.SOLN INH SCH ×2 (08:49→20:53)
[2018-11-25] MEDS: Lactated Ringers 1000 ML Bag* 1,000 ML IV SCH (09:58)
[2018-11-25] MEDS ORDERED: cloNIDine TAB* 0.1 MG PO PRN (14:27)
--- NOTE | 2018-11-25 18:42 | PN ---
Subjective Date of Service: 11/25/18 Interval History: Patient seen and examined. Feeling well, no acute overnight events. No nausea or vomiting, no fevers or chills. No SOB, no chest pain. Objective Active Medications: Budesonide (Pulmicort Neb*) 0.5 mg INH BID [facility] Last Admin: 11/25/18 08:49 Dose: 0.5 mg Citalopram Hydrobromide (Celexa Tab*) 40 mg PO BEDTIME [facility] Last Admin: 11/24/18 21:07 Dose: 40 mg Clonidine HCl (Catapres Tab*) 0.1 mg PO DAILY [facility] Clonidine HCl (Catapres Tab*) 0.1 mg PO BID PRN PRN Reason: hypertension Dextrose (D50w Syringe 50 Ml*) 12.5 gm IV PUSH .FOR FS < 60 - SS PRN PRN Reason: FS < 60 Diphenhydramine HCl (Benadryl Iv*) 25 mg IV Q6H PRN PRN Reason: SLEEP Last Admin: 11/22/18 21:27 Dose: 25 mg Docusate Sodium (Colace Liq*) 100 mg PO BID [facility] Last Admin: 11/25/18 08:36 Dose: Not Given Folic Acid (Folvite Tab*) 1 mg NG TUBE DAILY [facility] Last Admin: 11/25/18 08:48 Dose: 1 mg Haloperidol Lactate (Haldol Inj Iv/Im*) 5 mg IV SLOW PU Q6H PRN PRN Reason: AGITATION Last Admin: 11/23/18 04:37 Dose: 5 mg Heparin Sodium (Porcine) (Heparin Vial(*)) 5,000 units SUBCUT Q8HR [facility] Last Admin: 11/25/18 14:21 Dose: Not Given Ipratropium [place] (Atrovent 0.5 Mg Neb.Bell*) 0.5 mg INH BID [facility] Last Admin: 11/25/18 08:49 Dose: 0.5 mg Ketorolac Tromethamine (Toradol Inj*) 15 mg IV PUSH Q6H PRN PRN Reason: PAIN Last Admin: 11/23/18 18:05 Dose: 15 mg Nicotine (Nicotine Patch 21 Mg/24 Hr*) 1 patch TRANSDERM 0900 [facility] Olanzapine (Zyprexa Tab*) 2.5 mg .SEE ORDER TID PRN PRN Reason: AGITATION Last Admin: 11/23/18 21:45 Dose: 2.5 mg Ondansetron HCl (Zofran Inj*) 4 mg IV Q6H PRN PRN Reason: NAUSEA Oxycodone/Acetaminophen (Percocet 5/325 Tab*) 1 tab PO Q3H PRN PRN Reason: PAIN - MODERATE Last Admin: 11/25/18 17:43 Dose: 1 tab Pantoprazole Sodium (Protonix Iv*) 40 mg IV DAILY [facility] Last Admin: 11/25/18 08:48 Dose: 40 mg Pharmacy Profile Note (Nicotine Patch Removal Note*) 1 note PATCH OFF 2099 [facility] Last Admin: 11/24/18 21:44 Dose: Not Given Pregabalin (Lyrica Cap(*)) 300 mg PO BID [facility] Last Admin: 11/25/18 08:48 Dose: 300 mg Prochlorperazine Edisylate (Compazine Inj*) 5 mg IV Q6H PRN PRN Reason: NAUSEA/VOMITING Last Admin: 11/24/18 09:50 Dose: 5 mg Thiamine HCl (Vitamin B-1 Tab*) 100 mg NG TUBE DAILY [facility] Last Admin: 11/25/18 08:47 Dose: 100 mg Vital Signs - 8 hr 11/25/18 11/25/18 11/25/18 10:41 11:33 12:42 Temperature 99.0 F Pulse Rate 68 Respiratory 18 16 18 Rate Blood Pressure 118/75 (mmHg) O2 Sat by Pulse 98 Oximetry 11/25/18 11/25/18 11/25/18 15:28 17:43 17:48 Temperature 98.8 F Pulse Rate 83 Respiratory 14 18 18 Rate Blood Pressure 112/72 (mmHg) O2 Sat by Pulse 95 Oximetry Oxygen Devices in Use Now: Tracheostomy Collar Appearance: alert, well appearing, NAD Eyes: No Scleral Icterus, PERRLA Ears/Nose/Mouth/Throat: NL Teeth, Lips, Gums, Mucous Membranes Moist Neck: - - staple lines CDI, trach site CDI, edema with minimal improvement Respiratory: Symmetrical Chest Expansion and Respiratory Effort, Clear to Auscultation Cardiovascular: NL Sounds; No Murmurs; No JVD, RRR Abdominal: NL Sounds; No Tenderness; No Distention Extremities: No Edema, No Clubbing, Cyanosis Skin: No Rash or Ulcers Neurological: Alert and Oriented x 3 Nutrition: Taking PO's Result Diagrams: 11/22/18 06:00 11/22/18 06:00 Microbiology and Other Data: Microbiology 11/17/18 20:22 Nasal Screen MRSA (PCR) - Final Nasal Mrsa Not Detected Assess/Plan/Problems-Billing This is a 58 year old male recently diagnosed with squamous cell carcinoma of the larynx who underwent urgent elective tracheostomy placement about 1 month ago and now is admitted post total laryngectomy with bilateral neck dissection and PEG tube placement. - Patient Problems (1) Status post insertion of percutaneous endoscopic gastrostomy (PEG) tube Code(s): Z93.1 - GASTROSTOMY STATUS SNOMED Code(s): 258435154 Comment: - trialing bolus feeds per nutrition recs with free water - tolerating bolus of 60ml, advancing to boluses of 120 4xdaily for next 24 hours - Continue to check residuals - Compazine for nausea - Pain control with percocet - Nutrition following, ideally, patient will go home on bolus feeds tomorrow (2) Alcohol abuse Code(s): F10.10 - ALCOHOL ABUSE, UNCOMPLICATED SNOMED Code(s): 54464415 Comment: - No withdrawal noted - Continue zyprexa for agitation (3) Hypertension Code(s): I10 - ESSENTIAL (PRIMARY) HYPERTENSION SNOMED Code(s): 77213423 Comment: - DC clonidine patch, hydralzine and lopressor - Utilize clonidine 0.1 via PEG tube PRN and one dose in AM to prevent rebound - Monitor BP closely (4) Squamous cell carcinoma Code(s): C44.92 - SQUAMOUS CELL CARCINOMA OF SKIN, UNSPECIFIED SNOMED Code(s) : 377775683 Comment: - POC as per ENT - s/p total laryngectomy with provox prosthesis and bilateral neck dissection - Steroid taper per ENT for neck edema (5) Tobacco abuse Code(s): Z72.0 - TOBACCO USE SNOMED Code(s): 726562082 Comment: - Continue nicotine patch (6) Status post tracheostomy Code(s): Z93.0 - TRACHEOSTOMY STATUS SNOMED Code(s): 742230676 Comment: - On room air and tolerating - Provox device placed during this admission (7) COPD (chronic obstructive pulmonary disease) Code(s): J44.9 - CHRONIC OBSTRUCTIVE PULMONARY DISEASE, UNSPECIFIED SNOMED Code(s): 21231232 Comment: - Continue budesonide and ipratropium nebs (8) DVT prophylaxis Code(s): [id number] - SNOMED Code(s): 513618840 Comment: - SQ heparin (9) Full code status Code(s): Z78.9 - OTHER SPECIFIED HEALTH STATUS SNOMED Code(s): 068889385 Comment: Status and Disposition: Inpatient, discharge tomorrow with trach and PEG equipment if able to tolerate bolus feeds.
[2018-11-25] MEDS: Citalopram TAB* 40 MG PO SCH (20:36)
[2018-11-25] MEDS: Nicotine Patch Removal NOTE PATCH OFF SCH (21:39)
[2018-11-26] MEDS: oxyCODONE/Acetamin 5/325 MG* TAB PO PRN ×4 (00:44→12:19)
[2018-11-26] MEDS: Heparin VIAL(*) 5000 UNITS/ML VIAL (FIVE THOUSAND) SUBCUT SCH (05:47)
[2018-11-26] MEDS: Pantoprazole IV* 40 MG IV SCH ×2 (08:00→08:15)
[2018-11-26] MEDS: Folic Acid TAB* 1 MG NG TUBE SCH (08:00)
[2018-11-26] MEDS: Docusate LIQ* 100 MG/10 ML UDC PO SCH (08:00)
[2018-11-26] MEDS: Pregabalin CAP(*) 300 MG PO SCH (08:01)
[2018-11-26] MEDS: Thiamine TAB* 100 MG TAB NG TUBE SCH (08:01)
[2018-11-26] MEDS: Ketorolac INJ* 15 MG/ML 1 ML VIAL IV PUSH PRN (08:01)
[2018-11-26] MEDS ORDERED: cloNIDine TAB* 0.1 MG PO SCH (09:00)
[2018-11-26] MEDS ORDERED: Nicotine PATCH 21 MG/24 HR* PATCH TRANSDERM SCH (09:00)
[2018-11-26] MEDS: Ipratropium 0.5MG/2.5ML NEB* 0.5 MG/2.5 ML NEB.SOLN INH SCH (09:01)
[2018-11-26] MEDS: Budesonide NEB* 0.5 MG/2 ML NEB.SOLN INH SCH (09:01)
[2018-11-26 12:13] VITALS: BP 110/74
--- NOTE | 2018-11-27 02:34 | DS ---
CC: Dr. Hdez; Dr. Carlton; Dr. Elton Gardner, Surgery. * DISCHARGE SUMMARY: DATE OF ADMISSION: 11/17/18 DATE OF DISCHARGE: 11/26/18 PRIMARY CARE PROVIDER: Dr. Mario Carlton. ATTENDING FOR THIS ADMISSION: Dr. Lobo Hdez. MY ATTENDING FOR TODAY: Dr. Eleuterio Grant.* (DICTATED BY MARTHA BENITES NP) HOSPITAL COURSE: Please refer to admitting H and P dated 11/17/18 and also to the operative report dated 11/17/[address] Hdez. In short, Mr. Delvalle is a 58-year-old male patient with a history of squamous cell carcinoma of the larynx. He had a tracheostomy in October 2018. He presented for a planned laryngectomy with an insertion of a Provox prosthesis and also a radical neck dissection bilaterally. He was admitted to ICU for postoperative management. It should be noted that the patient does have history of anxiety and also some alcohol abuse and tobacco abuse. From previous admissions, the patient did have some issues post anesthesia and also some alcohol withdrawal. He was monitored very closely during his postoperative period in the ICU. The patient did have some agitation initially, he had had an NG tube per tube feeds; however, he was not tolerating the NG tube feeds. The patient was then planned for a laparoscopic gastrostomy tube, which was performed by Dr. Gardner for PEG tube feedings while he healed from his radical neck dissection. That surgery was performed on 11/22/18. Again, the patient was still being monitored in the ICU during that time. It should be noted that he did not have a significant amount of deviation and vital signs or hemodynamics during that time. He was on a Precedex drip to manage his symptoms of agitation while it was healing from these multiple procedures. The patient did experience some hypertension; however, it is unclear whether this was a part of his anxiety and agitation versus some withdrawal from alcohol. Initially he was on the Precedex drip. When that was discontinued, he was placed on several different antihypertensives. Ultimately, he did well on a clonidine patch. His tube feeds were started on continuous at first. He was seen by Nutrition. He was placed on Jevity 1.2. His goal feeds while he was in the hospital were 70 mL/ hour. He did have some issues with nausea when his feeds were first initiated; however, we modified the continuous feed. He received antiemetics and then was progressed to bolus feeds. For the last 24 hours, he has been on bolus feeds and tolerating well. His blood pressures have normalized. He has not needed any medication for blood pressure management. He has had no tachycardia. No fevers. His mentation has been intact. He has exhibited no agitation. He does communicate very well by writing on a white board and was able to exhibit during teach-back session for his tube feeds. He was able to exhibit his own ability to be able to manage his tube feeding on his own without any assistance. The patient was cleared for discharge on 11/26/18. The patient did require trach mask for oxygen on his tracheostomy. He was weaned off the trach mask and onto room air during the last 4 days of his hospitalization. REVIEW OF SYSTEMS: Today, the patient denies any fever, fatigue, or chills. No shortness of breath. No chest pain. He does have some transient cramping and abdominal pain around his incision site. He denies any nausea or vomiting. No urinary complaints. No bowel complaints. No arthralgias or myalgias and no further constitutional complaints. PHYSICAL EXAMINATION: His physical exam on the day of discharge reveals a well - appearing male, in no acute distress. Vital Signs: Blood pressure 110/74, heart rate 80, respiratory rate 16, O2 saturation 99% on room air with a temperature of 98.9. HEENT: PERRLA. Nonicteric sclerae. Oral mucosa is somewhat dry. He does have his tracheostomy in place. His trachea is midline. He has bilateral neck incisions. Suture lines are approximated and intact. He has a scant amount of erythema just under the ear lobe on the lateral part of the neck. [place] are intact. There was no exudate or drainage noted. He does have a significant amount of edema to the neck area from below the chin to the clavicles. It has decreased since his surgery but is still present. Chest is benign. Cardiovascular: S1, S2 present. No murmurs, gallops, or rubs noted. Rate and rhythm are regular. Lungs are clear bilaterally to auscultation with no wheezing, rhonchi, or rales. Abdomen is soft, moderately tender around his incision site. Dressings are clean, dry, and intact. PEG tube is in place. No erythema or drainage noted from around the incision site. Positive bowel sounds in all 4 quadrants. is deferred. Musculoskeletal: There is no clubbing, no cyanosis, no edema. He has +2 distal pulses palpable. Full range of motion. Gross motor and sensation are intact. He has a steady gait with no assistance. Neurologic: He is grossly intact with no focal deficits. Psychiatric: He is cooperative and appropriate. LABORATORY DATA: On 11/22/18, WBC is 14.9, RBC is 5.18, hemoglobin 15.6, hematocrit 47, platelets are 140,000. Sodium 136, potassium 3.6, chloride 101, CO2 of 27, BUN 12, creatinine 0.41, GFR 216.3, glucose 186, calcium 8.7, phosphorus 2.8, magnesium 1.9, bilirubin 0.30, AST 13, ALT 18, alk phos 94, total protein 6.4, albumin 3.3, globulin 3.1, albumin globulin ratio 1.1. DISCHARGE DIAGNOSES: 1. Laryngeal cancer status post laryngectomy, tracheostomy, and PEG tube with bilateral radical neck dissection. 2. History of alcohol abuse, now in remission. 3. History of gastroesophageal reflux disease, currently stable. 4. History of tobacco abuse and chronic obstructive pulmonary disease. 5. History of depression and anxiety, now stable. 6. History of migraines. DISCHARGE MEDICATIONS: Include: 1. Folic acid 1 mg daily. 2. Percocet 1 tab p.o. q.6 hours 4 tabs max daily. 3. Tylenol 650 mg q.6 hours as needed. 4. Pulmicort 1 neb p.o. b.i.d. 5. Celexa 40 mg p.o. at bedtime. 6. Diazepam 10 mg q.12 hours as needed. 7. Fluticasone nasal spray in the morning. 8. Breo Ellipta 1 puff inhaled in the morning. 9. Atrovent inhaler nebulized 2 times a day. 10. Melatonin 9 mg at bedtime. 11. Nicotine patch 1 patch at bedtime. 12. Omeprazole 40 mg p.o. b.i.d. 13. Potassium chloride 40 mEq in the morning. 14. Lyrica 300 mg b.i.d. 15. Vitamin B6 50 mg at bedtime. 16. Thiamine 100 mg in the morning. 17. Robitussin 10 mL p.o. q.6 hours as needed. 18. Trazodone 50 mg at bedtime. 19. Botox injections 100 units to head and neck every 3 months. DISPOSITION: The patient was discharged to home in the care of his in stable condition. All questions were answered. The patient stated understanding of his discharge instructions, medications, and followups. The patient was instructed to follow up with Dr. Mario Carlton, his primary care provider in the next 1 to 2 weeks, Delvin Ying, of the surgical service on 12/02/18 at 2 p.m., Dr. Hdez of ENT in the next 4 to 7 days. The patient should call for the appointment. Should also follow up with [facility] for home care tracheostomy services and also PEG tube feedings. Again, the patient was discharged in stable condition. TIME SPENT: Approximately 45 minutes on discharge planning and developing plan of care in conjunction with the patient and case management. MARTHA BENITES NP [id number]/[facility] #: [id number] NICOLAS
== END 2018-11-26 13:30 | disposition home or self-care (01) | DRG 90 ==
LOC: OR 11:13 → ICU 20:10 → SSU 11-23 17:06
PROVIDERS: ADMIT Otolaryngology; ATTEND Otolaryngology
PROC: 07T10ZZ Resection of Right Neck Lymphatic, Open Approach (ICD-10-PCS; 2018-11-17)
PROC: 0B110F4 Bypass Trachea to Cutaneous with Tracheostomy Device, Open Approach (ICD-10-PCS; 2018-11-17)
PROC: 0CB Mouth and Throat, Excision (ICD-10-PCS; principal; 2018-11-17 13:30)
PROC: 07T20ZZ Resection of Left Neck Lymphatic, Open Approach (ICD-10-PCS; 2018-11-17 13:30)
PROC: 0DH63UZ Insertion of Feeding Device into Stomach, Percutaneous Approach (ICD-10-PCS; 2018-11-22)
DX: C32.9 Malignant neoplasm of larynx, unspecified (principal); C77.9 Secondary and unspecified malignant neoplasm of lymph node, unspecified; G43.909 Migraine, unspecified, not intractable, without status migrainosus; F17.210 Nicotine dependence, cigarettes, uncomplicated; K21.9 Gastro-esophageal reflux disease without esophagitis; J44.9 Chronic obstructive pulmonary disease, unspecified; I10 Essential (primary) hypertension; R33.9 Retention of urine, unspecified; Z90.49 Acquired absence of other specified parts of digestive tract; Z82.49 Family history of ischemic heart disease and other diseases of the circulatory system; R73.9 Hyperglycemia, unspecified
CPT/HCPCS: 36415; 80048; 80053; 83735; 84100; 85025; 86850; 86900; 86901; 87641; 88307; 88311; 94640; A9270-GY; C1776; J0360; J0610; J0694; J0780; J1100; J1170; J1200; J1630; J1644; J1885; J2060; J2250; J2270; J2405; J2704; J3010; J3411; J3475; J3480; J3490; L8509

== ENCOUNTER 2018-11-28 12:03 | Emergency (ER) | payer BC ==
--- NOTE | 2018-11-28 12:31 | ED ---
Complex/Multi-Sys Presentation - HPI Summary HPI Summary: This patient is a 58 year old M presenting to [facility] upon referral from Dr. Deluna with a chief complaint of bleeding around his tracheostomy tub since 6 days ago. Symptoms aggravated by nothing. Symptoms alleviated by nothing. Patient reports swelling on right side of his neck but notes this is not new. Patient notes that he recently had surgery to place an artificial larynx and have his lymph nodes removed. The patient notes he is currently being treated for CA. - History Of Current Complaint Chief Complaint: EDNeckComplaint Hx Obtained From: Patient, Family/Engagement Quality Consultant Onset/Duration: Gradual Onset, Lasting Days, Still Present, Worse Since Timing: Days Aggravating Factor(s): nothing Alleviating Factor(s): nothing Associated Signs And Symptoms: Positive: Other - swelling in right neck, bleeding from tracheostomy tube - Allergies/Home Medications Allergies/Adverse Reactions: Allergies Allergy/AdvReac Type Severity Reaction Status Date / Time morphine AdvReac Agitation Verified 11/19/18 14:10 PMH/Surg Hx/FS Hx/Imm Hx Cardiovascular History: Reports: Hx Hypertension Denies: Other Cardiovascular Problems/Disorders Respiratory History: Reports: Hx Chronic Obstructive Pulmonary Disease (COPD), Other Respiratory Problems/Disorders - Laryngeal sicca, ulceration and leukoplakia. Chronic laryngeal dysplasia Denies: Hx Asthma GI History: Reports: Hx Gastroesophageal Reflux Disease - Omeprazole, Hx Hiatal Hernia History: Reports: Other Problems/Disorders - HX Undescended right testicle -repaired Sensory History: Denies: Hx Contacts or Glasses, Hx Hearing Aid Opthamlomology History: Denies: Hx Contacts or Glasses Neurological History: Reports: Hx Headaches, Hx Migraine - Gets botox Q90 days Denies: Other Neuro Impairments/Disorders Psychiatric History: Reports: Hx Anxiety, Hx Depression - Cancer History Cancer Type, Location and Year: Squamous cell carcinoma (Laryngeal) - 2019 Hx Chemotherapy: No - Surgical History Surgery Procedure, Year, and Place: Inguinal hernia repair 2009-testicle undescended-repaired. Cholecystectomy. Laryngoscopy. Total laryngectomy and bilateral radical neck c placement of implant (11/17/2018) Hx Anesthesia Reactions: No Infectious Disease History: Yes Infectious Disease History: Reports: Hx Hepatitis - Hepatitis C-Treated Denies: Traveled Outside the [place] in Last 30 Days - Family History Known Family History: Negative: Blood Disorder - Social History Alcohol Use: Occasionally Alcohol Amount: socially once in awhile Substance Use Type: Reports: None Smoking Status (MU): Light Every Day Tobacco Smoker Type: Cigarettes Amount Used/How Often: 2 cigs per day-1 PPD for 40 years Have You Smoked in the Last Year: Yes Review of Systems Negative: Fever Negative: Cough Negative: Vomiting Musculoskeletal: Other - swelling on right side of neck Skin: Other - bleeding around tracheostomy tube All Other Systems Reviewed And Are Negative: Yes Physical Exam - Summary Physical Exam Summary: Appearance: The patient is well-nourished in no acute distress and in no acute pain. Skin: The skin is warm and dry and skin color reflects adequate perfusion. HEENT: The head is normocephalic and atraumatic. The pupils are equal and reactive. The conjunctivae are clear and without drainage. Nares are patent and without drainage. Mouth reveals moist mucous membranes and the throat is without erythema and exudate. The external ears are intact. The ear canals are patent and without drainage. The tympanic membranes are intact. Neck: Wound on side of neck looks clean, bakari intact, diffuse submandibular and anterior cervical swelling. Tracheostomy tube sides are clean but there is some bleeding around it. There are no carotid bruits. There is no neck vein distension. Respiratory: Chest is non-tender. Lungs are clear to auscultation and breath sounds are symmetrical and equal. Cardiovascular: Heart is regular rate and rhythm. There is no murmur or rub auscultated. There is no peripheral edema and pulses are symmetrical and equal. Abdomen: The abdomen is soft and non-tender. There are normal bowel sounds heard in all four quadrants and there is no organomegaly palpated. Musculoskeletal: There is no back tenderness noted. Extremities are non-tender with full range of motion. There is good capillary refill. There is no peripheral edema or calf tenderness elicited. Neurological: Patient is alert and oriented to person, place and time. The patient has symmetrical motor strength in all four extremities. Cranial nerves are grossly intact. Deep tendon reflexes are symmetrical and equal in all four extremities. Psychiatric: The patient has an appropriate affect and does not exhibit any anxiety or depression. Triage Information Reviewed: Yes Vital Signs On Initial Exam: Initial Vitals Temp Pulse Resp BP Pulse Ox 98.1 F 67 20 168/87 96 11/28/18 12:17 11/28/18 12:17 11/28/18 12:17 11/28/18 12:17 11/28/18 12:17 Vital Signs Reviewed: Yes Diagnostics - Vital Signs Vital Signs Temp Pulse Resp BP Pulse Ox 11/28/18 12:17 98.1 F 67 20 168/87 96 - Laboratory Lab Statement: Any lab studies that have been ordered have been reviewed, and results considered in the medical decision making process. Complex Multi-Symp Course/Dx Course Of Treatment: Dr. Deluna responded quickly to the emergency department and evaluated Mr. Delvalle. He cleaned him up a bit and felt that it was safe for him to go home with recommendations. - Diagnoses Provider Diagnoses: Tracheostomy complication Discharge - Sign-Out/Discharge Documenting (check all that apply): Patient Departure - discharge home Patient Received Moderate/Deep Sedation with Procedure: No - Discharge Plan Condition: Stable Disposition: HOME Prescriptions: Acetic Acid 0.25%* 250 ml .SEE ORDER QID #1 btl oxyCODONE/Acetamin 5/325 MG* [Percocet 5/325 TAB*] 1 tab PO Q6H PRN #20 tab MDD 4 PRN Reason: Pain Patient Education Materials: Tracheostomy Care (ED) Referrals: Mario Carlton MD [Primary Care Provider] - Jeff Deluna MD [Medical Doctor] - 1 Day Additional Instructions: Clean neck with 0.25% acetic acid four times a day. Follow up with Dr. Deluna. Return to the emergency with any new or worsening symptoms. - Billing Disposition and Condition Condition: STABLE Disposition: Home - Attestation Statements Document Initiated by Scribe: Yes Documenting Scribe: Linda Guillaume Provider For Whom Cali is Documenting (Include Credential): Damian Vinson MD Scribe Attestation: Linda Ross, scribed for Damian Vinson MD on 11/28/18 at 1644. Scribe Documentation Reviewed: Yes Provider Attestation: The documentation as recorded by the trishibLinda olmos accurately reflects the service I personally performed and the decisions made by me, Damian Vinson MD Status of Scribe Document: Viewed
--- OUTSIDE RECORDS SUMMARY | 2018-11-28 13:04 | XMS REPORT | Continuity of Care Document ---
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 Tobacco Use Start: Unknown Current Cigarette Smoker 1/2 Pack Daily x 25 yrs Tobacco Use Start: Unknown Never Smoked Cigars Tobacco Use Start: Unknown Never Smoked A Pipe Smokeless Tobacco Never Used Smokeless Tobacco ETOH Use Denies alcohol use Allergies, Adverse Reactions, Alerts Description No Known Drug Allergies Medications Medication Date Status Form Strength Qnty SIG Indications Ordering Provider Nystatin 10/14/ Active Suspension [id number] 180ml 10 mill By J37.0 Katharina Hdez t/ML mouth Lobo PRIETO every 4 hours Clotrimazole 10/14/ Active Lozenges 10mg 70uni 1 lozenge Ruparelia, 2019 ts 5 times a Lobo PRIETO day Melatonin / Active Capsules 3mg 1 tab by Brandt 0000 mouth , every at Mario bedtime Diazepam / Active Tablets 5mg Shortle 0000 RIB CHOPPER, Funmi Hobson-Con / Active Packet 20Meq Unknown 0000 Nicotine / Active Patches 21mg/24HR Unknown 0000 24HR B6 Natural / Active Tablets 100mg daily Unknown 0000 B1 Natural / Active Tablets 250mg 1 tab Unknown 0000 daily Ciprofloxacin 10/14/ Hx Tablets 500mg 20tab take one J37.0 Ruparelia, HCL 2019 - s tablet by Lobo PRIETO mouth 2018 twice a day for 10 days Voriconazole 10/14/ Hx Tablets 200mg 10tab 1 tablet J37.0 Ruparelia, 2019 - s by mouth Lobo PRIETO 11/07/ daily 10 2019 days Fluticasone 05/13/ Hx Suspension 50mcg/Act 16uni Use 2 Ruparelia, Propionate 2018 - ts Sprays In Lobo PRIETO 11/07/ Each 2019 Nostril Every Day Doxycycline / Hx 100 mg x2 Brandt 0000 - day , Mario Winters 2019 Lyrica / Hx Capsules 300mg 2x day Brandt Garcia MD, Mario Winters 2019 Verapamil HCL / Hx Tablets 120mg as Brandt 0000 - directed , Mario Winters 2019 Omeprazole / Hx Capsules DR 40mg 120ca Take 1 Ruparelia, 0000 - ps Capsule By Lobo PRIETO Mouth 2019 Before Breakfast And Before Dinner Trazodone / Hx Brandt 0000 Radha PRIETO, Mario Winters 2019 Citalopram / Hx Tablets 20mg 1 by mouth Brandt Hydrobromide 0000 - every day , Mario Winters 2019 Breo Ellipta / Hx Aerosol 200-25mcg Inl 1 puff Unknown 0000 - /Inh PO qd 2018 Budesonide / Hx Suspension 0.5mg/2ML Inhale 1 Unknown 0000 - Vial Via Neb bid 2019 Ipratropium / Hx Solution 0.02% Nikki, [place] 0000 - Magalie 2018 Amoxicillin/Cla / Hx Suspension 600-42.9m Unknown vulanate 0000 - Rec g/5ML Potassium 2018 Immunizations Description No Information Available Vital Signs Date Vital Result Comment 11/08/2018 8:48am Weight 156.00 lb Weight 70.762 kg Height 72 inches 6'0" Height in cm's 182.9 cm BMI (Body Mass Index) 21.2 kg/m2 10/14/2018 11:22am Weight 166.00 lb Weight 75.298 kg Height 72 inches 6'0" Height in cm's 182.9 cm BMI (Body Mass Index) 22.5 kg/m2 09/19/2016 11:08am Weight 185.00 lb Weight 83.916 kg Height 72 inches 6'0" Height in cm's 182.9 cm BMI (Body Mass Index) 25.1 kg/m2 Results Description No Information Available Procedures Date Code Description Status 10/22/2018 90821 Tracheostomy Completed 10/22/2018 77059 Laryngoscopy, Direct, Operative, With Biopsy Completed 10/14/2018 89927 Fiberoptic Laryngoscopy Completed 09/19/2016 95342 Fiberoptic Laryngoscopy Completed 09/19/2016 48084 Destruction First Lesion Completed Encounters Type Date Location Provider Dx Diagnosis Office Visit 11/08/2018 [facility] Lobo Hdez C32.9 Malignant neoplasm 8:30a 08/10/07 MD of larynx, unspecified J38.6 Stenosis of larynx Office Visit 10/14/2018 [facility] Lobo Hdez J37.0 Chronic 11:15a 08/10/07 laryngitis J38.3 Other diseases of vocal cords D38.0 Neoplasm of uncertain behavior of larynx Plan of Treatment Future Appointment(s):11/22/2018 10:00 am - Lobo Hdez MD at [facility] 11:00 am - Jeff Deluna M.D. at [facility] R011/17/2018 11: 00 am - Lobo Hdez MD at [facility] 08/10/803 - Lobo Hdez MDC32.9 Malignant neoplasm of larynx, unspecifiedComments:Patient is scheduled tentatively for a laryngectomy based on the PET scan additional therapy including neck dissection will be discussed if necessary. He is to see Dr. Johnson. Get an opinion after surgery after the pathology to see if there is extra laryngeal spread. Patient is scheduled for total laryngectomy with Provox prosthesis risks and complications of the procedure including significant dysphagia, recurrence of carcinoma, pharyngocutaneous fistula which would be leaking and prolonged needfor feeding tube. He is agreeable to proceed with laryngectomy with insertion of Provox primary prosthesis.J38.6 Stenosis of larynx
[2018-11-28 13:12] VITALS: BP 165/98
--- NOTE | 2018-11-28 16:56 | CONS ---
EMERGENCY ROOM NOTE: DATE OF CONSULT: 11/28/18 - EMERGENCY DEPT HISTORY OF PRESENT ILLNESS: I heard from the patient's sister and then home health yesterday and today that they were worried about the way the stoma neck was looking. There has been some drainage and I had them come to the emergency room so I could evaluate them here. He is now about 2 weeks postop from his total laryngectomy and was doing well. Things have started to open up a little bit. The swelling on the left side of the neck has gone down, the swelling on the right side of the neck has not. PHYSICAL EXAM: The upper flap has from the stoma and he is opening up in midline. The TEP has descended inferiorly as the trachea is being pulled inferiorly as well. It is filled with some little bit of serosanguineous and bloody discharge. There is no purulence, although it does smell like pseudomonas. I am not seeing any saliva draining. IMPRESSION AND PLAN: I cleaned his laryngectomy tube and we put a new collar on. We are getting some separation of the upper flap that will have to be healed in a delayed secondary fashion. Yesterday, I had sent in prescription for saline and Dakin solution for them to use. I am going to add 0.25% acetic acid. They should wash around the stoma and the neck 4 times a day. They can follow up next week on any day needed, but they already have a scheduled appointment on . I am not seeing saliva draining, but we did discuss that if they did open up there, that would be a big problem. He has been doing a lot of mouthing and moving his tongue around and I asked him to stop doing that so as not to rip the incision. [id number]/[facility] #: [id number] NICOLAS
== END 2018-11-28 13:11 | disposition home or self-care (01) ==
LOC: ED 12:03
DX: J95.01 Hemorrhage from tracheostomy stoma (principal); I10 Essential (primary) hypertension; J44.9 Chronic obstructive pulmonary disease, unspecified; K21.9 Gastro-esophageal reflux disease without esophagitis; K44.9 Diaphragmatic hernia without obstruction or gangrene; G43.909 Migraine, unspecified, not intractable, without status migrainosus; F41.9 Anxiety disorder, unspecified; F32.9 Major depressive disorder, single episode, unspecified; F17.210 Nicotine dependence, cigarettes, uncomplicated; Z88.5 Allergy status to narcotic agent; Z79.899 Other long term (current) drug therapy; Z85.21 Personal history of malignant neoplasm of larynx; Z86.19 Personal history of other infectious and parasitic diseases
CPT/HCPCS: 99282

== ENCOUNTER 2018-12-22 11:35 | Day surgery (SDC) | payer BC ==
[~2018-12-22 11:35] MED LIST changes: +DiMENhydriNATE IV* 50 MG/ML VIAL IV PUSH PRN; +HYDROmorphone INJ1* 1 MG/ML SYRINGE IV PRN; +Lactated Ringers 1000 ML Bag* 1,000 ML IV SCH; +Levalbuterol 0.63MG/3ML NEB* UNIT OF USE INH ONE; +Naloxone* 0.4 MG/ML 1 ML VIAL IV PRN; +Ondansetron TAB* 4 MG ONE; +PROCHLORPERAZINE INJ 5 MG/ML 2 ML VIAL IV PRN; +fentaNYL* 50 MCG/ML 2 ML VIAL (100 MCG VIAL) IV PRN
[2018-12-22] MEDS ORDERED: Ondansetron ODT TAB* 4 MG ONE (12:49)
[2018-12-22] MEDS ORDERED: Levalbuterol 0.63MG/3ML NEB* UNIT OF USE INH ONE (12:50)
[2018-12-22] MEDS ORDERED: Dexamethasone TAB* 4 MG ONE (12:50)
[2018-12-22] MEDS ORDERED: Buffered Lidocaine 1% SYRIN* 1 ML/SYRINGE INTRADERM ONE (12:50)
[2018-12-22] MEDS ORDERED: Famotidine IV* 10 MG/ML 2 ML (20 mg) ONE (12:50)
[2018-12-22] MEDS ORDERED: fentaNYL* 50 MCG/ML 2 ML VIAL (100 MCG VIAL) ONE (13:50)
[2018-12-22] MEDS ORDERED: Midazolam* 1 MG/ML 5 ML VIAL (5 MG) ONE (13:50)
[2018-12-22] MEDS ORDERED: KETAMINE HCL* 50 MG/ML 10 ML VIAL ONE (13:50)
[2018-12-22] MEDS ORDERED: Lidocaine 2% EPI 1:200000 MPF*10-20 ML VIAL ONE (14:09)
[2018-12-22] MEDS ORDERED: Bacitracin OINTMENT* 0.5% 0.5 oz TUBE ONE (14:20)
[2018-12-22] MEDS ORDERED: Propofol* 10 MG/ML 20 ML BTL ONE (14:41)
[2018-12-22] MEDS ORDERED: Lidocaine 2% PF * 5 ML VIAL ONE (14:41)
[2018-12-22 16:54] VITALS: BP 120/88
--- NOTE | 2018-12-22 20:58 | OP ---
DATE OF OPERATION: 12/22/18 - [facility] DATE OF : 64 SURGEON: Lobo Hdez MD PRE-OP DIAGNOSIS: Tracheal stenosis status post laryngectomy. POST-OP DIAGNOSIS: Tracheal stenosis status post laryngectomy. OPERATIVE PROCEDURE: Revision of tracheal stoma. BRIEF HISTORY: This 58-year-old gentleman had previous laryngectomy, unfortunately had a complication of wound infection around the tracheal stoma and developed some tracheal stenosis. DESCRIPTION OF PROCEDURE: The patient was taken to operating room, general anesthetic was given, and the patient was intubated through the tracheal stoma. Scar revision was carried out around the tracheal stoma by revising some of the excessive scar bands and rotating and advancing some of the skin around the flap allowing it to be widened. This was closed in a single layer using 4-0 Vicryl. Once adequate dilatation was carried out, the patient was extubated, breathing spontaneous, and taken to the recovery room and was in stable condition. [id number]/[facility] #: [id number] MTDD
== END 2018-12-22 16:57 | disposition home or self-care (01) ==
LOC: OR 11:35
PROVIDERS: ATTEND Otolaryngology
DX: J95.03 Malfunction of tracheostomy stoma (principal); C32.9 Malignant neoplasm of larynx, unspecified; I10 Essential (primary) hypertension; J44.9 Chronic obstructive pulmonary disease, unspecified; J45.909 Unspecified asthma, uncomplicated; Z87.891 Personal history of nicotine dependence; B19.20 Unspecified viral hepatitis C without hepatic coma
CPT/HCPCS: A9270-GY; J2250; J2704; J3010; J8540

== ENCOUNTER 2019-01-28 11:23 | Day surgery (SDC) | payer BC ==
[2019-01-28] MEDS ORDERED: Benzocaine/Butamben/Tetracain (CETACAINE - SINGLE USE) 5 gm TOPICAL ONE (12:41)
[2019-01-28] MEDS ORDERED: Levalbuterol 0.63MG/3ML NEB* UNIT OF USE INH ONE (14:29)
[2019-01-28] MEDS ORDERED: fentaNYL* 50 MCG/ML 2 ML VIAL (100 MCG VIAL) ONE (14:33)
[2019-01-28] MEDS ORDERED: Lidocaine 2% PF * 5 ML VIAL ONE (14:34)
[2019-01-28] MEDS ORDERED: Midazolam* 1 MG/ML 2 ML VIAL (2 MG) ONE (14:34)
[2019-01-28] MEDS ORDERED: Propofol* 10 MG/ML 20 ML BTL ONE ×2 (14:34→15:15)
[2019-01-28 15:50] VITALS: BP 131/93
--- NOTE | 2019-01-28 19:17 | OP ---
DATE OF OPERATION: 01/28/19 - [facility] DATE OF : 64 SURGEON: Lobo Hdze MD ANESTHESIA: PRE-OP DIAGNOSIS: Replacement TEP. POST-OP DIAGNOSIS: OPERATIVE PROCEDURE: Exchange of voice prosthesis. BRIEF HISTORY: This is a 58-year-old gentleman, previous TEP was leaking, unfortunately tried to replace this in the office, and at this point decided to take him to the operating room because of discomfort with his trachea being under radiation therapy. PROCEDURE: The patient was taken to the operating room. General anesthetic was intubated through the previous tracheostomy. A #16-Filipino common Sandra- Pineda 12 mm prosthesis was placed and secured in place. The patient was then sent to recovery room after being awakened. He was able to use his prosthesis and no aspiration. The patient was discharged home. [id number]/[facility] #: [id number] MTDD
== END 2019-01-28 16:12 | disposition home or self-care (01) ==
LOC: OR 11:23
PROVIDERS: ATTEND Otolaryngology
DX: T85.898A Other specified complication of other internal prosthetic devices, implants and grafts, initial encounter (principal); R49.1 Aphonia; C32.9 Malignant neoplasm of larynx, unspecified; I10 Essential (primary) hypertension; J44.9 Chronic obstructive pulmonary disease, unspecified; K21.9 Gastro-esophageal reflux disease without esophagitis; Z87.891 Personal history of nicotine dependence; Z93.0 Tracheostomy status
CPT/HCPCS: J2250; J2704; J3010; L8509

== ENCOUNTER → 2019-06-15 08:29 | Day surgery (SDC) | payer BC ==
[~2019-06-15 08:29] MED LIST changes: +Benzocaine/Butamben/Tetracain (CETACAINE - SINGLE USE) 5 gm TOPICAL ONE; -Buffered Lidocaine 1% SYRIN* 1 ML/SYRINGE INTRADERM ONE; -Dexamethasone IV* 4 MG/ML 1 ML (4 MG) IV SLOW PU ONE; -DiMENhydriNATE IV* 50 MG/ML VIAL IV PUSH PRN; -Famotidine IV* 10 MG/ML 2 ML (20 mg) IV ONE; -HYDROmorphone INJ1* 1 MG/ML SYRINGE IV PRN; -Lactated Ringers 1000 ML Bag* 1,000 ML IV SCH; -Levalbuterol 0.63MG/3ML NEB* UNIT OF USE INH ONE; -Naloxone* 0.4 MG/ML 1 ML VIAL IV PRN; -Ondansetron TAB* 4 MG ONE; -PROCHLORPERAZINE INJ 5 MG/ML 2 ML VIAL IV PRN; +Surgical Lubricant STERILE* 120 GM TOP.GEL ONE; -fentaNYL* 50 MCG/ML 2 ML VIAL (100 MCG VIAL) IV PRN
--- NOTE | 2019-07-13 08:53 | OP ---
AMENDED REPORT TO CORRECT DATE OF OPERATION - ESIGNED BEFORE ADJUSTMENT DATE OF OPERATION: 06/15/19 - [facility] DATE OF : 64 SURGEON: Lobo Hdez MD. PRE-OP DIAGNOSIS: Aphonia, status post laryngectomy, attempted removal of transesophageal puncture. PRE-OP DIAGNOSIS: Aphonia, status post laryngectomy, attempted removal of transesophageal puncture. OPERATIVE PROCEDURE: Removal of TEP and NG placement. INDICATIONS: This is a 59-year-old old with a previous history of TEP, which is leaking. Unfortunately, the TEP was in a difficult location and it was leaking significantly. He was having difficulty keeping it clean. DESCRIPTION OF PROCEDURE: At the bedside, TEP was removed, NG placed through the nasal cavity, confirmed with auscultation of his chest. The patient was discharged home to be fed through the NG for 2 weeks until the stoma is closed. [id number]/[facility] #: [id number] MTDD
== END | disposition home or self-care (01) ==
LOC: OR 08:29
PROVIDERS: ATTEND Otolaryngology
DX: J95.03 Malfunction of tracheostomy stoma (principal); C32.9 Malignant neoplasm of larynx, unspecified; R49.1 Aphonia; H65.23 Chronic serous otitis media, bilateral; J44.9 Chronic obstructive pulmonary disease, unspecified; F17.210 Nicotine dependence, cigarettes, uncomplicated; Z79.899 Other long term (current) drug therapy
CPT/HCPCS: A9270-GY